=== PATIENT | male | born 1935 | race Caucasian/White ===

== ENCOUNTER 2016-12-12 09:49 | Emergency (ER) | payer MEDICARE, MEDICAID ==
[~2016-12-12] VITALS: Wt 80.0 kg
[2016-12-12] MEDS ORDERED: ACET-141 GTB (10:04)
[2016-12-12] MEDS ORDERED: [UNRECOGNIZED DRUG - OTHER] IV (10:06)
[2016-12-12] MEDS ORDERED: DEXT1DRO7 BOTH EYES (10:08)
[2016-12-12] MEDS ORDERED: ASC500 GTB (10:08)
[2016-12-12] MEDS ORDERED: LORA1TAB GTB (10:09)
[2016-12-12] MEDS ORDERED: BEN50 GTB (10:13)
[2016-12-12] MEDS ORDERED: DILT30TA30 GTB (10:13)
[2016-12-12] MEDS ORDERED: IPRA3AMP INHALATION (10:15)
[2016-12-12] MEDS ORDERED: FAMO40TA52 GTB (10:16)
[2016-12-12] MEDS ORDERED: FOLI-49 GTB (10:17)
[2016-12-12] MEDS ORDERED: LACTINEX GTB (10:17)
[2016-12-12] MEDS ORDERED: LACT10SO5 GTB (10:19)
[2016-12-12] MEDS ORDERED: METO-448 GTB (10:20)
[2016-12-12] MEDS ORDERED: MULT-105 GTB (10:21)
[2016-12-12] MEDS ORDERED: HYDR-906 GTB (10:23)
[2016-12-12] MEDS ORDERED: LANS30CA GTB (10:24)
[2016-12-12] MEDS ORDERED: RIFA550T4 GTB (10:24)
--- NOTE | 2016-12-12 10:25 | ERA ---
ER Documentation Chief Complaint Date/Time DATE: 12/12/16 TIME: 10:20 Chief Complaint SENT HERE G TUBE REPLACMENT NO OTHER SIGNS OF DISTRESS. 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 The patient reportedly accidentally rotated this morning and pulled out his rectal tube and had pulled on his G-tube. While it appeared to flush well at the facility and it did not appear pulled out any more than typical for him, they transferred him to the hospital for evaluation of the PEG tube. ROS All systems reviewed and are negative except as per history of present illness. Medications Home Meds Reported Medications Insulin Aspart* (Novolog Insulin Pen*) 100 Unit/Ml Soln, 0 SC .SLIDING SCALE AC , EA IF BS 60-149=0 UNIT, 150-199=2 UNITS,200-249=4 UNITS,250-299=6 UNITS,300-349=8 UNITS,350-399=10 UNITS IF BS>399,CALL MD. 12/12/16 Arghjtubnelh-Nqmc-Bacqdqmi,Iso (ZOSYN 2.25 GM GALAXY BAG) 2.25 Gm/50 Ml Froz.piggy, 2.25 GM IV Q6H for PNA USE UNTIL 01/05/17 12/12/16 Tuberculin,Purif.prot.deriv. (Tubersol) 5 Tub Unit/0.1 Ml Vial, 0.1 ML ID QHS, VIAL FOR TB SCREENING FOR 1 DAY 2ND STEP PPD. START DATE 12/18/16 12/12/16 Sucralfate* (Carafate*) 1 Gm/10 Ml Susp, 1 GM GTB QID, EA 12/12/16 Rifaximin* (Xifaxan*) 550 Mg Tablet, 550 MG GTB BID, TAB 12/12/16 Lansoprazole* (Lansoprazole*) 30 Mg Capsule., 30 MG GTB DAILY, CAP 12/12/16 Hydrocodone/Acetaminophen ([place] 5-325 Tablet) 1 Each Tablet, 1 EACH GTB Q6H Y for PAIN LEVEL 4-10/10, TAB 12/12/16 Multivitamin with Minerals (Multivitamins with Minerals) 1 Each Tablet, 1 EACH GTB DAILY, TAB 12/12/16 Metoprolol Tartrate* (Lopressor*) 25 Mg Tab, 12.5 MG GTB Q8H, #60 TAB HOLD FOR SBP<110 OR HR<60 12/12/16 Lactulose* (Lactulose*) 10 Gm/15 Ml Solution, 45 ML GTB DAILY, ML 12/12/16 Lactobacillus Acidophilus* (Lactinex*) 1 Tab Chew, 1 TAB GTB TID, TAB 12/12/16 Folic Acid* (Folic Acid*) 1 Mg Tablet, 1 MG GTB DAILY, TAB 12/12/16 Famotidine* (Famotidine*) 40 Mg Tablet, 40 MG GTB HS, #30 TAB 12/12/16 Ipratropium-Albuterol (Ipratropium-Albuterol) 0.5-3 Mg/3 Ml Ampul.neb, 3 ML INHALATION Q6 for SHORTNESS OF BREATH, #30 VIAL AND TAKE Q2H NEEDED 12/12/16 Diphenhydramine Hcl* (Benadryl*) 50 Mg Cap, 50 MG GTB Q6 Y for ITCHING, CAP 12/12/16 Diltiazem Hcl* (Cardizem*) 30 Mg Tablet, 30 MG GTB Q6H, #60 TAB HOLD IF SBP<110 OR HR<60 12/12/16 Lorazepam* (Lorazepam*) 1 Mg Tablet, 1 MG GTB Q6 Y for ANXIETY, #60 TAB 12/12/16 Ascorbic Acid (Vitamin C) 500 Mg Tab, 500 MG GTB DAILY, TAB 12/12/16 Dextran 70/Hypromellose/Pf (ARTIFICIAL TEARS DROPS) 1 Each Droperette, 1 EACH BOTH EYES BID 12/12/16 Amikacin Sulfate* (Amikacin* Pediatric IV Syringe) 5 Mg/Ml Soln, 600 MG IV Q72H for PNA, EA USE UNTIL 01/05/17 12/12/16 Acetaminophen* (Acetaminophen*) 500 MG Extra Strength Tablet, 500 MG GTB Q4H Y for PAIN LEVEL 1-3/10, TAB 12/12/16 Allergies Allergies: Coded Allergies: No Known Allergy (Unverified , 12/12/16) PMhx/Soc Hx Neurological Disorder: Yes (Chronic ALOC ) Hx Respiratory Disorders: Yes (Vent dependant ) Smoking Status: Unknown if ever smoked Physical Exam Vitals Vital Signs Date Time Temp Pulse Resp B/P Pulse Ox O2 Delivery O2 Flow Rate FiO2 12/12/16 11:59 98.0 84 20 134/75 98 Room Air 12/12/16 09:58 99.3 93 20 150/86 99 Physical Exam Const: No apparent distress Head: Atraumatic Eyes: Normal Conjunctiva. Extraocular movements intact to right eye. Enucleation of the left eye ENT: Normal External Ears, Nose and Mouth. Neck: Full range of motion. ~ No meningismus. Tracheostomy in place without bleeding or erythema or induration or purulence or edema. Resp: Clear to auscultation bilaterally Cardio: Regular rate and rhythm, no murmurs Abd: Soft, non tender, non distended. Normal bowel sounds. PEG tube appears to be in place Skin: No petechiae or rashes Back: No midline or flank tenderness. Rectal tube is not present Ext: No cyanosis, or edema Neur: Awake and alert. Patient is nonverbal, but he responds appropriately to questions with nods. Normal sensation in all extremities. Patient is paraplegic. Psych: Normal Mood and Affect Results 24 hrs Current Medications Medications (Trade) Dose Ordered Sig/Derrick Route PRN Reason Start Time Stop Time Status Last Admin Dose Admin Diatrizoate Meglum/ Diatrizoate Sod (Gastrografin 66-10 Solution) 120 ml STK-MED ONCE .ROUTE 12/12/16 10:39 12/12/16 10:40 DC Procedures/MDM MDM Patient's presentation warrants further investigation. The patient's presenting for evaluation of his PEG tube the nursing staff was concerned to been pulled out. A Gastrografin study will be performed. The patient's vital signs are stable, and the patient appears to be at his baseline. The patient is here simply for concerns of his PEG tube IMAGING Gastrografin study FINDINGS: Oral contrast has been injected via the patient's gastrostomy tube. Oral contrast opacifies the stomach. There is stool and bowel gas scattered throughout small and large bowel. There is no evidence of small bowel obstruction. There are no abnormal calcifications overlying the urinary tracts. The osseus structures are unremarkable. Fluoroscopy time: 0 minutes Number of images/sequences: 1.0 IMPRESSION: Gastrostomy tube in satisfactory position. Electronically viewed and signed by Ren Edgar Physician on 12/12/2016 11: 24 TREATMENT/DISPOSITION The PEG tube is in adequate position. The patient is stable for discharge. He may have his rectal tube replaced at his facility. The patient be given precautions with which to return to the emergency department. Departure Diagnosis: Primary Impression: Encounter for PEG (percutaneous endoscopic gastrostomy) Condition: Stable GILLIAN PHAM MD Dec 12, 2016 10:25
[2016-12-12] MEDS ORDERED: CARAS GTB (10:26)
[2016-12-12] MEDS ORDERED: TUBE5VIA3 ID (10:28)
[2016-12-12] MEDS ORDERED: PIPE2.254 IV (10:31)
[2016-12-12] MEDS ORDERED: NOVO3I SC (10:35)
[2016-12-12] MEDS ORDERED: DIATR MEGLU/DIATRIZOATE SODIUM 120 ML BTL ONE (10:39)
--- NOTE | 2016-12-12 11:25 | RADRPT ---
PROCEDURE: XR Abdomen. CLINICAL INDICATION: G TUBE PLACEMENT TECHNIQUE: AP abdomen x-ray. COMPARISON: None. FINDINGS: Oral contrast has been injected via the patient's gastrostomy tube. Oral contrast opacifies the stom ach. There is stool and bowel gas scattered throughout small and large bowel. There is no evidence of sma ll bowel obstruction. There are no abnormal calcifications overlying the urinary tracts. The osseus structures are unremarkable. Fluoroscopy time: 0 minutes Number of images/sequences: 1.0 IMPRESSION: Gastrostomy tube in satisfactory position. RPTAT:AAJJ Physician Sweta Date Time Electronically viewed and signed by Physician Sweta on 12/12/2016 11:24 /
[2016-12-12 11:59] VITALS: BP 134/75; PULSE 84; RESP 20; TEMP 98
== END 2016-12-12 11:58 | disposition home or self-care (01) ==
LOC: E/R 09:49
DX: Z43.1 Encounter for attention to gastrostomy (principal)
CPT/HCPCS: 74000

== ENCOUNTER 2016-12-15 09:09 | Inpatient (IN) | payer MEDICARE, MEDICAID ==
[~2016-12-15] VITALS: Ht 165.1 cm; Wt 65.9 kg
[~2016-12-15 09:09] MED LIST: ACET-141 GTB; ASC500 GTB; BEN50 GTB; CARAS GTB; DEXT1DRO7 BOTH EYES; DILT30TA30 GTB; FAMO40TA52 GTB; FLUMAZENIL 0.5 MG INJ ONE; FOLI-49 GTB; HYDR-906 GTB; IPRA3AMP INHALATION; LACT10SO5 GTB; LACTINEX GTB; LANS30CA GTB; LORA1TAB GTB; METO-448 GTB; MIDAZOLAM 1 MG/ML 2 ML INJ ONE; MULT-105 GTB; NOVO3I SC; PIPE2.254 IV; RIFA550T4 GTB; TUBE5VIA3 ID; [UNRECOGNIZED DRUG - OTHER] IV
--- NOTE | 2016-12-15 09:25 | ERA ---
ER Documentation Chief Complaint Date/Time DATE: 12/15/16 TIME: 09:25 Chief Complaint HPI 81-year-old man brought in by EMS from skilled nursing for melena. He has had no bright red blood per rectum, melena 2 days, fever today. He does have a history of septic shock and recent urinary tract infection. He has had no vomiting, no diarrhea, no changes in mental status. Patient is bedbound and requires mechanical ventilator to breathe. He was transported here by EMS without further complications. ROS All systems reviewed and are negative except as per history of present illness. Medications Home Meds Reported Medications Trazodone Hcl* (Trazodone Hcl*) 50 Mg Tablet, 25 MG GTB QHS, #30 TAB 12/15/16 Quetiapine Fumarate* (Seroquel*) 25 Mg Tablet, 25 MG GTB HS, #30 TAB 12/15/16 Protein Supplement (Promod) 946 Ml Liquid, 30 ML GTB DAILY 12/15/16 Epoetin Kali (Procrit) 10,000 Unit/1 Ml Vial, 77507 UNIT IJ TUESDAY, VIAL 12/15/16 Lansoprazole* (Prevacid*) 30 Mg Capsule.dr, 30 MG GTB DAILY, CAP 12/15/16 Potassium Chloride* (Potassium Chloride*) 20 Meq/15 Ml Liquid, 20 MEQ GTB DAILY , ML 12/15/16 Insulin Aspart* (Novolog Insulin Pen*) 100 Unit/Ml Soln, 0 SC .SLIDING SCALE AC , EA IF BS 60-149=0 UNIT, 150-199=2 UNITS,200-249=4 UNITS,250-299=6 UNITS,300-349=8 UNITS,350-399=10 UNITS IF BS>399,CALL MD. 12/12/16 Ywjvtcgxyjpb-Trzw-Nguvlysw,Iso (ZOSYN 2.25 GM GALAXY BAG) 2.25 Gm/50 Ml Froz.piggy, 2.25 GM IV Q6H for PNA USE UNTIL 01/05/17 12/12/16 Tuberculin,Purif.prot.deriv. (Tubersol) 5 Tub Unit/0.1 Ml Vial, 0.1 ML ID QHS, VIAL FOR TB SCREENING FOR 1 DAY 2ND STEP PPD. START DATE 12/18/16 12/12/16 Sucralfate* (Carafate*) 1 Gm/10 Ml Susp, 1 GM GTB QID, EA 12/12/16 Rifaximin* (Xifaxan*) 550 Mg Tablet, 550 MG GTB BID, TAB 12/12/16 Lansoprazole* (Lansoprazole*) 30 Mg Capsule.dr, 30 MG GTB DAILY, CAP 12/12/16 Hydrocodone/Acetaminophen ([place] 5-325 Tablet) 1 Each Tablet, 1 EACH GTB Q6H Y for PAIN LEVEL 4-12/21, TAB 12/12/16 Multivitamin with Minerals (Multivitamins with Minerals) 1 Each Tablet, 1 EACH GTB DAILY, TAB 12/12/16 Metoprolol Tartrate* (Lopressor*) 25 Mg Tab, 12.5 MG GTB Q8H, #60 TAB HOLD FOR SBP<110 OR HR<60 12/12/16 Lactulose* (Lactulose*) 10 Gm/15 Ml Solution, 45 ML GTB DAILY, ML 12/12/16 Lactobacillus Acidophilus* (Lactinex*) 1 Tab Chew, 1 TAB GTB TID, TAB 12/12/16 Folic Acid* (Folic Acid*) 1 Mg Tablet, 1 MG GTB DAILY, TAB 12/12/16 Famotidine* (Famotidine*) 40 Mg Tablet, 40 MG GTB HS, #30 TAB 12/12/16 Ipratropium-Albuterol (Ipratropium-Albuterol) 0.5-3 Mg/3 Ml Ampul.neb, 3 ML INHALATION Q6 for SHORTNESS OF BREATH, #30 VIAL AND TAKE Q2H NEEDED 12/12/16 Diphenhydramine Hcl* (Benadryl*) 50 Mg Cap, 50 MG GTB Q6 Y for ITCHING, CAP 12/12/16 Diltiazem Hcl* (Cardizem*) 30 Mg Tablet, 30 MG GTB Q6H, #60 TAB HOLD IF SBP<110 OR HR<60 12/12/16 Lorazepam* (Lorazepam*) 1 Mg Tablet, 1 MG GTB Q6 Y for ANXIETY, #60 TAB 12/12/16 Dextran 70/Hypromellose/Pf (ARTIFICIAL TEARS DROPS) 1 Each Droperette, 1 EACH BOTH EYES BID 12/12/16 Amikacin Sulfate* (Amikacin* Pediatric IV Syringe) 5 Mg/Ml Soln, 600 MG IV Q72H for PNA, EA USE UNTIL 01/05/17 12/12/16 Acetaminophen* (Acetaminophen*) 500 MG Extra Strength Tablet, 500 MG GTB Q4H Y for PAIN LEVEL 1-05/21, TAB 12/12/16 Discontinued Reported Medications Potassium Chloride* (Klor-Con*) 20 Meq Tabsr, 40 MEQ PO DAILY, TAB.SA 12/15/16 Ascorbic Acid (Vitamin C) 500 Mg Tab, 500 MG GTB DAILY, TAB 12/12/16 Allergies Allergies: Coded Allergies: No Known Allergy (Unverified , 12/15/16) PMhx/Soc Chronic encephalopathy, cardiac arrest 3, hepatic encephalopathy, recent septic shock secondary to urinary tract infection treated as an inpatient, recent kidney disease recently treated with hemodialysis, CVA with paraplegia, bedbound state, chronic sacral decubitus ulcers, chronic hypoxic respiratory failure requiring tracheostomy, dysphagia requiring PEG placement, congestive heart failure Hx Neurological Disorder: Yes (Chronic ALOC ) Hx Respiratory Disorders: Yes (Vent dependant ) FmHx Family History: No diabetes Physical Exam Vitals Vital Signs Date Time Temp Pulse Resp B/P Pulse Ox O2 Delivery O2 Flow Rate FiO2 12/15/16 09:30 108 24 95 50 12/15/16 09:24 101.3 104 20 96/59 100 Physical Exam GENERAL: Elderly, chronically debilitated, dehydrated, febrile man HEENT: Dry mucous membranes, tracheostomy site appears clean, no cervical deformity, no tracheal deviation NEURO: Eyes closed, pupils equal round reactive, no facial asymmetry, able to move his right upper extremity, generalized muscle wasting, response to verbal stimuli CARDIAC: Tachycardic and regular, no murmurs or gallop LUNGS: Bibasilar crackles, no wheezing or stridor ABDOMEN: Soft nontender, no guarding, no rigidity, no rebound, no psoas sign no obturator sign. SKIN: Warm and dry to touch, no abrasions, contusions, or hematomas, no lacerations, no ecchymosis, no target lesions, and without ulcers EXTREMITIES: Upper and lower extremity edema, calves are bilaterally symmetrical , no Homans sign, no popliteal cord sign. Distal pulses equal and bilateral PSYCH: Unable to determine Result Diagram: 12/15/16 1005 12/15/16 1007 Results 24 hrs Laboratory Tests Test 12/15/16 10:05 10/4/17 10:07 White Blood Count 9.010^3/ul Red Blood Count 2.8310^6/ul Hemoglobin 8.8g/dl Hematocrit 27.1% Mean Corpuscular Volume 95.8fl Mean Corpuscular Hemoglobin 31.1pg Mean Corpuscular Hemoglobin Concent 32.5g/dl Red Cell Distribution Width 21.1% Platelet Count 91355^3/UL Mean Platelet Volume 11.1fl Neutrophils % 49.7% Lymphocytes % 21.5% Monocytes % 8.2% Eosinophils % 19.7% Basophils % 0.6% Nucleated Red Blood Cells % 0.0/100WBC Neutrophils # 4.510^3/ul Lymphocytes # 1.910^3/ul Monocytes # 0.710^3/ul Eosinophils # 1.810^3/ul Basophils # 0.110^3/ul Nucleated Red Blood Cells # 0.010^3/ul Urine Color YELLOW Urine Clarity SLIGHTLY CLOUDY Urine pH 5.0 Urine Specific [place] 1.014 Urine Ketones NEGATIVEmg/dL Urine Nitrite NEGATIVEmg/dL Urine Bilirubin NEGATIVEmg/dL Urine Urobilinogen NEGATIVEmg/dL Urine Leukocyte Esterase 3+Jaskaran/ul Urine Microscopic RBC 8/HPF Urine Microscopic WBC 57/HPF Urine Hemoglobin 1+mg/dL Urine Glucose NEGATIVEmg/dL Urine Total Protein 1+mg/dl Prothrombin Time 14.2Sec Prothrombin Time Ratio 1.1 INR International Normalized Ratio 1.10 Activated Partial Thromboplast Time 33.8Sec Sodium Level 146mmol/L Potassium Level 3.3mmol/L Chloride Level 110mmol/L Carbon Dioxide Level 24mmol/L Anion Gap 15 Blood Urea Nitrogen 63mg/dl Creatinine 2.01mg/dl Glucose Level 99mg/dl Lactic Acid Level 2.0mmol/L Calcium Level 9.7mg/dl Total Bilirubin 0.1mg/dl Direct Bilirubin 0.00mg/dl Indirect Bilirubin 0.1mg/dl Aspartate Amino Transf (AST/SGOT) 27IU/L Alanine Aminotransferase (ALT/SGPT) 24IU/L Alkaline Phosphatase 107IU/L Troponin I 0.028ng/ml Total Protein 8.6g/dl Albumin 3.6g/dl Globulin 5.00g/dl Albumin/Globulin Ratio 0.72 Lipase 97U/L Current Medications Medications (Trade) Dose Ordered Sig/Derrick Route PRN Reason Start Time Stop Time Status Last Admin Dose Admin Acetaminophen (Tylenol Supp) 650 mg ONCE ONCE OH 12/15/16 09:30 12/15/16 09:31 DC 12/15/16 09:30 Sodium Chloride 2500 ml 2,500 ml BOLUS OVER 2 HOURS STAT IV* 12/15/16 09:27 12/15/16 09:30 DC 12/15/16 10:44 Cefepime HCl 50 ml @ 100 mls/hr ONCE STAT IVPB 12/15/16 09:27 12/15/16 09:56 DC 12/15/16 10:44 Vancomycin HCl (Vancocin) 250 ml @ 125 mls/hr ONCE ONCE IVPB 12/15/16 09:30 12/15/16 11:29 12/15/16 09:30 Procedures/MDM IV line was established patient was placed on surveillance monitor rhythm strip revealed a sinus tachycardia about 110 bpm. Patient was febrile. Blood and urine cultures have been ordered results are pending I will follow-up, Car catheter was replaced. I administered acetaminophen 650 mg per rectum for fever, and about 3 L of normal saline intravenously for dehydration and suspected sepsis. Patient received cefepime 1 g IV and Pipracil and tazobactam 3.375 g IV. EKG performed, read by me revealed a sinus tachycardia 108 bpm, left axis deviation and a right ocular conduction delay QRS duration 116 ms, no concerning ST elevations or depressions noted. One view chest x-ray performed, read by me reveals atelectatic changes bilaterally, tracheostomy in place, no acute infiltrates, no pneumothorax. CBC reveals anemia with a hemoglobin of 8.8, electrolytes abnormal with a BUN/ creatinine of 63/2, lactic acid elevated at 2, liver function tests normal, troponin negative, urine analysis positive for infection. Patient's infectious symptoms have not stabilized and the patient is at risk of rapid decompensation. The patient will be admitted for careful hydration, antibiotic therapy, and infectious source control. Severe Sepsis Assessment: Infectious Source: UTI End organ damage indicated by: Severe Sepsis Managment: Blood Cultures X 2 before broad spectrum antibiotics initiated within 3 hours of recognition. 30 ml/kg NS bolus Completed Initial Lactate: 2 Repeat Lactate pending Critical Care: Time: 50 minutes, this was time separate from other billable procedures Treatments/Evaluations: Emergent fluid management, while maintaining close respiratory support. Immediate broad spectrum antibiotic therapy. Simultaneous assessment for possible sources in order to direct therapy. Consideration for invasive and chemical support to prevent respiratory or cardiac collapse. Septic Shock Assessment (1 hour post 30 ml/kg fluid bolus): Hypotension (SBP < 90 or 40 mmHg drop, MAP < 65): [No] Lactic acid > 4.0 [No] Perfusion Reassessment for Septic Shock: Temp 99.9, pulse 100 bpm, respiratory rate 18 breaths per minute, blood pressure 140/80 Heart Exam: Regular rate rhythm Lung Exam: [No Crackles] Capillary Refill: Less than 2 seconds Peripheral Pulses: [Radially present] Skin: Pale and dry Hypotensive Treatment (not required for isolated lactic acid elevation): Comfort Care: No Central LIne: Not indicated Vasopressor started: Not indicated I considered further perfusion assessment with CVP measurement, SCVO2, bedside ultrasound volume assessment, passive leg raise, trial of further fluid bolus. And preceded with IV hydration and broad-spectrum IV antibiotics Accepting Care Team: Current data and ongoing care discussed. Time: Time of admission Primary Provider: Dr. Roa Consulting: Infectious disease and GI Outstanding Data: none Departure Diagnosis: Primary Impression: Sepsis Qualified Code: A41.9 - Sepsis, due to unspecified organism Additional Impressions: UTI (urinary tract infection) Qualified Code: N30.00 - Acute cystitis without hematuria Dehydration Acute kidney injury Tracheostomy dependence Anemia Qualified Code: D64.9 - Anemia, unspecified type Melena Condition: Serious VICKI MURILLO MD Dec 15, 2016 09:25
[2016-12-15] MEDS ORDERED: CEFEPIME 2GM/50 ML (PMX) 50 ML IVPB STA (09:27)
[2016-12-15] MEDS ORDERED: SODIUM CHLORIDE 0.9% 1L BAG IV* STA (09:27)
[2016-12-15] MEDS ORDERED: ACETAMINOPHEN 650 MG SUPP PR ONE (09:30)
[2016-12-15] MEDS ORDERED: VANCOMYCIN 1 GM (PMX) 250 ML IVPB ONE (09:30)
[2016-12-15 10:20] LABS: BASOPHIL # 0.1 10^3/ul (0.0-0.1); BASOPHILS % 0.6 % (0.0-2.0); EOSINOPHILS # 1.8 10^3/ul (0.0-0.5); EOSINOPHILS % 19.7 % (0.0-7.0); HEMATOCRIT 27.1 % (42.0-52.0); HEMOGLOBIN 8.8 g/dl (14.0-18.0); LYMPHOCYTES # 1.9 10^3/ul (0.8-2.9); LYMPHOCYTES % 21.5 % (15.0-51.0); MEAN CORPUSCULAR HEMOGLOBIN 31.1 pg (29.0-33.0); MEAN CORPUSCULAR HGB CONC 32.5 g/dl (32.0-37.0); MEAN CORPUSCULAR VOLUME 95.8 fl (82.0-101.0); MEAN PLATELET VOLUME 11.1 fl (7.4-10.4); MONOCYTE # 0.7 10^3/ul (0.3-0.9); MONOCYTES % 8.2 % (0.0-11.0); NEUTROPHIL # 4.5 10^3/ul (1.6-7.5); NEUTROPHILS % 49.7 % (39.0-77.0); PLATELET COUNT 201 10^3/UL (140-415); RED BLOOD COUNT 2.83 10^6/ul (4.70-6.10); RED CELL DISTRIBUTION WIDTH 21.1 % (11.5-14.5)
[2016-12-15 10:33] LABS: ADD UMIC YES; UR ASCORBIC ACID NEGATIVE (NEGATIVE); UR BILIRUBIN (Dip) NEGATIVE (NEGATIVE); UR BLOOD (Dip) 1+ mg/dL (NEGATIVE); UR CLARITY SLIGHTLY CLOUDY (CLEAR); UR COLOR YELLOW (YELLOW); UR GLUCOSE (Dip) NEGATIVE (NEGATIVE); UR KETONES (Dip) NEGATIVE (NEGATIVE); UR LEUKOCYTE ESTERASE (Dip) 3+ Leu/ul (NEGATIVE); UR NITRITE (Dip) NEGATIVE (NEGATIVE); UR RBC 8 /HPF (0-5); UR SPECIFIC GRAVITY (Dip) 1.014 (1.003-1.030); UR TOTAL PROTEIN (Dip) 1+ mg/dl (NEGATIVE); UR UROBILINOGEN (Dip) NEGATIVE (NEGATIVE)
[2016-12-15 10:34] LABS: INR 1.1; PROTIME 14.2 Sec (12.2-14.2); PT RATIO 1.1
[2016-12-15 10:35] LABS: PARTIAL THROMBOPLASTIN TIME 33.8 Sec (25.0-35.0)
[2016-12-15] MEDS ORDERED: POTA20TA96 GTB (10:37)
[2016-12-15 10:38] LABS: ALBUMIN 3.6 g/dl (3.3-4.9); ALBUMIN/GLOBULIN RATIO 0.72; BILIRUBIN,INDIRECT 0.1 mg/dl (0-1.1); BILIRUBIN,TOTAL 0.1 mg/dl (0.2-1.3); CALCIUM 9.7 mg/dl (8.4-10.2); CREATININE 2.01 mg/dl (0.61-1.24); POTASSIUM 3.3 mmol/L (3.5-5.1); TOTAL PROTEIN 8.6 g/dl (6.1-8.1)
[2016-12-15] MEDS ORDERED: POTA-57 PO (10:38)
[2016-12-15] MEDS ORDERED: POTA20LI5 GTB (10:38)
[2016-12-15] MEDS ORDERED: LANS30CA47 GTB (10:39)
[2016-12-15] MEDS ORDERED: EPOE10002 IJ (10:40)
[2016-12-15] MEDS ORDERED: PROT946L GTB (10:41)
[2016-12-15] MEDS ORDERED: QUET25TA26 GTB (10:41)
[2016-12-15] MEDS ORDERED: TRAZ50TA18 GTB (10:43)
[2016-12-15 10:49] LABS: TROPONIN-I 0.028 ng/ml (0.00-0.12)
--- NOTE | 2016-12-15 11:46 | RADRPT ---
PROCEDURE: Chest x-ray CLINICAL INDICATION: Shortness of breath TECHNIQUE: Chest single view COMPARISON: None FINDINGS: Tracheostomy tube is in good position. There is mild cardiomegaly and an sclerotic aortic calcificat ion. The bony vessels normal in caliber. There is increase interstitial bilateral perihilar and lowe r lobe markings. This may represent chronic change versus interstitial pneumonia. Superimposed on th is is a discrete 9 mm right upper lung nodule. This should be further evaluated with chest CT to exc lude malignancy. Costophrenic angles are sharp. Bones are osteopenic. IMPRESSION: 1. Tracheostomy tube in good position. 2. Increased bilateral interstitial and lower lobe markings. This may represent chronic change vers us interstitial pneumonia. 3. 9 mm right upper lung nodule. Recommend chest CT for further evaluation. 4. Right upper lung scarring with slight retraction of the estelita RPTAT: HH .Conner Salas MD, MD Date Time Electronically viewed and signed by .Conner Salas MD, on 12/15/2016 11:46 .W/
[2016-12-15] MEDS ORDERED: NACL 0.9% 3 ML SYG IV SCH (18:00)
[2016-12-15] MEDS ORDERED: ACETAMINOPHEN 650 MG SUPP PR PRN (18:00)
[2016-12-15] MEDS ORDERED: ONDANSETRON 4 MG INJ IV PRN (18:00)
[2016-12-15 21:44] VITALS: TEMP 98
[2016-12-15 22:15] VITALS: PULSE 95
[2016-12-15 23:15] VITALS: RESP 16
[2016-12-15 23:38] VITALS: Ht 165.1 cm; Wt 65.9 kg
[2016-12-16] VITALS (23 sets, daily range): BP systolic 87–110; BP diastolic 44–60; PULSE 84–98; RESP 12–20
[2016-12-16] MEDS: LORAZEPAM 2 MG INJ IV PRN ×2 (01:23→10:11)
[2016-12-16] MEDS: D5W-0.45 NACL + KCL 20 MEQ 1,000 ML IV SCH ×4 (01:27→23:33)
--- NOTE | 2016-12-16 04:41 | HP ---
DATE OF ADMISSION: 12/15/2016 CHIEF COMPLAINT: Melena. HISTORY OF PRESENT ILLNESS: The patient is an 81-year-old gentleman with history of chronic encepha lopathy, ventilator-dependent respiratory failure, history of cardiac arrest x3, hepatic encephalopa thy, kidney disease treated with hemodialysis, history of stroke with paraplegia, bedbound status an d chronic sacral ulcer decubitus, chronic hypoxic respiratory failure, ventilator dependent with tra cheostomy, dysphagia with PEG placement and congestive heart failure. Patient was noted to have yue ami at alf facility; however, no bright red blood per rectum. Patient also had fever an d was sent for further evaluation, to Emergency Room. In the emergency room, patient noted to have fever of 101.3. Urinalysis was positive for urinary tract infection. The patient underwent chest x-ray. Chest x-ray revealed increased bilateral interstitial and lower lobe markings which may represent chronic changes versus interstitial pneumonia, also noted 9 mm rig ht upper lung nodule. Patient's BUN was 63, creatinine was 2.01. Patient's hemoglobin was found to be 8.8. After urine and blood cultures collected, the patient was started on broad spectrum antibi otics and IV fluids for hydration. The patient was also given Tylenol for fever. The patient will be admitted for further evaluation and management. PAST MEDICAL HISTORY: Per HPI. PAST SURGICAL HISTORY: Status post tracheostomy, status post G-tube placement. FAMILY HISTORY: Noncontributory. SOCIAL HISTORY: Patient is a resident of [facility]. No current tobacco use, alcohol use or illicit drug use reported. ALLERGIES: NO KNOWN ALLERGIES. MEDICATIONS ON ADMISSION: 1. Trazodone. 2. Seroquel. 3. ProMod. 4. Epogen. 5. Prevacid. 6. Potassium chloride. 7. Insulin aspartate. 8. Carafate. 9. Rifaximin. 10. . 11. Multivitamins. 12. [place]. 13. Lopressor. 14. Lactulose. 15. Folic acid. 16. Pepcid. 17. Ipratropium albuterol. 18. Benadryl. 19. Cardizem. 20. Lorazepam. 21. Amikacin. 22. Zosyn. REVIEW OF SYSTEMS: A 12-point review of systems is negative unless what mentioned in HPI. There is no reported vomiting or nausea in addition to what is mentioned in HPI. PHYSICAL ASSESSMENT: GENERAL: Well-developed, well-nourished gentleman, currently is awake, alert to name, otherwise con fused. VITAL SIGNS: Temperature is 99.2, pulse is 97, blood pressure 134/56, respiratory rate 19, oxygen s aturation 100% on 50% FIO2. HEENT: Head is atraumatic, normocephalic. Pupils equal, round, reactive to light and accommodation . Oral mucosa is pink and moist. NECK: Supple. No cervical lymphadenopathy. The tracheostomy at the base of the neck with no bleed ing. Oral mucosa is pink and moist. CHEST: The patient has crackles bilaterally. No wheezing noted, slightly diminished at the bases. CARDIOVASCULAR: Normal S1, S2. No murmurs, gallops, clicks, rubs noted. Patient is slightly tachy cardic. ABDOMEN: Protuberant, soft, nondistended, nontender. G-tube with intact stoma. Bowel sounds hypoa ctive. EXTREMITIES: Contracted, pulses equal bilaterally, 2+. NEUROLOGIC: The patient is awake, alert to name. Otherwise, confused. The patient able to move up per extremities. Bilateral lower extremities contracted. LABORATORY DATA: On admission, CBC, white blood cells 9.0, hemoglobin 8.8, hematocrit 27.1, platele ts 201. Chemistry: Sodium is 146, potassium 3.3, chloride 110, carbon dioxide 24, anion gap 15, BU N 63, creatinine 2.01. AST is 27, ALT is 24, alkaline phosphatase 107. Lipase is 97. INR is 1.1, PT 14.28, APTT is 33.8. ASSESSMENT AND PLAN: 1. Melena. Rule out gastrointestinal bleed. We are going to obtain stool for OB. Dr. Hassan is a sked to see patient in gastroenterology consultation. 2. Sepsis, due to most likely urinary tract infection. 3. Urinary tract infection per UA. 4. Acute kidney injury on chronic kidney disease. 5. Ventilator-dependent respiratory failure and Dr. Barajas will be following patient in pulmonology co nsultation. 6. Anemia. PLAN: We are going to obtain urine and blood cultures, as well as a sputum culture. Continue broad spectrum antibiotics. The patient is currently on vancomycin and cefepime, and Dr. Jones will be following patient in infectious disease consultation. Further recommendations based on clinical cou rse. Plan of care discussed. I will continue breathing treatment. Protonix for peptic ulcer disea se prophylaxis, sequential compression devices for deep venous thrombosis prophylaxis. Further jenny mmendations based on clinical course. Plan of care discussed with Dr. Roberts. Dictated By: ERROL LORD TITLE ABSTRACTOR for DESTINEE ROBERTS MD SR/NTS Conf#: [id number] DID#: [id number] CC: DESTINEE ROBERTS MD;*EndCC*
[2016-12-16] MEDS: PANTOPRAZOLE 40 MG INJ IV SCH (05:15)
[2016-12-16] MEDS: morphine 2 MG INJ IV PRN (05:15)
[2016-12-16 09:02] LABS: ABNORMAL IP MESSAGE 1; MEAN CORPUSCULAR HEMOGLOBIN 31.7 pg (29.0-33.0); MEAN CORPUSCULAR HGB CONC 32.9 g/dl (32.0-37.0); MEAN CORPUSCULAR VOLUME 96.3 fl (82.0-101.0); PLATELET COUNT 172 10^3/UL (140-415); POSITIVE DIFF @See below; RED BLOOD COUNT 2.18 10^6/ul (4.70-6.10); RED CELL DISTRIBUTION WIDTH 21.3 % (11.5-14.5)
[2016-12-16 09:06] LABS: HEMOGLOBIN 6.9 g/dl (14.0-18.0)
[2016-12-16 09:11] LABS: AADO2 Arterial 125.5 mmHg (7.0-24.0); Allen Test ACCEPTAB; Arterial Base Excess -3.8 mmol/L (-3.0-3); Arterial COHb 0.3 % (0.0-3.0); Arterial Fraction of Oxyhgb 96.9 % (93.0-99.0); Arterial HCO3 21.1 mmol/L (22.0-26.0); Arterial MetHb 0.4 % (0.0-1.5); Arterial Total Hemglobin 8.6 g/dl (12.0-18.0); Blood Gas PS 20; MODE VENT - SIMV
[2016-12-16 09:34] LABS: ALBUMIN 2.6 g/dl (3.3-4.9); ALBUMIN/GLOBULIN RATIO 0.59; BILIRUBIN,INDIRECT 0.2 mg/dl (0-1.1); BILIRUBIN,TOTAL 0.2 mg/dl (0.2-1.3); CALCIUM 8.9 mg/dl (8.4-10.2); CREATININE 1.92 mg/dl (0.61-1.24); MAGNESIUM 1.7 mg/dl (1.7-2.5); POTASSIUM 3.2 mmol/L (3.5-5.1)
[2016-12-16 10:00] LABS: THYROID STIMULATING HORMONE 0.75 MIU/L (0.465-4.680)
[2016-12-16 10:06] LABS: ANISOCYTOSIS 2+ (0-0); BASOPHILS % (M) 1 % (0-2); EOSINOPHILS % (M) 20 % (0-7); MICROCYTOSIS 2+ (0-0); MONOCYTES % (M) 8 % (0-11); PLATELET ESTIMATE NORMAL; POLYCHROMASIA 3+ (0-0)
--- NOTE | 2016-12-16 11:15 | CONS ---
Date/Time of Note Date/Time of Note DATE: 12/16/16 TIME: 11:15 Consultation Date/Type/Reason Admit Date/Time Dec 15, 2016 at 10:55 Initial Consult Date Type of Consultation: id Exam/Review of Systems Vital Signs Vitals Vital Signs Date Time Temp Pulse Resp B/P Pulse Ox O2 Delivery O2 Flow Rate FiO2 12/16/16 08:19 84 12/16/16 07:40 98.6 16 87/44 100 12/16/16 05:20 40 12/15/16 21:44 Mechanical Ventilator Intake and Output 12/15/16 12/15/16 12/16/16 15:00 23:00 07:00 Intake Total 360 ml Output Total 600 ml Balance -240 ml Results Result Diagram: 12/16/1630 12/16/16 0730 Results 24 hrs Laboratory Tests Test 12/15/16 13:55 12/15/16 17:40 12/16/16 07:30 12/16/16 08:13 Lactic Acid Level 1.2 1.6 White Blood Count 6.0 # Red Blood Count 2.18 #L Hemoglobin 6.9 #*L Hematocrit 21.0 #L Mean Corpuscular Volume 96.3 Mean Corpuscular Hemoglobin 31.7 Mean Corpuscular Hemoglobin Concent 32.9 Red Cell Distribution Width 21.3 H Platelet Count 172 Mean Platelet Volume 12.0 H Neutrophils % Segmented Neutrophils % (Manual) 54 Band Neutrophils % (Manual) 2 Lymphocytes % Lymphocytes % (Manual) 15 Monocytes % Monocytes % (Manual) 8 Eosinophils % Eosinophils % (Manual) 20 H Basophils % Basophils % (Manual) 1 Nucleated Red Blood Cells % 0.0 Neutrophils # Neutrophils # (Manual) 3.2 Band Neutrophils # 0.1 Absolute Lymphocytes (Manual) 0.9 Lymphocytes # Monocytes # Absolute Monocytes (Manual) 0.4 Eosinophils # Basophils # Basophils # (Manual) 0.0 Nucleated Red Blood Cells # Platelet Estimate NORMAL Platelet Morphology Comment @See below Polychromasia 3+ Anisocytosis 2+ Microcytosis 2+ Sodium Level 146 H Potassium Level 3.2 L Chloride Level 116 H Carbon Dioxide Level 22 Anion Gap 11 Blood Urea Nitrogen 58 H Creatinine 1.92 H Glucose Level 71 Hemoglobin A1c 5.1 Calcium Level 8.9 Magnesium Level 1.7 Total Bilirubin 0.2 Direct Bilirubin 0.00 Indirect Bilirubin 0.2 Aspartate Amino Transf (AST/SGOT) 19 Alanine Aminotransferase (ALT/SGPT) 31 Alkaline Phosphatase 73 Total Protein 7.0 # Albumin 2.6 #L Globulin 4.40 H Albumin/Globulin Ratio 0.59 Thyroid Stimulating Hormone (TSH) 0.750 Blood Gas Specimen Source Blood arterial Arterial Blood Date Drawn 12/16/2016 9:02:01 AM Arterial Blood pH (Temp corrected) 7.369 Arterial Blood pCO2 (Temp correct) 37.5 Arterial Blood pO2 (Temp corrected) 116.6 H Arterial Blood HCO3 21.1 L Arterial Blood Base Excess -3.8 L Arterial Blood Oxygen Saturation 97.6 Monty Test ACCEPTAB Arterial Blood Gas Puncture Site Right Radial Arterial Blood Carboxyhemoglobin 0.3 Arterial Blood Methemoglobin 0.4 Blood Gas A-a O2 Differential 125.5 H Oxyhemoglobin Percent 96.9 Total Hemoglobin 8.6 L Blood Gas Temperature 37.0 Blood Gas Respiration Rate 12.0 Blood Gas Actual Respiration Rate 12 Blood Gas Modality VENT - SIMV FiO2 40.0 Blood Gas Tidal Volume 550.0 Blood Gas Low PEEP Setting 5.0 Blood Gas Pressure Support 20 Blood Gas Notified Whom JLD Blood Gas Notified Time 12/16/2016 9:11:51 AM Medications Medications Current Medications Potassium Chloride/Dextrose/ Sod Cl (D5-1/2ns + KCl 20 Meq) 1,000 ml @ 80 mls/ hr [id number] IV Last administered on 12/16/16 01:27; Admin Dose 80 MLS/HR; Start 12/15/16 at 17:37 Lorazepam (Ativan) 0.5 mg Q6H PRN IV ANXIETY Last administered on 12/16/16 10: 11; Admin Dose 0.5 MG; Start 12/15/16 at 18:00 Ondansetron HCl (Zofran Inj) 4 mg Q6H PRN IV NAUSEA AND/OR VOMITING; Start 12/15/16 at 18:00 Acetaminophen (Tylenol Supp) 650 mg Q6H PRN [place] PAIN LEVEL 1-3 OR FEVER; Start 12/15/16 at 18:00 Morphine Sulfate (morphine) 2 mg Q4H PRN IV PAIN LEVEL 7-10 Last administered on 12/16/16 05:15; Admin Dose 2 MG; Start 12/15/16 at 18:00 Pantoprazole (Protonix Iv) 40 mg DAILY@06 IV Last administered on 10/5/17at 05: 15; Admin Dose 40 MG; Start 12/16/16 at 06:00 Influenza Virus Vaccine (Fluzone) 0.5 ml ONCE ONCE IM* ; Start 12/17/16 at 09:00 ; Stop 12/17/16 at 09:01 NASH DOTY NP Dec 16, 2016 11:15
[2016-12-16 12:11] LABS: HEMATOCRIT 24.6 % (42.0-52.0); HEMOGLOBIN 7.9 g/dl (14.0-18.0)
[2016-12-16] MEDS ORDERED: IPRATROPIUM (NEB) 0.5 MG/2.5 ML AMP INH SCH (14:00)
[2016-12-16] MEDS: ALBUTEROL 0.083% (NEB) 2.5 MG/3 ML AMP HHN SCH ×2 (14:00→20:00)
--- NOTE | 2016-12-16 16:17 | CONS ---
DATE OF ADMISSION: 12/15/2016 DATE OF CONSULTATION: 12/16/2016 GASTROENTEROLOGY CONSULTATION REFERRING PHYSICIAN: DESTINEE ROBERTS MD. HISTORY OF PRESENT ILLNESS: An 81-year-old gentleman with a history of CVA, vent dependent respirat ory failure, hepatic encephalopathy and kidney disease. He was in the past on hemodialysis, par[place] and chronic sacral ulcer was admitted to the hospital for passing black colored stool. Patient, I remember had a prolonged stay in the ICU at [facility] and I had scoped the patient and put a G-tube. As per my memory, the patient had a duodenal ulcer. The patient also had a temperatu re of 101 when brought to the emergency room. As per the staff, they did not notice any black-color ed stool on the floor. In the ER, his hematocrit was low. BUN was 63, creatinine was 2. GI consul t was called in for GI bleeding. PAST MEDICAL HISTORY: As described. PAST SURGICAL HISTORY: Status post trach and G-tube. FAMILY HISTORY: Nothing contributory. SOCIAL HISTORY: Resident of care home. No illicit drug abuse. No alcohol, no smoking. ALLERGIES: NO KNOWN DRUG ALLERGIES. HOME MEDICATIONS: All reviewed. PHYSICAL EXAMINATION: GENERAL: Patient is sleepy. He had resumed narcotic in the night. The patient is on trach 40% oxyg en. ABDOMEN: Benign. G-tube in place. LUNGS: Clear. EXTREMITIES: No edema. CENTRAL NERVOUS SYSTEM: She is sleepy. IMPRESSION: 1. Melena, rule out peptic ulcer disease, rule out esophageal varicose vein. 2. Sepsis. 3. Urinary tract infection. 4. Kidney injury. 5. Vent dependent respiratory failure. 6. Functional paraplegia. He has been bedridden for the last many years. 7. Anemia. PLAN: Patient will need a blood transfusion. Continue PPI. Will monitor H and H and he is schedul ed for EGD tomorrow. GI lab could not accommodate today. Dictated By: PAT FREEMAN/IRMA Conf#: [id number] DID#: [id number] CC: DESTINEE ROBERTS MD;*EndCC*
[2016-12-16] MEDS: DIPHENHYDRAMINE 50 MG INJ IV PRN (16:29)
--- NOTE | 2016-12-16 16:35 | PN ---
DATE: 12/16/2016 PULMONARY FOLLOWUP SUBJECTIVE: The patient is awake, however, he seems to be somewhat confused and intermittently get s more restless. He is breathing comfortably with the ventilator support. PHYSICAL EXAMINATION: VITAL SIGNS: Stable. Temperature 97.6, blood pressure 107/57, pulse rate of 90, respirations 17, p ulse oximetry 100% saturation. NECK: Tracheal secretions are clear. No bleeding seen. HEART: Regular rhythm. CHEST: Breath sounds are somewhat diminished in the lower lung enamorado with a few intermittent scatt ered rales and rhonchi. ABDOMEN: Soft, not distended. He is kept n.p.o., hence the patient for GI procedure. He has not h ad any recurrence of vomiting or bleeding. EXTREMITIES: Show no edema in the legs and feet. LABORATORY DATA: Show sodium 146, potassium 3.2, BUN 58, creatinine 1.92, albumin is low at 2.6. BU N and creatinine are slightly better. The CBC shows a WBC 6000, hemoglobin 6.9, hematocrit 21, plat elets within normal limits. Hemoglobin and hematocrit is being checked as the level is considerably low. If the counts are felt to be low on repeat testing, he will need a blood transfusion. Culture results are awaited. IMPRESSION: 1. Chronic respiratory failure, ventilator dependent at present. 2. Probable urosepsis. 3. Hypoalbuminemia. 4. Probable gastrointestinal bleed. 5. Chronic anemia. RECOMMENDATIONS: Continue long-term ventilator support. We will change the ventilator mode from _ ___ to controlled mode at present. Later as his condition improves and he is stable, we will try we aning him slowly. I explained this to the patient's at the bedside and I also explained to her the need n.p.o. st atus as patient may have GI procedure which will be done by Dr. Hassan to evaluate question of gastr ointestinal bleed. Dictated By: ROEL BOYLE MD SR/IRMA Conf#: [id number] DID#: [id number]
--- NOTE | 2016-12-16 18:55 | CONS ---
DATE OF ADMISSION: 12/15/2016 DATE OF CONSULTATION: 12/16/2016 TYPE OF CONSULTATION: Infectious Disease. REASON FOR CONSULTATION: Antibiotic management. HISTORY OF PRESENT ILLNESS: Verna Peguero is an 81-year-old male who comes in with melena and is being seen for antibiotic management. His past problems include: 1. History of chronic encephalopathy. 2. Ventilator-dependent respiratory failure. 3. History of cardiac arrest x3. 4. Hepatic encephalopathy. 5. Renal disease treated with hemodialysis. 6. History of stroke with paraplegia. 7. Bed bound status. 8. Chronic sacral decubitus ulcer. 9. Chronic hypoxic respiratory failure, status post tracheostomy. 10. Dysphagia with percutaneous endoscopic gastrostomy placement. 11. Coronary artery disease and congestive heart failure. The patient was noted to have melena at the longterm facility. He also had fevers, was sent for further evaluation to [facility]. In the emergency room was noted to have a temperatur e of 101.3. Urinalysis was positive for urinary tract infection. The patient underwent a chest x-r ay which revealed increased bilateral interstitial and lower lobe markings which may represent chron ic changes versus interstitial pneumonia. Also noted 9 mm right upper lobe nodule. BUN and creatini ne 63/2.01, hemoglobin was 8.8. After urine and blood cultures were done, was started on broad spec trum antibiotics. PAST MEDICAL HISTORY: Operations as outlined. FAMILY HISTORY: Noncontributory. SOCIAL HISTORY: He is a resident of a longterm facility. PAST SURGICAL HISTORY: Status post tracheostomy, status post G-tube placement. ALLERGIES: NONE TO PENICILLIN, SULFA OR FOODS. MEDICATIONS: Per chart. REVIEW OF SYSTEMS: As per HPI. PHYSICAL EXAMINATION: GENERAL: The patient is a well-developed, well-nourished male who is alert, responsive, in no acute distress. VITAL SIGNS: Stable. He is afebrile. SKIN: Without generalized rash. HEENT: Within normal limits. NECK: Tracheostomy in place. LYMPH NODES: None palpable. CHEST: Decreased breath sounds at the bases. HEART: Without murmur or gallop. ABDOMEN: Soft, nontender. G-tube intact without exudate. EXTREMITIES: Without cyanosis, clubbing, or edema. RECTAL AND GENITAL: Deferred. NEUROLOGICAL EVALUATION: No focal neurological abnormalities. ANCILLARY LABORATORY DATA: White count 9.0, hemoglobin and hematocrit 8.8 and 27.1, platelet count 201,000. BUN and creatinine are 63/2.01. Lipase 97. IMPRESSION AND PLAN: The patient comes in now with ventilator dependent respiratory failure and sep sis, most likely secondary to urinary tract infection. Blood cultures and urine cultures were obtai alxe as well as sputum cultures. The patient was started on vancomycin and cefepime. Today, his whit e count 6.0, H and H 6.9 and 21.0, which is quite low and should require a transfusion. BUN and cre atinine 58/1.92. Blood cultures and urine cultures are negative, currently on no particular antibiot ics. He is afebrile. His chest x-ray bilateral interstitial lower lobe markings may represent waistline joiner lockstitch marian changes. Urinalysis, culture is negative so at the present time he is off antibiotic therapy. We will observe him. I will dictate my findings to Dr. Roa. Dictated By: RICHARD ROSEN MD, JD/IRMA Conf#: [id number] DID#: [id number]
[2016-12-16] MEDS: IPRATROPIUM (HFA) 12.9 GM INHALER INH SCH (20:00)
[2016-12-16] MEDS: ALBUTEROL 18 GM INHALER INH SCH (20:00)
[2016-12-16] MEDS: MEROPENEM 1 GM/50ML(PMX) 50 ML IVPB SCH (20:59)
[2016-12-16] MEDS ORDERED: POTASSIUM CHLORIDE 20 MEQ in SOD CHLORIDE 0.9% 100 ML IVPB ONE (21:30)
[2016-12-17] VITALS (27 sets, daily range): BP systolic 112–137; BP diastolic 53–78; PULSE 86–101; RESP 12–21
[2016-12-17] MEDS: IPRATROPIUM (HFA) 12.9 GM INHALER INH SCH ×4 (01:19→19:32)
[2016-12-17] MEDS: ALBUTEROL 18 GM INHALER INH SCH ×2 (01:20→08:00)
[2016-12-17] MEDS: ALBUTEROL 0.083% (NEB) 2.5 MG/3 ML AMP HHN SCH ×4 (01:21→15:29)
[2016-12-17] MEDS: morphine 2 MG INJ IV PRN (05:56)
[2016-12-17] MEDS: PANTOPRAZOLE 40 MG INJ IV SCH (05:56)
--- NOTE | 2016-12-17 07:01 | CONS ---
DATE OF ADMISSION: 12/15/2016 DATE OF CONSULTATION: 12/15/2016 PULMONARY CONSULTATION REASON FOR CONSULTATION: Being done at the request of Dr. Roa, who is the primary physician. Thank you, Dr. oRa, for referring this patient for pulmonary consultation. As you know, he is an 81-year-old male patient who was transferred from retirement to the hospital emergency room [place] this morning with a history of having melena. Apparently, he did not have any bright red recta l bleeding. The melena has been going on for about 2 days. He is also having fever. He did not yung ve any hematemesis. There has been no hematuria, no hemoptysis. He was seen in the emergency room, where he was diagnosed to have urosepsis. Cultures have been taken and antibiotic therapy has been started. The patient himself is unable to give any history, as he is on residential ventilator support through a tracheostomy; however, he seems to be awake and responsive. His is at the bedside, who provid ed the following information. The patient had a cardiac arrest in the month of September. Subsequently, after bridge he was on ventila tor support. Weaning was difficult and he was treated in [facility] for several weeks before h is transfer back to the residential care facility. He has remained ventilator dependent through a trac heostomy. He also has a gastrostomy for tube feedings. According to the previous reports, the fernando ent has had very stormy colds. He had pneumonia and also pneumothorax requiring chest tube placemen t. He also had hepatic encephalopathy and disseminated intravascular coagulation. In addition, he had septic shock. He had acute renal failure also. He has a history of congestive heart failure. He has also developed decubitus. 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 The e xact details are not remembered by the patient's . As far as the respiratory system, the patient has not had any problems with the ventilator. Jr rose to the , in the last few weeks weaning attempts have been made, but the patient has not been able to make much progress. He is still ventilator dependent. He has also had swallowing trials, b ut his main nutritional portal is through a gastrostomy tube. His medications, according to the transfer papers, include 1. Diltiazem. 2. Benadryl. 3. DuoNeb inhalation therapy. 4. Famotidine. 5. Folic acid. 6. Insulin on sliding scale coverage. 7. Lactobacillus. 8. Metoprolol. 9. Multivitamin tablets. 10. [place]. 11. Potassium supplements. 12. Prevacid. 13. Procrit subcutaneously. 14. Rifaximin. 15. Sucralfate. 16. Seroquel. 17 Trazodone. 18. He was also getting Zosyn since 12/07/2016. 19. In addition, he was also getting Ativan p.r.n. for agitation. PERSONAL HABITS: The patient is a nonsmoker, no history of alcohol drinking. ALLERGIES: NO KNOWN DRUG ALLERGIES. REVIEW OF SYSTEMS: Cannot be done at this time; however, when I specifically questioned the patient 's she denies any previous history of asthma or chronic obstructive pulmonary disease, no histo ry of tuberculosis, no history of hemoptysis, no history of valley fever. He has had pneumothorax a s mentioned earlier and also has had pneumonia. PHYSICAL EXAMINATION: GENERAL: Show an elderly male patient who is awake, responsive, looks around but cannot articulate due to his having had tracheostomy. VITAL SIGNS: Show temperature of 101.3 with a pulse rate of 90, respirations 16, pulse oximetry [place] 96% saturation. He is on 50% inhaled oxygen concentration through the ventilator support. His blood pressure is 96/59 ____, but at the most his blood pressure is 111/54. HEENT: Head looks normal. No scleral icterus is seen. Throat could not be seen, as he could not c ooperate and open his mouth fully. Oral mucosa and the tongue appear more dry. NECK: No cervical adenopathy is felt. No jugular venous distention seen. Tracheostomy tube is in place and functioning well and shows no signs of obstruction or bleeding. HEART: Regular sinus rhythm. CHEST: Breast sounds are mostly clear, though more diminished in the lower lung enamorado with intermi ttent rales and rhonchi. ABDOMEN: Soft, not distended. Gastrostomy tube is in place. Bowel sounds are normally heard. EXTREMITIES: Show mild edema. Upper extremities show edematous upper extremities. No cyanosis, no clubbing, no calf tenderness. Lower extremities show no movements. He is able to move the upper e xtremities. NEUROLOGICAL: The patient is awake, responsive. Movements of the extremities as described earlier. LABORATORY TESTS: Show a urinalysis with WBC and RBC, possible leukocyte esterase, and nitrites are negative. CBC shows a normal WBC of 9000, hemoglobin 8.8, hematocrit 27.1, platelets within normal limits. Chemistry panel shows sodium 146, potassium 3.3, bicarbonate of 24. BUN is 63, creatinine 2.01. Lactic acid is 2. Glucose 99. Liver enzymes are within normal limits. Bilirubin is also w ithin normal limits. Calcium is 9.7. The chest x-ray is reported to show increased bilateral interstitial lower lobe markings, which appe ar to be somewhat chronic. IMPRESSION: 1. Urosepsis, chronic. 2. Melena. 3. Chronic anemia. 4. Chronic ventilator dependent respiratory failure. 5. Acute kidney injury. 6. History of cardiac arrest. 7. History of cerebrovascular accident with paraplegia. 8. History of congestive heart failure. 9. Decubitus ulcers. 10. Status post tracheostomy. 11. Status post gastrostomy. RECOMMENDATIONS: 1. From a pulmonary standpoint, the patient will be continued on ventilator support. Later when hi s condition is stable in the residential care facility, weaning trials could be done, but right now in view of the sepsis, the fever, weaning needs to be deferred at this time. 2. Antibiotic therapy and cultures. 3. Bronchodilator inhalation therapy for moderation of secretions and improved bronchial hygiene. 4. Continue G-tube feedings. 5. GI, rather, should be necessary for melena. I discussed all of the above with the patient's at the beside and explained to her patient's pr esent condition and the diagnostic considerations and treatment being given here. I also explained to her that weaning could be tried later, when his condition is optimally stable and improved. It i s not guaranteed that patient will definitely come off the vent later. If after reasonable weaning trials, if patient is unsuccessful in coming off ventilator, it is better to leave him on residential v entilator support. The patient's understands all of these and agreed with the above. Thank you, Dr. Roa, for referring this patient for pulmonary consultation. Dictated By: ROEL BOYLE MD SR/IRMA Conf#: [id number] [facility]#: [id number]
[2016-12-17] MEDS ORDERED: INFLUENZA VIRUS VACCINE 0.5 ML (DISPENSING) IM* ONE (09:00)
[2016-12-17] MEDS: MEROPENEM 1 GM/50ML(PMX) 50 ML IVPB SCH ×2 (09:11→21:39)
[2016-12-17] MEDS ORDERED: PROPOFOL 20 ML ONE (12:58)
--- NOTE | 2016-12-17 13:39 | OPPN ---
Date/Time of Note Date/Time of Note DATE: 12/17/16 TIME: 13:37 Proc Note GI Procedure Date 12/17/16 Pre-procedure Diagnosis GI bleeding Post-procedure Diagnosis Stomal ulcer Gastritis Procedure Performed: Endoscopy Surgeon see signature line Office Assistance none Anesthesia Type: MAC Tourniquet Time none EBL none Transfusion required none Biopsy 1: None Grafts/Implants none Tubes/Drains none Complication(s) none Pt Condition post procedure: stable Disposition: PACU Indications: other (GI bleeding) Operative\Procedure Findings EGD Procedure Description See dictated report PAT CHA MD Dec 17, 2016 13:39
[2016-12-17] MEDS: D5W-0.45 NACL + KCL 20 MEQ 1,000 ML IV SCH (15:00)
[2016-12-17] MEDS: FLUCONAZOLE 100 MG/NS (PMX) 50 ML IVPB SCH (15:02)
[2016-12-17 17:20] LABS: BASOPHILS % 0.3 % (0.0-2.0); EOSINOPHILS # 1.6 10^3/ul (0.0-0.5); EOSINOPHILS % 26.1 % (0.0-7.0); HEMATOCRIT 26.3 % (42.0-52.0); HEMOGLOBIN 7.8 g/dl (14.0-18.0); LYMPHOCYTES # 1.2 10^3/ul (0.8-2.9); LYMPHOCYTES % 19.5 % (15.0-51.0); MEAN CORPUSCULAR HEMOGLOBIN 28.2 pg (29.0-33.0); MEAN CORPUSCULAR HGB CONC 29.7 g/dl (32.0-37.0); MEAN CORPUSCULAR VOLUME 94.9 fl (82.0-101.0); MEAN PLATELET VOLUME 11.3 fl (7.4-10.4); MONOCYTE # 0.4 10^3/ul (0.3-0.9); MONOCYTES % 6.4 % (0.0-11.0); NEUTROPHIL # 2.9 10^3/ul (1.6-7.5); NEUTROPHILS % 47.4 % (39.0-77.0); PLATELET COUNT 189 10^3/UL (140-415); RED BLOOD COUNT 2.77 10^6/ul (4.70-6.10); RED CELL DISTRIBUTION WIDTH 19.3 % (11.5-14.5); WHITE BLOOD COUNT 6.1 10^3/ul (4.8-10.8)
[2016-12-17 17:39] LABS: CREATININE 1.68 mg/dl (0.61-1.24); POTASSIUM 3.5 mmol/L (3.5-5.1)
--- NOTE | 2016-12-17 18:11 | PN ---
Date/Time of Note Date/Time of Note DATE: 12/17/16 TIME: 18:03 Assessment/Plan VTE Prophylaxis VTE Prophylaxis Intervention: SCD's Lines/Catheters IV Catheter Type (from [facility]): Peripheral IV Urinary Cath still in place: Yes Reason Cath still needed: urinary retention Assessment/Plan Chief Complaint/Hosp Course Patient is more awake. ASSESSMENT AND PLAN: - Melena. Rule out gastrointestinal bleed. Dr. Hassan is following in gastroenterology consultation. - Stomal ulcer and gastritis per EGD. - Sepsis, due to most likely urinary tract infection possible pneumonia. Continue antibiotics per ID. Dr Jones is following in infection disease consultation - Urinary tract infection per UA. - Acute kidney injury on chronic kidney disease. Continue IV fluids, her BUN and creatinine. - Hypernatremia, continue water flushes via G-tube - Ventilator-dependent respiratory failure and Dr. Barajas will be following patient in pulmonology consultation. - Anemia. Further recommendations based on clinical course. Plan of care discussed with Dr. Roa. Problems: Exam/Review of Systems Vital Signs Vitals Vital Signs Date Time Temp Pulse Resp B/P Pulse Ox O2 Delivery O2 Flow Rate FiO2 12/17/16 17:40 99 12/17/16 17:20 16 98 40 12/17/16 15:41 97.8 129/64 12/17/16 13:04 Mechanical Ventilator Intake and Output 12/16/16 12/16/16 12/17/16 15:00 23:00 07:00 Intake Total 1040 ml 240 ml Output Total 900 ml Balance 140 ml 240 ml Exam Constitutional: alert Head: normocephalic Neck: other (Tracheostomy) Respiratory: diminished breath sounds Cardiovascular: nl pulses Gastrointestinal: non-tender, other (G-tube), soft Musculoskeletal: other Extremities: normal pulses Results Result Diagram: 12/17/16 1710 12/17/16 1710 Results 24 hrs Laboratory Tests Test 12/17/16 17:10 White Blood Count 6.1 Red Blood Count 2.77 #L Hemoglobin 7.8 L Hematocrit 26.3 L Mean Corpuscular Volume 94.9 Mean Corpuscular Hemoglobin 28.2 L Mean Corpuscular Hemoglobin Concent 29.7 L Red Cell Distribution Width 19.3 H Platelet Count 189 Mean Platelet Volume 11.3 H Neutrophils % 47.4 Lymphocytes % 19.5 Monocytes % 6.4 Eosinophils % 26.1 H Basophils % 0.3 Nucleated Red Blood Cells % 0.0 Neutrophils # 2.9 Lymphocytes # 1.2 Monocytes # 0.4 Eosinophils # 1.6 H Basophils # 0.0 Nucleated Red Blood Cells # 0.0 Sodium Level 151 H Potassium Level 3.5 Chloride Level 122 H Carbon Dioxide Level 20 L Anion Gap 13 Blood Urea Nitrogen 50 H Creatinine 1.68 H Glucose Level 78 Calcium Level 9.0 Medications Medications Current Medications Potassium Chloride/Dextrose/ Sod Cl (D5-1/2ns + KCl 20 Meq) 1,000 ml @ 80 mls/ hr [id number] IV Last administered on 12/17/16 15:00; Admin Dose 80 MLS/HR; Start 12/15/16 at 17:37 Lorazepam (Ativan) 0.5 mg Q6H PRN IV ANXIETY Last administered on 12/16/16 10: 11; Admin Dose 0.5 MG; Start 12/15/16 at 18:00 Ondansetron HCl (Zofran Inj) 4 mg Q6H PRN IV NAUSEA AND/OR VOMITING; Start 12/15/16 at 18:00 Acetaminophen (Tylenol Supp) 650 mg Q6H PRN [place] PAIN LEVEL 1-3 OR FEVER; Start 12/15/16 at 18:00 Morphine Sulfate (morphine) 2 mg Q4H PRN IV PAIN LEVEL 7-10 Last administered on 12/17/16 05:56; Admin Dose 2 MG; Start 12/15/16 at 18:00 Pantoprazole (Protonix Iv) 40 mg DAILY@06 IV Last administered on 12/17/16 05: 56; Admin Dose 40 MG; Start 12/16/16 at 06:00 Diphenhydramine HCl 25 mg 25 mg Q6H PRN IV ITCHING Last administered on 16:29; Admin Dose 25 MG; Start 12/16/16 at 16:00 Meropenem/Sodium Chloride 50 ml @ 100 mls/hr Q12 IVPB Last administered on 09:11; Admin Dose 100 MLS/HR; Start 12/16/16 at 20:00 Fluconazole/ Sodium Chloride (Diflucan 100 Mg/ NS (Pmx)) 50 ml @ 50 mls/hr Q24H IVPB Last administered on 12/17/16 15:02; Admin Dose 50 MLS/HR; Start at 13:00 ERROL LORD Dec 17, 2016 18:11
[2016-12-17] MEDS: COLLAGENASE 30 GM TUBE TOP SCH (20:00)
[2016-12-17] MEDS: LORAZEPAM 2 MG INJ IV PRN (23:32)
[2016-12-18] VITALS (22 sets, daily range): BP systolic 93–166; BP diastolic 52–83; PULSE 63–100; RESP 12–20
[2016-12-18] MEDS: IPRATROPIUM (HFA) 12.9 GM INHALER INH SCH ×4 (02:08→20:28)
[2016-12-18] MEDS: ALBUTEROL 18 GM INHALER INH SCH ×4 (02:08→20:28)
[2016-12-18] MEDS: D5W-0.45 NACL + KCL 20 MEQ 1,000 ML IV SCH (05:59)
[2016-12-18] MEDS: PANTOPRAZOLE 40 MG INJ IV SCH (06:00)
[2016-12-18 06:12] LABS: BASOPHILS % 0.4 % (0.0-2.0); EOSINOPHILS # 1.4 10^3/ul (0.0-0.5); EOSINOPHILS % 28.1 % (0.0-7.0); HEMATOCRIT 29.7 % (42.0-52.0); HEMOGLOBIN 9.2 g/dl (14.0-18.0); LYMPHOCYTES # 0.8 10^3/ul (0.8-2.9); LYMPHOCYTES % 16.9 % (15.0-51.0); MEAN CORPUSCULAR HEMOGLOBIN 28.8 pg (29.0-33.0); MEAN CORPUSCULAR VOLUME 92.8 fl (82.0-101.0); MEAN PLATELET VOLUME 11.6 fl (7.4-10.4); MONOCYTE # 0.4 10^3/ul (0.3-0.9); NEUTROPHIL # 2.3 10^3/ul (1.6-7.5); NEUTROPHILS % 46.2 % (39.0-77.0); PLATELET COUNT 209 10^3/UL (140-415); RED CELL DISTRIBUTION WIDTH 18.7 % (11.5-14.5)
[2016-12-18 06:39] LABS: CALCIUM 9.1 mg/dl (8.4-10.2); CREATININE 1.49 mg/dl (0.61-1.24); POTASSIUM 3.7 mmol/L (3.5-5.1)
[2016-12-18] MEDS: MEROPENEM 1 GM/50ML(PMX) 50 ML IVPB SCH ×2 (09:06→20:44)
[2016-12-18] MEDS: COLLAGENASE 30 GM TUBE TOP SCH (09:06)
[2016-12-18] MEDS: DEXTROSE 5% 1,000 ML IV SCH ×2 (10:53→11:00)
--- NOTE | 2016-12-18 13:13 | PN ---
DATE: 12/17/2016 HISTORY OF PRESENT ILLNESS: The patient is resting comfortably. He shows no signs of respiratory d istress with a continuous ventilator support through tracheostomy. OBJECTIVE: VITAL SIGNS: Stable. Temperature 98.4. Blood pressure 112/56, pulse rate is 95. Pulse oximetry s hows 100% saturation. Respiratory rate is 14 to 16 per minute. According to nursing staff the fernando ent has not had any episodes of desaturation. No shortness of breath ABDOMEN: He has had no bleeding, no vomiting. He underwent upper GI endoscopy by Dr. Hassan, but t he findings not known yet. HEENT: Tracheal secretions are clear. No bleeding is seen. HEART: Regular rhythm. CHEST: Breath sounds are diminished in both the lower lung enamor[place] with a few occasional rales and r honchi. Otherwise, mostly clear lung en[place]or[place]. ABDOMEN: Soft, not distended. Bowel sounds are present. EXTREMITIES: Show no edema. LABORATORY DATA: No lab results are available today. IMPRESSION: 1. Chronic ventilator dependent respiratory failure. 2. Urosepsis. 3. Probable GI bleed causing melena. 4. Acute kidney injury. 5. History of congestive heart failure. 6. History of cerebrovascular accident with paraplegia. 7. History of chronic headaches in the past. 8. Decubitus ulcers. 9. Status post tracheostomy. 10. Status post gastrostomy. RECOMMENDATIONS: 1. Continue long-term ventilator support. 2. Continue antibiotics. 3. Resumption of feedings as per the software quality manager. Discussed and explained to the patient's at the bedside about the patient's present condition a nd treatment being given from a pulmonary standpoint. Dictated By: ROEL BOYLE MD SR/IRMA Conf#: [id number] DID#: [id number]
[2016-12-18] MEDS: FLUCONAZOLE 100 MG/NS (PMX) 50 ML IVPB SCH (14:25)
--- NOTE | 2016-12-18 16:36 | PN ---
Date/Time of Note Date/Time of Note DATE: 12/18/16 TIME: 16:23 Assessment/Plan VTE Prophylaxis VTE Prophylaxis Intervention: SCD's Lines/Catheters IV [facility]ter Type (from [facility]): Peripheral IV Urinary Cath still in place: Yes Assessment/Plan Assessment/Plan - Hypernatremia- will get nephrology consult - Melena. Rule out gastrointestinal bleed. Dr. Hassan is following in gastroenterology consultation. - Stomal ulcer and gastritis per EGD. - Sepsis, due to most likely urinary tract infection possible pneumonia. Continue antibiotics per ID. Dr Jones is following in infection disease consultation - Urinary tract infection per UA. - Acute kidney injury on chronic kidney disease. Continue IV fluids, her BUN and creatinine. - Hypernatremia, continue water flushes via G-tube - Ventilator-dependent respiratory failure and Dr. Barajas will be following patient in pulmonology consultation. - Anemia. Further recommendations based on clinical course. Plan of care discussed with Dr. Roa. Subjective 24 Hr Interval Summary Constitutional: requiring IVF, requiring O2 Neurologic: no complaints Exam/Review of Systems Vital Signs Vitals Vital Signs Date Time Temp Pulse Resp B/P Pulse Ox O2 Delivery O2 Flow Rate FiO2 12/18/16 16:01 98.5 81 20 144/65 100 12/18/16 15:20 40 12/17/16 13:04 Mechanical Ventilator Intake and Output 12/17/16 12/17/16 12/18/16 15:00 23:00 07:00 Intake Total 870 ml 1040 ml Output Total 600 ml 550 ml Balance 270 ml 490 ml Exam Constitutional: alert Respiratory: diminished breath sounds, normal air movement Cardiovascular: nl pulses Gastrointestinal: non-tender, soft Musculoskeletal: muscle weakness Results Result Diagram: 12/18/16 0530 12/18/16 0530 Results 24 hrs Laboratory Tests Test 12/17/16 17:10 12/18/16 05:30 White Blood Count 6.1 5.0 Red Blood Count 2.77 #L 3.20 L Hemoglobin 7.8 L 9.2 L Hematocrit 26.3 L 29.7 L Mean Corpuscular Volume 94.9 92.8 Mean Corpuscular Hemoglobin 28.2 L 28.8 L Mean Corpuscular Hemoglobin Concent 29.7 L 31.0 L Red Cell Distribution Width 19.3 H 18.7 H Platelet Count 189 209 Mean Platelet Volume 11.3 H 11.6 H Neutrophils % 47.4 46.2 Lymphocytes % 19.5 16.9 Monocytes % 6.4 8.0 Eosinophils % 26.1 H 28.1 H Basophils % 0.3 0.4 Nucleated Red Blood Cells % 0.0 0.0 Neutrophils # 2.9 2.3 Lymphocytes # 1.2 0.8 Monocytes # 0.4 0.4 Eosinophils # 1.6 H 1.4 H Basophils # 0.0 0.0 Nucleated Red Blood Cells # 0.0 0.0 Sodium Level 151 H 152 H Potassium Level 3.5 3.7 Chloride Level 122 H 123 H Carbon Dioxide Level 20 L 21 Anion Gap 13 12 Blood Urea Nitrogen 50 H 42 H Creatinine 1.68 H 1.49 H Glucose Level 78 95 Calcium Level 9.0 9.1 Medications Medications Current Medications Lorazepam (Ativan) 0.5 mg Q6H PRN IV ANXIETY Last administered on 12/17/16 23: 32; Admin Dose 0.5 MG; Start 12/15/16 at 18:00 Ondansetron HCl (Zofran Inj) 4 mg Q6H PRN IV NAUSEA AND/OR VOMITING; Start 12/15/16 at 18:00 Acetaminophen (Tylenol Supp) 650 mg Q6H PRN IN PAIN LEVEL 1-3 OR FEVER; Start 12/15/16 at 18:00 Morphine Sulfate (morphine) 2 mg Q4H PRN IV PAIN LEVEL 7-10 Last administered on 12/17/16 05:56; Admin Dose 2 MG; Start 12/15/16 at 18:00 Pantoprazole (Protonix Iv) 40 mg DAILY@06 IV Last administered on 12/18/16 06: 00; Admin Dose 40 MG; Start 12/16/16 at 06:00 Diphenhydramine HCl 25 mg 25 mg Q6H PRN IV ITCHING Last administered on 16:29; Admin Dose 25 MG; Start 12/16/16 at 16:00 Meropenem/Sodium Chloride 50 ml @ 100 mls/hr Q12 IVPB Last administered on 09:06; Admin Dose 100 MLS/HR; Start 12/16/16 at 20:00 Fluconazole/ Sodium Chloride (Diflucan 100 Mg/ NS (Pmx)) 50 ml @ 50 mls/hr Q24H IVPB Last administered on 12/18/16 14:25; Admin Dose 50 MLS/HR; Start at 13:00 Collagenase 1 applic 1 applic DAILY TOP Last administered on 12/18/16 09:06; Admin Dose 1 APPLIC; Start 12/17/16 at 20:00 Dextrose (D5W) 1,000 ml @ 75 mls/hr [id number] IV Last administered on 12/18/16 11:00; Admin Dose 75 MLS/HR; Start 12/18/16 at 10:30 JOÃO JUAREZ Dec 18, 2016 16:36
--- NOTE | 2016-12-18 17:47 | CONS ---
Date/Time of Note Date/Time of Note DATE: 12/18/16 TIME: 17:35 Assessment/Plan Assessment/Plan Additional Assessment/Plan 1. acute Kidney injury due to prerenal azotemia 2. Hypernatremia due to large free water deficit, approximate 2.8 Liter deficit 3. Sepsis due to UTI 4. Chronic resp failure s/p tracheostomy vent depedant 5. Chronic encephalopathy 6. S/P G tube 7. melena, Gi bleeding, h/o PUD Plan: pt is currently seen in tele floor pt has received D5W with KCl- currently stopped, ok to continue D5W at current rate no need for CKD work up Na still high, expecting Cr to improve with D5W GI has been consulted on the case. will follow up Thanks for consultation , we will follow up Consultation Date/Type/Reason Admit Date/Time Dec 15, 2016 at 10:55 Date of Consultation: Dec 18, 2016 Type of Consultation: NEPHROLOGY Reason for Consultation Hypernatremia, Acute Kidney Injury Referring Provider: DESTINEE ROBERTS MD Hx of Present Illness 81-year-old gentleman with history of chronic encephalopathy, ventilator- dependent respiratory failure, history of cardiac arrest x3, hepatic encephalopathy, kidney disease treated with hemodialysis, history of stroke with paraplegia, bedbound status and chronic sacral ulcer decubitus, chronic hypoxic respiratory failure, ventilator dependent with tracheostomy, dysphagia with PEG placement and congestive heart failure. He was admitted for melena, GI bleeding noted to have Elevated Cr 2.01 on admission, Renal has been consulted for SAMANTHA, Hypernatremia. Subjective hx not possible: pt non-verbal Constitutional: requiring IVF, requiring O2 Eyes: no complaints ENT: no complaints Respiratory: no complaints Cardiovascular: no complaints Gastrointestinal: no complaints Musculoskeletal: no complaints Neurologic: no complaints Past Medical History Medical History: other (chronic encephalopathy, ventilator-dependent respiratory failure, history of cardiac arrest x3, hepatic encephalopathy, kidney disease treated with hemodialysis, history of stroke with paraplegia, bedbound status and chronic sacral ulcer decubitus, chronic hypoxic respiratory failure, ventilator dependent with tracheostomy, dysphagia with PEG placement and congestive heart failure. He was admitted for melena, GI bleeding noted to have Elevated Cr 2.01 on admission, Renal has been consulted for SAMANTHA, Hypernatremia.) Past Surgical History Past Surgical Hx: other (Tracheostomy, G tube placement ) Family History Significant Family History: other (Not available ) Social History Alcohol Use: none Smoking Status: Former smoker Drug Use: none Exam/Review of Systems Vital Signs Vitals Vital Signs Date Time Temp Pulse Resp B/P Pulse Ox O2 Delivery O2 Flow Rate FiO2 12/18/16 17:15 100 19 100 40 12/18/16 16:01 98.5 144/65 12/17/16 13:04 Mechanical Ventilator Intake and Output 12/17/16 12/17/16 12/18/16 15:00 23:00 07:00 Intake Total 870 ml 1040 ml Output Total 600 ml 550 ml Balance 270 ml 490 ml Exam Constitutional: non-verbal Psych: no complaints Head: normocephalic Eyes: nl conjunctiva ENMT: other (Tracheostomy ) Neck: non-tender, supple Respiratory: congested cough, crackles/rales, diminished breath sounds, wheezing Cardiovascular: nl pulses, regular rate and rhythm Gastrointestinal: non-tender, other (G tube placement ), soft Results Result Diagram: 12/18/16 0530 12/18/16 0530 Results 24 hrs Laboratory Tests Test 12/18/16 05:30 White Blood Count 5.0 Red Blood Count 3.20 L Hemoglobin 9.2 L Hematocrit 29.7 L Mean Corpuscular Volume 92.8 Mean Corpuscular Hemoglobin 28.8 L Mean Corpuscular Hemoglobin Concent 31.0 L Red Cell Distribution Width 18.7 H Platelet Count 209 Mean Platelet Volume 11.6 H Neutrophils % 46.2 Lymphocytes % 16.9 Monocytes % 8.0 Eosinophils % 28.1 H Basophils % 0.4 Nucleated Red Blood Cells % 0.0 Neutrophils # 2.3 Lymphocytes # 0.8 Monocytes # 0.4 Eosinophils # 1.4 H Basophils # 0.0 Nucleated Red Blood Cells # 0.0 Sodium Level 152 H Potassium Level 3.7 Chloride Level 123 H Carbon Dioxide Level 21 Anion Gap 12 Blood Urea Nitrogen 42 H Creatinine 1.49 H Glucose Level 95 Calcium Level 9.1 Medications Medications Current Medications Lorazepam (Ativan) 0.5 mg Q6H PRN IV ANXIETY Last administered on 12/17/16t 23: 32; Admin Dose 0.5 MG; Start 12/15/16 at 18:00 Ondansetron HCl (Zofran Inj) 4 mg Q6H PRN IV NAUSEA AND/OR VOMITING; Start 12/15/16 at 18:00 Acetaminophen (Tylenol Supp) 650 mg Q6H PRN [place] PAIN LEVEL 1-3 OR FEVER; Start 12/15/16 at 18:00 Morphine Sulfate (morphine) 2 mg Q4H PRN IV PAIN LEVEL 7-10 Last administered on 12/17/16 05:56; Admin Dose 2 MG; Start 12/15/16 at 18:00 Pantoprazole (Protonix Iv) 40 mg DAILY@06 IV Last administered on 12/18/16 06: 00; Admin Dose 40 MG; Start 12/16/16 at 06:00 Diphenhydramine HCl 25 mg 25 mg Q6H PRN IV ITCHING Last administered on 16:29; Admin Dose 25 MG; Start 12/16/16 at 16:00 Meropenem/Sodium Chloride 50 ml @ 100 mls/hr Q12 IVPB Last administered on 09:06; Admin Dose 100 MLS/HR; Start 12/16/16 at 20:00 Fluconazole/ Sodium Chloride (Diflucan 100 Mg/ NS (Pmx)) 50 ml @ 50 mls/hr Q24H IVPB Last administered on 12/18/16 14:25; Admin Dose 50 MLS/HR; Start at 13:00 Collagenase 1 applic 1 applic DAILY TOP Last administered on 12/18/16 09:06; Admin Dose 1 APPLIC; Start 12/17/16 at 20:00 Dextrose (D5W) 1,000 ml @ 75 mls/hr [id number] IV Last administered on 12/18/16 11:00; Admin Dose 75 MLS/HR; Start 12/18/16 at 10:30 ROULA YEPEZ MD Dec 18, 2016 17:47
[2016-12-19] VITALS (26 sets, daily range): BP systolic 124–171; BP diastolic 61–87; PULSE 77–110; RESP 12–21
[2016-12-19] MEDS: IPRATROPIUM (HFA) 12.9 GM INHALER INH SCH ×4 (01:39→19:41)
[2016-12-19] MEDS: ALBUTEROL 18 GM INHALER INH SCH ×4 (01:39→19:41)
--- NOTE | 2016-12-19 03:25 | GILP ---
DATE OF PROCEDURE: PROCEDURE PERFORMED: Esophagogastroduodenoscopy. INDICATION: An 81-year-old man, vent-dependent respiratory failure, came with GI bleeding manifeste d in the form of melenotic stool and significant drop in hematocrit requiring blood transfusion. Th e patient has a history of duodenal ulcer. I had scoped him a few months ago at [facility] . The purpose of this procedure is to evaluate upper GI tract and find out the source of GI blood l oss. INFORMED CONSENT: The risks of the procedure, related and unrelated complications, anesthetic risks , alternatives were thoroughly discussed with the patient, and informed consent was obtained. Procedure was done bedside. DESCRIPTION OF PROCEDURE: The patient was sedated by Dr. Vela. After optimum sedation, scope was passed with much ease into the esophagus, which was grossly within normal limits. No varicose vein s were identified. Z-line was normal. Stomach mucosa revealed gastritis, more so in the fundal are a. Duodenum, first and second part appeared normal. In the bulb, the scar tissue was identified, i ndicating the ulcer had completely healed. The internal bumper which shows balloon was by sandi cing the external bumper, and there was an ulcer identified. No sentinel clot or capillary or activ e bleeding seen. No altered blood was identified in the stomach. Retroversion done, no growth, no varicose veins seen. Scope was straightened out and removed with good patient tolerance. IMPRESSION: 1. Normal esophagus. 2. Normal Z-line. 3. No varicose veins. 4. Gastritis, more so in the fundal area. 5. Stomal ulcer near the internal stoma. 6. Scar tissue in the duodenal bulb, indicates healed duodenal ulcer. 7. Normal ampulla. 8. No evidence of active bleeding. No altered blood seen. PLAN: Continue PPI. We will resume feeding through J-tube and monitor H and H. Dictated By: PAT FREEMAN/IRMA Conf#: [id number] DID#: [id number] CC: DESTINEE ROBERTS MD;*EndCC*
[2016-12-19] MEDS: DEXTROSE 5% 1,000 ML IV SCH (03:54)
[2016-12-19 05:58] LABS: BASOPHILS % 0.2 % (0.0-2.0); EOSINOPHILS # 0.8 10^3/ul (0.0-0.5); EOSINOPHILS % 19.3 % (0.0-7.0); HEMATOCRIT 28.6 % (42.0-52.0); HEMOGLOBIN 8.7 g/dl (14.0-18.0); LYMPHOCYTES # 0.7 10^3/ul (0.8-2.9); MEAN CORPUSCULAR HGB CONC 30.4 g/dl (32.0-37.0); MEAN PLATELET VOLUME 12.3 fl (7.4-10.4); MONOCYTE # 0.2 10^3/ul (0.3-0.9); MONOCYTES % 5.9 % (0.0-11.0); NEUTROPHIL # 2.3 10^3/ul (1.6-7.5); NEUTROPHILS % 56.1 % (39.0-77.0); PLATELET COUNT 191 10^3/UL (140-415); POSITIVE DIFF @See below; RED BLOOD COUNT 3.11 10^6/ul (4.70-6.10); RED CELL DISTRIBUTION WIDTH 19.9 % (11.5-14.5); WHITE BLOOD COUNT 4.1 10^3/ul (4.8-10.8)
[2016-12-19 06:15] LABS: CALCIUM 9.4 mg/dl (8.4-10.2); CREATININE 1.24 mg/dl (0.61-1.24); POTASSIUM 3.4 mmol/L (3.5-5.1)
[2016-12-19] MEDS: PANTOPRAZOLE 40 MG INJ IV SCH (06:37)
[2016-12-19] MEDS: MEROPENEM 1 GM/50ML(PMX) 50 ML IVPB SCH ×2 (09:08→22:09)
[2016-12-19] MEDS: COLLAGENASE 30 GM TUBE TOP SCH (09:09)
--- NOTE | 2016-12-19 11:57 | CONS ---
Date/Time of Note Date/Time of Note DATE: 12/19/16 TIME: 11:54 Assessment/Plan Assessment/Plan Chief Complaint/Hosp Course 81-year-old gentleman with history of chronic encephalopathy, ventilator- dependent respiratory failure, history of cardiac arrest x3, hepatic encephalopathy, kidney disease treated with hemodialysis, history of stroke with paraplegia, bedbound status and chronic sacral ulcer decubitus, chronic hypoxic respiratory failure, ventilator dependent with tracheostomy, dysphagia with PEG placement and congestive heart failure. He was admitted for melena, GI bleeding noted to have Elevated Cr 2.01 on admission, Renal has been consulted for SAMANTHA, Hypernatremia. Problems: Additional Assessment/Plan 1. acute Kidney injury due to prerenal azotemia 2. Hypernatremia due to large free water deficit, approximate 2.8 Liter deficit 3. Sepsis due to UTI 4. Chronic resp failure s/p tracheostomy vent depedant 5. Chronic encephalopathy 6. S/P G tube 7. melena, Gi bleeding, h/o PUD Plan: Na still high, K low, change IVF to D5W with KCL 20mEQ At 100 cc/hr, kCL 20meQ IV x 1 ( extra dose in addition to IVF KCL) no need for CKD work up Na still high, expecting Cr to improve with D5W GI has been consulted on the case. will follow up Consultation Date/Type/Reason Admit Date/Time Dec 15, 2016 at 10:55 Initial Consult Date 12/18/16 Type of Consultation: NEPHROLOGY Referring Provider: DESTINEE ROBERTS MD 24 HR Interval Summary Free Text/Dictation Na still high 154, K low, Pt on ventilator, stable vital signs Exam/Review of Systems Vital Signs Vitals Vital Signs Date Time Temp Pulse Resp B/P Pulse Ox O2 Delivery O2 Flow Rate FiO2 12/19/16 11:36 98.5 103 18 165/81 96 12/19/16 10:51 35 12/17/16 13:04 Mechanical Ventilator Intake and Output 12/18/16 12/18/16 12/19/16 15:00 23:00 07:00 Intake Total 1100 ml Output Total 500 ml Balance 600 ml Exam Constitutional: non-verbal Psych: no complaints Head: normocephalic Eyes: nl conjunctiva ENMT: other (Tracheostomy ) Neck: non-tender, supple Respiratory: congested cough, crackles/rales, diminished breath sounds, wheezing Cardiovascular: nl pulses, regular rate and rhythm Gastrointestinal: non-tender, other (G tube placement ), soft Results Result Diagram: 12/19/16 0507 12/19/16 0507 Results 24 hrs Laboratory Tests Test 12/19/16 05:07 White Blood Count 4.1 L Red Blood Count 3.11 L Hemoglobin 8.7 L Hematocrit 28.6 L Mean Corpuscular Volume 92.0 Mean Corpuscular Hemoglobin 28.0 L Mean Corpuscular Hemoglobin Concent 30.4 L Red Cell Distribution Width 19.9 H Platelet Count 191 Mean Platelet Volume 12.3 H Neutrophils % 56.1 Lymphocytes % 18.0 Monocytes % 5.9 Eosinophils % 19.3 H Basophils % 0.2 Nucleated Red Blood Cells % 0.0 Neutrophils # 2.3 Lymphocytes # 0.7 L Monocytes # 0.2 L Eosinophils # 0.8 H Basophils # 0.0 Nucleated Red Blood Cells # 0.0 Sodium Level 154 H Potassium Level 3.4 L Chloride Level 126 H Carbon Dioxide Level 20 L Anion Gap 11 Blood Urea Nitrogen 32 H Creatinine 1.24 Glucose Level 124 Calcium Level 9.4 Medications Medications Current Medications Lorazepam (Ativan) 0.5 mg Q6H PRN IV ANXIETY Last administered on 12/17/16 23: 32; Admin Dose 0.5 MG; Start 12/15/16 at 18:00 Ondansetron HCl (Zofran Inj) 4 mg Q6H PRN IV NAUSEA AND/OR VOMITING; Start 12/15/16 at 18:00 Acetaminophen (Tylenol Supp) 650 mg Q6H PRN [place] PAIN LEVEL 1-3 OR FEVER; Start 12/15/16 at 18:00 Morphine Sulfate (morphine) 2 mg Q4H PRN IV PAIN LEVEL 7-10 Last administered on 12/17/16 05:56; Admin Dose 2 MG; Start 12/15/16 at 18:00 Pantoprazole (Protonix Iv) 40 mg DAILY@06 IV Last administered on 12/19/16 06: 37; Admin Dose 40 MG; Start 12/16/16 at 06:00 Diphenhydramine HCl 25 mg 25 mg Q6H PRN IV ITCHING Last administered on 16:29; Admin Dose 25 MG; Start 12/16/16 at 16:00 Meropenem/Sodium Chloride 50 ml @ 100 mls/hr Q12 IVPB Last administered on 09:08; Admin Dose 100 MLS/HR; Start 12/16/16 at 20:00 Fluconazole/ Sodium Chloride (Diflucan 100 Mg/ NS (Pmx)) 50 ml @ 50 mls/hr Q24H IVPB Last administered on 12/18/16 14:25; Admin Dose 50 MLS/HR; Start at 13:00 Collagenase 1 applic 1 applic DAILY TOP Last administered on 12/19/16 09:09; Admin Dose 1 APPLIC; Start 12/17/16 at 20:00 Dextrose (D5W) 1,000 ml @ 75 mls/hr [id number] IV Last administered on 12/19/16 03:54; Admin Dose 75 MLS/HR; Start 12/18/16 at 10:30 ROULA YEPEZ MD Dec 19, 2016 11:57
[2016-12-19] MEDS ORDERED: POTASSIUM CHLORIDE 20 MEQ in SOD CHLORIDE 0.9% 100 ML IVPB ONE (13:00)
[2016-12-19] MEDS: FLUCONAZOLE 100 MG/NS (PMX) 50 ML IVPB SCH (13:18)
--- NOTE | 2016-12-19 15:03 | CONS ---
Date/Time of Note Date/Time of Note DATE: 12/19/16 TIME: 15:02 Assessment/Plan Assessment/Plan Chief Complaint/Hosp Course No acute changes overnight. Patient is sleeping. at bedside Temperature 98.5 pulse 103 respirations 18 blood pressure 165/81 saturation 96 on FiO2 of 35 WBC 4.1 H&H 8.7 28.6 platelets 191 neutrophils 56.1 BUN 32 creatinine 1.24 Indwelling: Car, trach, PEG Antimicrobials: Fluconazole, meropenem Physical examination: Chronically ill-appearing elderly man who is in no distress head atraumatic normocephalic sclerae nonicteric vehicle mucosa dry neck is supple tracheostomy present. Chest rise symmetrical breath sounds diminished bases. Heart: S1-S2. Abdomen soft bowel sounds present, extremities with trace edema Assessment : 1. Systemic inflammatory response syndrome with fever on admission 2. Acute on chronic anemia 3. Possible pneumonia 4. Lung nodule of unclear significance 5. Chronic respiratory failure. 6. Acute on chronic kidney disease 7. Layne albicans UTI Plan: Patient remains stable, status post EGD that revealed gastritis and stomal ulcer, will repeat chest x-ray in a.m. continue antibiotics Problems: Consultation Date/Type/Reason Admit Date/Time Dec 15, 2016 at 10:55 Type of Consultation: ID Referring Provider: DESTINEE ROBERTS MD Exam/Review of Systems Vital Signs Vitals Vital Signs Date Time Temp Pulse Resp B/P Pulse Ox O2 Delivery O2 Flow Rate FiO2 12/19/16 13:00 114 20 100 35 12/19/16 11:36 98.5 165/81 12/17/16 13:04 Mechanical Ventilator Intake and Output 12/18/16 12/18/16 12/19/16 15:00 23:00 07:00 Intake Total 1100 ml Output Total 500 ml Balance 600 ml Results Result Diagram: 12/19/16 0507 12/19/16 0507 Results 24 hrs Laboratory Tests Test 12/19/16 05:07 White Blood Count 4.1 L Red Blood Count 3.11 L Hemoglobin 8.7 L Hematocrit 28.6 L Mean Corpuscular Volume 92.0 Mean Corpuscular Hemoglobin 28.0 L Mean Corpuscular Hemoglobin Concent 30.4 L Red Cell Distribution Width 19.9 H Platelet Count 191 Mean Platelet Volume 12.3 H Neutrophils % 56.1 Lymphocytes % 18.0 Monocytes % 5.9 Eosinophils % 19.3 H Basophils % 0.2 Nucleated Red Blood Cells % 0.0 Neutrophils # 2.3 Lymphocytes # 0.7 L Monocytes # 0.2 L Eosinophils # 0.8 H Basophils # 0.0 Nucleated Red Blood Cells # 0.0 Sodium Level 154 H Potassium Level 3.4 L Chloride Level 126 H Carbon Dioxide Level 20 L Anion Gap 11 Blood Urea Nitrogen 32 H Creatinine 1.24 Glucose Level 124 Calcium Level 9.4 Medications Medications Current Medications Lorazepam (Ativan) 0.5 mg Q6H PRN IV ANXIETY Last administered on 12/17/16 23: 32; Admin Dose 0.5 MG; Start 12/15/16 at 18:00 Ondansetron HCl (Zofran Inj) 4 mg Q6H PRN IV NAUSEA AND/OR VOMITING; Start 12/15/16 at 18:00 Acetaminophen (Tylenol Supp) 650 mg Q6H PRN [place] PAIN LEVEL 1-3 OR FEVER; Start 12/15/16 at 18:00 Morphine Sulfate (morphine) 2 mg Q4H PRN IV PAIN LEVEL 7-10 Last administered on 12/17/16 05:56; Admin Dose 2 MG; Start 12/15/16 at 18:00 Pantoprazole (Protonix Iv) 40 mg DAILY@06 IV Last administered on 12/19/16 06: 37; Admin Dose 40 MG; Start 12/16/16 at 06:00 Diphenhydramine HCl 25 mg 25 mg Q6H PRN IV ITCHING Last administered on 16:29; Admin Dose 25 MG; Start 12/16/16 at 16:00 Meropenem/Sodium Chloride 50 ml @ 100 mls/hr Q12 IVPB Last administered on 09:08; Admin Dose 100 MLS/HR; Start 12/16/16 at 20:00 Fluconazole/ Sodium Chloride (Diflucan 100 Mg/ NS (Pmx)) 50 ml @ 50 mls/hr Q24H IVPB Last administered on 12/19/16 13:18; Admin Dose 50 MLS/HR; Start at 13:00 Collagenase 1 applic 1 applic DAILY TOP Last administered on 12/19/16 09:09; Admin Dose 1 APPLIC; Start 12/17/16 at 20:00 Potassium Chloride/Dextrose (D5W + KCl 20 Meq) 1,000 ml @ 100 mls/hr Q10H IV ; Start 12/19/16 at 13:00 NASH DOTY NP Dec 19, 2016 15:03
[2016-12-19] MEDS: D5W + KCL 20 MEQ 1,000 ML IV SCH (15:17)
[2016-12-19] MEDS ORDERED: ZOLPIDEM 5 MG TAB PO PRN (15:30)
--- NOTE | 2016-12-19 15:50 | PN ---
Date/Time of Note Date/Time of Note DATE: 12/19/16 TIME: 15:49 Assessment/Plan Lines/Catheters IV Catheter Type (from [facility] [[email or web address] Peripheral IV Urinary Cath still in place: Yes Assessment/Plan Assessment/Plan - Hypernatremia - per nephrology - continue water flushes via G-tube - Hypokalemia - K replaced - Melena. Rule out gastrointestinal bleed. Dr. Hassan is following in gastroenterology consultation. - Stomal ulcer and gastritis per EGD. - Sepsis, due to most likely urinary tract infection possible pneumonia. Continue antibiotics per ID. Dr Jones is following in infection disease consultation - Urinary tract infection per UA. - Acute kidney injury on chronic kidney disease. Continue IV fluids, her BUN and creatinine. - Ventilator-dependent respiratory failure and Dr. Barajas will be following patient in pulmonology consultation. - Anemia. Further recommendations based on clinical course. Plan of care discussed with Dr. Roa. Exam/Review of Systems Vital Signs Vitals Vital Signs Date Time Temp Pulse Resp B/P Pulse Ox O2 Delivery O2 Flow Rate FiO2 12/19/16 15:27 98.4 102 18 171/81 98 12/19/16 15:15 35 12/17/16 13:04 Mechanical Ventilator Intake and Output 12/18/16 12/18/16 12/19/16 15:00 23:00 07:00 Intake Total 1100 ml Output Total 500 ml Balance 600 ml Results Result Diagram: 12/19/16 0507 12/19/16 0507 Results 24 hrs Laboratory Tests Test 12/19/16 05:07 White Blood Count 4.1 L Red Blood Count 3.11 L Hemoglobin 8.7 L Hematocrit 28.6 L Mean Corpuscular Volume 92.0 Mean Corpuscular Hemoglobin 28.0 L Mean Corpuscular Hemoglobin Concent 30.4 L Red Cell Distribution Width 19.9 H Platelet Count 191 Mean Platelet Volume 12.3 H Neutrophils % 56.1 Lymphocytes % 18.0 Monocytes % 5.9 Eosinophils % 19.3 H Basophils % 0.2 Nucleated Red Blood Cells % 0.0 Neutrophils # 2.3 Lymphocytes # 0.7 L Monocytes # 0.2 L Eosinophils # 0.8 H Basophils # 0.0 Nucleated Red Blood Cells # 0.0 Sodium Level 154 H Potassium Level 3.4 L Chloride Level 126 H Carbon Dioxide Level 20 L Anion Gap 11 Blood Urea Nitrogen 32 H Creatinine 1.24 Glucose Level 124 Calcium Level 9.4 Medications Medications Current Medications Lorazepam (Ativan) 0.5 mg Q6H PRN IV ANXIETY Last administered on 12/17/16 23: 32; Admin Dose 0.5 MG; Start 12/15/16 at 18:00 Ondansetron HCl (Zofran Inj) 4 mg Q6H PRN IV NAUSEA AND/OR VOMITING; Start 12/15/16 at 18:00 Acetaminophen (Tylenol Supp) 650 mg Q6H PRN [place] PAIN LEVEL 1-3 OR FEVER; Start 12/15/16 at 18:00 Morphine Sulfate (morphine) 2 mg Q4H PRN IV PAIN LEVEL 7-10 Last administered on 12/17/16 05:56; Admin Dose 2 MG; Start 12/15/16 at 18:00 Pantoprazole (Protonix Iv) 40 mg DAILY@06 IV Last administered on 12/19/16 06: 37; Admin Dose 40 MG; Start 12/16/16 at 06:00 Diphenhydramine HCl 25 mg 25 mg Q6H PRN IV ITCHING Last administered on 16:29; Admin Dose 25 MG; Start 12/16/16 at 16:00 Meropenem/Sodium Chloride 50 ml @ 100 mls/hr Q12 IVPB Last administered on 09:08; Admin Dose 100 MLS/HR; Start 12/16/16 at 20:00 Fluconazole/ Sodium Chloride (Diflucan 100 Mg/ NS (Pmx)) 50 ml @ 50 mls/hr Q24H IVPB Last administered on 12/19/16 13:18; Admin Dose 50 MLS/HR; Start at 13:00 Collagenase 1 applic 1 applic DAILY TOP Last administered on 12/19/16 09:09; Admin Dose 1 APPLIC; Start 12/17/16 at 20:00 Potassium Chloride/Dextrose (D5W + KCl 20 Meq) 1,000 ml @ 100 mls/hr Q10H IV Last administered on 12/19/16 15:17; Admin Dose 100 MLS/HR; Start 12/19/16 at 13:00 Zolpidem Tartrate (Ambien) 5 mg HS PRN PO INSOMNIA; Start 12/19/16 at 15:30 Hydralazine HCl (Apresoline) 10 mg Q6H PRN IV ELEVATED BLOOD PRESSURE; Start 12/19/16 at 16:00 Diltiazem HCl (Cardizem) 30 mg Q6H GTB ; Start 12/19/16 at 16:00; Status UNV Metoprolol Tartrate (Lopressor) 12.5 mg Q8 GTB ; Start 12/19/16 at 16:00 JOÃO JUAREZ Dec 19, 2016 15:50 JOÃO JUAREZ Dec 19, 2016 15:50
[2016-12-19] MEDS ORDERED: DILTIAZEM 30 MG TAB GTB SCH (16:00)
[2016-12-19] MEDS ORDERED: hydrALAzine 20 MG INJ IV PRN (16:00)
[2016-12-19] MEDS: DILTIAZEM 30 MG TAB GTB SCH (16:59)
[2016-12-19] MEDS: METOPROLOL 25 MG TAB GTB SCH ×2 (17:00→22:19)
--- NOTE | 2016-12-19 17:21 | CONS ---
Date/Time of Note Date/Time of Note DATE: 12/19/16 TIME: 17:20 Assessment/Plan Assessment/Plan Additional Assessment/Plan IMPRESSION: 1. Melena, no further bleeding noted. Patient has stomal ulcer 2. Sepsis. 3. Urinary tract infection. 4. Kidney injury. 5. Vent dependent respiratory failure. 6. Functional paraplegia. He has been bedridden for the last many years. 7. Anemia. Plan Continue PPI Consultation Date/Type/Reason Admit Date/Time Dec 15, 2016 at 10:55 Initial Consult Date 12/18/16 Type of Consultation: ID Referring Provider: DESTINEE ROBERTS MD 24 HR Interval Summary Free Text/Dictation complains of rectal tube, which is bothering patient Exam/Review of Systems Vital Signs Vitals Vital Signs Date Time Temp Pulse Resp B/P Pulse Ox O2 Delivery O2 Flow Rate FiO2 12/19/16 16:55 104 141/79 12/19/16 15:27 98.4 18 98 12/19/16 15:15 35 12/17/16 13:04 Mechanical Ventilator Intake and Output 12/18/16 12/18/16 12/19/16 15:00 23:00 07:00 Intake Total 1100 ml Output Total 500 ml Balance 600 ml Exam Constitutional: alert, oriented, well developed Psych: nl mood/affect, no complaints Head: atraumatic, normocephalic Eyes: EOMI, PERRL, nl conjunctiva, nl lids, nl sclera ENMT: nl external ears & nose, nl lips & teeth, nl nasal mucosa & septum Neck: non-tender, supple Respiratory: clear to auscultation, normal air movement Cardiovascular: nl pulses, regular rate and rhythm Gastrointestinal: nl liver, spleen, non-tender, soft Musculoskeletal: nl extremities to inspection, nl gait and stance Extremities: normal pulses Neurological: WAITER WAITRESS II-XII intact, nl mental status, nl speech, nl strength Skin: nl turgor, No rash or lesions Lymph: nl lymph nodes Results Result Diagram: 12/19/16 0507 12/19/16 0507 Results 24 hrs Laboratory Tests Test 12/19/16 05:07 White Blood Count 4.1 L Red Blood Count 3.11 L Hemoglobin 8.7 L Hematocrit 28.6 L Mean Corpuscular Volume 92.0 Mean Corpuscular Hemoglobin 28.0 L Mean Corpuscular Hemoglobin Concent 30.4 L Red Cell Distribution Width 19.9 H Platelet Count 191 Mean Platelet Volume 12.3 H Neutrophils % 56.1 Lymphocytes % 18.0 Monocytes % 5.9 Eosinophils % 19.3 H Basophils % 0.2 Nucleated Red Blood Cells % 0.0 Neutrophils # 2.3 Lymphocytes # 0.7 L Monocytes # 0.2 L Eosinophils # 0.8 H Basophils # 0.0 Nucleated Red Blood Cells # 0.0 Sodium Level 154 H Potassium Level 3.4 L Chloride Level 126 H Carbon Dioxide Level 20 L Anion Gap 11 Blood Urea Nitrogen 32 H Creatinine 1.24 Glucose Level 124 Calcium Level 9.4 Medications Medications Current Medications Lorazepam (Ativan) 0.5 mg Q6H PRN IV ANXIETY Last administered on 12/17/16 23: 32; Admin Dose 0.5 MG; Start 12/15/16 at 18:00 Ondansetron HCl (Zofran Inj) 4 mg Q6H PRN IV NAUSEA AND/OR VOMITING; Start 12/15/16 at 18:00 Acetaminophen (Tylenol Supp) 650 mg Q6H PRN [place] PAIN LEVEL 1-3 OR FEVER; Start 12/15/16 at 18:00 Morphine Sulfate (morphine) 2 mg Q4H PRN IV PAIN LEVEL 7-10 Last administered on 12/17/16 05:56; Admin Dose 2 MG; Start 12/15/16 at 18:00 Pantoprazole (Protonix Iv) 40 mg DAILY@06 IV Last administered on 12/19/16 06: 37; Admin Dose 40 MG; Start 12/16/16 at 06:00 Diphenhydramine HCl 25 mg 25 mg Q6H PRN IV ITCHING Last administered on 16:29; Admin Dose 25 MG; Start 12/16/16 at 16:00 Meropenem/Sodium Chloride 50 ml @ 100 mls/hr Q12 IVPB Last administered on 09:08; Admin Dose 100 MLS/HR; Start 12/16/16 at 20:00 Fluconazole/ Sodium Chloride (Diflucan 100 Mg/ NS (Pmx)) 50 ml @ 50 mls/hr Q24H IVPB Last administered on 12/19/16 13:18; Admin Dose 50 MLS/HR; Start at 13:00 Collagenase 1 applic 1 applic DAILY TOP Last administered on 12/19/16 09:09; Admin Dose 1 APPLIC; Start 12/17/16 at 20:00 Potassium Chloride/Dextrose (D5W + KCl 20 Meq) 1,000 ml @ 100 mls/hr Q10H IV Last administered on 12/19/16 15:17; Admin Dose 100 MLS/HR; Start 12/19/16 at 13:00 Zolpidem Tartrate (Ambien) 5 mg HS PRN PO INSOMNIA; Start 12/19/16 at 15:30 Hydralazine HCl (Apresoline) 10 mg Q6H PRN IV ELEVATED BLOOD PRESSURE; Start 12/19/16 at 16:00 Metoprolol Tartrate (Lopressor) 12.5 mg Q8 GTB Last administered on 12/19/16 17:00; Admin Dose 12.5 MG; Start 12/19/16 at 16:00 Diltiazem HCl (Cardizem) 30 mg Q6 GTB Last administered on 12/19/16 16:59; Admin Dose 30 MG; Start 12/19/16 at 16:00 PAT CHA MD Dec 19, 2016 17:21
[2016-12-19 19:10] LABS: CREATININE 1.16 mg/dl (0.61-1.24); POTASSIUM 3.3 mmol/L (3.5-5.1)
[2016-12-20] VITALS (26 sets, daily range): BP systolic 128–162; BP diastolic 60–89; PULSE 85–99; RESP 16–23
[2016-12-20] MEDS ORDERED: POTASSIUM CHLORIDE 20 MEQ in SOD CHLORIDE 0.9% 100 ML IVPB ONE ×2 (00:15→09:30)
[2016-12-20] MEDS: DILTIAZEM 30 MG TAB GTB SCH ×4 (00:56→17:36)
[2016-12-20] MEDS: D5W + KCL 20 MEQ 1,000 ML IV SCH ×3 (01:22→17:38)
[2016-12-20] MEDS: ALBUTEROL 18 GM INHALER INH SCH ×4 (02:10→19:17)
[2016-12-20] MEDS: IPRATROPIUM (HFA) 12.9 GM INHALER INH SCH ×4 (02:10→19:17)
--- NOTE | 2016-12-20 03:00 | PN ---
DATE: 12/18/2016 SUBJECTIVE: The patient's general condition is same. He is awake, responsive. He is breathing com fortably with ventilator support through tracheostomy. PHYSICAL EXAMINATION: VITAL SIGNS: Stable. Temperature 98.4, blood pressure is 143/73, pulse rate is 90, respirations 17 , pulse oximetry 100% saturation with 40% inhaled oxygen concentration. NECK: Tracheal secretions are clear. No bleeding seen. HEART: Regular rhythm. CHEST: Breath sounds are diminished in the lower lung enamorado, otherwise clear. There are a few ral es and rhonchi heard in the lung bases. ABDOMEN: Soft, nondistended. Bowel sounds are present. EXTREMITIES: Show no edema. LABORATORY DATA: The lab tests from today show sodium 152, potassium 3.7, glucose 95, BUN 42, creat inine 1.49. The CBC shows a WBC of 5000, hemoglobin 9.2, hematocrit 29.7, platelets within normal l imits. The urine culture is reported to show growth of Layne albicans which is being treated with Diflucan. IMPRESSION: 1. Chronic respiratory failure, ventilator dependent at present. 2. Urinary tract infection with Layne albicans. 3. Hypoalbuminemia. 4. Probable gastrointestinal bleed. 5. Chronic anemia. 6. Azotemia with hyponatremia. RECOMMENDATIONS: 1. Continue long-term ventilator support. 2. Continue antibiotics. Discuss the patient's condition and treatment with his at bedside. Dictated By: ROEL BOYLE MD SR/NTS Conf#: [id number] DID#: [id number] CC: DESTINEE ROBERTS MD;*EndCC*
--- NOTE | 2016-12-20 05:26 | PN ---
DATE: 12/18/2016 SUBJECTIVE: No events overnight. No fevers. The patient looks comfortable on vent. The at b edside. LABORATORY DATA: WBC 5, H and H of 9.7 and 29.7, platelets 209. Sodium 152, BUN 42, creatinine 1.4 9. ANTIMICROBIALS: The patient is on: 1. Fluconazole. 2. Meropenem. INDWELLINGS: Trach, PEG, Car. PHYSICAL EXAMINATION GENERAL: This is a chronically ill-appearing, elderly man in no distress. HEAD, EARS, EYES, NOSE, AND THROAT: Head atraumatic, normocephalic. Sclerae anicteric. Buccal muc jason dry. NECK: Supple. Tracheostomy present. CHEST: Rise symmetrical. Breath sounds diminished to bases. HEART: S1, S2. ABDOMEN: Soft. Bowel tones present. ASSESSMENT 1. Status post systemic inflammatory response syndrome. 2. Layne albicans urinary tract infection. 3. Anemia, status post EGD that revealed stomal ulcer and gastritis. 4. Chronic respiratory failure. 5. Pulmonary nodule, significance unclear. PLAN: The patient remains stable. Continue present care, antibiotics. Follow chest x-ray. Follow recommendations of consultants. Dictated By: NASH DOTY PROMOTIONAL MARKETING ANALYST for RICHARD MOLINA/IRMA Conf#: [id number] DID#: [id number]
[2016-12-20] MEDS: PANTOPRAZOLE 40 MG INJ IV SCH (06:32)
[2016-12-20] MEDS: METOPROLOL 25 MG TAB GTB SCH ×3 (06:36→21:17)
--- NOTE | 2016-12-20 07:15 | PN ---
DATE: 12/17/2016 SUBJECTIVE: No acute events overnight. Patient is lying comfortably in bed. No fevers. at b edside. VITAL SIGNS: Temperature 98.4, pulse 95, respirations 18, blood pressure 112/56, saturation 94 on 4 0%. LABORATORY DATA: No labs this morning. BUN 58, creatinine 1.92 yesterday. MICROBIOLOGY: Blood cultures remain negative. Urine culture grew Layne albicans, less than 10,00 0 colonies. ANTIMICROBIALS: Patient is on meropenem. DIAGNOSTICS: Chest x-ray on admission revealed increased bilateral interstitial and lower lobe michelle ings may represent interstitial pneumonia, right upper lung 9 mm nodule, recommend chest CT for furt her evaluation. INDWELLINGS: Trach, PEG, Car. PHYSICAL EXAMINATION: GENERAL: This is a chronically ill-appearing, elderly man in no distress. HEENT: Head atraumatic, normocephalic. Sclerae anicteric. Buccal mucosa dry. NECK: Supple. CHEST: Rise symmetrical. Breath sounds diminished to bases. HEART: S1, S2. ABDOMEN: Soft. Bowel tones present. EXTREMITIES: Without cyanosis. ASSESSMENT: 1. Sepsis with fevers and leukocytosis on admission. 2. Urinary tract infection. 3. Questionable pneumonia. 4. Chronic respiratory failure. 5. Acute anemia. 6. Dysphagia. 7. History of cardiac arrest. PLAN: Patient remains stable. We will start him on fluconazole. Continue meropenem for now. Foll ow chest x-ray. Follow pulmonary recommendations. Pending EGD. Dictated By: NASH DOTY PROGRAM COORDINATOR EXECUTIVE EDUCATION for RICHARD MOLINA/IRMA Conf#: [id number] DID#: [id number]
[2016-12-20] MEDS: MEROPENEM 1 GM/50ML(PMX) 50 ML IVPB SCH ×2 (08:48→21:16)
[2016-12-20] MEDS: COLLAGENASE 30 GM TUBE TOP SCH (08:51)
--- NOTE | 2016-12-20 09:11 | CONS ---
Date/Time of Note Date/Time of Note DATE: 12/20/16 TIME: 09:07 Assessment/Plan Assessment/Plan Chief Complaint/Hosp Course 81-year-old gentleman with history of chronic encephalopathy, ventilator- dependent respiratory failure, history of cardiac arrest x3, hepatic encephalopathy, kidney disease treated with hemodialysis, history of stroke with paraplegia, bedbound status and chronic sacral ulcer decubitus, chronic hypoxic respiratory failure, ventilator dependent with tracheostomy, dysphagia with PEG placement and congestive heart failure. He was admitted for melena, GI bleeding noted to have Elevated Cr 2.01 on admission, Renal has been consulted for SAMANTHA, Hypernatremia. Problems: Additional Assessment/Plan 1. acute Kidney injury due to prerenal azotemia 2. Hypernatremia due to large free water deficit 3. Sepsis due to UTI 4. Chronic resp failure s/p tracheostomy vent depedant 5. Chronic encephalopathy 6. S/P G tube 7. melena, Gi bleeding, h/o PUD 8. 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 will follow up Consultation Date/Type/Reason Admit Date/Time Dec 15, 2016 at 10:55 Initial Consult Date 12/18/16 Type of Consultation: NEPHROLOGY Referring Provider: DESTINEE ROBERTS MD 24 HR Interval Summary Free Text/Dictation pt was given extra KCl 20mEQ IV x 1 yesterday, still k low, Na still high,Cr improved, pt stable on current ventilator settings Exam/Review of Systems Vital Signs Vitals Vital Signs Date Time Temp Pulse Resp B/P Pulse Ox O2 Delivery O2 Flow Rate FiO2 12/20/16 08:32 93 12/20/16 07:27 97.9 22 162/89 97 12/20/16 06:00 35 12/17/16 13:04 Mechanical Ventilator Intake and Output 12/19/16 12/19/16 12/20/16 15:00 23:00 07:00 Intake Total 1100 ml 1100 ml Output Total 750 ml 650 ml Balance 350 ml 450 ml Exam Constitutional: alert, non-verbal Head: atraumatic, normocephalic ENMT: nl external ears & nose, other (+ tracheostomy on ventilator ) Neck: non-tender, supple Respiratory: congested cough, crackles/rales, diminished breath sounds Cardiovascular: nl pulses, regular rate and rhythm Gastrointestinal: non-tender, other (G tube, site clear, no erythema, no discharge ), soft Neurological: other (uncoperative for full neuro exam, pt is on ventilator through tracheostomy ) Results Result Diagram: 12/19/16 0507 12/19/16 1759 Results 24 hrs Laboratory Tests Test 12/19/16 17:59 12/20/16 06:51 Sodium Level 154 H Potassium Level 3.3 L Chloride Level 126 H Carbon Dioxide Level 20 L Anion Gap 11 Blood Urea Nitrogen 31 H Creatinine 1.16 Glucose Level 111 Calcium Level 9.0 Lab Scanned Report BLOOD TRANSFUSION Medications Medications Current Medications Lorazepam (Ativan) 0.5 mg Q6H PRN IV ANXIETY Last administered on 12/17/16 23: 32; Admin Dose 0.5 MG; Start 12/15/16 at 18:00 Ondansetron HCl (Zofran Inj) 4 mg Q6H PRN IV NAUSEA AND/OR VOMITING; Start 12/15/16 at 18:00 Acetaminophen (Tylenol Supp) 650 mg Q6H PRN [place] PAIN LEVEL 1-3 OR FEVER; Start 12/15/16 at 18:00 Morphine Sulfate (morphine) 2 mg Q4H PRN IV PAIN LEVEL 7-10 Last administered on 12/17/16 05:56; Admin Dose 2 MG; Start 12/15/16 at 18:00 Pantoprazole (Protonix Iv) 40 mg DAILY@06 IV Last administered on 12/20/16 06: 32; Admin Dose 40 MG; Start 12/16/16 at 06:00 Diphenhydramine HCl 25 mg 25 mg Q6H PRN IV ITCHING Last administered on 16:29; Admin Dose 25 MG; Start 12/16/16 at 16:00 Meropenem/Sodium Chloride 50 ml @ 100 mls/hr Q12 IVPB Last administered on 08:48; Admin Dose 100 MLS/HR; Start 12/16/16 at 20:00 Fluconazole/ Sodium Chloride (Diflucan 100 Mg/ NS (Pmx)) 50 ml @ 50 mls/hr Q24H IVPB Last administered on 12/19/16 13:18; Admin Dose 50 MLS/HR; Start at 13:00 Collagenase 1 applic 1 applic DAILY TOP Last administered on 12/20/16 08:51; Admin Dose 1 APPLIC; Start 12/17/16 at 20:00 Potassium Chloride/Dextrose (D5W + KCl 20 Meq) 1,000 ml @ 100 mls/hr Q10H IV Last administered on 12/20/16 08:49; Admin Dose 100 MLS/HR; Start 12/19/16 at 13:00 Zolpidem Tartrate (Ambien) 5 mg HS PRN PO INSOMNIA; Start 12/19/16 at 15:30 Hydralazine HCl (Apresoline) 10 mg Q6H PRN IV ELEVATED BLOOD PRESSURE; Start 12/19/16 at 16:00 Metoprolol Tartrate (Lopressor) 12.5 mg Q8 GTB Last administered on 12/20/16 06:36; Admin Dose 12.5 MG; Start 12/19/16 at 16:00 Diltiazem HCl (Cardizem) 30 mg Q6 GTB Last administered on 12/20/16 06:35; Admin Dose 30 MG; Start 12/19/16 at 16:00 ROULA YEPEZ MD Dec 20, 2016 09:11
--- NOTE | 2016-12-20 09:13 | PN ---
DATE: 12/19/2016 SUBJECTIVE: The patient is awake, resting comfortably and shows no signs of respiratory distress. He is on continuous long-term ventilator support. PHYSICAL EXAMINATION: VITAL SIGNS: Stable. Temperature 99, blood pressure 131/87, pulse rate is 113, respirations 18, pu lse oximetry 95% saturation with 30% inhaled oxygen concentration. NECK: Tracheal secretions are clear. No bleeding is seen. HEART: Regular rhythm with sinus tachycardia. CHEST: Breath sounds are heard bilaterally, diminished in both the lower lung enamorado with a few int ermittent rales and rhonchi. ABDOMEN: Soft, not distended. Normal bowel sounds. EXTREMITIES: Show no edema in the legs. LABORATORY DATA: The lab tests show sodium 154, potassium 3.4, creatinine 1.24, BUN 32. Both BUN a nd creatinine are improving. The CBC shows a WBC of 4100, hemoglobin 8.7, hematocrit 28.6, platelet s within normal limits. Urine culture has shown growth of Layne albicans, which is being treated with Diflucan. Upper gastrointestinal endoscopy had shown gastritis with stomal ulcers in the internal stoma. No a ctive bleeding seen. IMPRESSION: 1. Chronic ventilator dependent respiratory failure. 2. Urosepsis. 3. Gastritis with stomal ulcers. 4. Acute kidney injury, improving. 5. History of congestive heart failure. 6. History of cerebrovascular accident with paraplegia. 7. Decubitus ulcer. 8. Status post tracheostomy. 9. Status post gastrostomy. 10. Chronic anemia. RECOMMENDATIONS: 1. Continue long-term ventilator support. 2. Continue antibiotics. Dictated By: ROEL BOYLE MD, SR/IRMA Conf#: [id number] DID#: [id number]
--- NOTE | 2016-12-20 11:17 | RADRPT ---
PROCEDURE: XR Chest. CLINICAL INDICATION: Shortness of breath. TECHNIQUE: Single frontal view. COMPARISON: 12/15/2016. FINDINGS: The tracheostomy tube is in satisfactory position. There is atelectasis or scarring at the lung base s, unchanged. Previously noted 0.9 cm right upper lobe nodule is not well seen. The heart is mildly enlarged. There is calcification in the aorta consistent with atherosclerosis. There is no pleural effusion. There is no pneumothorax. IMPRESSION: 1. No change from 12/15/2016. RPTAT: QQ .Harjit Cruz MD, MD Date Time Electronically viewed and signed by .Harjit Cruz MD, MD on 12/20/2016 11:17 .R/
--- NOTE | 2016-12-20 12:10 | PN ---
DATE: 12/20/2016 SUBJECTIVE: The patient is awake, responsive. His is at the bedside. He is breathing comfort ably with the ventilator support through tracheostomy. PHYSICAL EXAMINATION: VITAL SIGNS: Stable. Temperature 97.9, blood pressure 162/89, pulse rate is 74, respirations 22, p ulse oximetry 97% saturation. He did not have any fever spikes yesterday. NECK: Tracheal secretions are clear. No bleeding is seen. HEART: Regular sinus rhythm. CHEST: Breath sounds are heard bilaterally, somewhat diminished in the lower lung enamorado, otherwise clear. ABDOMEN: Soft, not distended. He is tolerating tube feedings. EXTREMITIES: Show no edema in the legs and feet. LABORATORY DATA: No lab results are available today. Urine culture shows growth of Layne albicans which is being treated with Diflucan. IMPRESSION: 1. Chronic ventilator dependent respiratory failure. 2. Urosepsis secondary to Layne albicans infection. 3. Gastritis, stomal ulcers. 4. Acute kidney injury, improving. 5. History of congestive heart failure. 6. History of cerebrovascular accident with paraplegia. 7. Chronic anemia. 8. Decubitus ulcer. 9. Status post tracheostomy. 10. Status post gastrostomy. PLAN: 1. Continue long-term ventilator support. 2. Continue antibiotics. 3. Continue pulmonary toilet to clear the secretions. Dictated By: ROEL BOYLE MD, SR/IRMA Conf#: [id number] DID#: [id number]
[2016-12-20] MEDS: FLUCONAZOLE 100 MG/NS (PMX) 50 ML IVPB SCH (13:08)
--- NOTE | 2016-12-20 13:43 | PN ---
Date/Time of Note Date/Time of Note DATE: 12/20/16 TIME: 13:37 Assessment/Plan VTE Prophylaxis VTE Prophylaxis Intervention: SCD's Lines/Catheters IV Catheter Type (from [facility]): Peripheral IV Urinary Cath still in place: Yes Reason Cath still needed: urinary retention Assessment/Plan Chief Complaint/Hosp Course Patient is more awake, patient tolerated G-tube feeding well, will start PT and obtain swallow evaluation. Hypokalemia, potassium replaced by nephrology. ASSESSMENT AND PLAN: - Melena. Rule out gastrointestinal bleed. Dr. Hassan is following in gastroenterology consultation. - Stomal ulcer and gastritis per EGD. - Sepsis, due to most likely urinary tract infection possible pneumonia. Continue antibiotics per ID. Dr Jones is following in infection disease consultation - Urinary tract infection per UA. - Acute kidney injury on chronic kidney disease. Continue IV fluids, her BUN and creatinine. - Hypernatremia, continue water flushes via G-tube - Ventilator-dependent respiratory failure and Dr. Barajas will be following patient in pulmonology consultation. - Anemia. 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 Plan of care discussed with Dr. Roa. Problems: Exam/Review of Systems Vital Signs Vitals Vital Signs Date Time Temp Pulse Resp B/P Pulse Ox O2 Delivery O2 Flow Rate FiO2 12/20/16 13:10 84 21 96 35 12/20/16 12:37 97.9 155/87 12/17/16 13:04 Mechanical Ventilator Intake and Output 12/19/16 12/19/16 12/20/16 15:00 23:00 07:00 Intake Total 1100 ml 1100 ml Output Total 750 ml 650 ml Balance 350 ml 450 ml Exam Constitutional: alert Head: normocephalic Neck: other (Tracheostomy) Respiratory: diminished breath sounds Cardiovascular: nl pulses Gastrointestinal: non-tender, other (G-tube), soft Musculoskeletal: other Extremities: normal pulses Results Result Diagram: 12/19/16 0507 12/19/16 6019 Results 24 hrs Laboratory Tests Test 12/19/16 17:59 12/20/16 06:51 Sodium Level 154 H Potassium Level 3.3 L Chloride Level 126 H Carbon Dioxide Level 20 L Anion Gap 11 Blood Urea Nitrogen 31 H Creatinine 1.16 Glucose Level 111 Calcium Level 9.0 Lab Scanned Report BLOOD TRANSFUSION Medications Medications Current Medications Lorazepam (Ativan) 0.5 mg Q6H PRN IV ANXIETY Last administered on 12/17/16 23: 32; Admin Dose 0.5 MG; Start 12/15/16 at 18:00 Ondansetron HCl (Zofran Inj) 4 mg Q6H PRN IV NAUSEA AND/OR VOMITING; Start 12/15/16 at 18:00 Acetaminophen (Tylenol Supp) 650 mg Q6H PRN [place] PAIN LEVEL 1-3 OR FEVER; Start 12/15/16 at 18:00 Morphine Sulfate (morphine) 2 mg Q4H PRN IV PAIN LEVEL 7-10 Last administered on 12/17/16 05:56; Admin Dose 2 MG; Start 12/15/16 at 18:00 Pantoprazole (Protonix Iv) 40 mg DAILY@06 IV Last administered on 12/20/16 06: 32; Admin Dose 40 MG; Start 12/16/16 at 06:00 Diphenhydramine HCl 25 mg 25 mg Q6H PRN IV ITCHING Last administered on 16:29; Admin Dose 25 MG; Start 12/16/16 at 16:00 Meropenem/Sodium Chloride 50 ml @ 100 mls/hr Q12 IVPB Last administered on 08:48; Admin Dose 100 MLS/HR; Start 12/16/16 at 20:00 Fluconazole/ Sodium Chloride (Diflucan 100 Mg/ NS (Pmx)) 50 ml @ 50 mls/hr Q24H IVPB Last administered on 12/20/16 13:08; Admin Dose 50 MLS/HR; Start at 13:00 Collagenase 1 applic 1 applic DAILY TOP Last administered on 12/20/16 08:51; Admin Dose 1 APPLIC; Start 12/17/16 at 20:00 Potassium Chloride/Dextrose (D5W + KCl 20 Meq) 1,000 ml @ 100 mls/hr Q10H IV Last administered on 12/20/16 08:49; Admin Dose 100 MLS/HR; Start 12/19/16 at 13:00 Zolpidem Tartrate (Ambien) 5 mg HS PRN PO INSOMNIA; Start 12/19/16 at 15:30 Hydralazine HCl (Apresoline) 10 mg Q6H PRN IV ELEVATED BLOOD PRESSURE; Start 12/19/16 at 16:00 Metoprolol Tartrate (Lopressor) 12.5 mg Q8 GTB Last administered on 12/20/16 06:36; Admin Dose 12.5 MG; Start 12/19/16 at 16:00 Diltiazem HCl (Cardizem) 30 mg Q6 GTB Last administered on 12/20/16 13:08; Admin Dose 30 MG; Start 12/19/16 at 16:00 ERROL LORD Dec 20, 2016 13:43
--- NOTE | 2016-12-20 14:41 | CONS ---
Date/Time of Note Date/Time of Note DATE: 12/20/16 TIME: 14:33 Consultation Date/Type/Reason Admit Date/Time Dec 15, 2016 at 10:55 Initial Consult Date Chief Complaint/Hosp Course 81 y/o male being treated for SIRS, UTI and PNA. No acute changes overnight. Patient is sleeping. at bedside VS: T: 97.9 BP: 155/87 P: 78 R: 16 So2: 97% LABS: No Labs today. CXR: No change since 12/15/16. Indwelling: Car, trach, PEG Antimicrobials: Fluconazole, meropenem Physical examination: Chronically ill-appearing elderly man who is in no distress head atraumatic normocephalic sclerae nonicteric vehicle mucosa dry neck is supple tracheostomy present. Chest rise symmetrical breath sounds diminished bases. Heart: S1-S2. Abdomen: soft bowel sounds present, Extremities: with trace edema Assessment : 1. Systemic inflammatory response syndrome with fever on admission 2. Acute on chronic anemia 3. Possible pneumonia 4. Lung nodule of unclear significance 5. Chronic respiratory failure. 6. Acute on chronic kidney disease 7. Layne albicans UTI Plan: Patient remains stable. Continue IV Diflucan and Meropenem for few more days. Type of Consultation: ID Referring Provider: DESTINEE ROBERTS MD Exam/Review of Systems Vital Signs Vitals Vital Signs Date Time Temp Pulse Resp B/P Pulse Ox O2 Delivery O2 Flow Rate FiO2 12/20/16 13:10 84 21 96 35 12/20/16 12:37 97.9 155/87 12/17/16 13:04 Mechanical Ventilator Intake and Output 12/19/16 12/19/16 12/20/16 15:00 23:00 07:00 Intake Total 1100 ml 1100 ml Output Total 750 ml 650 ml Balance 350 ml 450 ml Results Result Diagram: 12/19/16 0507 12/19/16 1759 Results 24 hrs Laboratory Tests Test 12/19/16 17:59 12/20/16 06:51 Sodium Level 154 H Potassium Level 3.3 L Chloride Level 126 H Carbon Dioxide Level 20 L Anion Gap 11 Blood Urea Nitrogen 31 H Creatinine 1.16 Glucose Level 111 Calcium Level 9.0 Lab Scanned Report BLOOD TRANSFUSION Medications Medications Current Medications Lorazepam (Ativan) 0.5 mg Q6H PRN IV ANXIETY Last administered on 12/17/16t 23: 32; Admin Dose 0.5 MG; Start 12/15/16 at 18:00 Ondansetron HCl (Zofran Inj) 4 mg Q6H PRN IV NAUSEA AND/OR VOMITING; Start 12/15/16 at 18:00 Acetaminophen (Tylenol Supp) 650 mg Q6H PRN [place] PAIN LEVEL 1-3 OR FEVER; Start 12/15/16 at 18:00 Morphine Sulfate (morphine) 2 mg Q4H PRN IV PAIN LEVEL 7-10 Last administered on 12/17/16 05:56; Admin Dose 2 MG; Start 12/15/16 at 18:00 Pantoprazole (Protonix Iv) 40 mg DAILY@06 IV Last administered on 12/20/16 06: 32; Admin Dose 40 MG; Start 12/16/16 at 06:00 Diphenhydramine HCl 25 mg 25 mg Q6H PRN IV ITCHING Last administered on 16:29; Admin Dose 25 MG; Start 12/16/16 at 16:00 Meropenem/Sodium Chloride 50 ml @ 100 mls/hr Q12 IVPB Last administered on 08:48; Admin Dose 100 MLS/HR; Start 12/16/16 at 20:00 Fluconazole/ Sodium Chloride (Diflucan 100 Mg/ NS (Pmx)) 50 ml @ 50 mls/hr Q24H IVPB Last administered on 12/20/16 13:08; Admin Dose 50 MLS/HR; Start at 13:00 Collagenase 1 applic 1 applic DAILY TOP Last administered on 12/20/16 08:51; Admin Dose 1 APPLIC; Start 12/17/16 at 20:00 Potassium Chloride/Dextrose (D5W + KCl 20 Meq) 1,000 ml @ 100 mls/hr Q10H IV Last administered on 12/20/16 08:49; Admin Dose 100 MLS/HR; Start 12/19/16 at 13:00 Zolpidem Tartrate (Ambien) 5 mg HS PRN PO INSOMNIA; Start 12/19/16 at 15:30 Hydralazine HCl (Apresoline) 10 mg Q6H PRN IV ELEVATED BLOOD PRESSURE; Start 12/19/16 at 16:00 Metoprolol Tartrate (Lopressor) 12.5 mg Q8 GTB Last administered on 12/20/16 06:36; Admin Dose 12.5 MG; Start 12/19/16 at 16:00 Diltiazem HCl (Cardizem) 30 mg Q6 GTB Last administered on 12/20/16 13:08; Admin Dose 30 MG; Start 12/19/16 at 16:00 SHAWN LAMB Dec 20, 2016 14:41
--- NOTE | 2016-12-20 16:57 | CONS ---
Date/Time of Note Date/Time of Note DATE: 12/20/16 TIME: 16:56 Assessment/Plan Assessment/Plan Additional Assessment/Plan IMPRESSION: 1. Melena, no further bleeding noted. Patient has stomal ulcer 2. Sepsis. 3. Urinary tract infection. 4. Kidney injury. 5. Vent dependent respiratory failure. 6. Functional paraplegia. He has been bedridden for the last many years. 7. Anemia. Hematocrit is stable Plan Continue PPI Monitor H&H periodically Continue present care Consultation Date/Type/Reason Admit Date/Time Dec 15, 2016 at 10:55 Initial Consult Date 12/18/16 Type of Consultation: ID Referring Provider: DESTINEE ROBERTS MD 24 HR Interval Summary Constitutional: improved, no complaints Exam/Review of Systems Vital Signs Vitals Vital Signs Date Time Temp Pulse Resp B/P Pulse Ox O2 Delivery O2 Flow Rate FiO2 12/20/16 16:29 86 12/20/16 15:20 20 95 35 12/20/16 12:37 97.9 155/87 12/17/16 13:04 Mechanical Ventilator Intake and Output 12/19/16 12/19/16 12/20/16 15:00 23:00 07:00 Intake Total 1100 ml 1100 ml Output Total 750 ml 650 ml Balance 350 ml 450 ml Exam Constitutional: alert, oriented, well developed Psych: nl mood/affect, no complaints Head: atraumatic, normocephalic Eyes: EOMI, PERRL, nl conjunctiva, nl lids, nl sclera ENMT: nl external ears & nose, nl lips & teeth, nl nasal mucosa & septum Neck: non-tender, supple Respiratory: clear to auscultation, normal air movement Cardiovascular: nl pulses, regular rate and rhythm Gastrointestinal: nl liver, spleen, non-tender, soft Musculoskeletal: nl extremities to inspection, nl gait and stance Extremities: normal pulses Neurological: SECURITY ESCORT II-XII intact, nl mental status, nl speech, nl strength Skin: nl turgor, No rash or lesions Lymph: nl lymph nodes Results Result Diagram: 12/19/16 9850 12/19/16 5310 Results 24 hrs Laboratory Tests Test 12/19/16 17:59 12/20/16 06:51 Sodium Level 154 H Potassium Level 3.3 L Chloride Level 126 H Carbon Dioxide Level 20 L Anion Gap 11 Blood Urea Nitrogen 31 H Creatinine 1.16 Glucose Level 111 Calcium Level 9.0 Lab Scanned Report BLOOD TRANSFUSION Medications Medications Current Medications Lorazepam (Ativan) 0.5 mg Q6H PRN IV ANXIETY Last administered on 12/17/16 23: 32; Admin Dose 0.5 MG; Start 12/15/16 at 18:00 Ondansetron HCl (Zofran Inj) 4 mg Q6H PRN IV NAUSEA AND/OR VOMITING; Start 12/15/16 at 18:00 Acetaminophen (Tylenol Supp) 650 mg Q6H PRN [place] PAIN LEVEL 1-3 OR FEVER; Start 12/15/16 at 18:00 Morphine Sulfate (morphine) 2 mg Q4H PRN IV PAIN LEVEL 7-10 Last administered on 12/17/16 05:56; Admin Dose 2 MG; Start 12/15/16 at 18:00 Diphenhydramine HCl 25 mg 25 mg Q6H PRN IV ITCHING Last administered on 16:29; Admin Dose 25 MG; Start 12/16/16 at 16:00 Meropenem/Sodium Chloride 50 ml @ 100 mls/hr Q12 IVPB Last administered on 08:48; Admin Dose 100 MLS/HR; Start 12/16/16 at 20:00 Fluconazole/ Sodium Chloride (Diflucan 100 Mg/ NS (Pmx)) 50 ml @ 50 mls/hr Q24H IVPB Last administered on 12/20/16 13:08; Admin Dose 50 MLS/HR; Start at 13:00 Collagenase 1 applic 1 applic DAILY TOP Last administered on 12/20/16 08:51; Admin Dose 1 APPLIC; Start 12/17/16 at 20:00 Potassium Chloride/Dextrose (D5W + KCl 20 Meq) 1,000 ml @ 100 mls/hr Q10H IV Last administered on 12/20/16 08:49; Admin Dose 100 MLS/HR; Start 12/19/16 at 13:00 Zolpidem Tartrate (Ambien) 5 mg HS PRN PO INSOMNIA; Start 12/19/16 at 15:30 Hydralazine HCl (Apresoline) 10 mg Q6H PRN IV ELEVATED BLOOD PRESSURE; Start 12/19/16 at 16:00 Metoprolol Tartrate (Lopressor) 12.5 mg Q8 GTB Last administered on 12/20/16 14:50; Admin Dose 12.5 MG; Start 12/19/16 at 16:00 Diltiazem HCl (Cardizem) 30 mg Q6 GTB Last administered on 12/20/16 13:08; Admin Dose 30 MG; Start 12/19/16 at 16:00 Lansoprazole (Prevacid) 30 mg DAILY@06 GTB ; Start 12/21/16 at 06:00 PAT CHA MD Dec 20, 2016 16:57
[2016-12-21] VITALS (33 sets, daily range): BP systolic 116–153; BP diastolic 56–76; PULSE 80–100; RESP 16–25
[2016-12-21] MEDS: DILTIAZEM 30 MG TAB GTB SCH ×4 (00:07→17:45)
[2016-12-21] MEDS: IPRATROPIUM (HFA) 12.9 GM INHALER INH SCH ×4 (01:07→19:01)
[2016-12-21] MEDS: ALBUTEROL 18 GM INHALER INH SCH ×4 (01:08→19:01)
[2016-12-21] MEDS: D5W + KCL 20 MEQ 1,000 ML IV SCH ×2 (05:42→17:44)
[2016-12-21] MEDS: LANSOPRAZOLE 30 MG CAP GTB SCH (05:44)
[2016-12-21] MEDS: METOPROLOL 25 MG TAB GTB SCH ×3 (05:44→22:24)
[2016-12-21 08:26] LABS: BASOPHILS % 0.4 % (0.0-2.0); EOSINOPHILS # 1.2 10^3/ul (0.0-0.5); EOSINOPHILS % 20.6 % (0.0-7.0); HEMATOCRIT 26.4 % (42.0-52.0); HEMOGLOBIN 8.7 g/dl (14.0-18.0); LYMPHOCYTES # 1.1 10^3/ul (0.8-2.9); LYMPHOCYTES % 19.7 % (15.0-51.0); MEAN CORPUSCULAR HEMOGLOBIN 31.4 pg (29.0-33.0); MEAN CORPUSCULAR VOLUME 95.3 fl (82.0-101.0); MEAN PLATELET VOLUME 10.6 fl (7.4-10.4); MONOCYTE # 0.5 10^3/ul (0.3-0.9); MONOCYTES % 8.2 % (0.0-11.0); NEUTROPHIL # 2.8 10^3/ul (1.6-7.5); NEUTROPHILS % 50.6 % (39.0-77.0); PLATELET COUNT 195 10^3/UL (140-415); RED BLOOD COUNT 2.77 10^6/ul (4.70-6.10); RED CELL DISTRIBUTION WIDTH 19.9 % (11.5-14.5); WHITE BLOOD COUNT 5.6 10^3/ul (4.8-10.8)
[2016-12-21 08:47] LABS: CALCIUM 8.9 mg/dl (8.4-10.2); CREATININE 0.94 mg/dl (0.61-1.24)
[2016-12-21] MEDS: MEROPENEM 1 GM/50ML(PMX) 50 ML IVPB SCH (09:34)
[2016-12-21] MEDS: COLLAGENASE 30 GM TUBE TOP SCH (09:34)
[2016-12-21 09:36] LABS: BASOPHILS % 0.2 % (0.0-2.0); EOSINOPHILS # 1.2 10^3/ul (0.0-0.5); EOSINOPHILS % 20.1 % (0.0-7.0); HEMATOCRIT 26.7 % (42.0-52.0); HEMOGLOBIN 8.9 g/dl (14.0-18.0); LYMPHOCYTES # 1.3 10^3/ul (0.8-2.9); LYMPHOCYTES % 22.3 % (15.0-51.0); MEAN CORPUSCULAR HGB CONC 33.3 g/dl (32.0-37.0); MEAN PLATELET VOLUME 10.5 fl (7.4-10.4); MONOCYTE # 0.5 10^3/ul (0.3-0.9); MONOCYTES % 8.6 % (0.0-11.0); NEUTROPHIL # 2.8 10^3/ul (1.6-7.5); NEUTROPHILS % 48.1 % (39.0-77.0); NUCLEATED RED BLOOD CELLS% 0.3 /100WBC (0.0-0.0); PLATELET COUNT 192 10^3/UL (140-415); RED BLOOD COUNT 2.78 10^6/ul (4.70-6.10); RED CELL DISTRIBUTION WIDTH 20.8 % (11.5-14.5); WHITE BLOOD COUNT 5.8 10^3/ul (4.8-10.8)
--- NOTE | 2016-12-21 10:19 | CONS ---
Date/Time of Note Date/Time of Note DATE: 12/21/16 TIME: 10:19 Assessment/Plan Assessment/Plan Additional Assessment/Plan IMPRESSION: 1. Melena, no further bleeding noted. Patient has stomal ulcer 2. Sepsis. 3. Urinary tract infection. 4. Kidney injury. Dehydration 5. Vent dependent respiratory failure. 6. Functional paraplegia. He has been bedridden for the last many years. 7. Anemia. Hematocrit is stable Plan Continue PPI Monitor H&H periodically Continue present care Antibiotic as per ID Case discussed with the [id number] Consultation Date/Type/Reason Admit Date/Time Dec 15, 2016 at 10:55 Initial Consult Date 12/18/16 Type of Consultation: ID Referring Provider: DESTINEE ROBERTS MD 24 HR Interval Summary Subjective hx not possible: pt non-verbal Exam/Review of Systems Vital Signs Vitals Vital Signs Date Time Temp Pulse Resp B/P Pulse Ox O2 Delivery O2 Flow Rate FiO2 12/21/16 08:00 89 12/21/16 07:38 99.1 16 127/58 100 12/21/16 06:00 Mechanical Ventilator Trach Collar 12/21/16 04:58 35 Intake and Output 12/20/16 12/20/16 12/21/16 15:00 23:00 07:00 Intake Total 1100 ml 1200 ml 2100 ml Output Total 800 ml 600 ml 550 ml Balance 300 ml 600 ml 1550 ml Exam Constitutional: alert, oriented, well developed Psych: nl mood/affect, no complaints Head: atraumatic, normocephalic Eyes: EOMI, PERRL, nl conjunctiva, nl lids, nl sclera ENMT: nl external ears & nose, nl lips & teeth, nl nasal mucosa & septum Neck: non-tender, supple Respiratory: clear to auscultation, normal air movement Cardiovascular: nl pulses, regular rate and rhythm Gastrointestinal: nl liver, spleen, non-tender, soft Musculoskeletal: nl extremities to inspection, nl gait and stance Extremities: normal pulses Neurological: GALVANIZER ZINC II-XII intact, nl mental status, nl speech, nl strength Skin: nl turgor, No rash or lesions Lymph: nl lymph nodes Results Result Diagram: 12/21/16 0911 12/21/16 0738 Results 24 hrs Laboratory Tests Test 12/21/16 07:37 12/21/16 07:38 12/21/16 09:11 White Blood Count 5.6 # 5.8 Red Blood Count 2.77 L 2.78 L Hemoglobin 8.7 L 8.9 L Hematocrit 26.4 L 26.7 L Mean Corpuscular Volume 95.3 96.0 Mean Corpuscular Hemoglobin 31.4 32.0 Mean Corpuscular Hemoglobin Concent 33.0 33.3 Red Cell Distribution Width 19.9 H 20.8 H Platelet Count 195 192 Mean Platelet Volume 10.6 H 10.5 H Neutrophils % 50.6 48.1 Lymphocytes % 19.7 22.3 Monocytes % 8.2 8.6 Eosinophils % 20.6 H 20.1 H Basophils % 0.4 0.2 Nucleated Red Blood Cells % 0.0 0.3 H Neutrophils # 2.8 2.8 Lymphocytes # 1.1 1.3 Monocytes # 0.5 0.5 Eosinophils # 1.2 H 1.2 H Basophils # 0.0 0.0 Nucleated Red Blood Cells # 0.0 0.0 Sodium Level 142 Potassium Level 4.0 Chloride Level 117 H Carbon Dioxide Level 21 Anion Gap 8 Blood Urea Nitrogen 29 H Creatinine 0.94 Glucose Level 142 Calcium Level 8.9 Medications Medications Current Medications Lorazepam (Ativan) 0.5 mg Q6H PRN IV ANXIETY Last administered on 12/17/16 23: 32; Admin Dose 0.5 MG; Start 12/15/16 at 18:00 Ondansetron HCl (Zofran Inj) 4 mg Q6H PRN IV NAUSEA AND/OR VOMITING; Start 12/15/16 at 18:00 Acetaminophen (Tylenol Supp) 650 mg Q6H PRN [place] PAIN LEVEL 1-3 OR FEVER; Start 12/15/16 at 18:00 Morphine Sulfate (morphine) 2 mg Q4H PRN IV PAIN LEVEL 7-10 Last administered on 12/17/16 05:56; Admin Dose 2 MG; Start 12/15/16 at 18:00 Diphenhydramine HCl 25 mg 25 mg Q6H PRN IV ITCHING Last administered on 16:29; Admin Dose 25 MG; Start 12/16/16 at 16:00 Meropenem/Sodium Chloride 50 ml @ 100 mls/hr Q12 IVPB Last administered on 09:34; Admin Dose 100 MLS/HR; Start 12/16/16 at 20:00 Fluconazole/ Sodium Chloride (Diflucan 100 Mg/ NS (Pmx)) 50 ml @ 50 mls/hr Q24H IVPB Last administered on 12/20/16 13:08; Admin Dose 50 MLS/HR; Start at 13:00 Collagenase 1 applic 1 applic DAILY TOP Last administered on 12/21/16 09:34; Admin Dose 1 APPLIC; Start 12/17/16 at 20:00 Potassium Chloride/Dextrose (D5W + KCl 20 Meq) 1,000 ml @ 100 mls/hr Q10H IV Last administered on 12/21/16 05:42; Admin Dose 100 MLS/HR; Start 12/19/16 at 13:00 Zolpidem Tartrate (Ambien) 5 mg HS PRN PO INSOMNIA; Start 12/19/16 at 15:30 Hydralazine HCl (Apresoline) 10 mg Q6H PRN IV ELEVATED BLOOD PRESSURE; Start 12/19/16 at 16:00 Metoprolol Tartrate (Lopressor) 12.5 mg Q8 GTB Last administered on 12/21/16 05:44; Admin Dose 12.5 MG; Start 12/19/16 at 16:00 Diltiazem HCl (Cardizem) 30 mg Q6 GTB Last administered on 12/21/16 05:43; Admin Dose 30 MG; Start 12/19/16 at 16:00 Lansoprazole (Prevacid) 30 mg DAILY@06 GTB Last administered on 12/21/16 05: 44; Admin Dose 30 MG; Start 12/21/16 at 06:00 APT CHA MD Dec 21, 2016 10:19
[2016-12-21] MEDS: FLUCONAZOLE 100 MG/NS (PMX) 50 ML IVPB SCH (12:35)
--- NOTE | 2016-12-21 16:54 | PN ---
Date/Time of Note Date/Time of Note DATE: 12/21/16 TIME: 16:51 Assessment/Plan VTE Prophylaxis VTE Prophylaxis Intervention: SCD's Lines/Catheters IV C[facility]ter Type (from [facility]): Peripheral IV Urinary Cath still in place: Yes Reason Cath still needed: urinary retention Assessment/Plan Chief Complaint/Hosp Course Patient underwent swallow evaluation by speech therapy recommendation for video swallow evaluation which ordered. Plan of care was discussed with patient at the bedside Dr. Barajas and case management. If Patient is stable anticipate discharge home after swallow evaluation tomorrow. ASSESSMENT AND PLAN: - Gastrointestinal bleed, resolving. Dr. Hassan is following in gastroenterology consultation. - Stomal ulcer and gastritis per EGD. - Sepsis, due to most likely urinary tract infection possible pneumonia. Continue antibiotics per ID. Dr Jones is following in infection disease consultation - Urinary tract infection per UA. - Acute kidney injury on chronic kidney disease. Continue IV fluids, her BUN and creatinine. - Hypernatremia, continue water flushes via G-tube - Ventilator-dependent respiratory failure. Dr. Barajas is following patient in pulmonology consultation. - Anemia due to GI bleed. 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 Plan of care discussed with Dr. Roa. Problems: Exam/Review of Systems Vital Signs Vitals Vital Signs Date Time Temp Pulse Resp B/P Pulse Ox O2 Delivery O2 Flow Rate FiO2 12/21/16 15:39 98.2 86 18 128/59 99 12/21/16 14:15 Mechanical Ventilator 12/21/16 10:55 35 Intake and Output 12/20/16 12/20/16 12/21/16 15:00 23:00 07:00 Intake Total 1100 ml 1200 ml 2100 ml Output Total 800 ml 600 ml 550 ml Balance 300 ml 600 ml 1550 ml Exam Constitutional: alert Head: normocephalic Neck: other (Tracheostomy) Respiratory: diminished breath sounds Cardiovascular: nl pulses Gastrointestinal: non-tender, other (G-tube), soft Musculoskeletal: other Extremities: normal pulses Results Result Diagram: 12/21/16 0911 12/21/16 0738 Results 24 hrs Laboratory Tests Test 12/21/16 07:37 12/21/16 07:38 12/21/16 09:11 White Blood Count 5.6 # 5.8 Red Blood Count 2.77 L 2.78 L Hemoglobin 8.7 L 8.9 L Hematocrit 26.4 L 26.7 L Mean Corpuscular Volume 95.3 96.0 Mean Corpuscular Hemoglobin 31.4 32.0 Mean Corpuscular Hemoglobin Concent 33.0 33.3 Red Cell Distribution Width 19.9 H 20.8 H Platelet Count 195 192 Mean Platelet Volume 10.6 H 10.5 H Neutrophils % 50.6 48.1 Lymphocytes % 19.7 22.3 Monocytes % 8.2 8.6 Eosinophils % 20.6 H 20.1 H Basophils % 0.4 0.2 Nucleated Red Blood Cells % 0.0 0.3 H Neutrophils # 2.8 2.8 Lymphocytes # 1.1 1.3 Monocytes # 0.5 0.5 Eosinophils # 1.2 H 1.2 H Basophils # 0.0 0.0 Nucleated Red Blood Cells # 0.0 0.0 Sodium Level 142 Potassium Level 4.0 Chloride Level 117 H Carbon Dioxide Level 21 Anion Gap 8 Blood Urea Nitrogen 29 H Creatinine 0.94 Glucose Level 142 Calcium Level 8.9 Medications Medications Current Medications Lorazepam (Ativan) 0.5 mg Q6H PRN IV ANXIETY Last administered on 12/17/16 23: 32; Admin Dose 0.5 MG; Start 12/15/16 at 18:00 Ondansetron HCl (Zofran Inj) 4 mg Q6H PRN IV NAUSEA AND/OR VOMITING; Start 12/15/16 at 18:00 Acetaminophen (Tylenol Supp) 650 mg Q6H PRN [place] PAIN LEVEL 1-3 OR FEVER; Start 12/15/16 at 18:00 Morphine Sulfate (morphine) 2 mg Q4H PRN IV PAIN LEVEL 7-10 Last administered on 12/17/16 05:56; Admin Dose 2 MG; Start 12/15/16 at 18:00 Diphenhydramine HCl 25 mg 25 mg Q6H PRN IV ITCHING Last administered on 16:29; Admin Dose 25 MG; Start 12/16/16 at 16:00 Fluconazole/ Sodium Chloride (Diflucan 100 Mg/ NS (Pmx)) 50 ml @ 50 mls/hr Q24H IVPB Last administered on 12/21/16 12:35; Admin Dose 50 MLS/HR; Start at 13:00 Collagenase 1 applic 1 applic DAILY TOP Last administered on 12/21/16 09:34; Admin Dose 1 APPLIC; Start 12/17/16 at 20:00 Potassium Chloride/Dextrose (D5W + KCl 20 Meq) 1,000 ml @ 100 mls/hr Q10H IV Last administered on 12/21/16 05:42; Admin Dose 100 MLS/HR; Start 12/19/16 at 13:00 Zolpidem Tartrate (Ambien) 5 mg HS PRN PO INSOMNIA; Start 12/19/16 at 15:30 Hydralazine HCl (Apresoline) 10 mg Q6H PRN IV ELEVATED BLOOD PRESSURE; Start 12/19/16 at 16:00 Metoprolol Tartrate (Lopressor) 12.5 mg Q8 GTB Last administered on 12/21/16 14:28; Admin Dose 12.5 MG; Start 12/19/16 at 16:00 Diltiazem HCl (Cardizem) 30 mg Q6 GTB Last administered on 12/21/16 12:36; Admin Dose 30 MG; Start 12/19/16 at 16:00 Lansoprazole (Prevacid) 30 mg DAILY@06 GTB Last administered on 12/21/16 05: 44; Admin Dose 30 MG; Start 12/21/16 at 06:00 ERROL LORD Dec 21, 2016 16:54
--- NOTE | 2016-12-21 17:38 | CONS ---
Date/Time of Note Date/Time of Note DATE: 12/21/16 TIME: 17:35 Assessment/Plan Assessment/Plan Additional Assessment/Plan 1. acute Kidney injury due to prerenal azotemia 2. Hypernatremia due to large free water deficit 3. Sepsis due to UTI, UTI with urine Cx growing Layne Albicans 4. Chronic resp failure s/p tracheostomy vent depedant 5. Chronic encephalopathy 6. S/P G tube 7. melena, Gi bleeding, h/o PUD 8. 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 will follow up Consultation Date/Type/Reason Admit Date/Time Dec 15, 2016 at 10:55 Initial Consult Date 12/18/16 Type of Consultation: NEPHROLOGY Referring Provider: DESTINEE ROBERTS MD 24 HR Interval Summary Free Text/Dictation Cr and all other electrolytes has been normal today, BP stable, GI followin g Exam/Review of Systems Vital Signs Vitals Vital Signs Date Time Temp Pulse Resp B/P Pulse Ox O2 Delivery O2 Flow Rate FiO2 12/21/16 17:05 91 20 100 30 12/21/16 15:39 98.2 128/59 12/21/16 14:15 Mechanical Ventilator Intake and Output 12/20/16 12/20/16 12/21/16 15:00 23:00 07:00 Intake Total 1100 ml 1200 ml 2100 ml Output Total 800 ml 600 ml 550 ml Balance 300 ml 600 ml 1550 ml Exam Constitutional: alert, non-verbal Head: atraumatic, normocephalic ENMT: nl external ears & nose, other (+ tracheostomy on ventilator ) Neck: non-tender, supple Respiratory: congested cough, crackles/rales, diminished breath sounds Cardiovascular: nl pulses, regular rate and rhythm Gastrointestinal: non-tender, other (G tube, site clear, no erythema, no discharge ), soft Results Result Diagram: 12/21/16 0911 12/21/16 0738 Results 24 hrs Laboratory Tests Test 12/21/16 07:37 12/21/16 07:38 12/21/16 09:11 White Blood Count 5.6 # 5.8 Red Blood Count 2.77 L 2.78 L Hemoglobin 8.7 L 8.9 L Hematocrit 26.4 L 26.7 L Mean Corpuscular Volume 95.3 96.0 Mean Corpuscular Hemoglobin 31.4 32.0 Mean Corpuscular Hemoglobin Concent 33.0 33.3 Red Cell Distribution Width 19.9 H 20.8 H Platelet Count 195 192 Mean Platelet Volume 10.6 H 10.5 H Neutrophils % 50.6 48.1 Lymphocytes % 19.7 22.3 Monocytes % 8.2 8.6 Eosinophils % 20.6 H 20.1 H Basophils % 0.4 0.2 Nucleated Red Blood Cells % 0.0 0.3 H Neutrophils # 2.8 2.8 Lymphocytes # 1.1 1.3 Monocytes # 0.5 0.5 Eosinophils # 1.2 H 1.2 H Basophils # 0.0 0.0 Nucleated Red Blood Cells # 0.0 0.0 Sodium Level 142 Potassium Level 4.0 Chloride Level 117 H Carbon Dioxide Level 21 Anion Gap 8 Blood Urea Nitrogen 29 H Creatinine 0.94 Glucose Level 142 Calcium Level 8.9 Medications Medications Current Medications Lorazepam (Ativan) 0.5 mg Q6H PRN IV ANXIETY Last administered on 12/17/16 23: 32; Admin Dose 0.5 MG; Start 12/15/16 at 18:00 Ondansetron HCl (Zofran Inj) 4 mg Q6H PRN IV NAUSEA AND/OR VOMITING; Start 12/15/16 at 18:00 Acetaminophen (Tylenol Supp) 650 mg Q6H PRN [place] PAIN LEVEL 1-3 OR FEVER; Start 12/15/16 at 18:00 Morphine Sulfate (morphine) 2 mg Q4H PRN IV PAIN LEVEL 7-10 Last administered on 12/17/16 05:56; Admin Dose 2 MG; Start 12/15/16 at 18:00 Diphenhydramine HCl 25 mg 25 mg Q6H PRN IV ITCHING Last administered on 16:29; Admin Dose 25 MG; Start 12/16/16 at 16:00 Fluconazole/ Sodium Chloride (Diflucan 100 Mg/ NS (Pmx)) 50 ml @ 50 mls/hr Q24H IVPB Last administered on 12/21/16 12:35; Admin Dose 50 MLS/HR; Start at 13:00 Collagenase 1 applic 1 applic DAILY TOP Last administered on 12/21/16 09:34; Admin Dose 1 APPLIC; Start 12/17/16 at 20:00 Potassium Chloride/Dextrose (D5W + KCl 20 Meq) 1,000 ml @ 100 mls/hr Q10H IV Last administered on 12/21/16 05:42; Admin Dose 100 MLS/HR; Start 12/19/16 at 13:00 Zolpidem Tartrate (Ambien) 5 mg HS PRN PO INSOMNIA; Start 12/19/16 at 15:30 Hydralazine HCl (Apresoline) 10 mg Q6H PRN IV ELEVATED BLOOD PRESSURE; Start 12/19/16 at 16:00 Metoprolol Tartrate (Lopressor) 12.5 mg Q8 GTB Last administered on 12/21/16 14:28; Admin Dose 12.5 MG; Start 12/19/16 at 16:00 Diltiazem HCl (Cardizem) 30 mg Q6 GTB Last administered on 12/21/16 12:36; Admin Dose 30 MG; Start 12/19/16 at 16:00 Lansoprazole (Prevacid) 30 mg DAILY@06 GTB Last administered on 12/21/16 05: 44; Admin Dose 30 MG; Start 12/21/16 at 06:00 ROULA YEPEZ MD Dec 21, 2016 17:38
--- NOTE | 2016-12-21 18:30 | PN ---
DATE: 12/21/2016 INFECTIOUS DISEASE PROGRESS NOTE SUBJECTIVE: Patient is awake, looks comfortable. at bedside. No fevers. He has loose stool. WBC today 5.8. No shift, no bands. BUN 29, creatinine 0.94. ANTIMICROBIALS: 1. Fluconazole. 2. Meropenem. INDWELLINGS: Trach, PEG, Car. PHYSICAL EXAMINATION: GENERAL: Fragile, elderly man in no distress. HEENT: Head atraumatic, normocephalic. Sclerae anicteric. Buccal mucosa dry. NECK: Supple. CHEST: Rise symmetrical. Breath sounds diminished to bases. HEART: S1, S2. ABDOMEN: Soft. Bowel sounds present. EXTREMITIES: With trace bilateral lower extremities edema. ASSESSMENT: 1. Systemic inflammatory response syndrome, status post fever on admission. 2. Diarrhea. 3. Acute on chronic anemia, status post esophagogastroduodenoscopy that revealed stomal ulcer and g astritis. 4. Fungal urinary tract infection. 5. Lung nodule. PLAN: We are going to discontinue meropenem. Continue fluconazole. Send stool for Clostridium dif ficile. Continue management as per primary team and consultants. Dictated By: NASH DOTY PLUG WIRER for RICHARD ROSEN MD NI/NTS Conf#: [id number] DID#: [id number]
--- NOTE | 2016-12-21 19:03 | PN ---
DATE: 12/21/2016 PULMONARY FOLLOWUP NOTE The patient's general condition is same. He is awake, responsive. He opens his eyes. He is breath ing comfortably with a continuous ventilator support through tracheostomy. PHYSICAL EXAMINATION: VITAL SIGNS: Temperature is 98.4, blood pressure 153/76, pulse rate is 100, respirations 22, pulse oximetry 100% saturation. NECK: Tracheal secretions are clear. No bleeding seen. HEART: Regular rhythm. CHEST: Breath sounds are diminished in the lower lung enamorado, otherwise clear. ABDOMEN: Soft, not distended. Bowel sounds are present. EXTREMITIES: Show no edema. He is paraplegic. LABORATORY DATA: Sodium 142, potassium 4, bicarbonate 21, BUN 29, creatinine 0.94, glucose 142, shannan cium 8.9. BUN and creatinine were progressively improved, almost near normal now. The chest x-ray taken yesterday shows atelectasis and scarring in the lung bases, essentially unchan ged from the previous chest x-ray. There is no pneumothorax. No pleural effusion. Previously note d right upper lobe nodule is not well seen. However, given the patient's condition, he is not a can didate to have any invasive procedures like needle biopsy. The nodule also looks quite small and ma y be difficult to do a biopsy. May create more complications like pneumothorax. IMPRESSION: 1. Chronic ventilator dependent respiratory failure. 2. Urosepsis secondary to Layne albicans infection. 3. Gastritis with stomal ulcers. 4. Acute kidney injury, improving. 5. History of congestive heart failure. 6. History of cerebrovascular accident, paraplegia. 7. Chronic anemia. 8. Decubitus ulcer. 9. Status post tracheostomy. 10. Status post gastrostomy. PLAN: 1. Continue long-term ventilator support. 2. Continue antibiotics per infectious disease process consultant. 3. Continue pulmonary toilet with inhalation therapy to clear the secretions. 4. Patient has had a swallow evaluation and swallow to be scheduled. 5. The patient also had physical therapy evaluation. Dictated By: ROEL BOYLE MD, SR/IRMA Conf#: [id number] DID#: [id number]
[2016-12-22] VITALS (31 sets, daily range): BP systolic 116–151; BP diastolic 56–74; PULSE 66–110; RESP 12–22
[2016-12-22] MEDS: ALBUTEROL 18 GM INHALER INH SCH ×4 (01:31→19:20)
[2016-12-22] MEDS: IPRATROPIUM (HFA) 12.9 GM INHALER INH SCH ×4 (01:31→19:20)
[2016-12-22] MEDS: DILTIAZEM 30 MG TAB GTB SCH ×4 (01:36→18:07)
[2016-12-22] MEDS: D5W + KCL 20 MEQ 1,000 ML IV SCH (04:09)
[2016-12-22] MEDS: METOPROLOL 25 MG TAB GTB SCH ×3 (06:02→22:18)
[2016-12-22] MEDS: LANSOPRAZOLE 30 MG CAP GTB SCH (06:03)
[2016-12-22 07:41] LABS: BASOPHILS % 0.5 % (0.0-2.0); EOSINOPHILS # 1.4 10^3/ul (0.0-0.5); HEMATOCRIT 27.1 % (42.0-52.0); HEMOGLOBIN 9.1 g/dl (14.0-18.0); LYMPHOCYTES # 1.2 10^3/ul (0.8-2.9); LYMPHOCYTES % 19.3 % (15.0-51.0); MEAN CORPUSCULAR HEMOGLOBIN 31.3 pg (29.0-33.0); MEAN CORPUSCULAR HGB CONC 33.6 g/dl (32.0-37.0); MEAN CORPUSCULAR VOLUME 93.1 fl (82.0-101.0); MEAN PLATELET VOLUME 11.1 fl (7.4-10.4); MONOCYTE # 0.5 10^3/ul (0.3-0.9); MONOCYTES % 7.9 % (0.0-11.0); NEUTROPHILS % 48.9 % (39.0-77.0); PLATELET COUNT 211 10^3/UL (140-415); RED BLOOD COUNT 2.91 10^6/ul (4.70-6.10); RED CELL DISTRIBUTION WIDTH 19.7 % (11.5-14.5); WHITE BLOOD COUNT 6.1 10^3/ul (4.8-10.8)
[2016-12-22 07:44] LABS: EOSINOPHILS % 22.7 % (0.0-7.0)
[2016-12-22 08:02] LABS: CALCIUM 9.1 mg/dl (8.4-10.2); CREATININE 0.84 mg/dl (0.61-1.24); POTASSIUM 4.3 mmol/L (3.5-5.1)
[2016-12-22] MEDS: COLLAGENASE 30 GM TUBE TOP SCH (09:14)
--- NOTE | 2016-12-22 09:24 | CONS ---
Date/Time of Note Date/Time of Note DATE: 12/22/16 TIME: 09:18 Assessment/Plan Assessment/Plan Additional Assessment/Plan 1. acute Kidney injury due to prerenal azotemia 2. Hypernatremia due to large free water deficit 3. Sepsis due to UTI, UTI with urine Cx growing Layne Albicans 4. Chronic resp failure s/p tracheostomy vent depedant 5. Chronic encephalopathy 6. S/P G tube 7. melena, Gi bleeding, h/o PUD 8. 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 will follow up Consultation Date/Type/Reason Admit Date/Time Dec 15, 2016 at 10:55 Initial Consult Date 12/18/16 Type of Consultation: NEPHROLOGY Referring Provider: DESTINEE ROBERTS MD 24 HR Interval Summary Free Text/Dictation doing better, all electrolytes and Cr normal today, c/o leg edema Exam/Review of Systems Vital Signs Vitals Vital Signs Date Time Temp Pulse Resp B/P Pulse Ox O2 Delivery O2 Flow Rate FiO2 12/22/16 09:16 99 12/22/16 09:05 22 99 30 12/22/16 07:47 99.3 140/65 12/22/16 06:00 Mechanical Ventilator Trach Collar Intake and Output 12/21/16 12/21/16 12/22/16 15:00 23:00 07:00 Intake Total 50 ml 1100 ml 2150 ml Output Total 800 ml 750 ml Balance 50 ml 300 ml 1400 ml Exam Constitutional: alert, non-verbal Head: atraumatic, normocephalic ENMT: nl external ears & nose, other (+ tracheostomy on ventilator ) Neck: non-tender, supple Respiratory: congested cough, crackles/rales, diminished breath sounds Cardiovascular: nl pulses, regular rate and rhythm Gastrointestinal: non-tender, other (G tube, site clear, no erythema, no discharge ), soft Results Result Diagram: 12/22/16 0711 12/22/16 0711 Results 24 hrs Laboratory Tests Test 12/22/16 07:11 White Blood Count 6.1 Red Blood Count 2.91 L Hemoglobin 9.1 L Hematocrit 27.1 L Mean Corpuscular Volume 93.1 Mean Corpuscular Hemoglobin 31.3 Mean Corpuscular Hemoglobin Concent 33.6 Red Cell Distribution Width 19.7 H Platelet Count 211 Mean Platelet Volume 11.1 H Neutrophils % 48.9 Lymphocytes % 19.3 Monocytes % 7.9 Eosinophils % 22.7 H Basophils % 0.5 Nucleated Red Blood Cells % 0.0 Neutrophils # 3.0 Lymphocytes # 1.2 Monocytes # 0.5 Eosinophils # 1.4 H Basophils # 0.0 Nucleated Red Blood Cells # 0.0 Sodium Level 137 Potassium Level 4.3 Chloride Level 112 H Carbon Dioxide Level 22 Anion Gap 7 L Blood Urea Nitrogen 32 H Creatinine 0.84 Glucose Level 113 Calcium Level 9.1 Medications Medications Current Medications Lorazepam (Ativan) 0.5 mg Q6H PRN IV ANXIETY Last administered on 12/17/16 23: 32; Admin Dose 0.5 MG; Start 12/15/16 at 18:00 Ondansetron HCl (Zofran Inj) 4 mg Q6H PRN IV NAUSEA AND/OR VOMITING; Start 12/15/16 at 18:00 Acetaminophen (Tylenol Supp) 650 mg Q6H PRN [place] PAIN LEVEL 1-3 OR FEVER Last administered on 12/21/16 23:32; Admin Dose 650 MG; Start 12/15/16 at 18:00 Morphine Sulfate (morphine) 2 mg Q4H PRN IV PAIN LEVEL 7-10 Last administered on 12/17/16 05:56; Admin Dose 2 MG; Start 12/15/16 at 18:00 Diphenhydramine HCl 25 mg 25 mg Q6H PRN IV ITCHING Last administered on 16:29; Admin Dose 25 MG; Start 12/16/16 at 16:00 Fluconazole/ Sodium Chloride (Diflucan 100 Mg/ NS (Pmx)) 50 ml @ 50 mls/hr Q24H IVPB Last administered on 12/21/16 12:35; Admin Dose 50 MLS/HR; Start at 13:00 Collagenase 1 applic 1 applic DAILY TOP Last administered on 12/22/16 09:14; Admin Dose 1 APPLIC; Start 12/17/16 at 20:00 Potassium Chloride/Dextrose (D5W + KCl 20 Meq) 1,000 ml @ 75 mls/hr [id number] IV Last administered on 12/22/16 04:09; Admin Dose 75 MLS/HR; Start 12/19/16 at 13:00 Zolpidem Tartrate (Ambien) 5 mg HS PRN PO INSOMNIA; Start 12/19/16 at 15:30 Hydralazine HCl (Apresoline) 10 mg Q6H PRN IV ELEVATED BLOOD PRESSURE; Start 12/19/16 at 16:00 Metoprolol Tartrate (Lopressor) 12.5 mg Q8 GTB Last administered on 12/22/16 06:02; Admin Dose 12.5 MG; Start 12/19/16 at 16:00 Diltiazem HCl (Cardizem) 30 mg Q6 GTB Last administered on 12/22/16 06:03; Admin Dose 30 MG; Start 12/19/16 at 16:00 Lansoprazole (Prevacid) 30 mg DAILY@06 GTB Last administered on 12/22/16 06: 03; Admin Dose 30 MG; Start 12/21/16 at 06:00 ROULA YEPEZ MD Dec 22, 2016 09:24
[2016-12-22] MEDS ORDERED: FUROSEMIDE 20 MG INJ IV ONE (09:30)
[2016-12-22] MEDS ORDERED: ALBUMIN HUMAN 25% 50 ML IV ONE (10:00)
[2016-12-22] MEDS: FLUCONAZOLE 100 MG/NS (PMX) 50 ML IVPB SCH (12:33)
--- NOTE | 2016-12-22 12:56 | PN ---
Date/Time of Note Date/Time of Note DATE: 12/22/16 TIME: 12:54 Assessment/Plan VTE Prophylaxis VTE Prophylaxis Intervention: SCD's Lines/Catheters IV Catheter Type (from Nrs): Peripheral IV Urinary Cath still in place: Yes Reason Cath still needed: urinary retention Assessment/Plan Chief Complaint/Hosp Course Patient tolerates G-tube feeding well, hypernatremia resolved, pending video swallow evaluation. Plan of care discussed with the nurse case management and patient's at the bedside. Patient can be discharged to intermediate facility after completion of video swallow evaluation, send recommendations from video swallow developed to intermediate facility ASSESSMENT AND PLAN: - Gastrointestinal bleed, resolving. Dr. Hassan is following in gastroenterology consultation. - Stomal ulcer and gastritis per EGD. - Sepsis, due to most likely urinary tract infection possible pneumonia. Continue antibiotics per ID. Dr Jones is following in infection disease consultation - Urinary tract infection per UA. - Acute kidney injury on chronic kidney disease. Continue IV fluids, her BUN and creatinine. - Hypernatremia, continue water flushes via G-tube - Ventilator-dependent respiratory failure. Dr. Barajas is following patient in pulmonology consultation. - Anemia due to GI bleed. 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 Plan of care discussed with Dr. Roa. Problems: Exam/Review of Systems Vital Signs Vitals Vital Signs Date Time Temp Pulse Resp B/P Pulse Ox O2 Delivery O2 Flow Rate FiO2 12/22/16 12:48 105 12/22/16 11:39 98.8 19 139/69 100 12/22/16 11:21 30 12/22/16 06:00 Mechanical Ventilator Trach Collar Intake and Output 12/21/16 12/21/16 12/22/16 15:00 23:00 07:00 Intake Total 50 ml 1100 ml 2150 ml Output Total 800 ml 750 ml Balance 50 ml 300 ml 1400 ml Exam Constitutional: alert Head: normocephalic Neck: other (Tracheostomy) Respiratory: diminished breath sounds Cardiovascular: nl pulses Gastrointestinal: non-tender, other (G-tube), soft Musculoskeletal: other, sacral wound Extremities: normal pulses Results Result Diagram: 12/22/16 0711 12/22/16 0711 Results 24 hrs Laboratory Tests Test 12/22/16 07:11 White Blood Count 6.1 Red Blood Count 2.91 L Hemoglobin 9.1 L Hematocrit 27.1 L Mean Corpuscular Volume 93.1 Mean Corpuscular Hemoglobin 31.3 Mean Corpuscular Hemoglobin Concent 33.6 Red Cell Distribution Width 19.7 H Platelet Count 211 Mean Platelet Volume 11.1 H Neutrophils % 48.9 Lymphocytes % 19.3 Monocytes % 7.9 Eosinophils % 22.7 H Basophils % 0.5 Nucleated Red Blood Cells % 0.0 Neutrophils # 3.0 Lymphocytes # 1.2 Monocytes # 0.5 Eosinophils # 1.4 H Basophils # 0.0 Nucleated Red Blood Cells # 0.0 Sodium Level 137 Potassium Level 4.3 Chloride Level 112 H Carbon Dioxide Level 22 Anion Gap 7 L Blood Urea Nitrogen 32 H Creatinine 0.84 Glucose Level 113 Calcium Level 9.1 Medications Medications Current Medications Lorazepam (Ativan) 0.5 mg Q6H PRN IV ANXIETY Last administered on 12/17/16 23: 32; Admin Dose 0.5 MG; Start 12/15/16 at 18:00 Ondansetron HCl (Zofran Inj) 4 mg Q6H PRN IV NAUSEA AND/OR VOMITING; Start 12/15/16 at 18:00 Acetaminophen (Tylenol Supp) 650 mg Q6H PRN [place] PAIN LEVEL 1-3 OR FEVER Last administered on 12/21/16 23:32; Admin Dose 650 MG; Start 12/15/16 at 18:00 Morphine Sulfate (morphine) 2 mg Q4H PRN IV PAIN LEVEL 7-10 Last administered on 12/17/16 05:56; Admin Dose 2 MG; Start 12/15/16 at 18:00 Diphenhydramine HCl 25 mg 25 mg Q6H PRN IV ITCHING Last administered on 16:29; Admin Dose 25 MG; Start 12/16/16 at 16:00 Fluconazole/ Sodium Chloride (Diflucan 100 Mg/ NS (Pmx)) 50 ml @ 50 mls/hr Q24H IVPB Last administered on 12/22/16 12:33; Admin Dose 50 MLS/HR; Start at 13:00 Collagenase (Santyl) 1 applic DAILY TOP Last administered on 12/22/16 09:14; Admin Dose 1 APPLIC; Start 10/6/17 at 20:00 Zolpidem Tartrate (Ambien) 5 mg HS PRN PO INSOMNIA; Start 12/19/16 at 15:30 Hydralazine HCl (Apresoline) 10 mg Q6H PRN IV ELEVATED BLOOD PRESSURE; Start 12/19/16 at 16:00 Metoprolol Tartrate (Lopressor) 12.5 mg Q8 GTB Last administered on 12/22/16 06:02; Admin Dose 12.5 MG; Start 12/19/16 at 16:00 Diltiazem HCl (Cardizem) 30 mg Q6 GTB Last administered on 12/22/16 12:34; Admin Dose 30 MG; Start 12/19/16 at 16:00 Lansoprazole (Prevacid) 30 mg DAILY@06 GTB Last administered on 12/22/16 06: 03; Admin Dose 30 MG; Start 12/21/16 at 06:00 ERROL LORD Dec 22, 2016 12:56
--- NOTE | 2016-12-22 17:08 | CONS ---
Date/Time of Note Date/Time of Note DATE: 12/22/16 TIME: 17:07 Assessment/Plan Assessment/Plan Additional Assessment/Plan IMPRESSION: 1. Melena, no further bleeding noted. Patient has stomal ulcer 2. Sepsis. 3. Urinary tract infection. 4. Kidney injury. Dehydration 5. Vent dependent respiratory failure. 6. Functional paraplegia. He has been bedridden for the last many years. 7. Anemia. Hematocrit is stable 8. Decubitus ulcer 9. 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 and follows commands Plan Continue PPI Monitor H&H periodically Continue present care Antibiotic as per ID Case discussed with the [id number] Consultation Date/Type/Reason Admit Date/Time Dec 15, 2016 at 10:55 Initial Consult Date 12/18/16 Type of Consultation: NEPHROLOGY Referring Provider: DESTINEE ROBERTS MD 24 HR Interval Summary Free Text/Dictation Recognize me and also communicating Constitutional: improved Exam/Review of Systems Vital Signs Vitals Vital Signs Date Time Temp Pulse Resp B/P Pulse Ox O2 Delivery O2 Flow Rate FiO2 12/22/16 16:46 103 12/22/16 16:24 98.2 18 137/74 100 12/22/16 15:19 30 12/22/16 06:00 Mechanical Ventilator Trach Collar Intake and Output 12/21/16 12/21/16 12/22/16 15:00 23:00 07:00 Intake Total 50 ml 1100 ml 2150 ml Output Total 800 ml 750 ml Balance 50 ml 300 ml 1400 ml Exam Constitutional: alert, oriented, well developed Psych: nl mood/affect, no complaints Head: atraumatic, normocephalic Eyes: EOMI, PERRL, nl conjunctiva, nl lids, nl sclera ENMT: nl external ears & nose, nl lips & teeth, nl nasal mucosa & septum Neck: non-tender, supple Respiratory: clear to auscultation, normal air movement Cardiovascular: nl pulses, regular rate and rhythm Gastrointestinal: nl liver, spleen, non-tender, soft Musculoskeletal: nl extremities to inspection, nl gait and stance Extremities: normal pulses Neurological: [employer] II-XII intact, nl mental status, nl speech, nl strength Skin: nl turgor, No rash or lesions Lymph: nl lymph nodes Results Result Diagram: 12/22/16 0711 12/22/16 0711 Results 24 hrs Laboratory Tests Test 12/22/16 07:11 White Blood Count 6.1 Red Blood Count 2.91 L Hemoglobin 9.1 L Hematocrit 27.1 L Mean Corpuscular Volume 93.1 Mean Corpuscular Hemoglobin 31.3 Mean Corpuscular Hemoglobin Concent 33.6 Red Cell Distribution Width 19.7 H Platelet Count 211 Mean Platelet Volume 11.1 H Neutrophils % 48.9 Lymphocytes % 19.3 Monocytes % 7.9 Eosinophils % 22.7 H Basophils % 0.5 Nucleated Red Blood Cells % 0.0 Neutrophils # 3.0 Lymphocytes # 1.2 Monocytes # 0.5 Eosinophils # 1.4 H Basophils # 0.0 Nucleated Red Blood Cells # 0.0 Sodium Level 137 Potassium Level 4.3 Chloride Level 112 H Carbon Dioxide Level 22 Anion Gap 7 L Blood Urea Nitrogen 32 H Creatinine 0.84 Glucose Level 113 Calcium Level 9.1 Medications Medications Current Medications Lorazepam (Ativan) 0.5 mg Q6H PRN IV ANXIETY Last administered on 12/17/16 23: 32; Admin Dose 0.5 MG; Start 12/15/16 at 18:00 Ondansetron HCl (Zofran Inj) 4 mg Q6H PRN IV NAUSEA AND/OR VOMITING; Start 12/15/16 at 18:00 Acetaminophen (Tylenol Supp) 650 mg Q6H PRN [place] PAIN LEVEL 1-3 OR FEVER Last administered on 12/21/16 23:32; Admin Dose 650 MG; Start 12/15/16 at 18:00 Morphine Sulfate (morphine) 2 mg Q4H PRN IV PAIN LEVEL 7-10 Last administered on 12/17/16 05:56; Admin Dose 2 MG; Start 12/15/16 at 18:00 Diphenhydramine HCl 25 mg 25 mg Q6H PRN IV ITCHING Last administered on 16:29; Admin Dose 25 MG; Start 12/16/16 at 16:00 Fluconazole/ Sodium Chloride (Diflucan 100 Mg/ NS (Pmx)) 50 ml @ 50 mls/hr Q24H IVPB Last administered on 12/22/16 12:33; Admin Dose 50 MLS/HR; Start at 13:00 Collagenase (Santyl) 1 applic DAILY TOP Last administered on 12/22/16 09:14; Admin Dose 1 APPLIC; Start 12/17/16 at 20:00 Zolpidem Tartrate (Ambien) 5 mg HS PRN PO INSOMNIA; Start 12/19/16 at 15:30 Hydralazine HCl (Apresoline) 10 mg Q6H PRN IV ELEVATED BLOOD PRESSURE; Start 12/19/16 at 16:00 Metoprolol Tartrate (Lopressor) 12.5 mg Q8 GTB Last administered on 12/22/16 14:23; Admin Dose 12.5 MG; Start 12/19/16 at 16:00 Diltiazem HCl (Cardizem) 30 mg Q6 GTB Last administered on 12/22/16 12:34; Admin Dose 30 MG; Start 12/19/16 at 16:00 Lansoprazole (Prevacid) 30 mg DAILY@06 GTB Last administered on 12/22/16 06: 03; Admin Dose 30 MG; Start 12/21/16 at 06:00 PAT CHA MD Dec 22, 2016 17:08
--- NOTE | 2016-12-22 22:07 | CONS ---
Date/Time of Note Date/Time of Note DATE: 12/22/16 TIME: 22:05 Consult Date/Type/Reason Admit Date/Time Dec 15, 2016 at 10:55 Type of Consultation: ID Ordering Provider: DESTINEE ROBERTS MD Objective Vital Signs Date Time Temp Pulse Resp B/P Pulse Ox O2 Delivery O2 Flow Rate FiO2 12/22/16 18:00 98.7 97 20 132/64 100 Mechanical Ventilator 12/22/16 17:31 30 Intake and Output 12/21/16 12/21/16 12/22/16 15:00 23:00 07:00 Intake Total 50 ml 1100 ml 2150 ml Output Total 800 ml 750 ml Balance 50 ml 300 ml 1400 ml Results/Medications Result Diagram: 12/22/1671012/22/1611 Results 24 hrs Laboratory Tests Test 12/22/16 07:11 White Blood Count 6.1 Red Blood Count 2.91 L Hemoglobin 9.1 L Hematocrit 27.1 L Mean Corpuscular Volume 93.1 Mean Corpuscular Hemoglobin 31.3 Mean Corpuscular Hemoglobin Concent 33.6 Red Cell Distribution Width 19.7 H Platelet Count 211 Mean Platelet Volume 11.1 H Neutrophils % 48.9 Lymphocytes % 19.3 Monocytes % 7.9 Eosinophils % 22.7 H Basophils % 0.5 Nucleated Red Blood Cells % 0.0 Neutrophils # 3.0 Lymphocytes # 1.2 Monocytes # 0.5 Eosinophils # 1.4 H Basophils # 0.0 Nucleated Red Blood Cells # 0.0 Sodium Level 137 Potassium Level 4.3 Chloride Level 112 H Carbon Dioxide Level 22 Anion Gap 7 L Blood Urea Nitrogen 32 H Creatinine 0.84 Glucose Level 113 Calcium Level 9.1 Medications Current Medications Lorazepam (Ativan) 0.5 mg Q6H PRN IV ANXIETY Last administered on 12/17/16 23: 32; Admin Dose 0.5 MG; Start 12/15/16 at 18:00 Ondansetron HCl (Zofran Inj) 4 mg Q6H PRN IV NAUSEA AND/OR VOMITING; Start 12/15/16 at 18:00 Acetaminophen (Tylenol Supp) 650 mg Q6H PRN [place] PAIN LEVEL 1-3 OR FEVER Last administered on 12/21/16 23:32; Admin Dose 650 MG; Start 12/15/16 at 18:00 Morphine Sulfate (morphine) 2 mg Q4H PRN IV PAIN LEVEL 7-10 Last administered on 12/17/16 05:56; Admin Dose 2 MG; Start 12/15/16 at 18:00 Diphenhydramine HCl 25 mg 25 mg Q6H PRN IV ITCHING Last administered on 16:29; Admin Dose 25 MG; Start 12/16/16 at 16:00 Fluconazole/ Sodium Chloride (Diflucan 100 Mg/ NS (Pmx)) 50 ml @ 50 mls/hr Q24H IVPB Last administered on 12/22/16 12:33; Admin Dose 50 MLS/HR; Start at 13:00 Collagenase (Santyl) 1 applic DAILY TOP Last administered on 12/22/16 09:14; Admin Dose 1 APPLIC; Start 12/17/16 at 20:00 Zolpidem Tartrate (Ambien) 5 mg HS PRN PO INSOMNIA; Start 12/19/16 at 15:30 Hydralazine HCl (Apresoline) 10 mg Q6H PRN IV ELEVATED BLOOD PRESSURE; Start 12/19/16 at 16:00 Metoprolol Tartrate (Lopressor) 12.5 mg Q8 GTB Last administered on 12/22/16 14:23; Admin Dose 12.5 MG; Start 12/19/16 at 16:00 Diltiazem HCl (Cardizem) 30 mg Q6 GTB Last administered on 12/22/16 18:07; Admin Dose 30 MG; Start 12/19/16 at 16:00 Lansoprazole (Prevacid) 30 mg DAILY@06 GTB Last administered on 12/22/16 06: 03; Admin Dose 30 MG; Start 12/21/16 at 06:00 Assessment/Plan Chief Complaint/Hosp Course SUBJECTIVE: Patient is awake, looks comfortable. at bedside. No fevers. ANTIMICROBIALS: 1. Fluconazole INDWELLINGS: Trach, PEG, Car. PHYSICAL EXAMINATION: GENERAL: Fragile, elderly man in no distress. HEENT: Head atraumatic, normocephalic. Sclerae anicteric. Buccal mucosa dry. NECK: Supple. CHEST: Rise symmetrical. Breath sounds diminished to bases. HEART: S1, S2. ABDOMEN: Soft. Bowel sounds present. EXTREMITIES: With trace bilateral lower extremities edema. ASSESSMENT: 1. Systemic inflammatory response syndrome, status post fever on admission. 2. Diarrhea. 3. Acute on chronic anemia, status post esophagogastroduodenoscopy that revealed stomal ulcer and gastritis. 4. Fungal urinary tract infection. 5. Lung nodule ?significance. PLAN: Remains stable, dc Diflucan, continue management as per primary team and consultants. [facility] staff Problems: NASH DOTY NP Dec 22, 2016 22:07
[2016-12-23] VITALS (31 sets, daily range): BP systolic 109–131; BP diastolic 55–88; PULSE 80–110; RESP 16–24
[2016-12-23] MEDS: IPRATROPIUM (HFA) 12.9 GM INHALER INH SCH ×3 (01:08→19:23)
[2016-12-23] MEDS: ALBUTEROL 18 GM INHALER INH SCH ×3 (01:08→19:23)
[2016-12-23] MEDS: DILTIAZEM 30 MG TAB GTB SCH ×4 (01:12→19:01)
[2016-12-23] MEDS: METOPROLOL 25 MG TAB GTB SCH ×3 (06:22→21:39)
[2016-12-23] MEDS: LANSOPRAZOLE 30 MG CAP GTB SCH (06:22)
--- NOTE | 2016-12-23 07:04 | PN ---
DATE: 12/22/2016 SUBJECTIVE: The patient is breathing comfortably with the ventilator support. He is awake, respons ajay. His is at the bedside. PHYSICAL EXAMINATION: VITAL SIGNS: Show temperature 98.8, blood pressure 139/69, pulse rate of 107, respirations 19, puls e oximetry 100% saturation. NECK: Tracheal secretions are clear. No bleeding is seen. HEART: Irregular rhythm. CHEST: Breath sounds are heard bilaterally, diminished in the lower lung enamorado, but otherwise ghassan r. ABDOMEN: Soft, not distended, tolerating tube feedings. EXTREMITIES: Show no edema. LABORATORY DATA: From today shows sodium 137, potassium 4.3, bicarbonate of 22, BUN 32, creatinine 0.84, glucose 113. The CBC shows a WBC of 6100, hemoglobin 9.1, hematocrit 27.1, platelets within n ormal limits. IMPRESSION: 1. Chronic ventilator dependent respiratory failure. 2. Urosepsis secondary to Layne albicans infection. 3. Gastritis with stomal ulcers. 4. Acute kidney injury, improving. 5. History of congestive heart failure. 6. History of cerebrovascular accident with paraplegia. 7. Chronic anemia. 8. Decubitus ulcer. 9. Status post tracheostomy. 10. Status post gastrostomy. PLAN: 1. Continue long-term ventilator support. 2. Continue antibiotics as per the infectious disease computer consultant's recommendations. 3. Continue pulmonary toilet with inhalation therapy to clear the secretions. 4. The patient needs to have a swallow evaluation before he could be restarted on his oral feedings . Dictated By: ROEL BOYLE MD SR/NTS Conf#: [id number] DID#: [id number] CC: DESTINEE ROBERTS MD;*EndCC*
[2016-12-23 08:12] LABS: BASOPHILS % 0.5 % (0.0-2.0); EOSINOPHILS # 1.2 10^3/ul (0.0-0.5); EOSINOPHILS % 20.6 % (0.0-7.0); HEMATOCRIT 26.8 % (42.0-52.0); HEMOGLOBIN 8.7 g/dl (14.0-18.0); LYMPHOCYTES % 18.2 % (15.0-51.0); MEAN CORPUSCULAR HEMOGLOBIN 29.9 pg (29.0-33.0); MEAN CORPUSCULAR HGB CONC 32.5 g/dl (32.0-37.0); MEAN CORPUSCULAR VOLUME 92.1 fl (82.0-101.0); MEAN PLATELET VOLUME 11.6 fl (7.4-10.4); MONOCYTE # 0.4 10^3/ul (0.3-0.9); MONOCYTES % 7.4 % (0.0-11.0); NEUTROPHILS % 52.4 % (39.0-77.0); PLATELET COUNT 206 10^3/UL (140-415); RED BLOOD COUNT 2.91 10^6/ul (4.70-6.10); RED CELL DISTRIBUTION WIDTH 19.9 % (11.5-14.5); WHITE BLOOD COUNT 5.7 10^3/ul (4.8-10.8)
[2016-12-23 08:53] LABS: CREATININE 0.82 mg/dl (0.61-1.24); POTASSIUM 3.8 mmol/L (3.5-5.1)
[2016-12-23] MEDS: COLLAGENASE 30 GM TUBE TOP SCH (09:49)
--- NOTE | 2016-12-23 11:10 | CONS ---
Date/Time of Note Date/Time of Note DATE: 12/23/16 TIME: 11:10 Assessment/Plan Assessment/Plan Additional Assessment/Plan 1. Melena, no further bleeding noted. Patient has stomal ulcer 2. Sepsis. 3. Urinary tract infection. 4. Kidney injury. Dehydration 5. Vent dependent respiratory failure. 6. Functional paraplegia. He has been bedridden for the last many years. 7. Anemia. Hematocrit is stable 8. Decubitus ulcer 9. 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 and follows commands Plan Continue PPI Monitor H&H periodically Continue present care Antibiotic as per ID Case discussed with the [id number] Consultation Date/Type/Reason Admit Date/Time Dec 15, 2016 at 10:55 Initial Consult Date 12/18/16 Type of Consultation: ID Referring Provider: DESTINEE ROBERTS MD 24 HR Interval Summary Free Text/Dictation Taking active part in physical activity Constitutional: improved, no complaints Exam/Review of Systems Vital Signs Vitals Vital Signs Date Time Temp Pulse Resp B/P Pulse Ox O2 Delivery O2 Flow Rate FiO2 12/23/16 09:35 101 24 100 30 12/23/16 08:16 98.2 128/88 12/22/16 18:00 Mechanical Ventilator Intake and Output 12/22/16 12/22/16 12/23/16 15:00 23:00 07:00 Intake Total 1100 ml Output Total 1000 ml Balance 100 ml Exam Constitutional: alert, oriented, well developed Psych: nl mood/affect, no complaints Head: atraumatic, normocephalic Eyes: EOMI, PERRL, nl conjunctiva, nl lids, nl sclera ENMT: nl external ears & nose, nl lips & teeth, nl nasal mucosa & septum Neck: non-tender, supple Respiratory: clear to auscultation, normal air movement Cardiovascular: nl pulses, regular rate and rhythm Gastrointestinal: nl liver, spleen, non-tender, soft Musculoskeletal: nl extremities to inspection, nl gait and stance Extremities: normal pulses Neurological: MEAT CLERK II-XII intact, nl mental status, nl speech, nl strength Skin: nl turgor, No rash or lesions Lymph: nl lymph nodes Results Result Diagram: 12/23/16 0716 12/23/16 0716 Results 24 hrs Laboratory Tests Test 12/23/16 07:16 White Blood Count 5.7 Red Blood Count 2.91 L Hemoglobin 8.7 L Hematocrit 26.8 L Mean Corpuscular Volume 92.1 Mean Corpuscular Hemoglobin 29.9 Mean Corpuscular Hemoglobin Concent 32.5 Red Cell Distribution Width 19.9 H Platelet Count 206 Mean Platelet Volume 11.6 H Neutrophils % 52.4 Lymphocytes % 18.2 Monocytes % 7.4 Eosinophils % 20.6 H Basophils % 0.5 Nucleated Red Blood Cells % 0.0 Neutrophils # 3.0 Lymphocytes # 1.0 Monocytes # 0.4 Eosinophils # 1.2 H Basophils # 0.0 Nucleated Red Blood Cells # 0.0 Sodium Level 137 Potassium Level 3.8 Chloride Level 109 Carbon Dioxide Level 24 Anion Gap 8 Blood Urea Nitrogen 36 H Creatinine 0.82 Glucose Level 103 Calcium Level 9.0 Medications Medications Current Medications Lorazepam (Ativan) 0.5 mg Q6H PRN IV ANXIETY Last administered on 12/17/16 23: 32; Admin Dose 0.5 MG; Start 12/15/16 at 18:00 Ondansetron HCl (Zofran Inj) 4 mg Q6H PRN IV NAUSEA AND/OR VOMITING; Start 12/15/16 at 18:00 Acetaminophen (Tylenol Supp) 650 mg Q6H PRN [place] PAIN LEVEL 1-3 OR FEVER Last administered on 12/21/16 23:32; Admin Dose 650 MG; Start 12/15/16 at 18:00 Morphine Sulfate (morphine) 2 mg Q4H PRN IV PAIN LEVEL 7-10 Last administered on 12/17/16 05:56; Admin Dose 2 MG; Start 12/15/16 at 18:00 Diphenhydramine HCl (Benadryl) 25 mg Q6H PRN IV ITCHING Last administered on 16:29; Admin Dose 25 MG; Start 12/16/16 at 16:00 Collagenase (Santyl) 1 applic DAILY TOP Last administered on 12/23/16 09:49; Admin Dose 1 APPLIC; Start 12/17/16 at 20:00 Zolpidem Tartrate (Ambien) 5 mg HS PRN PO INSOMNIA; Start 12/19/16 at 15:30 Hydralazine HCl (Apresoline) 10 mg Q6H PRN IV ELEVATED BLOOD PRESSURE; Start 12/19/16 at 16:00 Metoprolol Tartrate (Lopressor) 12.5 mg Q8 GTB Last administered on 12/23/16 06:22; Admin Dose 12.5 MG; Start 12/19/16 at 16:00 Diltiazem HCl (Cardizem) 30 mg Q6 GTB Last administered on 12/23/16 06:22; Admin Dose 30 MG; Start 12/19/16 at 16:00 Lansoprazole (Prevacid) 30 mg DAILY@06 GTB Last administered on 12/23/16 06: 22; Admin Dose 30 MG; Start 12/21/16 at 06:00 PAT CHA MD Dec 23, 2016 11:10
--- NOTE | 2016-12-23 11:52 | CONS ---
Date/Time of Note Date/Time of Note DATE: 12/23/16 TIME: 11:50 Assessment/Plan Assessment/Plan Additional Assessment/Plan 1. acute Kidney injury due to prerenal azotemia 2. Hypernatremia due to large free water deficit 3. Sepsis due to UTI, UTI with urine Cx growing Layne Albicans 4. Chronic resp failure s/p tracheostomy vent depedant 5. Chronic encephalopathy 6. S/P G tube 7. melena, Gi bleeding, h/o PUD 8. 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 will follow up Consultation Date/Type/Reason Admit Date/Time Dec 15, 2016 at 10:55 Type of Consultation: NEPHROLOGY Referring Provider: DESTINEE ROBERTS MD 24 HR Interval Summary Free Text/Dictation Cr and electrolyte stable today Exam/Review of Systems Vital Signs Vitals Vital Signs Date Time Temp Pulse Resp B/P Pulse Ox O2 Delivery O2 Flow Rate FiO2 12/23/16 11:27 98.4 84 18 118/71 97 12/23/16 09:35 30 12/22/16 18:00 Mechanical Ventilator Intake and Output 12/22/16 12/22/16 12/23/16 15:00 23:00 07:00 Intake Total 1100 ml Output Total 1000 ml Balance 100 ml Exam Constitutional: alert, non-verbal Head: atraumatic, normocephalic ENMT: nl external ears & nose, other (+ tracheostomy on ventilator ) Neck: non-tender, supple Respiratory: congested cough, crackles/rales, diminished breath sounds Cardiovascular: nl pulses, regular rate and rhythm Gastrointestinal: non-tender, other (G tube, site clear, no erythema, no discharge ), soft Results Result Diagram: 12/23/16 0716 12/23/16 0716 Results 24 hrs Laboratory Tests Test 12/23/16 07:16 White Blood Count 5.7 Red Blood Count 2.91 L Hemoglobin 8.7 L Hematocrit 26.8 L Mean Corpuscular Volume 92.1 Mean Corpuscular Hemoglobin 29.9 Mean Corpuscular Hemoglobin Concent 32.5 Red Cell Distribution Width 19.9 H Platelet Count 206 Mean Platelet Volume 11.6 H Neutrophils % 52.4 Lymphocytes % 18.2 Monocytes % 7.4 Eosinophils % 20.6 H Basophils % 0.5 Nucleated Red Blood Cells % 0.0 Neutrophils # 3.0 Lymphocytes # 1.0 Monocytes # 0.4 Eosinophils # 1.2 H Basophils # 0.0 Nucleated Red Blood Cells # 0.0 Sodium Level 137 Potassium Level 3.8 Chloride Level 109 Carbon Dioxide Level 24 Anion Gap 8 Blood Urea Nitrogen 36 H Creatinine 0.82 Glucose Level 103 Calcium Level 9.0 Medications Medications Current Medications Lorazepam (Ativan) 0.5 mg Q6H PRN IV ANXIETY Last administered on 12/17/16 23: 32; Admin Dose 0.5 MG; Start 12/15/16 at 18:00 Ondansetron HCl (Zofran Inj) 4 mg Q6H PRN IV NAUSEA AND/OR VOMITING; Start 12/15/16 at 18:00 Acetaminophen (Tylenol Supp) 650 mg Q6H PRN [place] PAIN LEVEL 1-3 OR FEVER Last administered on 12/21/16 23:32; Admin Dose 650 MG; Start 12/15/16 at 18:00 Morphine Sulfate (morphine) 2 mg Q4H PRN IV PAIN LEVEL 7-10 Last administered on 12/17/16 05:56; Admin Dose 2 MG; Start 12/15/16 at 18:00 Diphenhydramine HCl (Benadryl) 25 mg Q6H PRN IV ITCHING Last administered on 16:29; Admin Dose 25 MG; Start 12/16/16 at 16:00 Collagenase (Santyl) 1 applic DAILY TOP Last administered on 12/23/16 09:49; Admin Dose 1 APPLIC; Start 12/17/16 at 20:00 Zolpidem Tartrate (Ambien) 5 mg HS PRN PO INSOMNIA; Start 12/19/16 at 15:30 Hydralazine HCl (Apresoline) 10 mg Q6H PRN IV ELEVATED BLOOD PRESSURE; Start 12/19/16 at 16:00 Metoprolol Tartrate (Lopressor) 12.5 mg Q8 GTB Last administered on 12/23/16 06:22; Admin Dose 12.5 MG; Start 12/19/16 at 16:00 Diltiazem HCl (Cardizem) 30 mg Q6 GTB Last administered on 12/23/16 06:22; Admin Dose 30 MG; Start 12/19/16 at 16:00 Lansoprazole (Prevacid) 30 mg DAILY@06 GTB Last administered on 12/23/16 06: 22; Admin Dose 30 MG; Start 12/21/16 at 06:00 ROULA YEPEZ MD Dec 23, 2016 11:52
--- NOTE | 2016-12-23 14:03 | CONS ---
Date/Time of Note Date/Time of Note DATE: 12/23/16 TIME: 14:02 Consult Date/Type/Reason Admit Date/Time Dec 15, 2016 at 10:55 Type of Consultation: ID Ordering Provider: DESTINEE ROBERTS MD Objective Vital Signs Date Time Temp Pulse Resp B/P Pulse Ox O2 Delivery O2 Flow Rate FiO2 12/23/16 12:00 99 12/23/16 11:27 98.4 18 118/71 97 12/23/16 11:10 30 12/22/16 18:00 Mechanical Ventilator Intake and Output 12/22/16 12/22/16 12/23/16 15:00 23:00 07:00 Intake Total 1100 ml Output Total 1000 ml Balance 100 ml Results/Medications Result Diagram: 12/23/1671512/23/1616 Results 24 hrs Laboratory Tests Test 12/23/16 07:16 White Blood Count 5.7 Red Blood Count 2.91 L Hemoglobin 8.7 L Hematocrit 26.8 L Mean Corpuscular Volume 92.1 Mean Corpuscular Hemoglobin 29.9 Mean Corpuscular Hemoglobin Concent 32.5 Red Cell Distribution Width 19.9 H Platelet Count 206 Mean Platelet Volume 11.6 H Neutrophils % 52.4 Lymphocytes % 18.2 Monocytes % 7.4 Eosinophils % 20.6 H Basophils % 0.5 Nucleated Red Blood Cells % 0.0 Neutrophils # 3.0 Lymphocytes # 1.0 Monocytes # 0.4 Eosinophils # 1.2 H Basophils # 0.0 Nucleated Red Blood Cells # 0.0 Sodium Level 137 Potassium Level 3.8 Chloride Level 109 Carbon Dioxide Level 24 Anion Gap 8 Blood Urea Nitrogen 36 H Creatinine 0.82 Glucose Level 103 Calcium Level 9.0 Medications Current Medications Lorazepam (Ativan) 0.5 mg Q6H PRN IV ANXIETY Last administered on 12/17/16 23: 32; Admin Dose 0.5 MG; Start 12/15/16 at 18:00 Ondansetron HCl (Zofran Inj) 4 mg Q6H PRN IV NAUSEA AND/OR VOMITING; Start 12/15/16 at 18:00 Acetaminophen (Tylenol Supp) 650 mg Q6H PRN CA PAIN LEVEL 1-3 OR FEVER Last administered on 12/21/16 23:32; Admin Dose 650 MG; Start 12/15/16 at 18:00 Morphine Sulfate (morphine) 2 mg Q4H PRN IV PAIN LEVEL 7-10 Last administered on 12/17/16 05:56; Admin Dose 2 MG; Start 12/15/16 at 18:00 Diphenhydramine HCl (Benadryl) 25 mg Q6H PRN IV ITCHING Last administered on 16:29; Admin Dose 25 MG; Start 12/16/16 at 16:00 Collagenase (Santyl) 1 applic DAILY TOP Last administered on 12/23/16 09:49; Admin Dose 1 APPLIC; Start 12/17/16 at 20:00 Zolpidem Tartrate (Ambien) 5 mg HS PRN PO INSOMNIA; Start 12/19/16 at 15:30 Hydralazine HCl (Apresoline) 10 mg Q6H PRN IV ELEVATED BLOOD PRESSURE; Start 12/19/16 at 16:00 Metoprolol Tartrate (Lopressor) 12.5 mg Q8 GTB Last administered on 12/23/16 06:22; Admin Dose 12.5 MG; Start 12/19/16 at 16:00 Diltiazem HCl (Cardizem) 30 mg Q6 GTB Last administered on 12/23/16 12:24; Admin Dose 30 MG; Start 12/19/16 at 16:00 Lansoprazole (Prevacid) 30 mg DAILY@06 GTB Last administered on 12/23/16 06: 22; Admin Dose 30 MG; Start 12/21/16 at 06:00 Assessment/Plan Chief Complaint/Hosp Course SUBJECTIVE: Patient is awake, looks comfortable. at bedside. Afebrile INDWELLINGS: Trach, PEG, Car. PHYSICAL EXAMINATION: GENERAL: Fragile, elderly man is alert, follows commands, in no distress. HEENT: Head atraumatic, normocephalic. Sclerae anicteric. Buccal mucosa dry. NECK: Supple. CHEST: Rise symmetrical. Breath sounds diminished to bases. HEART: S1, S2. ABDOMEN: Soft. Bowel sounds present. EXTREMITIES: With trace bilateral lower extremities edema. ASSESSMENT: 1. Systemic inflammatory response syndrome, status post fever on admission. 2. Diarrhea==> C dif neg. 3. Acute on chronic anemia, status post esophagogastroduodenoscopy that revealed stomal ulcer and gastritis. 4. Fungal urinary tract infection. 5. Lung nodule ?significance. PLAN: Remains stable, off abx, continue management as per primary team and consultants, freedman cx prn. [facility] staff Problems: NASH DOTY NP Dec 23, 2016 14:03
--- NOTE | 2016-12-23 15:27 | PN ---
DATE: 12/23/2016 The patient's general condition is the same. He is awake, responsive, able to follow when spoken to . His is at the bedside. He is on continuous ventilator support. Shows no signs of respirato ry distress. He has not had any fever spikes. PHYSICAL EXAMINATION VITAL SIGNS: Temperature this morning is 98.4, blood pressure is 118/71, pulse rate is 84, respirat ions 18, pulse oximetry 97% saturation. NECK: Tracheal secretions are clear. No bleeding is seen. HEART: Regular rhythm. CHEST: Breath sounds are diminished in the lower lung enamorado of the lung bases, but otherwise clear . ABDOMEN: Abdomen soft. No distention is seen. He is tolerating gastrostomy tube feedings. Bowel s ounds are present. EXTREMITIES: Show no edema. He is paraplegic. DIAGNOSTIC DATA: The lab tests show sodium 137, potassium 3.8, bicarbonate of 24, BUN is 36, creati nine 0.82, glucose 103, calcium 9. CBC shows WBC of 5700, hemoglobin 8.7, hematocrit 26.8, platelet s within normal limits. IMPRESSION: 1. Chronic ventilator dependent respiratory failure. 2. Urosepsis and Layne albicans infection. 3. Gastritis with stomach ulcers. 4. Acute kidney injury, improving. 5. History of congestive heart failure. 6. History of cerebrovascular accident with paraplegia. 7. Chronic anemia. 8. Decubitus ulcer. 9. Status post tracheostomy. 10. Status post gastrostomy. PLAN: 1. Continue long-term ventilator support. 2. Continue antibiotics as per the infectious disease marketing consultant's recommendations. 3. Continue pulmonary toilet with inhalation therapy to clear the secretions. 4. Swallow evaluation to be done in the radiology department. Dictated By: ROEL BOYLE MD SR/NTS Conf#: [id number] DID#: [id number]
--- NOTE | 2016-12-23 16:01 | PN ---
Date/Time of Note Date/Time of Note DATE: 12/23/16 TIME: 15:59 Assessment/Plan Lines/Catheters IV [facility] Type ([facility] Peripheral IV Urinary Cath still in place: Yes Reason Cath still needed: urinary retention Assessment/Plan Assessment/Plan - Gastrointestinal bleed, resolving. Dr. Hassan is following in gastroenterology consultation. - Stomal ulcer and gastritis per EGD. - Sepsis, due to most likely urinary tract infection possible pneumonia. Continue antibiotics per ID. Dr Jones is following in infection disease consultation - Urinary tract infection per UA. - Acute kidney injury on chronic kidney disease. Continue IV fluids, her BUN and creatinine. - Hypernatremia, continue water flushes via G-tube - Ventilator-dependent respiratory failure. Dr. Barajas is following patient in pulmonology consultation. - Anemia due to GI bleed. 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 Plan of care discussed with Dr. Roa. Exam/Review of Systems Vital Signs Vitals Vital Signs Date Time Temp Pulse Resp B/P Pulse Ox O2 Delivery O2 Flow Rate FiO2 12/23/16 15:57 98.2 95 20 117/56 100 12/23/16 15:00 30 12/22/16 18:00 Mechanical Ventilator Intake and Output 12/22/16 12/22/16 12/23/16 15:00 23:00 07:00 Intake Total 1100 ml Output Total 1000 ml Balance 100 ml Exam Barium swallow tomorrow, dw staff Constitutional: alert Results Result Diagram: 12/23/16 0716 12/23/16 0716 Results 24 hrs Laboratory Tests Test 12/23/16 07:16 White Blood Count 5.7 Red Blood Count 2.91 L Hemoglobin 8.7 L Hematocrit 26.8 L Mean Corpuscular Volume 92.1 Mean Corpuscular Hemoglobin 29.9 Mean Corpuscular Hemoglobin Concent 32.5 Red Cell Distribution Width 19.9 H Platelet Count 206 Mean Platelet Volume 11.6 H Neutrophils % 52.4 Lymphocytes % 18.2 Monocytes % 7.4 Eosinophils % 20.6 H Basophils % 0.5 Nucleated Red Blood Cells % 0.0 Neutrophils # 3.0 Lymphocytes # 1.0 Monocytes # 0.4 Eosinophils # 1.2 H Basophils # 0.0 Nucleated Red Blood Cells # 0.0 Sodium Level 137 Potassium Level 3.8 Chloride Level 109 Carbon Dioxide Level 24 Anion Gap 8 Blood Urea Nitrogen 36 H Creatinine 0.82 Glucose Level 103 Calcium Level 9.0 Medications Medications Current Medications Lorazepam (Ativan) 0.5 mg Q6H PRN IV ANXIETY Last administered on 12/17/16 23: 32; Admin Dose 0.5 MG; Start 12/15/16 at 18:00 Ondansetron HCl (Zofran Inj) 4 mg Q6H PRN IV NAUSEA AND/OR VOMITING; Start 12/15/16 at 18:00 Acetaminophen (Tylenol Supp) 650 mg Q6H PRN [place] PAIN LEVEL 1-3 OR FEVER Last administered on 12/21/16 23:32; Admin Dose 650 MG; Start 12/15/16 at 18:00 Morphine Sulfate (morphine) 2 mg Q4H PRN IV PAIN LEVEL 7-10 Last administered on 12/17/16 05:56; Admin Dose 2 MG; Start 12/15/16 at 18:00 Diphenhydramine HCl (Benadryl) 25 mg Q6H PRN IV ITCHING Last administered on 16:29; Admin Dose 25 MG; Start 12/16/16 at 16:00 Collagenase (Santyl) 1 applic DAILY TOP Last administered on 12/23/16 09:49; Admin Dose 1 APPLIC; Start 12/17/16 at 20:00 Zolpidem Tartrate (Ambien) 5 mg HS PRN PO INSOMNIA; Start 12/19/16 at 15:30 Hydralazine HCl (Apresoline) 10 mg Q6H PRN IV ELEVATED BLOOD PRESSURE; Start 12/19/16 at 16:00 Metoprolol Tartrate (Lopressor) 12.5 mg Q8 GTB Last administered on 12/23/16 13:58; Admin Dose 12.5 MG; Start 12/19/16 at 16:00 Diltiazem HCl (Cardizem) 30 mg Q6 GTB Last administered on 12/23/16 12:24; Admin Dose 30 MG; Start 12/19/16 at 16:00 Lansoprazole (Prevacid) 30 mg DAILY@06 GTB Last administered on 12/23/16 06: 22; Admin Dose 30 MG; Start 12/21/16 at 06:00 JOÃO JUAREZ Dec 23, 2016 16:01
[2016-12-24] VITALS (28 sets, daily range): BP systolic 110–147; BP diastolic 58–80; PULSE 80–102; RESP 16–24
[2016-12-24] MEDS: DILTIAZEM 30 MG TAB GTB SCH ×4 (01:21→17:12)
[2016-12-24] MEDS: DIPHENHYDRAMINE 50 MG INJ IV PRN (01:23)
[2016-12-24] MEDS: ALBUTEROL 18 GM INHALER INH SCH ×4 (01:30→19:29)
[2016-12-24] MEDS: IPRATROPIUM (HFA) 12.9 GM INHALER INH SCH ×4 (01:30→19:29)
[2016-12-24] MEDS: LANSOPRAZOLE 30 MG CAP GTB SCH (05:34)
[2016-12-24] MEDS: METOPROLOL 25 MG TAB GTB SCH ×3 (05:34→22:08)
[2016-12-24] MEDS: COLLAGENASE 30 GM TUBE TOP SCH (08:54)
--- NOTE | 2016-12-24 13:36 | PN ---
Date/Time of Note Date/Time of Note DATE: 12/24/16 TIME: 13:34 Assessment/Plan VTE Prophylaxis VTE Prophylaxis Intervention: SCD's Lines/Catheters IV Catheter Type (from Nrs): Peripheral IV Urinary Cath still in place: Yes Reason Cath still needed: urinary retention Assessment/Plan Chief Complaint/Hosp Course Video swallow eval is pending. Patient can be discharged to custodial facility after completion of video swallow evaluation, send recommendations from video swallow developed to custodial facility. Med recon is on the chart. ASSESSMENT AND PLAN: - Gastrointestinal bleed, resolving. Dr. Hassan is following in gastroenterology consultation. - Stomal ulcer and gastritis per EGD. - Sepsis, due to most likely urinary tract infection possible pneumonia. Continue antibiotics per ID. Dr Jones is following in infection disease consultation - Urinary tract infection per UA. - Acute kidney injury on chronic kidney disease. Continue IV fluids, her BUN and creatinine. - Hypernatremia, continue water flushes via G-tube - Ventilator-dependent respiratory failure. Dr. Barajas is following patient in pulmonology consultation. - Anemia due to GI bleed. 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 Plan of care discussed with Dr. Roa. Problems: Exam/Review of Systems Vital Signs Vitals Vital Signs Date Time Temp Pulse Resp B/P Pulse Ox O2 Delivery O2 Flow Rate FiO2 12/24/16 13:10 87 20 100 30 12/24/16 11:34 98.6 147/63 12/24/16 06:00 Mechanical Ventilator Intake and Output 12/23/16 12/23/16 12/24/16 15:00 23:00 07:00 Intake Total 1000 ml 1000 ml Output Total 450 ml 650 ml Balance 550 ml 350 ml Exam Constitutional: alert Head: normocephalic Neck: other (Tracheostomy) Respiratory: diminished breath sounds Cardiovascular: nl pulses Gastrointestinal: non-tender, other (G-tube), soft Musculoskeletal: other, sacral wound Extremities: normal pulses Results Result Diagram: 12/23/1616 12/23/16715 Medications Medications Current Medications Lorazepam (Ativan) 0.5 mg Q6H PRN IV ANXIETY Last administered on 12/17/16t 23: 32; Admin Dose 0.5 MG; Start 12/15/16 at 18:00 Ondansetron HCl (Zofran Inj) 4 mg Q6H PRN IV NAUSEA AND/OR VOMITING; Start 12/15/16 at 18:00 Acetaminophen (Tylenol Supp) 650 mg Q6H PRN [place] PAIN LEVEL 1-3 OR FEVER Last administered on 12/21/16 23:32; Admin Dose 650 MG; Start 12/15/16 at 18:00 Morphine Sulfate (morphine) 2 mg Q4H PRN IV PAIN LEVEL 7-10 Last administered on 12/17/16 05:56; Admin Dose 2 MG; Start 12/15/16 at 18:00 Diphenhydramine HCl (Benadryl) 25 mg Q6H PRN IV ITCHING Last administered on 01:23; Admin Dose 25 MG; Start 12/16/16 at 16:00 Collagenase (Santyl) 1 applic DAILY TOP Last administered on 12/24/16 08:54; Admin Dose 1 APPLIC; Start 12/17/16 at 20:00 Zolpidem Tartrate (Ambien) 5 mg HS PRN PO INSOMNIA; Start 12/19/16 at 15:30 Hydralazine HCl (Apresoline) 10 mg Q6H PRN IV ELEVATED BLOOD PRESSURE; Start 12/19/16 at 16:00 Metoprolol Tartrate (Lopressor) 12.5 mg Q8 GTB Last administered on 12/24/16 05:34; Admin Dose 12.5 MG; Start 12/19/16 at 16:00 Diltiazem HCl (Cardizem) 30 mg Q6 GTB Last administered on 12/24/16 11:45; Admin Dose 30 MG; Start 12/19/16 at 16:00 Lansoprazole (Prevacid) 30 mg DAILY@06 GTB Last administered on 12/24/16 05: 34; Admin Dose 30 MG; Start 12/21/16 at 06:00 ERROL LORD Dec 24, 2016 13:36
--- NOTE | 2016-12-24 14:03 | CONS ---
Date/Time of Note Date/Time of Note DATE: 12/24/16 TIME: 14:02 Consult Date/Type/Reason Admit Date/Time Dec 15, 2016 at 10:55 Type of Consultation: ID Ordering Provider: DESTINEE ROBERTS MD Objective Vital Signs Date Time Temp Pulse Resp B/P Pulse Ox O2 Delivery O2 Flow Rate FiO2 12/24/16 13:10 87 20 100 30 12/24/16 11:34 98.6 147/63 12/24/16 06:00 Mechanical Ventilator Intake and Output 12/23/16 12/23/16 12/24/16 15:00 23:00 07:00 Intake Total 1000 ml 1000 ml Output Total 450 ml 650 ml Balance 550 ml 350 ml Results/Medications Result Diagram: 12/23/1671512/23/16715 Medications Current Medications Lorazepam (Ativan) 0.5 mg Q6H PRN IV ANXIETY Last administered on 12/17/16 23: 32; Admin Dose 0.5 MG; Start 12/15/16 at 18:00 Ondansetron HCl (Zofran Inj) 4 mg Q6H PRN IV NAUSEA AND/OR VOMITING; Start 12/15/16 at 18:00 Acetaminophen (Tylenol Supp) 650 mg Q6H PRN [place] PAIN LEVEL 1-3 OR FEVER Last administered on 12/21/16 23:32; Admin Dose 650 MG; Start 12/15/16 at 18:00 Morphine Sulfate (morphine) 2 mg Q4H PRN IV PAIN LEVEL 7-10 Last administered on 12/17/16 05:56; Admin Dose 2 MG; Start 12/15/16 at 18:00 Diphenhydramine HCl (Benadryl) 25 mg Q6H PRN IV ITCHING Last administered on 01:23; Admin Dose 25 MG; Start 12/16/16 at 16:00 Collagenase (Santyl) 1 applic DAILY TOP Last administered on 12/24/16 08:54; Admin Dose 1 APPLIC; Start 12/17/16 at 20:00 Zolpidem Tartrate (Ambien) 5 mg HS PRN PO INSOMNIA; Start 12/19/16 at 15:30 Hydralazine HCl (Apresoline) 10 mg Q6H PRN IV ELEVATED BLOOD PRESSURE; Start 10/8/17 at 16:00 Metoprolol Tartrate (Lopressor) 12.5 mg Q8 GTB Last administered on 12/24/16 05:34; Admin Dose 12.5 MG; Start 12/19/16 at 16:00 Diltiazem HCl (Cardizem) 30 mg Q6 GTB Last administered on 12/24/16 11:45; Admin Dose 30 MG; Start 12/19/16 at 16:00 Lansoprazole (Prevacid) 30 mg DAILY@06 GTB Last administered on 12/24/16 05: 34; Admin Dose 30 MG; Start 12/21/16 at 06:00 Assessment/Plan Chief Complaint/Hosp Course SUBJECTIVE: Patient is awake, looks comfortable. at bedside. Afebrile INDWELLINGS: Trach, PEG, Car. PHYSICAL EXAMINATION: GENERAL: Fragile, elderly man is alert, follows commands, in no distress. HEENT: Head atraumatic, normocephalic. Sclerae anicteric. Buccal mucosa dry. NECK: Supple. CHEST: Rise symmetrical. Breath sounds diminished to bases. HEART: S1, S2. ABDOMEN: Soft. Bowel sounds present. EXTREMITIES: With trace bilateral lower extremities edema. ASSESSMENT: 1. Systemic inflammatory response syndrome, status post fever on admission. 2. Diarrhea==> C dif neg. 3. Acute on chronic anemia, status post esophagogastroduodenoscopy that revealed stomal ulcer and gastritis. 4. Fungal urinary tract infection. 5. Lung nodule ?significance. PLAN: Remains stable, off abx, continue management as per primary team and consultants, pending barium swallow eval. RABIA Problems: NASH DOTY NP Dec 24, 2016 14:03
--- NOTE | 2016-12-24 16:39 | CONS ---
Date/Time of Note Date/Time of Note DATE: 12/24/16 TIME: 16:37 Assessment/Plan Assessment/Plan Additional Assessment/Plan 1. acute Kidney injury due to prerenal azotemia 2. Hypernatremia due to large free water deficit 3. Sepsis due to UTI, UTI with urine Cx growing Layne Albicans 4. Chronic resp failure s/p tracheostomy vent depedant 5. Chronic encephalopathy 6. S/P G tube 7. melena, Gi bleeding, h/o PUD 8. 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 Plan: Cr and electrolytes normal today- will monitor electrolytes and Cr no need for CKD work up IV fluconazole for layne UTI pt is tolerating tube feeding Novasource so far, no residual, continue Free water 200 cc Every 6 hr awaiting Barium swallow, GI following will follow up Consultation Date/Type/Reason Admit Date/Time Dec 15, 2016 at 10:55 Type of Consultation: NEPHROLOGY Referring Provider: DESTINEE ROBERTS MD 24 HR Interval Summary Free Text/Dictation Plan for barium swallow today, Cr stable, Exam/Review of Systems Vital Signs Vitals Vital Signs Date Time Temp Pulse Resp B/P Pulse Ox O2 Delivery O2 Flow Rate FiO2 12/24/16 16:25 100 12/24/16 15:33 98.3 17 112/58 99 12/24/16 13:10 30 12/24/16 06:00 Mechanical Ventilator Intake and Output 12/23/16 12/23/16 12/24/16 15:00 23:00 07:00 Intake Total 1000 ml 1000 ml Output Total 450 ml 650 ml Balance 550 ml 350 ml Exam Constitutional: alert, non-verbal Head: atraumatic, normocephalic ENMT: nl external ears & nose, other (+ tracheostomy on ventilator ) Neck: non-tender, supple Respiratory: congested cough, crackles/rales, diminished breath sounds Cardiovascular: nl pulses, regular rate and rhythm Gastrointestinal: non-tender, other (G tube, site clear, no erythema, no discharge ), soft Results Result Diagram: 12/23/1616 12/23/1616 Medications Medications Current Medications Lorazepam (Ativan) 0.5 mg Q6H PRN IV ANXIETY Last administered on 12/17/16t 23: 32; Admin Dose 0.5 MG; Start 12/15/16 at 18:00 Ondansetron HCl (Zofran Inj) 4 mg Q6H PRN IV NAUSEA AND/OR VOMITING; Start 12/15/16 at 18:00 Acetaminophen (Tylenol Supp) 650 mg Q6H PRN [place] PAIN LEVEL 1-3 OR FEVER Last administered on 12/21/16 23:32; Admin Dose 650 MG; Start 12/15/16 at 18:00 Morphine Sulfate (morphine) 2 mg Q4H PRN IV PAIN LEVEL 7-10 Last administered on 12/17/16 05:56; Admin Dose 2 MG; Start 12/15/16 at 18:00 Diphenhydramine HCl (Benadryl) 25 mg Q6H PRN IV ITCHING Last administered on 01:23; Admin Dose 25 MG; Start 12/16/16 at 16:00 Collagenase (Santyl) 1 applic DAILY TOP Last administered on 12/24/16 08:54; Admin Dose 1 APPLIC; Start 12/17/16 at 20:00 Zolpidem Tartrate (Ambien) 5 mg HS PRN PO INSOMNIA; Start 12/19/16 at 15:30 Hydralazine HCl (Apresoline) 10 mg Q6H PRN IV ELEVATED BLOOD PRESSURE; Start 12/19/16 at 16:00 Metoprolol Tartrate (Lopressor) 12.5 mg Q8 GTB Last administered on 12/24/16 14:00; Admin Dose 12.5 MG; Start 12/19/16 at 16:00 Diltiazem HCl (Cardizem) 30 mg Q6 GTB Last administered on 12/24/16 11:45; Admin Dose 30 MG; Start 12/19/16 at 16:00 Lansoprazole (Prevacid) 30 mg DAILY@06 GTB Last administered on 12/24/16 05: 34; Admin Dose 30 MG; Start 12/21/16 at 06:00 ROULA YEPEZ MD Dec 24, 2016 16:39
--- NOTE | 2016-12-24 18:35 | CONS ---
Date/Time of Note Date/Time of Note DATE: 12/24/16 TIME: 18:34 Assessment/Plan Assessment/Plan Additional Assessment/Plan 1. Melena, no further bleeding noted. Patient has stomal ulcer 2. Sepsis. 3. Urinary tract infection. 4. Kidney injury. Dehydration 5. Vent dependent respiratory failure. 6. Functional paraplegia. He has been bedridden for the last many years. 7. Anemia. Hematocrit is stable 8. Decubitus ulcer 9. Encephalopathy much better able to recognize me and follows commands Plan Continue PPI Monitor H&H periodically Continue present care Antibiotic as per ID Consultation Date/Type/Reason Admit Date/Time Dec 15, 2016 at 10:55 Initial Consult Date 12/18/16 Type of Consultation: NEPHROLOGY Referring Provider: DESTINEE ROBERTS MD 24 HR Interval Summary Subjective hx not possible: pt non-verbal Constitutional: no complaints Exam/Review of Systems Vital Signs Vitals Vital Signs Date Time Temp Pulse Resp B/P Pulse Ox O2 Delivery O2 Flow Rate FiO2 12/24/16 17:00 101 22 100 30 12/24/16 15:33 98.3 112/58 12/24/16 06:00 Mechanical Ventilator Intake and Output 12/23/16 12/23/16 12/24/16 15:00 23:00 07:00 Intake Total 1000 ml 1000 ml Output Total 450 ml 650 ml Balance 550 ml 350 ml Exam Constitutional: alert, oriented, well developed Psych: nl mood/affect, no complaints Head: atraumatic, normocephalic Eyes: EOMI, PERRL, nl conjunctiva, nl lids, nl sclera ENMT: nl external ears & nose, nl lips & teeth, nl nasal mucosa & septum Neck: non-tender, supple Respiratory: clear to auscultation, normal air movement Cardiovascular: nl pulses, regular rate and rhythm Gastrointestinal: nl liver, spleen, non-tender, soft Musculoskeletal: nl extremities to inspection, nl gait and stance Extremities: normal pulses Neurological: [employer] II-XII intact, nl mental status, nl speech, nl strength Skin: nl turgor, No rash or lesions Lymph: nl lymph nodes Results Result Diagram: 12/23/1616 12/23/1616 Medications Medications Current Medications Lorazepam (Ativan) 0.5 mg Q6H PRN IV ANXIETY Last administered on 12/17/16 23: 32; Admin Dose 0.5 MG; Start 12/15/16 at 18:00 Ondansetron HCl (Zofran Inj) 4 mg Q6H PRN IV NAUSEA AND/OR VOMITING; Start 12/15/16 at 18:00 Acetaminophen (Tylenol Supp) 650 mg Q6H PRN [place] PAIN LEVEL 1-3 OR FEVER Last administered on 12/21/16 23:32; Admin Dose 650 MG; Start 12/15/16 at 18:00 Morphine Sulfate (morphine) 2 mg Q4H PRN IV PAIN LEVEL 7-10 Last administered on 12/17/16 05:56; Admin Dose 2 MG; Start 12/15/16 at 18:00 Diphenhydramine HCl (Benadryl) 25 mg Q6H PRN IV ITCHING Last administered on 01:23; Admin Dose 25 MG; Start 12/16/16 at 16:00 Collagenase (Santyl) 1 applic DAILY TOP Last administered on 12/24/16 08:54; Admin Dose 1 APPLIC; Start 12/17/16 at 20:00 Zolpidem Tartrate (Ambien) 5 mg HS PRN PO INSOMNIA; Start 12/19/16 at 15:30 Hydralazine HCl (Apresoline) 10 mg Q6H PRN IV ELEVATED BLOOD PRESSURE; Start 12/19/16 at 16:00 Metoprolol Tartrate (Lopressor) 12.5 mg Q8 GTB Last administered on 12/24/16 14:00; Admin Dose 12.5 MG; Start 12/19/16 at 16:00 Diltiazem HCl (Cardizem) 30 mg Q6 GTB Last administered on 12/24/16 17:12; Admin Dose 30 MG; Start 12/19/16 at 16:00 Lansoprazole (Prevacid) 30 mg DAILY@06 GTB Last administered on 12/24/16 05: 34; Admin Dose 30 MG; Start 12/21/16 at 06:00 PAT CHA MD Dec 24, 2016 18:35
[2016-12-25] VITALS (22 sets, daily range): BP systolic 110–140; BP diastolic 55–72; PULSE 96–109; RESP 16–23
[2016-12-25] MEDS: DILTIAZEM 30 MG TAB GTB SCH ×3 (00:19→13:14)
[2016-12-25] MEDS: IPRATROPIUM (HFA) 12.9 GM INHALER INH SCH ×3 (01:09→13:04)
[2016-12-25] MEDS: ALBUTEROL 18 GM INHALER INH SCH ×3 (01:09→13:04)
[2016-12-25] MEDS: LANSOPRAZOLE 30 MG CAP GTB SCH (05:45)
[2016-12-25] MEDS: METOPROLOL 25 MG TAB GTB SCH ×2 (05:46→13:13)
[2016-12-25 06:24] LABS: BASOPHILS % 0.6 % (0.0-2.0); HEMOGLOBIN 9.7 g/dl (14.0-18.0); LYMPHOCYTES # 1.3 10^3/ul (0.8-2.9); LYMPHOCYTES % 18.6 % (15.0-51.0); MEAN CORPUSCULAR HEMOGLOBIN 28.9 pg (29.0-33.0); MEAN CORPUSCULAR HGB CONC 32.3 g/dl (32.0-37.0); MEAN CORPUSCULAR VOLUME 89.3 fl (82.0-101.0); MONOCYTE # 0.7 10^3/ul (0.3-0.9); MONOCYTES % 9.4 % (0.0-11.0); NEUTROPHILS % 56.1 % (39.0-77.0); PLATELET COUNT 228 10^3/UL (140-415); RED BLOOD COUNT 3.36 10^6/ul (4.70-6.10); RED CELL DISTRIBUTION WIDTH 18.7 % (11.5-14.5); WHITE BLOOD COUNT 7.2 10^3/ul (4.8-10.8)
[2016-12-25 07:05] LABS: CALCIUM 9.8 mg/dl (8.4-10.2); CREATININE 0.91 mg/dl (0.61-1.24); POTASSIUM 3.9 mmol/L (3.5-5.1)
[2016-12-25] MEDS: COLLAGENASE 30 GM TUBE TOP SCH (09:45)
--- NOTE | 2016-12-25 11:21 | PN ---
Date/Time of Note Date/Time of Note DATE: 12/25/16 TIME: 11:20 Assessment/Plan VTE Prophylaxis VTE Prophylaxis Intervention: other Lines/Catheters IV [facility]ter Type (from [facility]): Peripheral IV Urinary Cath still in place: Yes Reason Cath still needed: skin wounds contaminated by urine Assessment/Plan Chief Complaint/Hosp Course - Gastrointestinal bleed, resolving. Dr. Hassan is following in gastroenterology consultation. - Stomal ulcer and gastritis per EGD. - Sepsis, due to most likely urinary tract infection possible pneumonia. Continue antibiotics per ID. Dr Jones is following in infection disease consultation - Urinary tract infection per UA. - Acute kidney injury on chronic kidney disease. Continue IV fluids, her BUN and creatinine. - Hypernatremia, continue water flushes via G-tube - Ventilator-dependent respiratory failure. Dr. Barajas is following patient in pulmonology consultation. - Anemia due to GI bleed. - Sacral decubitus ulcer stage IV present on admission, continue current wound care Problems: Subjective 24 Hr Interval Summary Free Text/Dictation Patient sedated, trach in place Exam/Review of Systems Vital Signs Vitals Vital Signs Date Time Temp Pulse Resp B/P Pulse Ox O2 Delivery O2 Flow Rate FiO2 12/25/16 11:08 98.7 97 18 130/58 100 12/25/16 09:30 30 12/24/16 06:00 Mechanical Ventilator Intake and Output 12/24/16 12/24/16 12/25/16 15:00 23:00 07:00 Intake Total 1000 ml 1000 ml Output Total 550 ml 850 ml Balance 450 ml 150 ml Exam Constitutional: well developed Head: atraumatic, normocephalic Neck: supple Respiratory: diminished breath sounds Cardiovascular: regular rate and rhythm Gastrointestinal: non-tender, soft Extremities: normal pulses Results Result Diagram: 12/25/16 0551 12/25/16 0551 Results 24 hrs Laboratory Tests Test 12/25/16 05:51 White Blood Count 7.2 # Red Blood Count 3.36 L Hemoglobin 9.7 L Hematocrit 30.0 L Mean Corpuscular Volume 89.3 Mean Corpuscular Hemoglobin 28.9 L Mean Corpuscular Hemoglobin Concent 32.3 Red Cell Distribution Width 18.7 H Platelet Count 228 Mean Platelet Volume 12.0 H Neutrophils % 56.1 Lymphocytes % 18.6 Monocytes % 9.4 Eosinophils % 14.0 H Basophils % 0.6 Nucleated Red Blood Cells % 0.0 Neutrophils # 4.0 Lymphocytes # 1.3 Monocytes # 0.7 Eosinophils # 1.0 H Basophils # 0.0 Nucleated Red Blood Cells # 0.0 Sodium Level 146 H Potassium Level 3.9 Chloride Level 112 H Carbon Dioxide Level 25 Anion Gap 13 Blood Urea Nitrogen 39 H Creatinine 0.91 Glucose Level 109 Calcium Level 9.8 Medications Medications Current Medications Lorazepam (Ativan) 0.5 mg Q6H PRN IV ANXIETY Last administered on 12/17/16 23: 32; Admin Dose 0.5 MG; Start 12/15/16 at 18:00 Ondansetron HCl (Zofran Inj) 4 mg Q6H PRN IV NAUSEA AND/OR VOMITING; Start 12/15/16 at 18:00 Acetaminophen (Tylenol Supp) 650 mg Q6H PRN [place] PAIN LEVEL 1-3 OR FEVER Last administered on 12/21/16 23:32; Admin Dose 650 MG; Start 12/15/16 at 18:00 Morphine Sulfate (morphine) 2 mg Q4H PRN IV PAIN LEVEL 7-10 Last administered on 12/17/16 05:56; Admin Dose 2 MG; Start 12/15/16 at 18:00 Diphenhydramine HCl (Benadryl) 25 mg Q6H PRN IV ITCHING Last administered on 01:23; Admin Dose 25 MG; Start 12/16/16 at 16:00 Collagenase (Santyl) 1 applic DAILY TOP Last administered on 12/25/16 09:45; Admin Dose 1 APPLIC; Start 12/17/16 at 20:00 Zolpidem Tartrate (Ambien) 5 mg HS PRN PO INSOMNIA; Start 12/19/16 at 15:30 Hydralazine HCl (Apresoline) 10 mg Q6H PRN IV ELEVATED BLOOD PRESSURE; Start 12/19/16 at 16:00 Metoprolol Tartrate (Lopressor) 12.5 mg Q8 GTB Last administered on 12/25/16 05:46; Admin Dose 12.5 MG; Start 12/19/16 at 16:00 Diltiazem HCl (Cardizem) 30 mg Q6 GTB Last administered on 12/25/16 05:45; Admin Dose 30 MG; Start 12/19/16 at 16:00 Lansoprazole (Prevacid) 30 mg DAILY@06 GTB Last administered on 12/25/16t 05: 45; Admin Dose 30 MG; Start 12/21/16 at 06:00 ZION BLACK Dec 25, 2016 11:21
--- NOTE | 2016-12-25 12:39 | CONS ---
Date/Time of Note Date/Time of Note DATE: 12/25/16 TIME: 12:36 Assessment/Plan Assessment/Plan Additional Assessment/Plan 1. acute Kidney injury due to prerenal azotemia - Bun/Cr= 39/0.91 2. Hypernatremia due to large free water deficit- resolving 3. Sepsis due to UTI, UTI with urine Cx growing Madhavi Albicans 4. Chronic resp failure s/p tracheostomy vent dependant 5. Chronic encephalopathy 6. S/P G tube 7. melena, Gi bleeding, h/o PUD 8.Anemia sec to above- transfuse PRN - monitor CBC 9. 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 - resolve Plan: -Cr and electrolytes normal today- will monitor electrolytes and Cr -no need for CKD work up IV fluconazole for madhavi UTI pt is tolerating tube feeding Novasource so far, no residual, continue Free water 200 cc Every 6 hr awaiting Barium swallow, GI following will follow up DW Dr Agnes Person Consultation Date/Type/Reason Admit Date/Time Dec 15, 2016 at 10:55 Initial Consult Date 12/18/16 Type of Consultation: NEPHROLOGY Referring Provider: DESTINEE ROBERTS MD 24 HR Interval Summary Free Text/Dictation agitated , confused, afebrile, remains on restraints, per staff-tried to punch staff today but night was`uneventful. Constitutional: disoriented, requiring IVF, requiring O2 Exam/Review of Systems Vital Signs Vitals Vital Signs Date Time Temp Pulse Resp B/P Pulse Ox O2 Delivery O2 Flow Rate FiO2 12/25/16 11:08 98.7 97 18 130/58 100 12/25/16 09:30 30 12/24/16 06:00 Mechanical Ventilator Intake and Output 12/24/16 12/24/16 12/25/16 15:00 23:00 07:00 Intake Total 1000 ml 1000 ml Output Total 550 ml 850 ml Balance 450 ml 150 ml Exam Constitutional: alert Psych: confusion Respiratory: diminished breath sounds Cardiovascular: nl pulses, other (S1 S2), regular rate and rhythm Gastrointestinal: non-tender, other (gt intact), soft Musculoskeletal: muscle weakness Extremities: normal pulses Neurological: confused Results Result Diagram: 12/25/16 0551 12/25/16 0551 Results 24 hrs Laboratory Tests Test 12/25/16 05:51 White Blood Count 7.2 # Red Blood Count 3.36 L Hemoglobin 9.7 L Hematocrit 30.0 L Mean Corpuscular Volume 89.3 Mean Corpuscular Hemoglobin 28.9 L Mean Corpuscular Hemoglobin Concent 32.3 Red Cell Distribution Width 18.7 H Platelet Count 228 Mean Platelet Volume 12.0 H Neutrophils % 56.1 Lymphocytes % 18.6 Monocytes % 9.4 Eosinophils % 14.0 H Basophils % 0.6 Nucleated Red Blood Cells % 0.0 Neutrophils # 4.0 Lymphocytes # 1.3 Monocytes # 0.7 Eosinophils # 1.0 H Basophils # 0.0 Nucleated Red Blood Cells # 0.0 Sodium Level 146 H Potassium Level 3.9 Chloride Level 112 H Carbon Dioxide Level 25 Anion Gap 13 Blood Urea Nitrogen 39 H Creatinine 0.91 Glucose Level 109 Calcium Level 9.8 Medications Medications Current Medications Lorazepam (Ativan) 0.5 mg Q6H PRN IV ANXIETY Last administered on 12/17/16 23: 32; Admin Dose 0.5 MG; Start 12/15/16 at 18:00 Ondansetron HCl (Zofran Inj) 4 mg Q6H PRN IV NAUSEA AND/OR VOMITING; Start 12/15/16 at 18:00 Acetaminophen (Tylenol Supp) 650 mg Q6H PRN [place] PAIN LEVEL 1-3 OR FEVER Last administered on 12/21/16 23:32; Admin Dose 650 MG; Start 12/15/16 at 18:00 Morphine Sulfate (morphine) 2 mg Q4H PRN IV PAIN LEVEL 7-10 Last administered on 12/17/16 05:56; Admin Dose 2 MG; Start 12/15/16 at 18:00 Diphenhydramine HCl (Benadryl) 25 mg Q6H PRN IV ITCHING Last administered on 01:23; Admin Dose 25 MG; Start 12/16/16 at 16:00 Collagenase (Santyl) 1 applic DAILY TOP Last administered on 12/25/16 09:45; Admin Dose 1 APPLIC; Start 12/17/16 at 20:00 Zolpidem Tartrate (Ambien) 5 mg HS PRN PO INSOMNIA; Start 12/19/16 at 15:30 Hydralazine HCl (Apresoline) 10 mg Q6H PRN IV ELEVATED BLOOD PRESSURE; Start 12/19/16 at 16:00 Metoprolol Tartrate (Lopressor) 12.5 mg Q8 GTB Last administered on 12/25/16 05:46; Admin Dose 12.5 MG; Start 12/19/16 at 16:00 Diltiazem HCl (Cardizem) 30 mg Q6 GTB Last administered on 12/25/16 05:45; Admin Dose 30 MG; Start 12/19/16 at 16:00 Lansoprazole (Prevacid) 30 mg DAILY@06 GTB Last administered on 12/25/16 05: 45; Admin Dose 30 MG; Start 12/21/16 at 06:00 JOÃO JUAREZ Dec 25, 2016 12:39
--- NOTE | 2016-12-25 16:17 | CONS ---
Date/Time of Note Date/Time of Note DATE: 12/25/16 TIME: 16:16 Assessment/Plan Assessment/Plan Additional Assessment/Plan Additional Assessment/Plan 1. Melena, no further bleeding noted. Patient has stomal ulcer 2. Sepsis. 3. Urinary tract infection. 4. Kidney injury. Dehydration 5. Vent dependent respiratory failure. 6. Functional paraplegia. He has been bedridden for the last many years. 7. Anemia. Hematocrit is stable 8. Decubitus ulcer 9. Encephalopathy much better able to recognize me and follows commands Plan Continue PPI Monitor H&H periodically Continue present care Discussed with the Consultation Date/Type/Reason Admit Date/Time Dec 15, 2016 at 10:55 Initial Consult Date 12/18/16 Type of Consultation: NEPHROLOGY Referring Provider: DESTINEE ROBERTS MD 24 HR Interval Summary Subjective hx not possible: pt non-verbal Constitutional: no complaints Exam/Review of Systems Vital Signs Vitals Vital Signs Date Time Temp Pulse Resp B/P Pulse Ox O2 Delivery O2 Flow Rate FiO2 12/25/16 13:46 101 16 100 12/25/16 11:10 30 12/25/16 11:08 98.7 130/58 12/24/16 06:00 Mechanical Ventilator Intake and Output 12/24/16 12/24/16 12/25/16 15:00 23:00 07:00 Intake Total 1000 ml 1000 ml Output Total 550 ml 850 ml Balance 450 ml 150 ml Exam Constitutional: alert, oriented, well developed Psych: nl mood/affect, no complaints Head: atraumatic, normocephalic Eyes: EOMI, PERRL, nl conjunctiva, nl lids, nl sclera ENMT: nl external ears & nose, nl lips & teeth, nl nasal mucosa & septum Neck: non-tender, supple Respiratory: clear to auscultation, normal air movement Cardiovascular: nl pulses, regular rate and rhythm Gastrointestinal: nl liver, spleen, non-tender, soft Musculoskeletal: nl extremities to inspection, nl gait and stance Extremities: normal pulses Neurological: FAMILY LAW ATTORNEY II-XII intact, nl mental status, nl speech, nl strength Skin: nl turgor, No rash or lesions Lymph: nl lymph nodes Results Result Diagram: 12/25/16 0551 12/25/16 0551 Results 24 hrs Laboratory Tests Test 12/25/16 05:51 White Blood Count 7.2 # Red Blood Count 3.36 L Hemoglobin 9.7 L Hematocrit 30.0 L Mean Corpuscular Volume 89.3 Mean Corpuscular Hemoglobin 28.9 L Mean Corpuscular Hemoglobin Concent 32.3 Red Cell Distribution Width 18.7 H Platelet Count 228 Mean Platelet Volume 12.0 H Neutrophils % 56.1 Lymphocytes % 18.6 Monocytes % 9.4 Eosinophils % 14.0 H Basophils % 0.6 Nucleated Red Blood Cells % 0.0 Neutrophils # 4.0 Lymphocytes # 1.3 Monocytes # 0.7 Eosinophils # 1.0 H Basophils # 0.0 Nucleated Red Blood Cells # 0.0 Sodium Level 146 H Potassium Level 3.9 Chloride Level 112 H Carbon Dioxide Level 25 Anion Gap 13 Blood Urea Nitrogen 39 H Creatinine 0.91 Glucose Level 109 Calcium Level 9.8 Medications Medications Current Medications Lorazepam (Ativan) 0.5 mg Q6H PRN IV ANXIETY Last administered on 12/17/16 23: 32; Admin Dose 0.5 MG; Start 12/15/16 at 18:00 Ondansetron HCl (Zofran Inj) 4 mg Q6H PRN IV NAUSEA AND/OR VOMITING; Start 12/15/16 at 18:00 Acetaminophen (Tylenol Supp) 650 mg Q6H PRN OR PAIN LEVEL 1-3 OR FEVER Last administered on 12/21/16 23:32; Admin Dose 650 MG; Start 12/15/16 at 18:00 Morphine Sulfate (morphine) 2 mg Q4H PRN IV PAIN LEVEL 7-10 Last administered on 12/17/16 05:56; Admin Dose 2 MG; Start 12/15/16 at 18:00 Diphenhydramine HCl (Benadryl) 25 mg Q6H PRN IV ITCHING Last administered on 01:23; Admin Dose 25 MG; Start 12/16/16 at 16:00 Collagenase (Santyl) 1 applic DAILY TOP Last administered on 12/25/16 09:45; Admin Dose 1 APPLIC; Start 12/17/16 at 20:00 Zolpidem Tartrate (Ambien) 5 mg HS PRN PO INSOMNIA; Start 12/19/16 at 15:30 Hydralazine HCl (Apresoline) 10 mg Q6H PRN IV ELEVATED BLOOD PRESSURE; Start 12/19/16 at 16:00 Metoprolol Tartrate (Lopressor) 12.5 mg Q8 GTB Last administered on 12/25/16 13:13; Admin Dose 12.5 MG; Start 12/19/16 at 16:00 Diltiazem HCl (Cardizem) 30 mg Q6 GTB Last administered on 12/25/16 13:14; Admin Dose 30 MG; Start 12/19/16 at 16:00 Lansoprazole (Prevacid) 30 mg DAILY@06 GTB Last administered on 12/25/16 05: 45; Admin Dose 30 MG; Start 12/21/16 at 06:00 PAT CHA MD Dec 25, 2016 16:17
--- NOTE | 2016-12-25 18:46 | RADRPT ---
PROCEDURE: Swallow study CLINICAL INDICATION: Dysphagia TECHNIQUE: Single lateral remodeler image obtained. The patient refused and swallow study was not perf ormed. No cine fluoroscopic images were obtained. Fluoro time: 2.8 seconds COMPARISON: None available FINDINGS: No diagnostic images. IMPRESSION: Nondiagnostic. Patient refused study. RPTAT: QQ .Shar Salgado MD, MD Date Time Electronically viewed and signed by .Shar Salgado MD, on 12/25/2016 18:46 .O/
--- NOTE | 2016-12-26 05:50 | PN ---
DATE: 12/25/2016 The patient's general condition is same. He is breathing comfortably with long-term ventilator supp ort through tracheostomy. PHYSICAL EXAMINATION: VITAL SIGNS: Stable. Temperature is 98.7. Blood pressure 130/58, pulse rate is 97, respirations 1 8, pulse oximetry 100% saturation. registered nurse taking care of this patient, patient has not had any problems. He has been breathing comfortably, no fever spikes, no vomiting, no see n. LABORATORY DATA: Done today shows sodium 146, potassium 3.9, bicarbonate of 25, BUN 39, creatinine 0.91. CBC shows a WBC of 7100, hemoglobin 9.7, hematocrit 30, platelets within normal limits. The patient has gone down to have barium swallow for swallow evaluation. IMPRESSION: 1. Chronic ventilator dependent respiratory failure. 2. Gastritis with stomach ulcers. 3. Acute kidney injury, improving on top of chronic kidney disease. 4. History of congestive heart failure. 5. 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 6. Chronic anemia. 7. Decubitus ulcer. 8. Status post tracheostomy. 9. Status post gastrostomy. PLAN: 1. Continue long-term ventilator support. 2. Continue pulmonary toilet with inhalation therapy to clear the secretions. 3. Based on the barium swallow findings, the patient may be started on oral feedings if no signs of aspiration found. Dictated By: ROEL BOYLE MD, SR/IRMA Conf#: [id number] DID#: [id number]
== END 2016-12-25 17:53 | DRG 870 ==
LOC: E/R 09:09 → TEL 10:55
PROVIDERS: ADMIT Internal Medicine; ATTEND Internal Medicine
PROC: 5A1955Z Respiratory Ventilation, Greater than 96 Consecutive Hours (ICD-10-PCS; principal; 2016-12-15)
PROC: 0DJ08ZZ Inspection of Upper Intestinal Tract, Via Natural or Artificial Opening Endoscopic (ICD-10-PCS; 2016-12-17)
PROC: 30233N1 Transfusion of Nonautologous Red Blood Cells into Peripheral Vein, Percutaneous Approach (ICD-10-PCS; 2016-12-17)
DX: A41.9 Sepsis, unspecified organism (principal); N17.9 Acute kidney failure, unspecified; G93.49 Other encephalopathy; Z99.11 Dependence on respirator [ventilator] status; L89.154 Pressure ulcer of sacral region, stage 4; J96.11 Chronic respiratory failure with hypoxia; K92.1 Melena; E87.0 Hyperosmolality and hypernatremia; B37.49 Other urogenital candidiasis; I12.9 Hypertensive chronic kidney disease with stage 1 through stage 4 chronic kidney disease, or unspecified chronic kidney disease; N18.9 Chronic kidney disease, unspecified; D50.0 Iron deficiency anemia secondary to blood loss (chronic); E86.0 Dehydration; E88.09 Other disorders of plasma-protein metabolism, not elsewhere classified; E87.6 Hypokalemia; I69.998 Other sequelae following unspecified cerebrovascular disease; K29.70 Gastritis, unspecified, without bleeding; K25.9 Gastric ulcer, unspecified as acute or chronic, without hemorrhage or perforation; R19.7 Diarrhea, unspecified; Z86.74 Personal history of sudden cardiac arrest; Z74.01 Bed confinement status; Z93.0 Tracheostomy status; Z93.1 Gastrostomy status; Z57.31 Occupational exposure to environmental tobacco smoke
CPT/HCPCS: 36415; 36430; 36600; 71010; 74230; 80048; 80053; 81001; 82270; 82803; 83036; 83605; 83690; 83735; 84443; 84484; 85014; 85018; 85025; 85610; 85730; 86850; 86900; 86901; 86920; 87040; 87075; 87081; 87086; 90686; 92526; 92610; 93005; 94002; 94003; 94640; 96374; 96375; 97110; 97161; 97530; J1940; C9113; J0360; J1200; J1450; J2060; J2185; J2250; J2270; J3370; J3480; J7030; J7070; P9016; P9047

== ENCOUNTER 2017-01-24 15:16 | Inpatient (IN) | payer MEDICARE, MEDICAID ==
[~2017-01-24] VITALS: Ht 167.6 cm; Wt 64.0 kg
[~2017-01-24 15:16] MED LIST changes: -ASC500 GTB; +EPOE10002 IJ; -FLUMAZENIL 0.5 MG INJ ONE; +LANS30CA47 GTB; -MIDAZOLAM 1 MG/ML 2 ML INJ ONE; +POTA20LI5 GTB; +PROT946L GTB; +QUET25TA26 GTB; +TRAZ50TA18 GTB
[2017-01-24] MEDS ORDERED: PANTOPRAZOLE 40 MG INJ IV STA (15:22)
[2017-01-24] MEDS ORDERED: CEFEPIME 2GM/50 ML (PMX) 50 ML IVPB STA (15:22)
[2017-01-24] MEDS ORDERED: SOD CHLORIDE 0.9% 1,000 ML IV STA ×3 (15:22→15:54)
[2017-01-24] MEDS ORDERED: VANCOMYCIN 1 GM (PMX) 250 ML IVPB ONE (15:30)
[2017-01-24 15:49] LABS: AADO2 Arterial 172.4 mmHg (7.0-24.0); Allen Test ACCEPTAB; Arterial Base Excess 3.4 mmol/L (-3.0-3); Arterial COHb 0.2 % (0.0-3.0); Arterial Fraction of Oxyhgb 99.6 % (93.0-99.0); Arterial HCO3 29.2 mmol/L (22.0-26.0); Arterial MetHb 0.1 % (0.0-1.5); MODE VENT - AC
[2017-01-24] MEDS ORDERED: ONDANSETRON 4 MG INJ IV PRN (16:00)
[2017-01-24] MEDS ORDERED: ACETAMINOPHEN 325 MG TAB PO PRN (16:00)
[2017-01-24 16:04] LABS: BASOPHIL # 0.1 10^3/ul (0.0-0.1); BASOPHILS % 0.4 % (0.0-2.0); EOSINOPHILS % 9.1 % (0.0-7.0); HEMATOCRIT 28.3 % (42.0-52.0); HEMOGLOBIN 8.3 g/dl (14.0-18.0); LYMPHOCYTES # 1.2 10^3/ul (0.8-2.9); LYMPHOCYTES % 10.5 % (15.0-51.0); MEAN CORPUSCULAR HEMOGLOBIN 26.9 pg (29.0-33.0); MEAN CORPUSCULAR HGB CONC 29.3 g/dl (32.0-37.0); MEAN CORPUSCULAR VOLUME 91.6 fl (82.0-101.0); MEAN PLATELET VOLUME 9.9 fl (7.4-10.4); MONOCYTE # 0.8 10^3/ul (0.3-0.9); MONOCYTES % 7.2 % (0.0-11.0); NEUTROPHIL # 8.1 10^3/ul (1.6-7.5); NEUTROPHILS % 72.2 % (39.0-77.0); PLATELET COUNT 341 10^3/UL (140-415); RED BLOOD COUNT 3.09 10^6/ul (4.70-6.10); RED CELL DISTRIBUTION WIDTH 18.4 % (11.5-14.5); WHITE BLOOD COUNT 11.2 10^3/ul (4.8-10.8)
[2017-01-24 16:05] LABS: ADD UMIC YES; UR ASCORBIC ACID 40 mg/dL (NEGATIVE); UR BACTERIA FEW /HPF (NONE SEEN); UR BILIRUBIN (Dip) NEGATIVE (NEGATIVE); UR BLOOD (Dip) NEGATIVE (NEGATIVE); UR BUDDING YEAST FEW /HPF (NONE SEEN); UR CLARITY CLEAR (CLEAR); UR COLOR YELLOW (YELLOW); UR GLUCOSE (Dip) NEGATIVE (NEGATIVE); UR KETONES (Dip) NEGATIVE (NEGATIVE); UR LEUKOCYTE ESTERASE (Dip) 3+ Leu/ul (NEGATIVE); UR NITRITE (Dip) NEGATIVE (NEGATIVE); UR RBC 9 /HPF (0-5); UR TOTAL PROTEIN (Dip) NEGATIVE (NEGATIVE); UR UROBILINOGEN (Dip) NEGATIVE (NEGATIVE)
[2017-01-24 16:19] LABS: INR 1.01; PARTIAL THROMBOPLASTIN TIME 29.2 Sec (25.0-35.0); PROTIME 13.3 Sec (12.2-14.2)
[2017-01-24 16:21] LABS: ALBUMIN 3.3 g/dl (3.3-4.9); ALBUMIN/GLOBULIN RATIO 0.57; BILIRUBIN,INDIRECT 0.1 mg/dl (0-1.1); BILIRUBIN,TOTAL 0.1 mg/dl (0.2-1.3); CALCIUM 9.6 mg/dl (8.4-10.2); CREATININE 1.11 mg/dl (0.61-1.24)
--- NOTE | 2017-01-24 16:32 | RADRPT ---
PROCEDURE: Chest x-ray CLINICAL INDICATION: Shortness of breath TECHNIQUE: Chest single view COMPARISON: 12/20/2016 FINDINGS: Tracheostomy tube remains in good position. Stable mild cardiomegaly and an sclerotic aortic calcifi cation. Worsening bilateral lower lung consolidation and infiltrate is seen. There is associated sma ll right pleural effusion which is increased. A component of superimposed edema is not excluded. IMPRESSION: 1. Tracheostomy tube remains good position. 2. Stable mild cardiomegaly and atherosclerotic aortic calcification. 3. Worsening bilateral lower lung consolidation / pneumonia. 4. Suspect small right pleural effusion. 5. superimposed edema is not excluded RPTAT: HH .Conner Salas MD, Date Time Electronically viewed and signed by .Conner Salas MD, on 01/24/2017 16:31 .W/
[2017-01-24 16:33] LABS: TROPONIN-I 0.014 ng/ml (0.00-0.12)
[2017-01-24] MEDS ORDERED: NA BICARBONATE 8.4% 50 ML SYG IV STA (16:36)
[2017-01-24 16:37] LABS: POTASSIUM 6.2 mmol/L (3.5-5.1)
--- NOTE | 2017-01-24 18:21 | ERD ---
ER Documentation Chief Complaint Chief Complaint pt from [facility] for cp x 1 day HPI Patient is an 81-year-old male who is trach and vent dependent who presents with chest pain and melena. The patient had a hemoglobin of 7 as an outpatient and is complaining of chest pain today that started this morning. He was also having melena per the paramedics. He is being treated for UTI and pneumonia as well. He was given albuterol by paramedics. He was also given aspirin nitroglycerin. His primary doctor is Dr. Roa. Please note the history and physical exam is limited secondary to the patient's verbal status. Upon review of old medical records this is the patient's third visit to the ER since December 2016. ROS All systems reviewed and are negative except as per history of present illness. Medications Home Meds Reported Medications Trazodone Hcl* (Trazodone Hcl*) 50 Mg Tablet, 25 MG GTB QHS, #30 TAB 12/15/16 Quetiapine Fumarate* (Seroquel*) 25 Mg Tablet, 25 MG GTB HS, #30 TAB 12/15/16 Protein Supplement (Promod) 946 Ml Liquid, 30 ML GTB DAILY 12/15/16 Epoetin Kali (Procrit) 10,000 Unit/1 Ml Vial, 38333 UNIT IJ TUESDAY, VIAL 12/15/16 Lansoprazole* (Prevacid*) 30 Mg Capsule.dr, 30 MG GTB DAILY, CAP 12/15/16 Potassium Chloride* (Potassium Chloride*) 20 Meq/15 Ml Liquid, 20 MEQ GTB DAILY , ML 12/15/16 Insulin Aspart* (Novolog Insulin Pen*) 100 Unit/Ml Soln, 0 SC .SLIDING SCALE AC , EA IF BS 60-149=0 UNIT, 150-199=2 UNITS,200-249=4 UNITS,250-299=6 UNITS,300-349=8 UNITS,350-399=10 UNITS IF BS>399,CALL MD. 12/12/16 Xixssqdnwmme-Dcyg-Lntglmhj,Iso (ZOSYN 2.25 GM GALAXY BAG) 2.25 Gm/50 Ml Froz.piggy, 2.25 GM IV Q6H for PNA USE UNTIL 01/05/17 12/12/16 Tuberculin,Purif.prot.deriv. (Tubersol) 5 Tub Unit/0.1 Ml Vial, 0.1 ML ID QHS, VIAL FOR TB SCREENING FOR 1 DAY 2ND STEP PPD. START DATE 12/18/16 12/12/16 Sucralfate* (Carafate*) 1 Gm/10 Ml Susp, 1 GM GTB QID, EA 12/12/16 Rifaximin* (Xifaxan*) 550 Mg Tablet, 550 MG GTB BID, TAB 12/12/16 Lansoprazole* (Lansoprazole*) 30 Mg Capsule.dr, 30 MG GTB DAILY, CAP 12/12/16 Hydrocodone/Acetaminophen ([place] 5-325 Tablet) 1 Each Tablet, 1 EACH GTB Q6H Y for PAIN LEVEL 4-12/21, TAB 12/12/16 Multivitamin with Minerals (Multivitamins with Minerals) 1 Each Tablet, 1 EACH GTB DAILY, TAB 12/12/16 Metoprolol Tartrate* (Lopressor*) 25 Mg Tab, 12.5 MG GTB Q8H, #60 TAB HOLD FOR SBP<110 OR HR<60 12/12/16 Lactulose* (Lactulose*) 10 Gm/15 Ml Solution, 45 ML GTB DAILY, ML 12/12/16 Lactobacillus Acidophilus* (Lactinex*) 1 Tab Chew, 1 TAB GTB TID, TAB 12/12/16 Folic Acid* (Folic Acid*) 1 Mg Tablet, 1 MG GTB DAILY, TAB 12/12/16 Famotidine* (Famotidine*) 40 Mg Tablet, 40 MG GTB HS, #30 TAB 12/12/16 Ipratropium-Albuterol (Ipratropium-Albuterol) 0.5-3 Mg/3 Ml Ampul.neb, 3 ML INHALATION Q6 for SHORTNESS OF BREATH, #30 VIAL AND TAKE Q2H NEEDED 12/12/16 Diphenhydramine Hcl* (Benadryl*) 50 Mg Cap, 50 MG GTB Q6 Y for ITCHING, CAP 12/12/16 Diltiazem Hcl* (Cardizem*) 30 Mg Tablet, 30 MG GTB Q6H, #60 TAB HOLD IF SBP<110 OR HR<60 12/12/16 Lorazepam* (Lorazepam*) 1 Mg Tablet, 1 MG GTB Q6 Y for ANXIETY, #60 TAB 12/12/16 Dextran 70/Hypromellose/Pf (ARTIFICIAL TEARS DROPS) 1 Each Droperette, 1 EACH BOTH EYES BID 12/12/16 Amikacin Sulfate* (Amikacin* Pediatric IV Syringe) 5 Mg/Ml Soln, 600 MG IV Q72H for PNA, EA USE UNTIL 01/05/17 12/12/16 Acetaminophen* (Acetaminophen*) 500 MG Extra Strength Tablet, 500 MG GTB Q4H Y for PAIN LEVEL 1-05/21, TAB 12/12/16 Allergies Allergies: Coded Allergies: No Known Allergy (Unverified , 12/15/16) PMhx/Soc History of Surgery: Yes (AVM surgery) Anesthesia Reaction: No Hx Neurological Disorder: No Hx Respiratory Disorders: Yes (chronically vented) Hx Cardiac Disorders: No (cardiac arrest 2016) Hx Psychiatric Problems: No Hx Miscellaneous Medical Probl: Yes (sepsis, resp. failure, UTI, functional paraplegia BLE) Hx Alcohol Use: No Hx Substance Use: No Hx Tobacco Use: No (Quit 25 yrs ago) Smoking Status: Former smoker FmHx Unable to obtain Physical Exam Vitals Vital Signs Date Time Temp Pulse Resp B/P Pulse Ox O2 Delivery O2 Flow Rate FiO2 01/24/17 17:02 103 17 130/75 100 Mechanical Ventilator 01/24/17 17:02 98 17 100 40 01/24/17 15:55 40 01/24/17 15:26 98.6 125 18 136/100 100 01/24/17 15:24 121 18 100 100 Physical Exam Const: [] Head: Atraumatic Eyes: Normal Conjunctiva ENT: Normal External Ears, Nose and Mouth. Neck: Full range of motion..~ No meningismus. Resp: Clear to auscultation bilaterally Cardio: Regular rate and rhythm, no murmurs Abd: Soft, non tender, non distended. Normal bowel sounds Skin: No petechiae or rashes Back: No midline or flank tenderness Ext: No cyanosis, or edema Neur: Awake and alert Psych: Normal Mood and Affect Result Diagram: 01/24/17 1535 01/24/17 1535 Results 24 hrs Laboratory Tests Test 01/24/17 15:22 01/24/17 15:35 Blood Gas Specimen Source Blood arterial Arterial Blood Date Drawn 01/24/2017 3:40:37 PM Arterial Blood pH (Temp corrected) 7.377 Arterial Blood pCO2 (Temp correct) 50.8mmhg Arterial Blood pO2 (Temp corrected) 489.8mmHG Arterial Blood HCO3 29.2mmol/L Arterial Blood Base Excess 3.4mmol/L Arterial Blood Oxygen Saturation 99.9mmHG Monty Test ACCEPTAB Arterial Blood Gas Puncture Site Right Radial Arterial Blood Carboxyhemoglobin 0.2% Arterial Blood Methemoglobin 0.1% Blood Gas A-a O2 Differential 172.4mmHg Oxyhemoglobin Percent 99.6% Total Hemoglobin 9.0g/dl Blood Gas Temperature 37.0C Blood Gas Respiration Rate 12.0 Blood Gas Actual Respiration Rate 18 Blood Gas Modality VENT - AC FiO2 100.0% Blood Gas Tidal Volume 450.0mL Blood Gas Low PEEP Setting 5.0cmH2O Blood Gas Notified Whom [place] Blood Gas Notified Time 01/24/2017 3:49:05 PM White Blood Count 11.210^3/ul Red Blood Count 3.0910^6/ul Hemoglobin 8.3g/dl Hematocrit 28.3% Mean Corpuscular Volume 91.6fl Mean Corpuscular Hemoglobin 26.9pg Mean Corpuscular Hemoglobin Concent 29.3g/dl Red Cell Distribution Width 18.4% Platelet Count 96960^3/UL Mean Platelet Volume 9.9fl Neutrophils % 72.2% Lymphocytes % 10.5% Monocytes % 7.2% Eosinophils % 9.1% Basophils % 0.4% Nucleated Red Blood Cells % 0.0/100WBC Neutrophils # 8.110^3/ul Lymphocytes # 1.210^3/ul Monocytes # 0.810^3/ul Eosinophils # 1.010^3/ul Basophils # 0.110^3/ul Nucleated Red Blood Cells # 0.010^3/ul Prothrombin Time 13.3Sec Prothrombin Time Ratio 1.0 INR International Normalized Ratio 1.01 Activated Partial Thromboplast Time 29.2Sec Urine Color YELLOW Urine Clarity CLEAR Urine pH 7.0 Urine Specific [place] 1.010 Urine Ketones NEGATIVEmg/dL Urine Nitrite NEGATIVEmg/dL Urine Bilirubin NEGATIVEmg/dL Urine Urobilinogen NEGATIVEmg/dL Urine Leukocyte Esterase 3+Jaskaran/ul Urine Microscopic RBC 9/HPF Urine Microscopic WBC 36/HPF Urine Bacteria FEW/HPF Urine Yeast (Budding) FEW/HPF Urine Hemoglobin NEGATIVEmg/dL Urine Glucose NEGATIVEmg/dL Urine Total Protein NEGATIVEmg/dl Sodium Level 144mmol/L Potassium Level 6.2mmol/L Chloride Level 103mmol/L Carbon Dioxide Level 33mmol/L Anion Gap 14 Blood Urea Nitrogen 46mg/dl Creatinine 1.11mg/dl Glucose Level 119mg/dl Lactic Acid Level 2.6mmol/L Calcium Level 9.6mg/dl Total Bilirubin 0.1mg/dl Direct Bilirubin 0.00mg/dl Indirect Bilirubin 0.1mg/dl Aspartate Amino Transf (AST/SGOT) 36IU/L Alanine Aminotransferase (ALT/SGPT) 40IU/L Alkaline Phosphatase 147IU/L Troponin I 0.014ng/ml Total Protein 9.0g/dl Albumin 3.3g/dl Globulin 5.70g/dl Albumin/Globulin Ratio 0.57 Lipase 72U/L Current Medications Medications (Trade) Dose Ordered Sig/Derrick Route PRN Reason Start Time Stop Time Status Last Admin Dose Admin Pantoprazole 40 mg 40 mg ONCE STAT IV 01/24/17 15:22 01/24/17 15:24 DC 01/24/17 15:51 Cefepime HCl 50 ml @ 100 mls/hr ONCE STAT IVPB 01/24/17 15:22 01/24/17 15:51 DC 01/24/17 16:39 Vancomycin HCl 250 ml @ 125 mls/hr ONCE ONCE IVPB 01/24/17 15:30 01/24/17 17:29 DC 01/24/17 15:30 Sodium Chloride 1,000 ml @ 1,000 mls/hr Q1H STAT IV 01/24/17 15:22 01/24/17 16:21 DC 01/24/17 15:50 Sodium Chloride (NS) 1,000 ml @ 1,000 mls/hr Q1H STAT IV 01/24/17 15:22 01/24/17 16:21 DC 01/24/17 16:18 Ondansetron HCl (Zofran Inj) 4 mg ER BRIDGE PRN IV NAUSEA AND/OR VOMITING 01/24/17 16:00 01/25/17 15:59 Acetaminophen 650 mg 650 mg ER BRIDGE PRN PO MILD PAIN/FEVER 01/24/17 16:00 01/25/17 15:59 Sodium Chloride (NS) 1,000 ml @ 1,000 mls/hr Q1H STAT IV 01/24/17 15:54 01/24/17 16:53 DC Sodium Bicarbonate (Na Bicarb 8.4% Syg) 50 ml ONCE STAT IV 01/24/17 16:36 01/24/17 16:37 DC 01/24/17 16:55 Procedures/MDM EKG read by me: Rate/Rhythm: Incomplete right bundle branch block at a rate of 116 Intervals: Normal Impression: Incomplete right bundle branch block with tachycardia Chest x-ray shows pneumonia per radiology. Admit MDM: Patient's infectious symptoms have not stabilized and the patient is at risk of rapid decompensation. The patient will be admitted for careful hydration, antibiotic therapy, and infectious source control. Severe Sepsis criteria: Infectious source: Pneumonia and cystitis End organ damage indicated by: Lactate greater than 2 Sepsis Management: Time of recognition of sepsis: Upon arrival Within 3 hours of recognition: Blood cultures x 2 before broad-spectrum antibiotics: Yes 30 ml/kg NS bolus Completed Initial lactate 2.6 Repeat lactate pending Time of recognition of septic shock: No septic shock Septic Shock Assessment: Any lactic acid > 4.0 No Persistent hypotension (SBP < 90 or 40 mmHg drop, MAP < 65) despite 30 mL/kg IV fluid bolus No Volume Re-assessment for Septic Shock (post 30 ml/kg bolus): No septic shock at this time Persistent Hypotension Treatment: Comfort care No Central line Not Required Vasopressor started Not required I considered further perfusion assessment with CVP measurement, SCVO2, bedside ultrasound volume assessment, passive leg raise, trial of further fluid bolus. And proceeded with 30 ml/kg fluid bolus of NSS, broad spectrum antibiotics, and admission. The patient's hemoglobin is currently 8.2 and I will hold off on blood transfusion at this time. If he drops further he may require blood transfusion at that time. Accepting Care Team Current data and ongoing care discussed. Admitting Physician: Dr. Roa Security Shift Supervisor(s): None Outstanding Data: Culture results and repeat lactic acid Critical Care: Critical care time 35 minutes excluding all billable procedures Emergent fluid management while maintaining close respiratory support. Provision of immediate and broad-spectrum antibiotic therapy. Simultaneous assessment for possible sources in order to direct targeted therapy. Consideration for invasive and chemical support to prevent cardiopulmonary collapse. Departure Diagnosis: Primary Impression: Severe sepsis Additional Impressions: GI bleed GI bleed type/associated pathology: unspecified gastrointestinal hemorrhage type Qualified Code: K92.2 - Gastrointestinal hemorrhage, unspecified gastrointestinal hemorrhage type UTI (urinary tract infection) Urinary tract infection type: acute cystitis Hematuria presence: without hematuria Qualified Code: N30.00 - Acute cystitis without hematuria Chest pain Chest pain type: unspecified Qualified Code: R07.9 - Chest pain, unspecified type Pneumonia Pneumonia type: due to unspecified organism Laterality: bilateral Lung location: lower lobe of lung Qualified Code: J18.9 - Pneumonia of both lower lobes due to infectious organism Condition: Serious PETEY PEACOCK MD Jan 24, 2017 18:21
[2017-01-25] VITALS (9 sets, daily range): BP systolic 127–143; BP diastolic 58–71; PULSE 71–85; RESP 17–24; TEMP 98.9; Ht 167.6 cm; Wt 64.0 kg
[2017-01-25] MEDS: DEXTROSE 5%-0.45% NACL 1,000 ML IV SCH ×2 (09:55→22:20)
[2017-01-25] MEDS: CEFEPIME 1GM/50 ML (PMX) 50 ML IVPB SCH (10:10)
[2017-01-25] MEDS: PANTOPRAZOLE 40 MG INJ IV SCH (10:11)
--- NOTE | 2017-01-25 11:15 | HP ---
DATE OF ADMISSION: 01/24/2017 CHIEF COMPLAINT: [facility]. HISTORY OF PRESENT ILLNESS: The patient is an 81-year-old male known to me from previous admission. 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 The patient was also evaluated f or GI bleed last month and was seen by Dr. Hassan in gastroenterology consultation. 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 The patient was given Protonix and was able to tolerate G-tube feeding well and was [facility] in [facility] condition. Th e patient was brought and evaluated in [facility] Emergency Room for complaints of chest pa in. The patient was brought by stock control clerk, was given aspirin and nitroglycerin en route. On evaluat ion in the emergency room, the patient's hemoglobin was 8.3. The patient's troponin was 0.014, rodriguez cornelia, lactic acid was elevated. Urinalysis was indicative of urinary tract infection. Patient also underwent chest x-ray which revealed worsening bilateral lower lung consolidation/pneumonia, a small right pleural effusion suspected. The patient was also noted to have elevated potassium; however, creatinine was within normal limits of 1.1. Patient also noted to be tachycardic. A 12-lead EKG re veal incomplete right bundle branch block at a rate of 116. Patient was diagnosed with sepsis and w as started on broad spectrum antibiotics. The patient will be admitted for further evaluation and m anagement to telemetry floor. Patient's chief complaint is melena and melena was reported by parame dics. PAST MEDICAL HISTORY: Per HPI. PAST SURGICAL HISTORY: Status post tracheostomy, status post G-tube placement. FAMILY HISTORY: Noncontributory. SOCIAL HISTORY: [facility] a [facility]. The patient is a former smoker patient does not use tobacco, alcohol or illicit drug use. ALLERGIES: NO KNOWN ALLERGIES. MEDICATIONS ON ADMISSION: 1. Trazodone. 2. Seroquel. 3. Protein supplement. 4. Epogen. 5. Prevacid. 6. Potassium chloride. 7. NovoLog. 8. [place]. 9. Multivitamins. 10. . 11. Folic acid. 12. Ipratropium. 13. Albuterol. 14. Benadryl. 15. Cardizem. 16. Ativan. REVIEW OF SYSTEMS: A 12-point review of systems is negative unless what is mentioned in HPI. PHYSICAL ASSESSMENT: GENERAL: Well-developed, well-nourished male, currently is awake, alert to name. Otherwise, confus ed. The patient is on ventilatory support. VITAL SIGNS: Temperature is 98.6, pulse is 98, blood pressure is 106/59, respiratory rate 16, oxyge n saturation 100% on 40% FIO2. HEENT: Head is atraumatic, normocephalic. Pupils are equal, round and reactive to light and accomm odation. Oral mucosa is pink and moist. NECK: Supple. The tracheostomy at the base of the neck with no bleeding. CHEST: Patient has lung sounds diminished bilaterally. There is no wheezing noted. CARDIOVASCULAR: Normal S1, S2. No murmurs, gallops, clicks, rubs noted. ABDOMEN: Protuberant, soft, nondistended, nontender. G-tube with intact stoma. Bowel sounds are h ypoactive. EXTREMITIES: Contracted, pulses equal bilaterally. NEUROLOGIC: Patient is awake, alert to name. Otherwise, confused. The patient is able to move upp er extremities, bilateral lower extremities are contracted. LABORATORY DATA: On admission, CBC: White blood cells 11.2, hemoglobin 8.3, hematocrit 28.3, plate lets 341. Chemistry: Sodium is 144, potassium 6.2, chloride 103, carbon dioxide 33, anion gap 14, BUN is 46, creatinine 1.1, glucose 119. Lactic acid is 2.6, AST 36, ALT 40, alkaline phosphatase 14 7, lipase is 72. Stool for occult blood is positive. ASSESSMENT AND PLAN: 1. Chest pain, rule out acute coronary syndrome. We will obtain cardiac enzymes q.8h. x3. Cardiol ogy evaluation. 2. Sepsis. Continue broad spectrum antibiotics. Follow up on urine, blood and sputum culture. Dr Kalpesh Jones is asked to see patient in infectious disease consultation. 3. Urinary tract infection per urinalysis and possible healthcare-acquired pneumonia. 4. Gastrointestinal bleed. Continue Protonix. Continue to monitor hemoglobin and hematocrit. Dr. Hassan is asked to see patient in gastroenterology consultation. 5. Ventilator dependent respiratory failure. Dr. Barajas will be following patient in pulmonology cons ultation. Continue breathing treatment and oxygen supplementation and ventilatory support. Continu e sequential compression devices for deep venous thrombosis prophylaxis. Further recommendations ba sed on clinical course. Plan of care discussed with Dr. Roberts. Dictated By: ERROL LORD SENIOR ABAP DEVELOPER for DESTINEE ROBERTS MD SR/NTS Conf#: [id number] DID#: [id number]
[2017-01-25 12:04] LABS: ABNORMAL IP MESSAGE 1; HEMATOCRIT 20.3 % (42.0-52.0); MEAN CORPUSCULAR HEMOGLOBIN 28.6 pg (29.0-33.0); MEAN CORPUSCULAR VOLUME 92.3 fl (82.0-101.0); MEAN PLATELET VOLUME 9.8 fl (7.4-10.4); PLATELET COUNT 255 10^3/UL (140-415); POSITIVE DIFF @See below; RED CELL DISTRIBUTION WIDTH 18.8 % (11.5-14.5); WHITE BLOOD COUNT 7.8 10^3/ul (4.8-10.8)
[2017-01-25 12:16] LABS: HEMOGLOBIN 6.3 g/dl (14.0-18.0)
[2017-01-25 12:19] LABS: ALBUMIN 2.4 g/dl (3.3-4.9); ALBUMIN/GLOBULIN RATIO 0.48; BILIRUBIN,INDIRECT 0.2 mg/dl (0-1.1); BILIRUBIN,TOTAL 0.2 mg/dl (0.2-1.3); CALCIUM 8.9 mg/dl (8.4-10.2); POTASSIUM 5.1 mmol/L (3.5-5.1); TOTAL PROTEIN 7.3 g/dl (6.1-8.1)
[2017-01-25 12:51] LABS: CREATINE KINASE < 20 IU/L (23-200)
[2017-01-25 13:01] LABS: TROPONIN-I 0.014 ng/ml (0.00-0.12)
[2017-01-25] MEDS: ALBUTEROL/IPRATROPIUM (NEB) 3 ML AMP HHN SCH ×2 (13:10→17:48)
[2017-01-25 13:36] LABS: ANISOCYTOSIS 3+ (0-0); BASOPHILS % (M) 1 % (0-2); EOSINOPHILS % (M) 3 % (0-7); MICROCYTOSIS 2+ (0-0); MONOCYTES % (M) 2 % (0-11); PLATELET ESTIMATE NORMAL; POIKILOCYTOSIS 2+ (0-0); POLYCHROMASIA 3+ (0-0); REACTIVE LYMPHOCYTES% (M) 3 % (0-0)
[2017-01-25] MEDS ORDERED: SOD CHLORIDE 0.9% 250 ML IV* ONE (16:12)
[2017-01-25] MEDS ORDERED: FUROSEMIDE 40 MG INJ IV SCH (16:30)
--- NOTE | 2017-01-25 18:12 | PN ---
DATE: 01/25/2017 SUBJECTIVE: Follow up on anemia, pneumonia, respiratory failure, CVA, history of cardiopulmonary ar rest, history of GI bleed, possible UTI. The patient is breathing comfortably on vent. Does appear pale and frail. Did have a temperature of 99.6 earlier today. The patient is awake and responsive . Follows simple commands. The patient did drop his hemoglobin from 8.3 down to 6.3; however, ther e was no hematemesis or melena. The patient was started on IV Protonix upon admission. The patient did not have any abdominal pain or abdominal distention. PHYSICAL EXAMINATION: GENERAL: The patient is awake and responsive. Only follows simple commands. VITAL SIGNS: T-maximum 99.6, current temperature 98.9, pulse 84, respirations 17, blood pressure 12 3/65, O2 sat 100% on FiO2 of 30%. HEENT: Left corneal opacity. 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 Right eye has no disch arge. Oropharynx revealed dry mucosa. Oropharynx revealed poor dentition. Nose and ears normal. NECK: Tracheostomy in place. Mild secretion. No mass. CHEST: Revealed diminished air entry at bases. CARDIOVASCULAR: S1, S2 normal. No murmur. ABDOMEN: Soft, nondistended, nontender. G-tube in place. EXTREMITIES: No leg edema. Pedal pulses could not be felt. SKIN: Without acute rash. Sacral and left foot decubitus present. NEUROLOGIC: The patient is awake and responsive and follows simple commands, oriented x1 only. LABORATORIES: Done this morning, WBC 7.8, hemoglobin 6.3, platelets 255. Sodium 145, potassium 5.1 , BUN 38, creatinine 1, glucose 79. AST 25, ALT 38, alk phos 109. Troponin negative. Lactic acid, which was 2.6 upon admission, is down to 1.5. IMPRESSION: 1. Possible gastrointestinal bleed. The patient will be kept n.p.o. Continue intravenous Protonix . 2. Possible pneumonia versus pneumonia with and without urinary tract infection. The patient's uri ne is growing gram-negative rods. Continue cefepime. 3. Chronic respiratory failure. Continue vent support. Dr. Brewer, who is covering for Dr. Barajas, has been notified. 4. Recent acute kidney injury requiring hemodialysis. Currently, renal functions are not that bad. In fact, creatinine is 1. Will continue intravenous fluids. 5. Multiple decubitus. Wound care consult will be obtained. 6. Dysphagia. Will hold off on gastrostomy tube feeding. Dr. Hassan has been called for possible gastrointestinal bleed. The patient back in 12/2016 had diffuse modified barium swallow; however, h e is scheduled to get outpatient video swallow. If the patient's condition improves, we will reorde r swallow evaluation during this hospitalization. Plan of care discussed with the patient's . Dictated By: DESTINEE KUHN/IRMA Conf#: [id number] DID#: [id number]
[2017-01-25 19:40] LABS: TROPONIN-I 0.027 ng/ml (0.00-0.12)
[2017-01-25 19:46] LABS: CK-MB 1.35 ng/ml (0.0-2.4); CREATINE KINASE < 20 IU/L (23-200)
--- NOTE | 2017-01-25 20:14 | CONS ---
DATE OF ADMISSION: 01/25/2017 DATE OF CONSULTATION: TYPE OF CONSULTATION: Gastroenterology. REFERRING PHYSICIAN: Destinee Roa MD REASON FOR CONSULTATION: Anemia, possible GI bleeding. HISTORY OF PRESENT ILLNESS: An 81-year-old male with a history of vent-dependent respiratory failur e status post trach, PEG. Came to the ER complaining of chest pain. The patient was constipated as per the . Did not have a good bowel movement. In the ER, his hemoglobin was 8.3, dropped down further to 6, so GI consult was called in. As per the staff, there was no obvious GI bleeding and also as per the , there was no overt GI bleeding. No melena. No hematochezia. NG tube aspirat e was negative. The patient had undergone upper endoscopy last month and there was a stomal ulcer. The patient also was diagnosed with sepsis and was started on broad-spectrum antibiotic. He has a decubitus ulcer. PAST MEDICAL HISTORY: Please refer to the old chart for details. PAST SURGICAL HISTORY: Trach and PEG. FAMILY HISTORY: Nothing contributory. SOCIAL HISTORY: Resident of a jail. ALLERGIES: NO KNOWN ALLERGIES. MEDICATIONS: All reviewed. PHYSICAL EXAMINATION GENERAL: The patient is lying comfortably, not in distress. He is on a vent with FiO2 of 30%. ABDOMEN: Benign. G-tube is in place. G-tube aspirate is negative. EXTREMITIES: No edema. CENTRAL NERVOUS SYSTEM: The patient is sleepy at this point. He is bedridden. IMPRESSION: 1. Chest pain. Workup in process. 2. Sepsis. 3. Decubitus ulcer. 4. Anemia, rule out gastrointestinal bleeding. 5. Ventilator-dependent respiratory failure. PLAN: Continue present care. Will send stool for occult blood. Continue PPI and transfuse on as n eeded basis. I am going to work him up also for the anemia. The patient never had a colonoscopy an d he might need one. Dictated By: PAT CHA MD PJ/NTS Conf#: [id number] DID#: [id number] CC: DESTINEE ROA MD;*EndCC*
[2017-01-25] MEDS ORDERED: IPRATROPIUM (HFA) 12.9 GM INHALER INH SCH (21:00)
[2017-01-25] MEDS: ALBUTEROL HFA 8 GM INHALER INH SCH (21:43)
[2017-01-26] VITALS (24 sets, daily range): BP systolic 148–169; BP diastolic 69–81; PULSE 57–70; RESP 14–22
[2017-01-26] MEDS: PANTOPRAZOLE 40 MG INJ IV SCH ×3 (03:44→21:50)
[2017-01-26] MEDS: CEFEPIME 1GM/50 ML (PMX) 50 ML IVPB SCH ×2 (03:44→10:35)
[2017-01-26] MEDS ORDERED: PENDING SANTYL ORDER FOR WOUND CARE XX PRN (06:00)
[2017-01-26] MEDS: IPRATROPIUM (HFA) 12.9 GM INHALER INH SCH ×4 (08:17→22:02)
[2017-01-26] MEDS: ALBUTEROL HFA 8 GM INHALER INH SCH ×4 (08:18→22:02)
[2017-01-26] MEDS: DEXTROSE 5%-0.45% NACL 1,000 ML IV SCH ×2 (11:40→21:51)
[2017-01-26 11:57] LABS: BASOPHILS % 0.8 % (0.0-2.0); EOSINOPHILS # 0.1 10^3/ul (0.0-0.5); EOSINOPHILS % 2.2 % (0.0-7.0); HEMATOCRIT 27.8 % (42.0-52.0); HEMOGLOBIN 9.3 g/dl (14.0-18.0); LYMPHOCYTES # 0.8 10^3/ul (0.8-2.9); LYMPHOCYTES % 15.3 % (15.0-51.0); MEAN CORPUSCULAR HEMOGLOBIN 30.4 pg (29.0-33.0); MEAN CORPUSCULAR HGB CONC 33.5 g/dl (32.0-37.0); MEAN CORPUSCULAR VOLUME 90.8 fl (82.0-101.0); MEAN PLATELET VOLUME 9.6 fl (7.4-10.4); MONOCYTE # 0.5 10^3/ul (0.3-0.9); MONOCYTES % 9.3 % (0.0-11.0); NEUTROPHIL # 3.6 10^3/ul (1.6-7.5); PLATELET COUNT 248 10^3/UL (140-415); RED BLOOD COUNT 3.06 10^6/ul (4.70-6.10); RED CELL DISTRIBUTION WIDTH 21.3 % (11.5-14.5)
[2017-01-26 11:58] LABS: RETICULOCYTE COUNT % 2.1 % (0.5-1.5)
[2017-01-26] MEDS ORDERED: COLLAGENASE 30 GM TUBE TOP PRN (12:00)
[2017-01-26 12:18] LABS: CALCIUM 9.2 mg/dl (8.4-10.2); CREATININE 0.93 mg/dl (0.61-1.24); POTASSIUM 4.8 mmol/L (3.5-5.1)
[2017-01-26 12:49] LABS: THYROID STIMULATING HORMONE 0.305 MIU/L (0.465-4.680)
[2017-01-26] MEDS: COLLAGENASE 30 GM TUBE TOP SCH (13:29)
--- NOTE | 2017-01-26 14:03 | PN ---
DATE: 01/26/2017 SUBJECTIVE: No acute changes. The patient is awake, looks comfortable, afebrile. WBC 5, H and H 9.3 and 27.8, platelets 248, no shift, no bands. BUN 34, creatinine 0.93. INDWELLINGS: Trach, PEG, Car. MICROBIOLOGY: Urine culture grew Klebsiella ESBL. Blood cultures remain negative. ANTIMICROBIALS: The patient is on Cefepime. DIAGNOSTICS: Chest x-ray on admission revealed worsening bilateral lower lung consolidation and pos sible pneumonia. PHYSICAL EXAMINATION: GENERAL: This is a chronically ill-appearing, elderly man who is in no distress. HEENT: Head atraumatic, normocephalic. Sclerae anicteric. Buccal mucosa dry. NECK: Supple. CHEST: Rise symmetrical. Breath sounds diminished to bases. HEART: S1, S2. ABDOMEN: Soft. Bowel tones present. ASSESSMENT: 1. Systemic inflammatory response syndrome with fevers and leukocytosis on admission. 2. Healthcare-associated pneumonia. 3. Klebsiella pneumoniae, Extended-Spectrum Beta-Lactamase. 4. Anemia. 5. Chronic respiratory failure. 6. Dysphagia. PLAN: The patient remains stable. We are going to change cefepime to meropenem. Continue vent sup port as per pulmonary. Monitor H and H, follow GI recommendations. Dictated By: NASH DOTY MGMT ANALYST for RICHARD ROSEN MD NI/NTS Conf#: [id number] DID#: [id number] CC: DESTINEE ROBERTS MD;*EndCC*
--- NOTE | 2017-01-26 14:59 | PN ---
Date/Time of Note Date/Time of Note DATE: 01/26/17 TIME: 14:46 Assessment/Plan VTE Prophylaxis VTE Prophylaxis Intervention: SCD's Lines/Catheters IV [facility]from [facility] Saline Lock Urinary Cath still in place: Yes Reason Cath still needed: urinary retention Assessment/Plan Assessment/Plan - Chest pain, rule out acute coronary syndrome. Cardiac enzymes are negative 3. - Sepsis. Continue broad spectrum antibiotics. Follow up on urine, blood and sputum culture. Dr. Jones is following in infectious disease consultation. - Urinary tract infection per urinalysis and possible healthcare-acquired pneumonia. - Gastrointestinal bleed. Continue Protonix. Continue to monitor hemoglobin and hematocrit. Dr. Hassan is following in gastroenterology consultation. - Anemia of acute blood loss, status post blood transfusion. - Ventilator dependent respiratory failure. Dr. Brewer is following patient in pulmonology consultation. Continue breathing treatment and oxygen supplementation and ventilatory support. Further recommendations based on clinical course. Plan of care discussed with Dr. Roa. Exam/Review of Systems Vital Signs Vitals Vital Signs Date Time Temp Pulse Resp B/P Pulse Ox O2 Delivery O2 Flow Rate FiO2 01/26/17 13:40 97.6 58 19 169/79 98 Mechanical Ventilator 01/26/17 12:21 30 Exam Constitutional: alert, oriented Head: normocephalic Neck: other (Tracheostomy), supple Respiratory: normal air movement Cardiovascular: nl pulses Gastrointestinal: non-tender, other (G-tube), soft Musculoskeletal: other (Contracted lower extremities) Extremities: normal pulses Skin: nl turgor Results Result Diagram: 01/26/17 1132 01/26/17 1132 Results 24 hrs Laboratory Tests Test 01/25/17 18:38 01/26/17 06:23 01/26/17 11:32 Creatine Kinase < 20 L Creatine Kinase Index Creatinine Kinase MB (Mass) 1.35 Troponin I 0.027 Lab Scanned Report BLOOD TRANSFUSION White Blood Count 5.0 # Red Blood Count 3.06 #L Hemoglobin 9.3 #L Hematocrit 27.8 #L Mean Corpuscular Volume 90.8 Mean Corpuscular Hemoglobin 30.4 Mean Corpuscular Hemoglobin Concent 33.5 Red Cell Distribution Width 21.3 H Platelet Count 248 Mean Platelet Volume 9.6 Neutrophils % 72.0 Lymphocytes % 15.3 Monocytes % 9.3 Eosinophils % 2.2 Basophils % 0.8 Nucleated Red Blood Cells % 0.0 Neutrophils # 3.6 Lymphocytes # 0.8 Monocytes # 0.5 Eosinophils # 0.1 Basophils # 0.0 Nucleated Red Blood Cells # 0.0 Absolute Reticulocyte Count 0.064 Percent Reticulocyte Count 2.1 H Sodium Level 146 H Potassium Level 4.8 Chloride Level 115 H Carbon Dioxide Level 25 Anion Gap 11 Blood Urea Nitrogen 34 H Creatinine 0.93 Glucose Level 75 Hemoglobin A1c 5.1 Calcium Level 9.2 Ferritin 380.0 H Vitamin B12 Level 746 Folate Pending Thyroid Stimulating Hormone (TSH) 0.305 L Medications Medications Current Medications Dextrose/Sodium Chloride (D5-1/2ns) 1,000 ml @ 75 mls/hr [id number] IV Last administered on 01/25/17 09:55; Admin Dose 75 MLS/HR; Start 01/25/17 at 09:00 Pantoprazole (Protonix Iv) 40 mg BID IV Last administered on 01/26/17 10:37; Admin Dose 40 MG; Start 01/25/17 at 09:00 Furosemide (Lasix) 20 mg ONCE IV Last administered on 01/26/17 13:37; Admin Dose 20 MG; Start 01/25/17 at 16:30; Stop 01/26/17 at 16:29 Influenza Virus Vaccine (Fluzone) 0.5 ml ONCE ONCE IM* ; Start 01/27/17 at 09: 00; Stop 01/27/17 at 09:01 Collagenase (Santyl) 1 applic DAILY TOP Last administered on 01/26/17 13:29; Admin Dose 1 APPLIC; Start 01/26/17 at 12:30 Collagenase 1 applic 1 applic PRN PRN TOP WOUND CARE; Start 01/26/17 at 12:00 Meropenem/Sodium Chloride (Merrem 500mg/50 ml(Pmx)) 50 ml @ 100 mls/hr Q8 IVPB ; Start 01/26/17 at 14:00 Benazepril HCl (Lotensin) 10 mg BID PO ; Start 01/26/17 at 21:00 Isosorbide Dinitrate (Isordil) 10 mg TID PO ; Start 01/26/17 at 21:00 ERROL LORD Jan 26, 2017 14:56
[2017-01-26] MEDS: MEROPENEM 500MG/50 ML (PMX) 50 ML IVPB SCH ×2 (15:09→21:49)
--- NOTE | 2017-01-26 15:25 | CONS ---
DATE OF ADMISSION: 01/25/2017 DATE OF CONSULTATION: 01/26/2017 CARDIOLOGY CONSULTATION REASON FOR CONSULTATION: Chest pain, assess for acute coronary syndrome. REQUESTING PHYSICIAN: Dr. Roa HISTORY OF PRESENT ILLNESS: Mr. 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 Upon arrival, temperature 98.6, blood pressure 136/100, pulse 125, respirations 18, saturating 100%. The patient's labs revealed a white blood cell count 11.2, hemoglobin 8.3, platele t count of 341, a sodium of 144, potassium 6.2, creatinine 1.1, BUN of 46, AST 36, ALT 40, TSH of 0. 305. Troponin negative. INR of 1.0. UA positive. The patient underwent a chest x-ray revealing a tracheostomy tube in good position, stable mild cardiomegaly, worsening bilateral lower lung consol idation, small right pleural effusions, superimposed edema. The patient's electrocardiogram reveale d sinus tachycardia, rate of 116, left axis deviation, incomplete right bundle branch block, borderl ine inferior Q's and nonspecific ST-T abnormalities. The patient was subsequently admitted to the [facility]. He has undergone transfusion with increase in hemoglobin. The patient denies ongoing chest p ain at this time. The patient has had negative troponins x3. Patient additionally had been monitor ed on telemetry revealing sinus rhythm, no significant arrhythmias or pauses. PAST MEDICAL HISTORY: As above in HPI. MEDICATIONS CURRENTLY IN HOSPITAL: 1. Influenza vaccine. 2. Meropenem. 3. Collagenase. 4. Atrovent. 5. Albuterol. 6. Lasix 20 mg IV x1. 7. IV fluid hydration D5 . 8. Protonix 40 mg IV b.i.d. ALLERGIES: NO KNOWN DRUG ALLERGIES. SOCIAL HISTORY: No tobacco, ETOH or illicit drug use. FAMILY HISTORY: No history of sudden cardiac or early CAD. REVIEW OF SYSTEMS: As above in HPI. CONSTITUTIONAL: No fevers, chills. PULMONARY: Chronic respiratory failure. GASTROINTESTINAL: Dysphagia status post G-tube. GENITOURINARY: No hematuria. MUSCULOSKELETAL: Degenerative joint disease. PSYCHIATRIC: The patient denies depression. NEUROLOGIC: No documented history of CVA. ENDOCRINE: No documented history of diabetes mellitus. PHYSICAL EXAMINATION: VITAL SIGNS: Temperature of 97.6, blood pressure elevated at 169/76, pulse 58, respiratory rate 19, satting 98%. GENERAL: The patient is alert, awake, somewhat communicative. NECK: Tracheostomy in place. CHEST: Upper airway transmitted rhonchorous sounds. HEART: Regular rate and rhythm. Normal S1, increased S2, I/ systolic murmur, nondisplaced PMI. ABDOMEN: Positive bowel sounds, soft. Positive G-tube. EXTREMITIES: No edema, 1+ pulses bilaterally, posterior tibial. LABORATORY DATA: As above in HPI with most recently from today, white blood cell count 5.0, hemoglo bin 9.3, platelet count of 248. Sodium 146, potassium 4.8, creatinine 0.9, BUN 34. Troponin negati ve. TSH suppressed at 0.305. UA positive. Stool occult blood positive. IMAGING STUDIES: As above in HPI. No further imaging studies for my review at this time. ECG: As above in HPI. No further electrocardiograms for my review at this time. IMPRESSION: 1. Chest pain, assess for acute coronary syndrome with negative troponins x3 and resolved chest gabriel n at this time. 2. Abnormal electrocardiogram with nonspecific ST-T abnormalities diffusely, incomplete right bundl e branch block. 3. Hypertension, uncontrolled. 4. Chronic respiratory failure, status post trach. 5. Anemia with occult blood positivity in stool, assess for gastrointestinal bleed. 6. Hypernatremia. 7. Suppressed TSH, assess thyroid state. RECOMMENDATIONS: 1. At this time, would maintain patient on telemetry monitoring to follow rhythm and rate control c losely. 2. Would send an additional troponin to assure that the patient has not had any recent acute ischem ic syndromes. 3. We will check a 2D echocardiogram to further assess the patient's ejection fraction, wall motion and any major abnormalities. 4. Continue patient's beta nati as tolerated, and we will additionally add FREDERICK inhibitor to impr ove overall systolic blood pressure control. Check a free T4 to further assess the patient's curren t thyroid state. 5. Continue the patient's bronchodilators. 6. Follow the patient's volume status closely. 7. Ongoing GI evaluation of anemia with possible need for endoscopy. 8. Check a fasting lipid panel for general risk stratification. 9. We will hold on any systemic anticoagulation at this time. Thank you for allowing me to take part in the care of this patient. I will continue to follow along very closely with you. Further recommendations will be made as the patient progresses through the inpatient hospital clinical course. Dictated By: BRIANNA NICOLE/IRMA Conf#: [id number] DID#: [id number] CC: DESTINEE ROA MD;*EndCC*
--- NOTE | 2017-01-26 16:06 | CONS ---
Date/Time of Note Date/Time of Note DATE: 01/26/17 TIME: 16:03 Assessment/Plan Assessment/Plan Additional Assessment/Plan IMPRESSION: 1. Chest pain. Workup in process. 2. Sepsis. 3. Decubitus ulcer. 4. Anemia, rule out gastrointestinal bleeding. 5. Ventilator-dependent respiratory failure. 6. Positive stool guaiac Plan Continue antibiotic We will review 2D echo, patient will need both EGD and colonoscopy and I will discuss with the if she is in agreement we will proceed with EGD and colonoscopy. Consultation Date/Type/Reason Admit Date/Time Jan 25, 2017 at 15:34 Initial Consult Date 24 HR Interval Summary Constitutional: improved, no complaints Exam/Review of Systems Vital Signs Vitals Vital Signs Date Time Temp Pulse Resp B/P Pulse Ox O2 Delivery O2 Flow Rate FiO2 01/26/17 15:43 98.9 68 18 148/69 98 01/26/17 15:15 30 01/26/17 13:40 Mechanical Ventilator Exam Constitutional: alert, oriented, well developed Psych: nl mood/affect, no complaints Head: atraumatic, normocephalic Eyes: EOMI, PERRL, nl conjunctiva, nl lids, nl sclera ENMT: nl external ears & nose, nl lips & teeth, nl nasal mucosa & septum Neck: non-tender, supple Respiratory: clear to auscultation, normal air movement Cardiovascular: nl pulses, regular rate and rhythm Gastrointestinal: nl liver, spleen, non-tender, soft Musculoskeletal: nl extremities to inspection, nl gait and stance Extremities: normal pulses Neurological: AMMONIA NITRATE OPERATOR II-XII intact, nl mental status, nl speech, nl strength Skin: nl turgor, No rash or lesions Lymph: nl lymph nodes Results Result Diagram: 01/26/17 1132 01/26/17 1132 Results 24 hrs Laboratory Tests Test 01/25/17 18:38 01/26/17 06:23 01/26/17 11:32 Creatine Kinase < 20 L Creatine Kinase Index Creatinine Kinase MB (Mass) 1.35 Troponin I 0.027 Lab Scanned Report BLOOD TRANSFUSION White Blood Count 5.0 # Red Blood Count 3.06 #L Hemoglobin 9.3 #L Hematocrit 27.8 #L Mean Corpuscular Volume 90.8 Mean Corpuscular Hemoglobin 30.4 Mean Corpuscular Hemoglobin Concent 33.5 Red Cell Distribution Width 21.3 H Platelet Count 248 Mean Platelet Volume 9.6 Neutrophils % 72.0 Lymphocytes % 15.3 Monocytes % 9.3 Eosinophils % 2.2 Basophils % 0.8 Nucleated Red Blood Cells % 0.0 Neutrophils # 3.6 Lymphocytes # 0.8 Monocytes # 0.5 Eosinophils # 0.1 Basophils # 0.0 Nucleated Red Blood Cells # 0.0 Absolute Reticulocyte Count 0.064 Percent Reticulocyte Count 2.1 H Sodium Level 146 H Potassium Level 4.8 Chloride Level 115 H Carbon Dioxide Level 25 Anion Gap 11 Blood Urea Nitrogen 34 H Creatinine 0.93 Glucose Level 75 Hemoglobin A1c 5.1 Calcium Level 9.2 Ferritin 380.0 H Vitamin B12 Level 746 Folate Pending Thyroid Stimulating Hormone (TSH) 0.305 L Medications Medications Current Medications Dextrose/Sodium Chloride (D5-1/2ns) 1,000 ml @ 75 mls/hr [id number] IV Last administered on 01/25/17 09:55; Admin Dose 75 MLS/HR; Start 01/25/17 at 09:00 Pantoprazole (Protonix Iv) 40 mg BID IV Last administered on 01/26/17 10:37; Admin Dose 40 MG; Start 01/25/17 at 09:00 Furosemide (Lasix) 20 mg ONCE IV Last administered on 01/26/17 13:37; Admin Dose 20 MG; Start 01/25/17 at 16:30; Stop 01/26/17 at 16:29 Influenza Virus Vaccine (Fluzone) 0.5 ml ONCE ONCE IM* ; Start 01/27/17 at 09: 00; Stop 01/27/17 at 09:01 Collagenase (Santyl) 1 applic DAILY TOP Last administered on 01/26/17 13:29; Admin Dose 1 APPLIC; Start 01/26/17 at 12:30 Collagenase 1 applic 1 applic PRN PRN TOP WOUND CARE; Start 01/26/17 at 12:00 Meropenem/Sodium Chloride (Merrem 500mg/50 ml(Pmx)) 50 ml @ 100 mls/hr Q8 IVPB Last administered on 01/26/17 15:09; Admin Dose 100 MLS/HR; Start 01/26/17 at 14:00 Benazepril HCl (Lotensin) 10 mg BID PO ; Start 01/26/17 at 21:00 Isosorbide Dinitrate (Isordil) 10 mg TID PO ; Start 01/26/17 at 21:00 PAT CHA MD Jan 26, 2017 16:06
[2017-01-26 18:13] LABS: FOLATE > 20.0 ng/ml (2.8-20.0)
[2017-01-26] MEDS: ISOSORBIDE DINITRATE 10 MG TAB PO SCH (21:50)
[2017-01-26] MEDS: BENAZEPRIL 10 MG TAB PO SCH (21:50)
--- NOTE | 2017-01-26 22:30 | CONS ---
DATE OF ADMISSION: 01/25/2017 DATE OF CONSULTATION: 01/26/2017 TYPE OF CONSULTATION: Pulmonary. REASON FOR CONSULTATION: Ventilator management. Thank you, Dr. Roa, for this consultation. HISTORY OF PRESENT ILLNESS: This is an 81-year-old gentleman with multiple medical problems includi ng vent-dependent respiratory failure, paraplegia, decubitus ulcer, chronic encephalopathy, dysphagi a with G-tube, history of acute kidney injury previously treated with hemodialysis. Transferred for evaluation of chest discomfort. Initial troponin was 0.014 with mild lactic acid elevation. EKG s howed right bundle branch block, otherwise unremarkable. PAST MEDICAL HISTORY: As above. MEDICATIONS: Per chart. ALLERGIES: NONE. SOCIAL HISTORY: Nonsmoker, no alcohol, no history of drug use. FAMILY HISTORY: Noncontributory. REVIEW OF SYSTEMS: A 12-point review of systems currently unable to perform. PHYSICAL EXAMINATION: GENERAL: Chronically ill-appearing gentleman on mechanical ventilation, appears comfortable at rest , no acute distress. VITAL SIGNS: Currently afebrile, pulse is 58, blood pressure 160/79, O2 sat 96% on FiO2 of 30%. NECK: Trach site clean and intact. CARDIAC: S1, S2, no added sounds or murmurs. CHEST: Diminished air entry bilaterally. ABDOMEN: Soft, nontender. No guarding or rebound. EXTREMITIES: No cyanosis, clubbing, edema. NEUROLOGIC: Generalized weakness. LABORATORIES: White count 5, hemoglobin 9.3, platelets of 248. BUN 34, creatinine 0.93. Lactic ac id initially 2.6, now 1.5. Stool occult blood was positive. Urinalysis was also positive for UTI. IMPRESSION: 1. Vent-dependent respiratory failure. 2. Positive troponin, rule out coronary ischemia. 3. Urinary tract infection. 4. History of encephalopathy. PLAN: 1. Continue vent support. 2. Antibiotics per ID. 3. DVT and GI prophylaxis. Dictated By: DINORAH PELAEZ MD SV/IRMA Conf#: [id number] DID#: [id number] CC: DESTINEE ROA MD;*EndCC*
[2017-01-27] VITALS (17 sets, daily range): BP systolic 148–175; BP diastolic 64–88; PULSE 64–71; RESP 14–24
[2017-01-27] MEDS: MEROPENEM 500MG/50 ML (PMX) 50 ML IVPB SCH ×3 (05:56→22:05)
[2017-01-27 06:27] LABS: BASOPHILS % 0.7 % (0.0-2.0); EOSINOPHILS # 0.3 10^3/ul (0.0-0.5); EOSINOPHILS % 7.2 % (0.0-7.0); HEMATOCRIT 27.3 % (42.0-52.0); HEMOGLOBIN 9.1 g/dl (14.0-18.0); LYMPHOCYTES # 0.8 10^3/ul (0.8-2.9); LYMPHOCYTES % 17.4 % (15.0-51.0); MEAN CORPUSCULAR HGB CONC 33.3 g/dl (32.0-37.0); MEAN CORPUSCULAR VOLUME 90.1 fl (82.0-101.0); MEAN PLATELET VOLUME 9.8 fl (7.4-10.4); MONOCYTE # 0.5 10^3/ul (0.3-0.9); MONOCYTES % 10.2 % (0.0-11.0); NEUTROPHIL # 2.8 10^3/ul (1.6-7.5); PLATELET COUNT 248 10^3/UL (140-415); RED BLOOD COUNT 3.03 10^6/ul (4.70-6.10); RED CELL DISTRIBUTION WIDTH 20.8 % (11.5-14.5); WHITE BLOOD COUNT 4.4 10^3/ul (4.8-10.8)
[2017-01-27 07:02] LABS: CHOL/HDL RATIO 4.7 RATIO
[2017-01-27 07:05] LABS: CALCIUM 8.9 mg/dl (8.4-10.2); CREATININE 1.03 mg/dl (0.61-1.24); POTASSIUM 3.6 mmol/L (3.5-5.1); TROPONIN-I 0.03 ng/ml (0.00-0.12)
[2017-01-27] MEDS ORDERED: INFLUENZA VIRUS VACCINE 0.5 ML (DISPENSING) IM* ONE (09:00)
[2017-01-27] MEDS: PANTOPRAZOLE 40 MG INJ IV SCH ×2 (10:04→22:06)
[2017-01-27] MEDS: ISOSORBIDE DINITRATE 10 MG TAB PO SCH ×3 (10:05→21:00)
[2017-01-27] MEDS: BENAZEPRIL 10 MG TAB PO SCH (10:05)
[2017-01-27] MEDS: COLLAGENASE 30 GM TUBE TOP SCH (10:39)
--- NOTE | 2017-01-27 11:49 | CONS ---
Date/Time of Note Date/Time of Note DATE: 01/27/17 TIME: 11:48 Consult Date/Type/Reason Admit Date/Time Jan 25, 2017 at 15:34 Initial Consult Date Type of Consultation: Pulmonary Subjective Patient comfortable. No new events. Makes eye contact attempting to communicate. Objective Vital Signs Date Time Temp Pulse Resp B/P Pulse Ox O2 Delivery O2 Flow Rate FiO2 01/27/17 08:38 97.7 77 16 175/83 99 01/27/17 05:52 30 01/26/17 13:40 Mechanical Ventilator Intake and Output 01/26/17 01/26/17 01/27/17 15:00 23:00 07:00 Intake Total 600 ml Output Total 1800 ml Balance -1800 ml 600 ml Exam PHYSICAL EXAMINATION: GENERAL: Chronically ill-appearing gentleman on mechanical ventilation, appears comfortable at rest, no acute distress. VITAL SIGNS: NECK: Trach site clean and intact. CARDIAC: S1, S2, no added sounds or murmurs. CHEST: Diminished air entry bilaterally. ABDOMEN: Soft, nontender. No guarding or rebound. EXTREMITIES: No cyanosis, clubbing, edema. NEUROLOGIC: Generalized weakness. Results/Medications Result Diagram: 01/27/17 0553 01/27/17 0553 Results 24 hrs Laboratory Tests Test 01/26/17 15:43 01/27/17 05:53 Free Thyroxine 1.29 White Blood Count 4.4 L Red Blood Count 3.03 L Hemoglobin 9.1 L Hematocrit 27.3 L Mean Corpuscular Volume 90.1 Mean Corpuscular Hemoglobin 30.0 Mean Corpuscular Hemoglobin Concent 33.3 Red Cell Distribution Width 20.8 H Platelet Count 248 Mean Platelet Volume 9.8 Neutrophils % 64.0 Lymphocytes % 17.4 Monocytes % 10.2 Eosinophils % 7.2 H Basophils % 0.7 Nucleated Red Blood Cells % 0.0 Neutrophils # 2.8 Lymphocytes # 0.8 Monocytes # 0.5 Eosinophils # 0.3 Basophils # 0.0 Nucleated Red Blood Cells # 0.0 Sodium Level 145 H Potassium Level 3.6 Chloride Level 112 H Carbon Dioxide Level 25 Anion Gap 12 Blood Urea Nitrogen 28 H Creatinine 1.03 Glucose Level 134 # Calcium Level 8.9 Troponin I 0.030 Triglycerides Level 96 Cholesterol Level 105 LDL Cholesterol, Calculated 64 HDL Cholesterol 22 L Cholesterol/HDL Ratio 4.7 Medications Current Medications Dextrose/Sodium Chloride (D5-1/2ns) 1,000 ml @ 75 mls/hr [id number] IV Last administered on 01/26/17 21:51; Admin Dose 75 MLS/HR; Start 01/25/17 at 09:00 Pantoprazole (Protonix Iv) 40 mg BID IV Last administered on 01/27/17 10:04; Admin Dose 40 MG; Start 01/25/17 at 09:00 Collagenase (Santyl) 1 applic DAILY TOP Last administered on 01/27/17 10:39; Admin Dose 1 APPLIC; Start 01/26/17 at 12:30 Collagenase 1 applic 1 applic PRN PRN TOP WOUND CARE; Start 01/26/17 at 12:00 Meropenem/Sodium Chloride (Merrem 500mg/50 ml(Pmx)) 50 ml @ 100 mls/hr Q8 IVPB Last administered on 01/27/17 05:56; Admin Dose 100 MLS/HR; Start 01/26/17 at 14:00 Benazepril HCl (Lotensin) 10 mg BID PO Last administered on 01/27/17 10:05; Admin Dose 10 MG; Start 01/26/17 at 21:00 Isosorbide Dinitrate (Isordil) 10 mg TID PO Last administered on 01/27/17 10: 05; Admin Dose 10 MG; Start 01/26/17 at 21:00 Assessment/Plan Chief Complaint/Hosp Course IMPRESSION: 1. Vent-dependent respiratory failure. 2. Positive troponin, rule out coronary ischemia. 3. Urinary tract infection. 4. History of encephalopathy. PLAN: 1. Continue vent support. 2. Antibiotics per ID. 3. DVT and GI prophylaxis. DC planning okay from pulmonary standpoint. Problems: DINORAH PELAEZ MD, [facility] Jan 27, 2017 11:49
--- NOTE | 2017-01-27 11:57 | PN ---
Date/Time of Note Date/Time of Note DATE: 01/27/17 TIME: 11:53 Assessment/Plan VTE Prophylaxis VTE Prophylaxis Intervention: SCD's Lines/Catheters IV Catheter Type (from Nrs): Peripheral IV Urinary Cath still in place: Yes Reason Cath still needed: urinary retention Assessment/Plan Chief Complaint/Hosp Course HTN, pt denies chest pain, continues on vent. Assessment/Plan - Chest pain, rule out acute coronary syndrome. Cardiac enzymes are negative 3. Dr Claudio ion following in cardiology consultation. - Sepsis 2 to UTI and PNA. Continue abx per ID. Dr. Jones is following in infectious disease consultation. - K Plneumo ESBL UTI - Possible healthcare-acquired pneumonia. - Gastrointestinal bleed. Continue Protonix. Continue to monitor hemoglobin and hematocrit. Dr. Hassan is following in gastroenterology consultation. Possible endoscopy if family agrees. - Anemia of acute blood loss, status post blood transfusion. - Ventilator dependent respiratory failure. Dr. Brewer is following patient in pulmonology consultation. Continue breathing treatment and oxygen supplementation and ventilatory support. Further recommendations based on clinical course. Plan of care discussed with Dr. Roa. Problems: Exam/Review of Systems Vital Signs Vitals Vital Signs Date Time Temp Pulse Resp B/P Pulse Ox O2 Delivery O2 Flow Rate FiO2 01/27/17 08:38 97.7 77 16 175/83 99 01/27/17 05:52 30 01/26/17 13:40 Mechanical Ventilator Intake and Output 01/26/17 01/26/17 01/27/17 14:59 22:59 06:59 Intake Total 600 ml Output Total 1800 ml Balance -1800 ml 600 ml Exam Constitutional: alert, oriented Neck: other (Tracheostomy), supple Respiratory: normal air movement Cardiovascular: nl pulses Gastrointestinal: non-tender, other (G-tube), soft Musculoskeletal: other (Contracted lower extremities) Results Result Diagram: 01/27/17 0553 01/27/17 0553 Results 24 hrs Laboratory Tests Test 01/26/17 15:43 01/27/17 05:53 Free Thyroxine 1.29 White Blood Count 4.4 L Red Blood Count 3.03 L Hemoglobin 9.1 L Hematocrit 27.3 L Mean Corpuscular Volume 90.1 Mean Corpuscular Hemoglobin 30.0 Mean Corpuscular Hemoglobin Concent 33.3 Red Cell Distribution Width 20.8 H Platelet Count 248 Mean Platelet Volume 9.8 Neutrophils % 64.0 Lymphocytes % 17.4 Monocytes % 10.2 Eosinophils % 7.2 H Basophils % 0.7 Nucleated Red Blood Cells % 0.0 Neutrophils # 2.8 Lymphocytes # 0.8 Monocytes # 0.5 Eosinophils # 0.3 Basophils # 0.0 Nucleated Red Blood Cells # 0.0 Sodium Level 145 H Potassium Level 3.6 Chloride Level 112 H Carbon Dioxide Level 25 Anion Gap 12 Blood Urea Nitrogen 28 H Creatinine 1.03 Glucose Level 134 # Calcium Level 8.9 Troponin I 0.030 Triglycerides Level 96 Cholesterol Level 105 LDL Cholesterol, Calculated 64 HDL Cholesterol 22 L Cholesterol/HDL Ratio 4.7 Medications Medications Current Medications Dextrose/Sodium Chloride (D5-1/2ns) 1,000 ml @ 75 mls/hr [id number] IV Last administered on 01/26/17 21:51; Admin Dose 75 MLS/HR; Start 01/25/17 at 09:00 Pantoprazole (Protonix Iv) 40 mg BID IV Last administered on 01/27/17 10:04; Admin Dose 40 MG; Start 01/25/17 at 09:00 Collagenase (Santyl) 1 applic DAILY TOP Last administered on 01/27/17 10:39; Admin Dose 1 APPLIC; Start 01/26/17 at 12:30 Collagenase 1 applic 1 applic PRN PRN TOP WOUND CARE; Start 01/26/17 at 12:00 Meropenem/Sodium Chloride (Merrem 500mg/50 ml(Pmx)) 50 ml @ 100 mls/hr Q8 IVPB Last administered on 01/27/17 05:56; Admin Dose 100 MLS/HR; Start 01/26/17 at 14:00 Benazepril HCl (Lotensin) 10 mg BID PO Last administered on 01/27/17 10:05; Admin Dose 10 MG; Start 01/26/17 at 21:00 Isosorbide Dinitrate (Isordil) 10 mg TID PO Last administered on 01/27/17 10: 05; Admin Dose 10 MG; Start 01/26/17 at 21:00 ERROL LORD Jan 27, 2017 11:57
[2017-01-27] MEDS ORDERED: hydrALAzine 20 MG INJ IV PRN (12:00)
[2017-01-27] MEDS: DEXTROSE 5%-0.45% NACL 1,000 ML IV SCH (13:25)
--- NOTE | 2017-01-27 13:43 | CONS ---
Date/Time of Note Date/Time of Note DATE: 01/27/17 TIME: 13:34 Assessment/Plan Assessment/Plan Chief Complaint/Hosp Course IMPRESSION: 1. Chest pain, assess for acute coronary syndrome with negative troponins x3 and resolved chest pain at this time. 2. Abnormal electrocardiogram with nonspecific ST-T abnormalities diffusely, incomplete right bundle branch block. 3. Hypertension, uncontrolled. 4. Chronic respiratory failure, status post trach. 5. Anemia with occult blood positivity in stool, assess for gastrointestinal bleed. 6. Hypernatremia. 7. Suppressed TSH, assess thyroid state. REcc: -Tele -will f/u echo -Continue acei/coreg/isordil -follow volume status clsoely -pnding endoscopy Problems: Consultation Date/Type/Reason Admit Date/Time Jan 25, 2017 at 15:34 Initial Consult Date 01/26/17 Type of Consultation: cardiology Reason for Consultation chest pain Referring Provider: DESTINEE ROBERTS MD Exam/Review of Systems Vital Signs Vitals Vital Signs Date Time Temp Pulse Resp B/P Pulse Ox O2 Delivery O2 Flow Rate FiO2 01/27/17 12:19 71 01/27/17 08:38 97.7 16 175/83 99 01/27/17 05:52 30 01/26/17 13:40 Mechanical Ventilator Intake and Output 01/26/17 01/26/17 01/27/17 14:59 22:59 06:59 Intake Total 600 ml Output Total 1800 ml Balance -1800 ml 600 ml Exam Review of Systems: CONSTITUTIONAL: No fevers, chills. PULMONARY: No sob CARDIOVASCULAR: No chest pain/palpitations GASTROINTESTINAL: No nausea/vomiting. GENITOURINARY: No hematuria/dysuria. MUSCULOSKELETAL: No myagias/arthalgias. PSYCHIATRIC: The patient denies depression. NEUROLOGIC: No weakness Constitutional: alert, oriented Psych: no complaints Head: normocephalic Neck: jvd (8-9 cm water), other (trached) Respiratory: other (upper airway rhochi) Cardiovascular: regular rate and rhythm Gastrointestinal: non-tender, soft Musculoskeletal: muscle tone (normal) Extremities: edema (none) Neurological: other (No focal deficits) Results Result Diagram: 01/27/17 0553 01/27/17 0553 Results 24 hrs Laboratory Tests Test 01/26/17 15:43 01/27/17 05:53 Free Thyroxine 1.29 White Blood Count 4.4 L Red Blood Count 3.03 L Hemoglobin 9.1 L Hematocrit 27.3 L Mean Corpuscular Volume 90.1 Mean Corpuscular Hemoglobin 30.0 Mean Corpuscular Hemoglobin Concent 33.3 Red Cell Distribution Width 20.8 H Platelet Count 248 Mean Platelet Volume 9.8 Neutrophils % 64.0 Lymphocytes % 17.4 Monocytes % 10.2 Eosinophils % 7.2 H Basophils % 0.7 Nucleated Red Blood Cells % 0.0 Neutrophils # 2.8 Lymphocytes # 0.8 Monocytes # 0.5 Eosinophils # 0.3 Basophils # 0.0 Nucleated Red Blood Cells # 0.0 Sodium Level 145 H Potassium Level 3.6 Chloride Level 112 H Carbon Dioxide Level 25 Anion Gap 12 Blood Urea Nitrogen 28 H Creatinine 1.03 Glucose Level 134 # Calcium Level 8.9 Troponin I 0.030 Triglycerides Level 96 Cholesterol Level 105 LDL Cholesterol, Calculated 64 HDL Cholesterol 22 L Cholesterol/HDL Ratio 4.7 Medications Medications Current Medications Dextrose/Sodium Chloride (D5-1/2ns) 1,000 ml @ 75 mls/hr [id number] IV Last administered on 01/27/17 13:25; Admin Dose 75 MLS/HR; Start 01/25/17 at 09:00 Pantoprazole (Protonix Iv) 40 mg BID IV Last administered on 01/27/17 10:04; Admin Dose 40 MG; Start 01/25/17 at 09:00 Collagenase (Santyl) 1 applic DAILY TOP Last administered on 01/27/17 10:39; Admin Dose 1 APPLIC; Start 01/26/17 at 12:30 Collagenase 1 applic 1 applic PRN PRN TOP WOUND CARE; Start 01/26/17 at 12:00 Meropenem/Sodium Chloride (Merrem 500mg/50 ml(Pmx)) 50 ml @ 100 mls/hr Q8 IVPB Last administered on 01/27/17 05:56; Admin Dose 100 MLS/HR; Start 01/26/17 at 14:00 Benazepril HCl (Lotensin) 10 mg BID PO Last administered on 01/27/17 10:05; Admin Dose 10 MG; Start 01/26/17 at 21:00 Isosorbide Dinitrate (Isordil) 10 mg TID PO Last administered on 11/16/17at 10: 05; Admin Dose 10 MG; Start 01/26/17 at 21:00 Hydralazine HCl (Apresoline) 10 mg Q4H PRN IV SBP>160,DBP>95; Start 01/27/17 at 12:00 Carvedilol (Coreg) 6.25 mg BID GTB ; Start 01/27/17 at 12:30 BRIANNA MOSLEY Jan 27, 2017 13:43
--- NOTE | 2017-01-27 13:48 | CONS ---
Date/Time of Note Date/Time of Note DATE: 01/27/17 TIME: 13:47 Consult Date/Type/Reason Admit Date/Time Jan 25, 2017 at 15:34 Initial Consult Date Type of Consultation: id Ordering Provider: DESTINEE ROBERTS MD Objective Vital Signs Date Time Temp Pulse Resp B/P Pulse Ox O2 Delivery O2 Flow Rate FiO2 01/27/17 12:19 71 01/27/17 08:38 97.7 16 175/83 99 01/27/17 05:52 30 01/26/17 13:40 Mechanical Ventilator Intake and Output 01/26/17 01/26/17 01/27/17 15:00 23:00 07:00 Intake Total 600 ml Output Total 1800 ml Balance -1800 ml 600 ml Results/Medications Result Diagram: 01/27/17 0553 01/27/17 0553 Results 24 hrs Laboratory Tests Test 01/26/17 15:43 01/27/17 05:53 Free Thyroxine 1.29 White Blood Count 4.4 L Red Blood Count 3.03 L Hemoglobin 9.1 L Hematocrit 27.3 L Mean Corpuscular Volume 90.1 Mean Corpuscular Hemoglobin 30.0 Mean Corpuscular Hemoglobin Concent 33.3 Red Cell Distribution Width 20.8 H Platelet Count 248 Mean Platelet Volume 9.8 Neutrophils % 64.0 Lymphocytes % 17.4 Monocytes % 10.2 Eosinophils % 7.2 H Basophils % 0.7 Nucleated Red Blood Cells % 0.0 Neutrophils # 2.8 Lymphocytes # 0.8 Monocytes # 0.5 Eosinophils # 0.3 Basophils # 0.0 Nucleated Red Blood Cells # 0.0 Sodium Level 145 H Potassium Level 3.6 Chloride Level 112 H Carbon Dioxide Level 25 Anion Gap 12 Blood Urea Nitrogen 28 H Creatinine 1.03 Glucose Level 134 # Calcium Level 8.9 Troponin I 0.030 Triglycerides Level 96 Cholesterol Level 105 LDL Cholesterol, Calculated 64 HDL Cholesterol 22 L Cholesterol/HDL Ratio 4.7 Medications Current Medications Dextrose/Sodium Chloride (D5-1/2ns) 1,000 ml @ 75 mls/hr [id number] IV Last administered on 01/27/17 13:25; Admin Dose 75 MLS/HR; Start 01/25/17 at 09:00 Pantoprazole (Protonix Iv) 40 mg BID IV Last administered on 01/27/17 10:04; Admin Dose 40 MG; Start 01/25/17 at 09:00 Collagenase (Santyl) 1 applic DAILY TOP Last administered on 01/27/17 10:39; Admin Dose 1 APPLIC; Start 01/26/17 at 12:30 Collagenase 1 applic 1 applic PRN PRN TOP WOUND CARE; Start 01/26/17 at 12:00 Meropenem/Sodium Chloride (Merrem 500mg/50 ml(Pmx)) 50 ml @ 100 mls/hr Q8 IVPB Last administered on 01/27/17 05:56; Admin Dose 100 MLS/HR; Start 01/26/17 at 14:00 Isosorbide Dinitrate (Isordil) 10 mg TID PO Last administered on 01/27/17 10: 05; Admin Dose 10 MG; Start 01/26/17 at 21:00 Hydralazine HCl (Apresoline) 10 mg Q4H PRN IV SBP>160,DBP>95; Start 01/27/17 at 12:00 Carvedilol (Coreg) 6.25 mg BID GTB ; Start 01/27/17 at 12:30 Benazepril HCl (Lotensin) 20 mg BID PO ; Start 01/27/17 at 21:00 Assessment/Plan Chief Complaint/Hosp Course SUBJECTIVE: No acute changes. The patient is awake, looks comfortable, afebrile. INDWELLINGS: Trach, PEG, Car. MICROBIOLOGY: Urine culture grew Klebsiella ESBL. Blood cultures remain negative. ANTIMICROBIALS: The patient is on Merrem. DIAGNOSTICS: Chest x-ray on admission revealed worsening bilateral lower lung consolidation and possible pneumonia. PHYSICAL EXAMINATION: GENERAL: This is a chronically ill-appearing, elderly man who is in no distress. HEENT: Head atraumatic, normocephalic. Sclerae anicteric. Buccal mucosa dry. NECK: Supple. CHEST: Rise symmetrical. Breath sounds diminished to bases. HEART: S1, S2. ABDOMEN: Soft. Bowel tones present. ASSESSMENT: 1. Systemic inflammatory response syndrome with fevers and leukocytosis on admission. 2. Healthcare-associated pneumonia. 3. Klebsiella pneumoniae, Extended-Spectrum Beta-Lactamase. 4. Anemia. 5. Chronic respiratory failure. 6. Dysphagia. PLAN: The patient remains stable. Continue abx. Continue vent support as per pulmonary. Follow GI recommendations. DW staff Problems: NASH [employer] Jan 27, 2017 13:48
[2017-01-27] MEDS: IPRATROPIUM (HFA) 12.9 GM INHALER INH SCH ×4 (14:15→21:26)
[2017-01-27] MEDS: ALBUTEROL HFA 8 GM INHALER INH SCH ×3 (14:15→21:26)
[2017-01-27] MEDS ORDERED: PEG/ELECTROLYTES 4L BTL GTB SCH (19:30)
--- NOTE | 2017-01-27 20:10 | RADRPT ---
Echocardiogram Report Patient Name: ANIYA COKER Gender: Male Date: 1935 Study Date: 26-Jan-2017 Home Care Physical Therapist: Lex Aguayo [facility] Location: [id number] Ref. Physician: BRIANNA CLAUDIO Quality: Technically Difficult Study Procedures: Transthoracic echocardiogram with complete 2D, M-Mode, and doppler examination. Indications: Chest Pain. 2D/M Mode Doppler Measurement Value Normal Ranges Measurement Value Normal Ranges LVIDd 2D 4.2 3.5 - 5.6 cm AV Peak Alejandro 1.2 m/sec LVIDs 2D 2.8 2.1 - 4.1 cm AV Peak PG 6.2 mmHg LVPWd 2D 1.0 0.6 - 1.1 cm LVOT Peak Alejandro 1.1 m/sec IVSd 2D 1.1 0.6 - 1.1 cm LVOT Peak PG 4.5 mmHg AoR Diam 2D 2.6 2.0 - 3.7 cm MV E Peak Alejandro 0.8 m/sec EDV 2D 77.8 cm3 MV A Peak Alejandro 0.8 m/sec ESV 2D 21.6 cm3 MV E/A 1.1 LA Dimen 2D 3.9 2.3 - 4.0 cm MV Decel Time 179 msec MV Decel [place] 5 MV E/A 1.1 TR Peak Alejandro 3.3 m/sec TR Peak PG 43.0 mmHg RVSP 51.0 mmHg Findings Left Ventricle: Normal left ventricular systolic function. Normal left ventricular cavity size. Normal left ventricular wall thickness. Ejection fraction is visually estimated at 5560 %. Right Ventricle: Mild right ventricular systolic dysfunction. Mild enlargement of right ventricle. Left Atrium: The left atrium is normal in size. Right Atrium: The right atrium is normal in size. Mitral Valve: Normal appearance of the mitral valve. Mild mitral annular calcification. Trace mitral regurgitation. Aortic Valve: No significant aortic stenosis or insufficiency. Aortic cusps appear mildly calcified. Tricuspid Valve: Normal appearance of the tricuspid valve. Estimated peak PA systolic pressure 51 mmHg. There is mild tricuspid regurgitation. Pulmonic Valve: Normal pulmonic valve appearance. Pericardium: Normal pericardium with no significant pericardial effusion. Aorta: Normal aortic root. IVC: Inferior vena cava without respiratory collapse, however, patient on ventilator. Conclusions 1.Normal left ventricular systolic function. Normal left ventricular cavity size. Normal left ventricular wall thickness. Ejection fraction is visually estimated at 55-60 %. 2.Mild right ventricular systolic dysfunction.. Mild enlargement of right ventricle. 3.Normal appearance of the mitral valve. Mild mitral annular calcification. Trace mitral regurgitation. 4.Normal appearance of the tricuspid valve. Estimated peak PA systolic pressure 51 mmHg. There is mild tricuspid regurgitation. Electronically Signed By: Brianna Claudio 27-Jan-2017 20:10:08 -0800 Patient Name: ANIYA COKER Study Date: 26-Jan-2017 [id number]
--- NOTE | 2017-01-27 20:23 | CONS ---
Date/Time of Note Date/Time of Note DATE: 01/27/17 TIME: 20:22 Assessment/Plan Assessment/Plan Additional Assessment/Plan IMPRESSION: 1. Chest pain. Workup in process. 2. Sepsis. 3. Decubitus ulcer. 4. Anemia, rule out gastrointestinal bleeding. 5. Ventilator-dependent respiratory failure. 6. Positive stool guaiac Plan Continue antibiotic We will review 2D echo, patient will need both EGD and colonoscopy and I will discuss with the if she is in agreement we will proceed with EGD and colonoscopy. I discussed the and she has agreed both for EGD and colonoscopy. Evening nurse had witnessed the consent I had given the order for GoLYTELY at 2:00 in the afternoon to the morning staff nurse the order was not executed. Patient did not get GoLYTELY so far. I discussed with the night nurse and she said she would start GoLYTELY within half an hour. I hope patient is prepared for the procedure tomorrow morning. Consultation Date/Type/Reason Admit Date/Time Jan 25, 2017 at 15:34 Type of Consultation: id Referring Provider: DESTINEE ROBERTS MD 24 HR Interval Summary Subjective hx not possible: pt non-verbal Constitutional: no complaints Exam/Review of Systems Vital Signs Vitals Vital Signs Date Time Temp Pulse Resp B/P Pulse Ox O2 Delivery O2 Flow Rate FiO2 01/27/17 16:57 64 01/27/17 16:16 98.7 24 152/67 100 01/27/17 05:52 30 01/26/17 13:40 Mechanical Ventilator Intake and Output 01/26/17 01/26/17 01/27/17 15:00 23:00 07:00 Intake Total 600 ml Output Total 1800 ml Balance -1800 ml 600 ml Exam Constitutional: alert, oriented, well developed Psych: nl mood/affect, no complaints Head: atraumatic, normocephalic Eyes: EOMI, PERRL, nl conjunctiva, nl lids, nl sclera ENMT: nl external ears & nose, nl lips & teeth, nl nasal mucosa & septum Neck: non-tender, supple Respiratory: clear to auscultation, normal air movement Cardiovascular: nl pulses, regular rate and rhythm Gastrointestinal: nl liver, spleen, non-tender, soft Musculoskeletal: nl extremities to inspection, nl gait and stance Extremities: normal pulses Neurological: PEDIATRIC CLINICAL NURSE SPECIALIST II-XII intact, nl mental status, nl speech, nl strength Skin: nl turgor, No rash or lesions Lymph: nl lymph nodes Results Result Diagram: 01/27/1753 01/27/17 0553 Results 24 hrs Laboratory Tests Test 01/27/17 05:53 White Blood Count 4.4 L Red Blood Count 3.03 L Hemoglobin 9.1 L Hematocrit 27.3 L Mean Corpuscular Volume 90.1 Mean Corpuscular Hemoglobin 30.0 Mean Corpuscular Hemoglobin Concent 33.3 Red Cell Distribution Width 20.8 H Platelet Count 248 Mean Platelet Volume 9.8 Neutrophils % 64.0 Lymphocytes % 17.4 Monocytes % 10.2 Eosinophils % 7.2 H Basophils % 0.7 Nucleated Red Blood Cells % 0.0 Neutrophils # 2.8 Lymphocytes # 0.8 Monocytes # 0.5 Eosinophils # 0.3 Basophils # 0.0 Nucleated Red Blood Cells # 0.0 Sodium Level 145 H Potassium Level 3.6 Chloride Level 112 H Carbon Dioxide Level 25 Anion Gap 12 Blood Urea Nitrogen 28 H Creatinine 1.03 Glucose Level 134 # Calcium Level 8.9 Troponin I 0.030 Triglycerides Level 96 Cholesterol Level 105 LDL Cholesterol, Calculated 64 HDL Cholesterol 22 L Cholesterol/HDL Ratio 4.7 Medications Medications Current Medications Dextrose/Sodium Chloride (D5-1/2ns) 1,000 ml @ 75 mls/hr [id number] IV Last administered on 01/27/17 13:25; Admin Dose 75 MLS/HR; Start 01/25/17 at 09:00 Pantoprazole (Protonix Iv) 40 mg BID IV Last administered on 01/27/17 10:04; Admin Dose 40 MG; Start 01/25/17 at 09:00 Collagenase (Santyl) 1 applic DAILY TOP Last administered on 01/27/17 10:39; Admin Dose 1 APPLIC; Start 01/26/17 at 12:30 Collagenase 1 applic 1 applic PRN PRN TOP WOUND CARE; Start 01/26/17 at 12:00 Meropenem/Sodium Chloride (Merrem 500mg/50 ml(Pmx)) 50 ml @ 100 mls/hr Q8 IVPB Last administered on 01/27/17 14:00; Admin Dose 100 MLS/HR; Start 01/26/17 at 14:00 Isosorbide Dinitrate (Isordil) 10 mg TID PO Last administered on 01/27/17 14: 13; Admin Dose 10 MG; Start 01/26/17 at 21:00 Hydralazine HCl (Apresoline) 10 mg Q4H PRN IV SBP>160,DBP>95; Start 01/27/17 at 12:00 Carvedilol (Coreg) 6.25 mg BID GTB Last administered on 01/27/17 14:13; Admin Dose 6.25 MG; Start 01/27/17 at 12:30 Benazepril HCl (Lotensin) 20 mg BID PO ; Start 01/27/17 at 21:00 Polyethylene Glycol/ Electrolytes (Golytely) 4,000 ml NOW GTB ; Start 01/27/17 at 19:30; Stop 01/27/17 at 23:56 PAT CHA MD Jan 27, 2017 20:23
[2017-01-27] MEDS: BENAZEPRIL 20 MG TAB PO SCH (21:00)
[2017-01-28] VITALS (25 sets, daily range): BP systolic 118–163; BP diastolic 60–89; PULSE 55–78; RESP 14–24
[2017-01-28] MEDS: DEXTROSE 5%-0.45% NACL 1,000 ML IV SCH ×2 (04:01→18:41)
[2017-01-28] MEDS: MEROPENEM 500MG/50 ML (PMX) 50 ML IVPB SCH ×3 (06:43→22:15)
[2017-01-28 07:54] LABS: BASOPHILS % 0.6 % (0.0-2.0); EOSINOPHILS # 0.4 10^3/ul (0.0-0.5); EOSINOPHILS % 8.6 % (0.0-7.0); HEMATOCRIT 26.9 % (42.0-52.0); LYMPHOCYTES % 21.5 % (15.0-51.0); MEAN CORPUSCULAR HEMOGLOBIN 30.3 pg (29.0-33.0); MEAN CORPUSCULAR HGB CONC 33.5 g/dl (32.0-37.0); MEAN CORPUSCULAR VOLUME 90.6 fl (82.0-101.0); MEAN PLATELET VOLUME 9.4 fl (7.4-10.4); MONOCYTE # 0.5 10^3/ul (0.3-0.9); MONOCYTES % 11.1 % (0.0-11.0); NEUTROPHIL # 2.8 10^3/ul (1.6-7.5); PLATELET COUNT 248 10^3/UL (140-415); RED BLOOD COUNT 2.97 10^6/ul (4.70-6.10); RED CELL DISTRIBUTION WIDTH 20.3 % (11.5-14.5); WHITE BLOOD COUNT 4.8 10^3/ul (4.8-10.8)
[2017-01-28] MEDS: ALBUTEROL HFA 8 GM INHALER INH SCH ×3 (08:03→21:12)
[2017-01-28] MEDS: IPRATROPIUM (HFA) 12.9 GM INHALER INH SCH ×4 (08:03→21:12)
[2017-01-28 08:31] LABS: CALCIUM 9.1 mg/dl (8.4-10.2); CREATININE 0.84 mg/dl (0.61-1.24); POTASSIUM 3.6 mmol/L (3.5-5.1)
[2017-01-28] MEDS: ISOSORBIDE DINITRATE 10 MG TAB PO SCH ×3 (09:00→22:15)
--- NOTE | 2017-01-28 10:29 | CONS ---
Date/Time of Note Date/Time of Note DATE: 01/28/17 TIME: 10:25 Assessment/Plan Assessment/Plan Chief Complaint/Hosp Course IMPRESSION: 1. Chest pain, assess for acute coronary syndrome with negative troponins x3 and resolved chest pain at this time./NL EF by echo this admit 2. Abnormal electrocardiogram with nonspecific ST-T abnormalities diffusely, incomplete right bundle branch block. 3. Hypertension, uncontrolled but meds held for endoscopy 4. Chronic respiratory failure, status post trach. 5. Anemia with occult blood positivity in stool, assess for gastrointestinal bleed. 6. Hypernatremia. 7. Suppressed TSH, assess thyroid state. REcc: -Tele -Continue acei/coreg/isordil and f/u BP after taking -follow volume status closely -pnding endoscopy today Problems: Consultation Date/Type/Reason Admit Date/Time Jan 25, 2017 at 15:34 Initial Consult Date 01/26/17 Type of Consultation: cardiology Reason for Consultation chest pain Referring Provider: DESTINEE ROBERTS MD Exam/Review of Systems Vital Signs Vitals Vital Signs Date Time Temp Pulse Resp B/P Pulse Ox O2 Delivery O2 Flow Rate FiO2 01/28/17 08:00 78 01/28/17 07:55 98.0 18 125/89 98 01/28/17 05:40 30 01/26/17 13:40 Mechanical Ventilator Intake and Output 01/27/17 01/27/17 01/28/17 15:00 23:00 07:00 Intake Total 210 ml Output Total 1200 ml 1350 ml Balance -990 ml -1350 ml Exam Review of Systems: CONSTITUTIONAL: No fevers, chills. PULMONARY: No sob CARDIOVASCULAR: No chest pain/palpitations GASTROINTESTINAL: No nausea/vomiting. GENITOURINARY: No hematuria/dysuria. MUSCULOSKELETAL: No myagias/arthalgias. PSYCHIATRIC: The patient denies depression. NEUROLOGIC: No weakness Constitutional: alert, oriented Psych: no complaints Head: normocephalic ENMT: mucosa pink and moist Neck: jvd (9 cm water), supple Respiratory: diminished breath sounds (at bases/B) Cardiovascular: regular rate and rhythm Gastrointestinal: non-tender, soft Musculoskeletal: muscle tone (normal) Extremities: pitting pedal edema (bilateral LE) Neurological: other (No focal deficits) Results Result Diagram: 01/28/17 0728 01/28/17 0728 Results 24 hrs Laboratory Tests Test 01/28/17 07:28 White Blood Count 4.8 Red Blood Count 2.97 L Hemoglobin 9.0 L Hematocrit 26.9 L Mean Corpuscular Volume 90.6 Mean Corpuscular Hemoglobin 30.3 Mean Corpuscular Hemoglobin Concent 33.5 Red Cell Distribution Width 20.3 H Platelet Count 248 Mean Platelet Volume 9.4 Neutrophils % 58.0 Lymphocytes % 21.5 Monocytes % 11.1 H Eosinophils % 8.6 H Basophils % 0.6 Nucleated Red Blood Cells % 0.0 Neutrophils # 2.8 Lymphocytes # 1.0 Monocytes # 0.5 Eosinophils # 0.4 Basophils # 0.0 Nucleated Red Blood Cells # 0.0 Sodium Level 144 Potassium Level 3.6 Chloride Level 112 H Carbon Dioxide Level 26 Anion Gap 10 Blood Urea Nitrogen 20 Creatinine 0.84 Glucose Level 79 # Calcium Level 9.1 Medications Medications Current Medications Dextrose/Sodium Chloride (D5-1/2ns) 1,000 ml @ 75 mls/hr [id number] IV Last administered on 01/28/17 04:01; Admin Dose 75 MLS/HR; Start 01/25/17 at 09:00 Pantoprazole (Protonix Iv) 40 mg BID IV Last administered on 01/27/17 22:06; Admin Dose 40 MG; Start 01/25/17 at 09:00 Collagenase (Santyl) 1 applic DAILY TOP Last administered on 01/27/17 10:39; Admin Dose 1 APPLIC; Start 01/26/17 at 12:30 Collagenase 1 applic 1 applic PRN PRN TOP WOUND CARE; Start 01/26/17 at 12:00 Meropenem/Sodium Chloride (Merrem 500mg/50 ml(Pmx)) 50 ml @ 100 mls/hr Q8 IVPB Last administered on 01/28/17 06:43; Admin Dose 100 MLS/HR; Start 01/26/17 at 14:00 Isosorbide Dinitrate (Isordil) 10 mg TID PO Last administered on 01/27/17 14: 13; Admin Dose 10 MG; Start 01/26/17 at 21:00 Hydralazine HCl (Apresoline) 10 mg Q4H PRN IV SBP>160,DBP>95 Last administered on 01/28/17 04:18; Admin Dose 10 MG; Start 01/27/17 at 12:00 Carvedilol (Coreg) 6.25 mg BID GTB Last administered on 01/27/17 14:13; Admin Dose 6.25 MG; Start 01/27/17 at 12:30 Benazepril HCl (Lotensin) 20 mg BID PO ; Start 01/27/17 at 21:00 BRIANNA MOSLEY 17, 2017 10:29
[2017-01-28] MEDS ORDERED: PROPOFOL 40 ML ONE (12:23)
[2017-01-28] MEDS ORDERED: LIDOCAINE 2% (SDV) 5 ML INJ ONE (12:23)
--- NOTE | 2017-01-28 13:15 | RADRPT ---
Vent Rate: 67 bpm RR Interval: 0 msec HI Interval: 98 msec QRS Duration: 118 msec QT Interval: 444 msec QTC Interval: 469 msec P-R-T [place]: 0 - 2 - 48 degrees Sinus rhythm with short HI Low voltage QRS Right bundle branch block Abnormal ECG Electronically Signed By: Zen Tanner [id number]
--- NOTE | 2017-01-28 13:28 | OPPN ---
Date/Time of Note Date/Time of Note DATE: 01/28/17 TIME: 13:26 Proc Note GI Procedure Date 01/28/17 Indication: diagnostic Pre-procedure Diagnosis GI bleeding Anemia Post-procedure Diagnosis 1. Deep esophageal ulcer involving the distal esophagus. Also was circumferential and a 3 cm in length 2. Internal stomal ulcer Colonoscopy Normal all the way into cecum Clarity cleanliness good External hemorrhoids Procedure Performed: Endoscopy, Colonoscopy Surgeon see signature line Filtration Plant Operator none Anesthesia Type: MAC Tourniquet Time none EBL none Transfusion required none Biopsy 1: None Grafts/Implants none Tubes/Drains none Complication(s) none Disposition: PACU Procedure Description Dictated PAT CHA MD Jan 28, 2017 13:28
[2017-01-28] MEDS: BENAZEPRIL 20 MG TAB PO SCH ×2 (14:17→22:15)
[2017-01-28] MEDS: PANTOPRAZOLE 40 MG INJ IV SCH ×2 (14:17→22:15)
--- NOTE | 2017-01-28 14:53 | CONS ---
Date/Time of Note Date/Time of Note DATE: 01/28/17 TIME: 14:52 Consult Date/Type/Reason Admit Date/Time Jan 25, 2017 at 15:34 Type of Consultation: ID Ordering Provider: DESTINEE ROBERTS MD Objective Vital Signs Date Time Temp Pulse Resp B/P Pulse Ox O2 Delivery O2 Flow Rate FiO2 01/28/17 13:53 64 24 139/60 100 Mechanical Ventilator 01/28/17 12:11 97.8 01/28/17 10:55 30 Intake and Output 01/27/17 01/27/17 01/28/17 15:00 23:00 07:00 Intake Total 210 ml Output Total 1200 ml 1350 ml Balance -990 ml -1350 ml Results/Medications Result Diagram: 01/28/1728 01/28/17727 Results 24 hrs Laboratory Tests Test 01/28/17 07:28 White Blood Count 4.8 Red Blood Count 2.97 L Hemoglobin 9.0 L Hematocrit 26.9 L Mean Corpuscular Volume 90.6 Mean Corpuscular Hemoglobin 30.3 Mean Corpuscular Hemoglobin Concent 33.5 Red Cell Distribution Width 20.3 H Platelet Count 248 Mean Platelet Volume 9.4 Neutrophils % 58.0 Lymphocytes % 21.5 Monocytes % 11.1 H Eosinophils % 8.6 H Basophils % 0.6 Nucleated Red Blood Cells % 0.0 Neutrophils # 2.8 Lymphocytes # 1.0 Monocytes # 0.5 Eosinophils # 0.4 Basophils # 0.0 Nucleated Red Blood Cells # 0.0 Sodium Level 144 Potassium Level 3.6 Chloride Level 112 H Carbon Dioxide Level 26 Anion Gap 10 Blood Urea Nitrogen 20 Creatinine 0.84 Glucose Level 79 # Calcium Level 9.1 Medications Current Medications Dextrose/Sodium Chloride (D5-1/2ns) 1,000 ml @ 75 mls/hr [id number] IV Last administered on 01/28/17 04:01; Admin Dose 75 MLS/HR; Start 01/25/17 at 09:00 Pantoprazole (Protonix Iv) 40 mg BID IV Last administered on 01/28/17 14:17; Admin Dose 40 MG; Start 01/25/17 at 09:00 Collagenase (Santyl) 1 applic DAILY TOP Last administered on 01/27/17 10:39; Admin Dose 1 APPLIC; Start 01/26/17 at 12:30 Collagenase 1 applic 1 applic PRN PRN TOP WOUND CARE; Start 01/26/17 at 12:00 Meropenem/Sodium Chloride (Merrem 500mg/50 ml(Pmx)) 50 ml @ 100 mls/hr Q8 IVPB Last administered on 01/28/17 14:17; Admin Dose 100 MLS/HR; Start 01/26/17 at 14:00 Isosorbide Dinitrate (Isordil) 10 mg TID PO Last administered on 01/28/17 14: 17; Admin Dose 10 MG; Start 01/26/17 at 21:00 Hydralazine HCl (Apresoline) 10 mg Q4H PRN IV SBP>160,DBP>95 Last administered on 01/28/17 04:18; Admin Dose 10 MG; Start 01/27/17 at 12:00 Carvedilol (Coreg) 6.25 mg BID GTB Last administered on 01/28/17 14:16; Admin Dose 6.25 MG; Start 01/27/17 at 12:30 Benazepril HCl (Lotensin) 20 mg BID PO Last administered on 01/28/17 14:17; Admin Dose 20 MG; Start 01/27/17 at 21:00 Assessment/Plan Chief Complaint/Hosp Course SUBJECTIVE: No acute changes. The patient is awake, looks comfortable INDWELLINGS: Trach, PEG, Car. MICROBIOLOGY: Urine culture grew Klebsiella ESBL. Blood cultures remain negative. ANTIMICROBIALS: Merrem== abx #5. DIAGNOSTICS: Chest x-ray on admission revealed worsening bilateral lower lung consolidation and possible pneumonia. PHYSICAL EXAMINATION: GENERAL: This is a chronically ill-appearing, elderly man who is in no distress. HEENT: Head atraumatic, normocephalic. Sclerae anicteric. Buccal mucosa dry. NECK: Supple. CHEST: Rise symmetrical. Breath sounds diminished to bases. HEART: S1, S2. ABDOMEN: Soft. Bowel tones present. ASSESSMENT: 1. Systemic inflammatory response syndrome with fevers and leukocytosis on admission. 2. Healthcare-associated pneumonia. 3. Klebsiella pneumoniae, Extended-Spectrum Beta-Lactamase. 4. Anemia. 5. Chronic respiratory failure. 6. Dysphagia. PLAN: The patient remains stable. Continue abx for 3 more days. DW staff Problems: NASH DOTY NP Jan 28, 2017 14:53
[2017-01-28] MEDS: COLLAGENASE 30 GM TUBE TOP SCH (15:42)
--- NOTE | 2017-01-28 16:23 | CONS ---
Date/Time of Note Date/Time of Note DATE: 01/28/17 TIME: 16:21 Consult Date/Type/Reason Admit Date/Time Jan 25, 2017 at 15:34 Type of Consultation: Pulm Ordering Provider: DESTINEE ROBERTS MD Subjective Patient comfortable. Status post PEG change. Objective Vital Signs Date Time Temp Pulse Resp B/P Pulse Ox O2 Delivery O2 Flow Rate FiO2 01/28/17 13:53 64 24 139/60 100 Mechanical Ventilator 01/28/17 12:11 97.8 01/28/17 10:55 30 Intake and Output 01/27/17 01/27/17 01/28/17 14:59 22:59 06:59 Intake Total 210 ml Output Total 1200 ml Balance -990 ml Exam PHYSICAL EXAMINATION: GENERAL: Chronically ill-appearing gentleman on mechanical ventilation, appears comfortable at rest, no acute distress. VITAL SIGNS: NECK: Trach site clean and intact. CARDIAC: S1, S2, no added sounds or murmurs. CHEST: Diminished air entry bilaterally. ABDOMEN: Soft, nontender. No guarding or rebound. EXTREMITIES: No cyanosis, clubbing, edema. NEUROLOGIC: Generalized weakness. Results/Medications Result Diagram: 01/28/1772701/28/17727 Results 24 hrs Laboratory Tests Test 01/28/17 07:28 White Blood Count 4.8 Red Blood Count 2.97 L Hemoglobin 9.0 L Hematocrit 26.9 L Mean Corpuscular Volume 90.6 Mean Corpuscular Hemoglobin 30.3 Mean Corpuscular Hemoglobin Concent 33.5 Red Cell Distribution Width 20.3 H Platelet Count 248 Mean Platelet Volume 9.4 Neutrophils % 58.0 Lymphocytes % 21.5 Monocytes % 11.1 H Eosinophils % 8.6 H Basophils % 0.6 Nucleated Red Blood Cells % 0.0 Neutrophils # 2.8 Lymphocytes # 1.0 Monocytes # 0.5 Eosinophils # 0.4 Basophils # 0.0 Nucleated Red Blood Cells # 0.0 Sodium Level 144 Potassium Level 3.6 Chloride Level 112 H Carbon Dioxide Level 26 Anion Gap 10 Blood Urea Nitrogen 20 Creatinine 0.84 Glucose Level 79 # Calcium Level 9.1 Medications Current Medications Dextrose/Sodium Chloride (D5-1/2ns) 1,000 ml @ 75 mls/hr [id number] IV Last administered on 01/28/17t 04:01; Admin Dose 75 MLS/HR; Start 01/25/17 at 09:00 Pantoprazole (Protonix Iv) 40 mg BID IV Last administered on 01/28/17 14:17; Admin Dose 40 MG; Start 01/25/17 at 09:00 Collagenase (Santyl) 1 applic DAILY TOP Last administered on 01/28/17 15:42; Admin Dose 1 APPLIC; Start 01/26/17 at 12:30 Collagenase 1 applic 1 applic PRN PRN TOP WOUND CARE; Start 01/26/17 at 12:00 Meropenem/Sodium Chloride (Merrem 500mg/50 ml(Pmx)) 50 ml @ 100 mls/hr Q8 IVPB Last administered on 01/28/17 14:17; Admin Dose 100 MLS/HR; Start 01/26/17 at 14:00 Isosorbide Dinitrate (Isordil) 10 mg TID PO Last administered on 01/28/17 14: 17; Admin Dose 10 MG; Start 01/26/17 at 21:00 Hydralazine HCl (Apresoline) 10 mg Q4H PRN IV SBP>160,DBP>95 Last administered on 01/28/17 04:18; Admin Dose 10 MG; Start 01/27/17 at 12:00 Carvedilol (Coreg) 6.25 mg BID GTB Last administered on 01/28/17 14:16; Admin Dose 6.25 MG; Start 01/27/17 at 12:30 Benazepril HCl (Lotensin) 20 mg BID PO Last administered on 01/28/17 14:17; Admin Dose 20 MG; Start 01/27/17 at 21:00 Assessment/Plan Chief Complaint/Hosp Course IMPRESSION: 1. Vent-dependent respiratory failure. 2. Positive troponin, rule out coronary ischemia. 3. Urinary tract infection. 4. History of encephalopathy. PLAN: 1. Continue vent support. 2. Antibiotics per ID. 3. DVT and GI prophylaxis. 4. Appreciate GI recs DC planning okay from pulmonary standpoint. Problems: DINORAH PELAEZ MD, [facility] Jan 28, 2017 16:23
--- NOTE | 2017-01-28 16:56 | GILP ---
DATE OF PROCEDURE: 01/28/2017 PROCEDURE PERFORMED: EGD with biopsy and colonoscopy. INDICATION: An 81-year-old male undergoing this procedure for GI bleeding manifested in the form of severe anemia requiring blood transfusion and also positive guaiac. INFORMED CONSENT: The risk of the procedure, related and unrelated complications, anesthetic risks, alternatives discussed. Informed consent was obtained. DESCRIPTION OF PROCEDURE: The procedure was done in the room because patient was on the vent, so th e patient could not be brought down. Patient was sedated by Dr. Thakkar. After optimal sedation, sc ope was passed with much ease into esophagus. The proximal and mid portion of the esophagus were no rmal, however, in the distal part there was a circumferentially distributed ulcer involving the enti re circumference of the esophagus and the length was about 3 cm. No active bleeding or oozing was s een. Stomach mucosa revealed gastritis. Duodenum, first, second part and up to third part was norm al. No evidence of AVM identified. Retroversion done in the stomach. No growth was seen. No tumo r identified. to my examination, there was still an ulcer there. No capillary or stigmata of recent hemorrhage seen. Scope was straightened out and removed with good patient tolerance. IMPRESSION: 1. Esophageal ulceration circumferentially distributed near the Z line, starting from the Z line an d extending proximally by about 3 cm. 2. Gastritis. 3. Internal stomal ulcer. 4. Normal duodenum up to the third part. PLAN: Continue PPI. Will add Carafate to the present regimen and may need Reglan because there is a constant reflux of acid in the lying position, so hopefully prokinetic agent will prevent that. COLONOSCOPY REPORT: He was turned around, scope was passed with much ease into rectum, advanced thr ough sigmoid, descending, transverse colon all the way into cecum. Appendiceal orifice identified. IC valve identified. While coming out, mucosa thoroughly inspected. The rest of the colon was nor mal. No gross lesion was seen except for the external hemorrhoids. IMPRESSION: 1. Hemorrhoids, otherwise negative all the way into the cecum. 2. Clarity and cleanliness was good. PLAN: Continue present care. Dictated By: PAT FREEMAN/IRMA Conf#: [id number] DID#: [id number]
--- NOTE | 2017-01-28 18:10 | PN ---
Date/Time of Note Date/Time of Note DATE: 01/28/17 TIME: 18:02 Assessment/Plan VTE Prophylaxis VTE Prophylaxis Intervention: SCD's Lines/Catheters IV [facility] Type [facility] Saline Lock Urinary Cath still in place: Yes Reason Cath still needed: urinary retention Assessment/Plan Chief Complaint/Hosp Course Patient status post EGD and colonoscopy today, comfortable on vent. Assessment/Plan - Chest pain, rule out acute coronary syndrome. Cardiac enzymes are negative 3. Dr Claudio ion following in cardiology consultation. - Sepsis 2 to UTI and PNA. Continue abx per ID. Dr. Jones is following in infectious disease consultation. - K Plneumo ESBL UTI - Possible healthcare-acquired pneumonia. - Gastrointestinal bleed. Continue Protonix. Continue to monitor hemoglobin and hematocrit. Dr. Hassan is following in gastroenterology consultation. Status post EGD and colonoscopy. - Anemia of acute blood loss, status post blood transfusion. - Ventilator dependent respiratory failure. Dr. Brewer is following patient in pulmonology consultation. Continue breathing treatment and oxygen supplementation and ventilatory support. Further recommendations based on clinical course. Plan of care discussed with Dr. Roa. Problems: Exam/Review of Systems Vital Signs Vitals Vital Signs Date Time Temp Pulse Resp B/P Pulse Ox O2 Delivery O2 Flow Rate FiO2 01/28/17 16:57 98.0 78 18 145/70 98 01/28/17 16:55 30 01/28/17 13:53 Mechanical Ventilator Intake and Output 01/27/17 01/27/17 01/28/17 15:00 23:00 07:00 Intake Total 210 ml Output Total 1200 ml 1350 ml Balance -990 ml -1350 ml Exam Constitutional: alert, oriented Neck: other (Tracheostomy), supple Respiratory: normal air movement Cardiovascular: nl pulses Gastrointestinal: non-tender, other (G-tube), soft Musculoskeletal: other (Contracted lower extremities) Results Result Diagram: 01/28/1772701/28/1728 Results 24 hrs Laboratory Tests Test 01/28/17 07:28 White Blood Count 4.8 Red Blood Count 2.97 L Hemoglobin 9.0 L Hematocrit 26.9 L Mean Corpuscular Volume 90.6 Mean Corpuscular Hemoglobin 30.3 Mean Corpuscular Hemoglobin Concent 33.5 Red Cell Distribution Width 20.3 H Platelet Count 248 Mean Platelet Volume 9.4 Neutrophils % 58.0 Lymphocytes % 21.5 Monocytes % 11.1 H Eosinophils % 8.6 H Basophils % 0.6 Nucleated Red Blood Cells % 0.0 Neutrophils # 2.8 Lymphocytes # 1.0 Monocytes # 0.5 Eosinophils # 0.4 Basophils # 0.0 Nucleated Red Blood Cells # 0.0 Sodium Level 144 Potassium Level 3.6 Chloride Level 112 H Carbon Dioxide Level 26 Anion Gap 10 Blood Urea Nitrogen 20 Creatinine 0.84 Glucose Level 79 # Calcium Level 9.1 Medications Medications Current Medications Dextrose/Sodium Chloride (D5-1/2ns) 1,000 ml @ 75 mls/hr [id number] IV Last administered on 01/28/17 04:01; Admin Dose 75 MLS/HR; Start 01/25/17 at 09:00 Pantoprazole (Protonix Iv) 40 mg BID IV Last administered on 01/28/17 14:17; Admin Dose 40 MG; Start 01/25/17 at 09:00 Collagenase (Santyl) 1 applic DAILY TOP Last administered on 01/28/17 15:42; Admin Dose 1 APPLIC; Start 01/26/17 at 12:30 Collagenase 1 applic 1 applic PRN PRN TOP WOUND CARE; Start 01/26/17 at 12:00 Meropenem/Sodium Chloride (Merrem 500mg/50 ml(Pmx)) 50 ml @ 100 mls/hr Q8 IVPB Last administered on 01/28/17 14:17; Admin Dose 100 MLS/HR; Start 01/26/17 at 14:00 Isosorbide Dinitrate (Isordil) 10 mg TID PO Last administered on 01/28/17 14: 17; Admin Dose 10 MG; Start 01/26/17 at 21:00 Hydralazine HCl (Apresoline) 10 mg Q4H PRN IV SBP>160,DBP>95 Last administered on 01/28/17 04:18; Admin Dose 10 MG; Start 01/27/17 at 12:00 Carvedilol (Coreg) 6.25 mg BID GTB Last administered on 01/28/17 14:16; Admin Dose 6.25 MG; Start 01/27/17 at 12:30 Benazepril HCl (Lotensin) 20 mg BID PO Last administered on 01/28/17 14:17; Admin Dose 20 MG; Start 01/27/17 at 21:00 ERROL LORD Jan 28, 2017 18:10
[2017-01-29] VITALS (26 sets, daily range): BP systolic 90–171; BP diastolic 50–85; PULSE 63–79; RESP 14–24
[2017-01-29] MEDS: DEXTROSE 5%-0.45% NACL 1,000 ML IV SCH ×2 (06:04→19:40)
[2017-01-29] MEDS: MEROPENEM 500MG/50 ML (PMX) 50 ML IVPB SCH ×3 (06:04→22:00)
[2017-01-29 08:38] LABS: BASOPHILS % 0.6 % (0.0-2.0); EOSINOPHILS # 0.5 10^3/ul (0.0-0.5); HEMATOCRIT 28.3 % (42.0-52.0); HEMOGLOBIN 8.9 g/dl (14.0-18.0); LYMPHOCYTES % 19.6 % (15.0-51.0); MEAN CORPUSCULAR HEMOGLOBIN 27.9 pg (29.0-33.0); MEAN CORPUSCULAR HGB CONC 31.4 g/dl (32.0-37.0); MEAN CORPUSCULAR VOLUME 88.7 fl (82.0-101.0); MEAN PLATELET VOLUME 10.2 fl (7.4-10.4); MONOCYTE # 0.4 10^3/ul (0.3-0.9); MONOCYTES % 8.8 % (0.0-11.0); NEUTROPHILS % 60.6 % (39.0-77.0); PLATELET COUNT 238 10^3/UL (140-415); RED BLOOD COUNT 3.19 10^6/ul (4.70-6.10); RED CELL DISTRIBUTION WIDTH 18.8 % (11.5-14.5)
[2017-01-29] MEDS: ALBUTEROL HFA 8 GM INHALER INH SCH ×4 (08:53→20:25)
[2017-01-29] MEDS: IPRATROPIUM (HFA) 12.9 GM INHALER INH SCH ×4 (08:53→20:25)
[2017-01-29 09:11] LABS: CALCIUM 9.1 mg/dl (8.4-10.2); CREATININE 0.83 mg/dl (0.61-1.24); POTASSIUM 3.4 mmol/L (3.5-5.1)
[2017-01-29] MEDS: PANTOPRAZOLE 40 MG INJ IV SCH ×2 (09:36→21:59)
[2017-01-29] MEDS: COLLAGENASE 30 GM TUBE TOP SCH (09:37)
[2017-01-29] MEDS: BENAZEPRIL 20 MG TAB PO SCH ×2 (09:37→21:58)
[2017-01-29] MEDS: ISOSORBIDE DINITRATE 10 MG TAB PO SCH ×3 (09:37→21:58)
--- NOTE | 2017-01-29 09:44 | CONS ---
Date/Time of Note Date/Time of Note DATE: 01/29/17 TIME: 09:42 Assessment/Plan Assessment/Plan Additional Assessment/Plan Ventilator setting; AC of 12, tidal volume 450, PEEP of 5, 30% FiO2. Assessment and recommendations; 1. Patient admitted with UTI and sepsis with significant clinical improvement. Currently on appropriate antibiotic regimen. 2. Chronic respiratory failure which is ventilator dependent. 3. Generalized deconditioning. 4. Status post PEG tube replacement. Continue current supportive care. Consider discharge to detention. Continue current antibiotics for now. Consultation Date/Type/Reason Admit Date/Time Jan 25, 2017 at 15:34 Initial Consult Date Type of Consultation: Pulm Referring Provider: DESTINEE ROBERTS MD 24 HR Interval Summary Free Text/Dictation Patient's condition is stable. Remains awake and alert. Has remained hemodynamically stable. Next General exam; elderly male, on ventilator via tracheostomy, awake, currently in no distress. Exam/Review of Systems Vital Signs Vitals Vital Signs Date Time Temp Pulse Resp B/P Pulse Ox O2 Delivery O2 Flow Rate FiO2 01/29/17 08:47 72 01/29/17 08:12 98.9 20 171/85 100 01/29/17 05:42 30 01/28/17 13:53 Mechanical Ventilator Intake and Output 01/28/17 01/28/17 01/29/17 14:59 22:59 06:59 Intake Total 350 ml 1435 ml Output Total 1350 ml 300 ml 350 ml Balance -1350 ml 50 ml 1085 ml Exam HEENT exam; supple neck, no JVD. No lymphadenopathy. Midline trachea. No thyromegaly. Tracheostomy in place. Insertion site is clean. Chest exam; clear to auscultation. S1-S2 audible, no murmurs. Regular rhythm. Abdomen exam; soft, PEG tube in place. Nontender. No organomegaly. Bowel sounds audible. Extremity exam; no peripheral edema. No clubbing. 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 Results Result Diagram: 01/29/17 0801/29/17 0806 Results 24 hrs Laboratory Tests Test 01/29/17 06:45 01/29/17 08:06 Lab Scanned Report BLOOD TRANSFUSION White Blood Count 5.0 Red Blood Count 3.19 L Hemoglobin 8.9 L Hematocrit 28.3 L Mean Corpuscular Volume 88.7 Mean Corpuscular Hemoglobin 27.9 L Mean Corpuscular Hemoglobin Concent 31.4 L Red Cell Distribution Width 18.8 H Platelet Count 238 Mean Platelet Volume 10.2 Neutrophils % 60.6 Lymphocytes % 19.6 Monocytes % 8.8 Eosinophils % 10.0 H Basophils % 0.6 Nucleated Red Blood Cells % 0.0 Neutrophils # 3.0 Lymphocytes # 1.0 Monocytes # 0.4 Eosinophils # 0.5 Basophils # 0.0 Nucleated Red Blood Cells # 0.0 Sodium Level 145 H Potassium Level 3.4 L Chloride Level 114 H Carbon Dioxide Level 26 Anion Gap 8 Blood Urea Nitrogen 17 Creatinine 0.83 Glucose Level 87 Calcium Level 9.1 Medications Medications Current Medications Dextrose/Sodium Chloride (D5-1/2ns) 1,000 ml @ 75 mls/hr [id number] IV Last administered on 01/29/17 06:04; Admin Dose 75 MLS/HR; Start 01/25/17 at 09:00 Pantoprazole (Protonix Iv) 40 mg BID IV Last administered on 01/29/17 09:36; Admin Dose 40 MG; Start 01/25/17 at 09:00 Collagenase (Santyl) 1 applic DAILY TOP Last administered on 01/29/17 09:37; Admin Dose 1 APPLIC; Start 01/26/17 at 12:30 Collagenase 1 applic 1 applic PRN PRN TOP WOUND CARE; Start 01/26/17 at 12:00 Meropenem/Sodium Chloride (Merrem 500mg/50 ml(Pmx)) 50 ml @ 100 mls/hr Q8 IVPB Last administered on 01/29/17 06:04; Admin Dose 100 MLS/HR; Start 01/26/17 at 14:00 Isosorbide Dinitrate (Isordil) 10 mg TID PO Last administered on 01/29/17 09: 37; Admin Dose 10 MG; Start 01/26/17 at 21:00 Hydralazine HCl (Apresoline) 10 mg Q4H PRN IV SBP>160,DBP>95 Last administered on 01/28/17 04:18; Admin Dose 10 MG; Start 01/27/17 at 12:00 Carvedilol (Coreg) 6.25 mg BID GTB Last administered on 01/29/17 09:37; Admin Dose 6.25 MG; Start 01/27/17 at 12:30 Benazepril HCl (Lotensin) 20 mg BID PO Last administered on 01/29/17 09:37; Admin Dose 20 MG; Start 01/27/17 at 21:00 BILLIE ARCE Jan 29, 2017 09:44
--- NOTE | 2017-01-29 13:58 | CONS ---
Date/Time of Note Date/Time of Note DATE: 01/29/17 TIME: 13:57 Assessment/Plan Assessment/Plan Additional Assessment/Plan Additional Assessment/Plan IMPRESSION: 1. Chest pain. Workup in process. 2. Sepsis. 3. Decubitus ulcer. 4. Anemia, rule out gastrointestinal bleeding. 5. Ventilator-dependent respiratory failure. 6. Positive stool guaiac 7. esophageal ulcer Plan PPI,Carafate,REGLAN Consultation Date/Type/Reason Admit Date/Time Jan 25, 2017 at 15:34 Type of Consultation: Pulm Referring Provider: DESTINEE ROBERTS MD 24 HR Interval Summary Constitutional: improved, no complaints Exam/Review of Systems Vital Signs Vitals Vital Signs Date Time Temp Pulse Resp B/P Pulse Ox O2 Delivery O2 Flow Rate FiO2 01/29/17 12:51 73 01/29/17 12:07 99.1 18 90/50 96 01/29/17 11:10 30 01/28/17 13:53 Mechanical Ventilator Intake and Output 01/28/17 01/28/17 01/29/17 15:00 23:00 07:00 Intake Total 50 ml 300 ml 1435 ml Output Total 300 ml 350 ml Balance 50 ml 0 ml 1085 ml Exam Constitutional: alert, oriented, well developed Psych: nl mood/affect, no complaints Head: atraumatic, normocephalic Eyes: EOMI, PERRL, nl conjunctiva, nl lids, nl sclera ENMT: nl external ears & nose, nl lips & teeth, nl nasal mucosa & septum Neck: non-tender, supple Respiratory: clear to auscultation, normal air movement Cardiovascular: nl pulses, regular rate and rhythm Gastrointestinal: nl liver, spleen, non-tender, soft Musculoskeletal: nl extremities to inspection, nl gait and stance Extremities: normal pulses Neurological: [employer] 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 II-XII intact, nl mental status, nl speech, nl strength Skin: nl turgor, No rash or lesions Lymph: nl lymph nodes Results Result Diagram: 01/29/17 0806 01/29/17 0806 Results 24 hrs Laboratory Tests Test 01/29/17 06:45 01/29/17 08:06 Lab Scanned Report BLOOD TRANSFUSION White Blood Count 5.0 Red Blood Count 3.19 L Hemoglobin 8.9 L Hematocrit 28.3 L Mean Corpuscular Volume 88.7 Mean Corpuscular Hemoglobin 27.9 L Mean Corpuscular Hemoglobin Concent 31.4 L Red Cell Distribution Width 18.8 H Platelet Count 238 Mean Platelet Volume 10.2 Neutrophils % 60.6 Lymphocytes % 19.6 Monocytes % 8.8 Eosinophils % 10.0 H Basophils % 0.6 Nucleated Red Blood Cells % 0.0 Neutrophils # 3.0 Lymphocytes # 1.0 Monocytes # 0.4 Eosinophils # 0.5 Basophils # 0.0 Nucleated Red Blood Cells # 0.0 Sodium Level 145 H Potassium Level 3.4 L Chloride Level 114 H Carbon Dioxide Level 26 Anion Gap 8 Blood Urea Nitrogen 17 Creatinine 0.83 Glucose Level 87 Calcium Level 9.1 Medications Medications Current Medications Dextrose/Sodium Chloride (D5-1/2ns) 1,000 ml @ 75 mls/hr [id number] IV Last administered on 01/29/17 06:04; Admin Dose 75 MLS/HR; Start 01/25/17 at 09:00 Pantoprazole (Protonix Iv) 40 mg BID IV Last administered on 01/29/17 09:36; Admin Dose 40 MG; Start 01/25/17 at 09:00 Collagenase (Santyl) 1 applic DAILY TOP Last administered on 01/29/17 09:37; Admin Dose 1 APPLIC; Start 01/26/17 at 12:30 Collagenase 1 applic 1 applic PRN PRN TOP WOUND CARE; Start 01/26/17 at 12:00 Meropenem/Sodium Chloride (Merrem 500mg/50 ml(Pmx)) 50 ml @ 100 mls/hr Q8 IVPB Last administered on 01/29/17 13:30; Admin Dose 100 MLS/HR; Start 01/26/17 at 14:00 Isosorbide Dinitrate (Isordil) 10 mg TID PO Last administered on 01/29/17 09: 37; Admin Dose 10 MG; Start 01/26/17 at 21:00 Hydralazine HCl (Apresoline) 10 mg Q4H PRN IV SBP>160,DBP>95 Last administered on 01/28/17 04:18; Admin Dose 10 MG; Start 01/27/17 at 12:00 Carvedilol (Coreg) 6.25 mg BID GTB Last administered on 01/29/17 09:37; Admin Dose 6.25 MG; Start 01/27/17 at 12:30 Benazepril HCl (Lotensin) 20 mg BID PO Last administered on 01/29/17t 09:37; Admin Dose 20 MG; Start 01/27/17 at 21:00 PAT CHA MD Jan 29, 2017 13:58
--- NOTE | 2017-01-29 15:08 | PN ---
Date/Time of Note Date/Time of Note DATE: 01/29/17 TIME: 15:08 Assessment/Plan VTE Prophylaxis VTE Prophylaxis Intervention: other Lines/Catheters IV Catheter Type (from [facility]): [facility] [facility] Urinary Cath still in place: Yes Reason Cath still needed: urinary retention Assessment/Plan Assessment/Plan - Hypokalemia- replace K. am BMP - Chest pain, rule out acute coronary syndrome. Cardiac enzymes are negative 3. Dr Claudio ion following in cardiology consultation. - Sepsis 2 to UTI and PNA. Continue abx per ID. Dr. Jones is following in infectious disease consultation. - K Plneumo ESBL UTI - Possible healthcare-acquired pneumonia. - Gastrointestinal bleed. Continue Protonix. Continue to monitor hemoglobin and hematocrit. Dr. Hassan is following in gastroenterology consultation. Status post EGD and colonoscopy. - Anemia of acute blood loss, status post blood transfusion. - Ventilator dependent respiratory failure. Dr. Brewer is following patient in pulmonology consultation. Continue breathing treatment and oxygen supplementation and ventilatory support. [place] evok- no bed available today.Further recommendations based on clinical course. Plan of care discussed with Dr. Roa. Subjective 24 Hr Interval Summary Subjective hx not possible: pt non-verbal Constitutional: requiring IVF, requiring O2 Exam/Review of Systems Vital Signs Vitals Vital Signs Date Time Temp Pulse Resp B/P Pulse Ox O2 Delivery O2 Flow Rate FiO2 01/29/17 12:51 73 01/29/17 12:07 99.1 18 90/50 96 01/29/17 11:10 30 01/28/17 13:53 Mechanical Ventilator Intake and Output 01/28/17 01/28/17 01/29/17 15:00 23:00 07:00 Intake Total 50 ml 300 ml 1435 ml Output Total 300 ml 350 ml Balance 50 ml 0 ml 1085 ml Exam Respiratory: diminished breath sounds Gastrointestinal: non-tender, soft Musculoskeletal: nl extremities to inspection Extremities: normal pulses Neurological: unresponsive Results Result Diagram: 01/29/17 0806 01/29/17 0806 Results 24 hrs Laboratory Tests Test 01/29/17 06:45 01/29/17 08:06 Lab Scanned Report BLOOD TRANSFUSION White Blood Count 5.0 Red Blood Count 3.19 L Hemoglobin 8.9 L Hematocrit 28.3 L Mean Corpuscular Volume 88.7 Mean Corpuscular Hemoglobin 27.9 L Mean Corpuscular Hemoglobin Concent 31.4 L Red Cell Distribution Width 18.8 H Platelet Count 238 Mean Platelet Volume 10.2 Neutrophils % 60.6 Lymphocytes % 19.6 Monocytes % 8.8 Eosinophils % 10.0 H Basophils % 0.6 Nucleated Red Blood Cells % 0.0 Neutrophils # 3.0 Lymphocytes # 1.0 Monocytes # 0.4 Eosinophils # 0.5 Basophils # 0.0 Nucleated Red Blood Cells # 0.0 Sodium Level 145 H Potassium Level 3.4 L Chloride Level 114 H Carbon Dioxide Level 26 Anion Gap 8 Blood Urea Nitrogen 17 Creatinine 0.83 Glucose Level 87 Calcium Level 9.1 Medications Medications Current Medications Dextrose/Sodium Chloride (D5-1/2ns) 1,000 ml @ 75 mls/hr [id number] IV Last administered on 01/29/17 06:04; Admin Dose 75 MLS/HR; Start 01/25/17 at 09:00 Pantoprazole (Protonix Iv) 40 mg BID IV Last administered on 01/29/17 09:36; Admin Dose 40 MG; Start 01/25/17 at 09:00 Collagenase (Santyl) 1 applic DAILY TOP Last administered on 01/29/17 09:37; Admin Dose 1 APPLIC; Start 01/26/17 at 12:30 Collagenase 1 applic 1 applic PRN PRN TOP WOUND CARE; Start 01/26/17 at 12:00 Meropenem/Sodium Chloride (Merrem 500mg/50 ml(Pmx)) 50 ml @ 100 mls/hr Q8 IVPB Last administered on 01/29/17 13:30; Admin Dose 100 MLS/HR; Start 01/26/17 at 14:00 Isosorbide Dinitrate (Isordil) 10 mg TID PO Last administered on 01/29/17 09: 37; Admin Dose 10 MG; Start 01/26/17 at 21:00 Hydralazine HCl (Apresoline) 10 mg Q4H PRN IV SBP>160,DBP>95 Last administered on 01/28/17 04:18; Admin Dose 10 MG; Start 01/27/17 at 12:00 Carvedilol (Coreg) 6.25 mg BID GTB Last administered on 01/29/17 09:37; Admin Dose 6.25 MG; Start 01/27/17 at 12:30 Benazepril HCl (Lotensin) 20 mg BID PO Last administered on 01/29/17t 09:37; Admin Dose 20 MG; Start 01/27/17 at 21:00 Sucralfate (Carafate Susp) 1 gm QID GTB ; Start 01/29/17 at 17:00 Metoclopramide HCl (Reglan) 5 mg TID PO ; Start 01/29/17 at 14:00 JOÃO JUAREZ Jan 29, 2017 15:08
--- NOTE | 2017-01-29 15:16 | CONS ---
Date/Time of Note Date/Time of Note DATE: 01/29/17 TIME: 15:16 Assessment/Plan Assessment/Plan Chief Complaint/Hosp Course ID PROGRESS NOTE CURRENT ABX: DAY # 5=>Merrem 24H INTERVAL SUMMARY * Resting comfortably , afebrile, VSS, NAD, no new c/o, no new issues -> female in room ?caregiver, tells me he wakes up and is responsive at times and is doing well, stable * CHART REVIEWED: See vitals, labs as per below. * MICRO REVIEWED: Urine culture grew Klebsiella ESBL. Blood cultures remain negative. * INDWELLINGS: Trach, PEG, Car. * DIAGNOSTICS: Chest x-ray on admission revealed worsening bilateral lower lung consolidation and possible pneumonia. PHYSICAL EXAMINATION: GENERAL: VSS, afebrile, NAD, non-communicative HEENT: Unremarkable NECK: Trach, chronic resp failure CHEST: Equal chest rise bilaterally, without dyspnea on observation HEART: RRR ABDOMEN: Soft, NT, ND : FC, clear yellow urine EXT: Warm, BKA SKIN: No rash, no diaphoresis ID ASSESSMENT: 81 yo M admit VPH: 1. Systemic inflammatory response syndrome with fevers and leukocytosis on admission. 2. Healthcare-associated pneumonia. 3. Klebsiella pneumoniae, Extended-Spectrum Beta-Lactamase. 4. Anemia. 5. Chronic respiratory failure. 6. Dysphagia. ( )MRSA ABX ALLERGIES: None to ABX INVASIVES: PIV,Trach, Peg, FC CURRENT ABX: DAY # 5=>Merrem ID RECOMMENDATIONS/PLAN: 1. Continue current ABX over the weekend 2. ID team consultants will continue to follow . Problems: Consultation Date/Type/Reason Admit Date/Time Jan 25, 2017 at 15:34 Initial Consult Date Referring Provider: DESTINEE ROBERTS MD Exam/Review of Systems Vital Signs Vitals Vital Signs Date Time Temp Pulse Resp B/P Pulse Ox O2 Delivery O2 Flow Rate FiO2 01/29/17 12:51 73 01/29/17 12:07 99.1 18 90/50 96 01/29/17 11:10 30 01/28/17 13:53 Mechanical Ventilator Intake and Output 01/28/17 01/28/17 01/29/17 15:00 23:00 07:00 Intake Total 50 ml 300 ml 1435 ml Output Total 300 ml 350 ml Balance 50 ml 0 ml 1085 ml Results Result Diagram: 01/29/17 0806 01/29/17 0806 Results 24 hrs Laboratory Tests Test 01/29/17 06:45 01/29/17 08:06 Lab Scanned Report BLOOD TRANSFUSION White Blood Count 5.0 Red Blood Count 3.19 L Hemoglobin 8.9 L Hematocrit 28.3 L Mean Corpuscular Volume 88.7 Mean Corpuscular Hemoglobin 27.9 L Mean Corpuscular Hemoglobin Concent 31.4 L Red Cell Distribution Width 18.8 H Platelet Count 238 Mean Platelet Volume 10.2 Neutrophils % 60.6 Lymphocytes % 19.6 Monocytes % 8.8 Eosinophils % 10.0 H Basophils % 0.6 Nucleated Red Blood Cells % 0.0 Neutrophils # 3.0 Lymphocytes # 1.0 Monocytes # 0.4 Eosinophils # 0.5 Basophils # 0.0 Nucleated Red Blood Cells # 0.0 Sodium Level 145 H Potassium Level 3.4 L Chloride Level 114 H Carbon Dioxide Level 26 Anion Gap 8 Blood Urea Nitrogen 17 Creatinine 0.83 Glucose Level 87 Calcium Level 9.1 Medications Medications Current Medications Dextrose/Sodium Chloride (D5-1/2ns) 1,000 ml @ 75 mls/hr [id number] IV Last administered on 01/29/17 06:04; Admin Dose 75 MLS/HR; Start 01/25/17 at 09:00 Pantoprazole (Protonix Iv) 40 mg BID IV Last administered on 01/29/17 09:36; Admin Dose 40 MG; Start 01/25/17 at 09:00 Collagenase (Santyl) 1 applic DAILY TOP Last administered on 01/29/17 09:37; Admin Dose 1 APPLIC; Start 01/26/17 at 12:30 Collagenase 1 applic 1 applic PRN PRN TOP WOUND CARE; Start 01/26/17 at 12:00 Meropenem/Sodium Chloride (Merrem 500mg/50 ml(Pmx)) 50 ml @ 100 mls/hr Q8 IVPB Last administered on 01/29/17 13:30; Admin Dose 100 MLS/HR; Start 01/26/17 at 14:00 Isosorbide Dinitrate (Isordil) 10 mg TID PO Last administered on 01/29/17 09: 37; Admin Dose 10 MG; Start 01/26/17 at 21:00 Hydralazine HCl (Apresoline) 10 mg Q4H PRN IV SBP>160,DBP>95 Last administered on 01/28/17 04:18; Admin Dose 10 MG; Start 01/27/17 at 12:00 Carvedilol (Coreg) 6.25 mg BID GTB Last administered on 01/29/17 09:37; Admin Dose 6.25 MG; Start 01/27/17 at 12:30 Benazepril HCl (Lotensin) 20 mg BID PO Last administered on 01/29/17 09:37; Admin Dose 20 MG; Start 01/27/17 at 21:00 Sucralfate (Carafate Susp) 1 gm QID GTB ; Start 01/29/17 at 17:00 Metoclopramide HCl 5 mg 5 mg TID PO ; Start 01/29/17 at 14:00 Potassium Chloride/Dextrose (KCl/D5W) 110 ml @ 55 mls/hr ONCE ONCE IVPB ; Start 01/29/17 at 16:00; Stop 01/29/17 at 17:59 OSCAR GAONA NP Jan 29, 2017 15:16
--- NOTE | 2017-01-29 15:24 | CONS ---
Date/Time of Note Date/Time of Note DATE: 01/29/17 TIME: 15:23 Assessment/Plan Assessment/Plan Additional Assessment/Plan 1. acute Kidney injury due to prerenal azotemia 2. Hypernatremia due to large free water deficit 3. Hypokalemia, persistent depite agressive replacement 3. Sepsis due to UTI and PNA, k[place] PNA and ESBL E Coli UTI 4. Chronic resp failure s/p tracheostomy vent depedant 5. Chronic encephalopathy 6. S/P G tube 7. GI bleeding s/p Colonosocopy by GI Plan: Continue current IVF and TF Agressove L replacement today Bp stabl monitor Hb and prn Transfusion Check Magnesium with AM labs Thanks for consultatino, we will continue to follow up. Consultation Date/Type/Reason Admit Date/Time Jan 25, 2017 at 15:34 Date of Consultation: Jan 29, 2017 Type of Consultation: NEPHROLOGY Reason for Consultation Hypernatremia, Hypokalemia, GI bleeding, pre renal azotemia Referring Provider: DESTINEE ROBERTS MD Subjective hx not possible: pt non-verbal Constitutional: requiring IVF, requiring O2 Psychological: nl mood/affect, no complaints Past Surgical History Past Surgical Hx: other Social History Smoking Status: Never smoker Exam/Review of Systems Vital Signs Vitals Vital Signs Date Time Temp Pulse Resp B/P Pulse Ox O2 Delivery O2 Flow Rate FiO2 01/29/17 12:51 73 01/29/17 12:07 99.1 18 90/50 96 01/29/17 11:10 30 01/28/17 13:53 Mechanical Ventilator Intake and Output 01/28/17 01/28/17 01/29/17 15:00 23:00 07:00 Intake Total 50 ml 300 ml 1435 ml Output Total 300 ml 350 ml Balance 50 ml 0 ml 1085 ml Exam Constitutional: non-verbal Head: normocephalic ENMT: other (+ tracheostomy site is clear ) Neck: non-tender, supple Respiratory: congested cough, crackles/rales, diminished breath sounds Cardiovascular: nl pulses, regular rate and rhythm Gastrointestinal: other (G tube in place ), soft Musculoskeletal: muscle weakness, range of motion (limited ) Extremities: normal pulses, other (hand swelling + ) Results Result Diagram: 01/29/17 0801/29/17 0806 Results 24 hrs Laboratory Tests Test 01/29/17 06:45 01/29/17 08:06 Lab Scanned Report BLOOD TRANSFUSION White Blood Count 5.0 Red Blood Count 3.19 L Hemoglobin 8.9 L Hematocrit 28.3 L Mean Corpuscular Volume 88.7 Mean Corpuscular Hemoglobin 27.9 L Mean Corpuscular Hemoglobin Concent 31.4 L Red Cell Distribution Width 18.8 H Platelet Count 238 Mean Platelet Volume 10.2 Neutrophils % 60.6 Lymphocytes % 19.6 Monocytes % 8.8 Eosinophils % 10.0 H Basophils % 0.6 Nucleated Red Blood Cells % 0.0 Neutrophils # 3.0 Lymphocytes # 1.0 Monocytes # 0.4 Eosinophils # 0.5 Basophils # 0.0 Nucleated Red Blood Cells # 0.0 Sodium Level 145 H Potassium Level 3.4 L Chloride Level 114 H Carbon Dioxide Level 26 Anion Gap 8 Blood Urea Nitrogen 17 Creatinine 0.83 Glucose Level 87 Calcium Level 9.1 Medications Medications Current Medications Dextrose/Sodium Chloride (D5-1/2ns) 1,000 ml @ 75 mls/hr [id number] IV Last administered on 01/29/17 06:04; Admin Dose 75 MLS/HR; Start 01/25/17 at 09:00 Pantoprazole (Protonix Iv) 40 mg BID IV Last administered on 01/29/17 09:36; Admin Dose 40 MG; Start 01/25/17 at 09:00 Collagenase (Santyl) 1 applic DAILY TOP Last administered on 01/29/17 09:37; Admin Dose 1 APPLIC; Start 01/26/17 at 12:30 Collagenase 1 applic 1 applic PRN PRN TOP WOUND CARE; Start 01/26/17 at 12:00 Meropenem/Sodium Chloride (Merrem 500mg/50 ml(Pmx)) 50 ml @ 100 mls/hr Q8 IVPB Last administered on 01/29/17 13:30; Admin Dose 100 MLS/HR; Start 01/26/17 at 14:00 Isosorbide Dinitrate (Isordil) 10 mg TID PO Last administered on 01/29/17 09: 37; Admin Dose 10 MG; Start 01/26/17 at 21:00 Hydralazine HCl (Apresoline) 10 mg Q4H PRN IV SBP>160,DBP>95 Last administered on 01/28/17 04:18; Admin Dose 10 MG; Start 01/27/17 at 12:00 Carvedilol (Coreg) 6.25 mg BID GTB Last administered on 01/29/17 09:37; Admin Dose 6.25 MG; Start 01/27/17 at 12:30 Benazepril HCl (Lotensin) 20 mg BID PO Last administered on 01/29/17 09:37; Admin Dose 20 MG; Start 01/27/17 at 21:00 Sucralfate (Carafate Susp) 1 gm QID GTB ; Start 01/29/17 at 17:00 Metoclopramide HCl 5 mg 5 mg TID PO ; Start 01/29/17 at 14:00 Potassium Chloride/Dextrose (KCl/D5W) 110 ml @ 55 mls/hr ONCE ONCE IVPB ; Start 01/29/17 at 16:00; Stop 01/29/17 at 17:59 Acetaminophen (Tylenol Tab) 650 mg Q6H PRN GTB PAIN AND OR ELEVATED TEMP; Start 01/29/17 at 15:30 ROULA YEPEZ MD Jan 29, 2017 15:24
[2017-01-29] MEDS ORDERED: ACETAMINOPHEN 325 MG TAB GTB PRN (15:30)
--- NOTE | 2017-01-29 15:41 | CONS ---
Date/Time of Note Date/Time of Note DATE: 01/29/17 TIME: 15:36 Assessment/Plan Assessment/Plan Chief Complaint/Hosp Course IMPRESSION: 1. Chest pain, assess for acute coronary syndrome with negative troponins x3 and resolved chest pain at this time./NL EF by echo this admit 2. Abnormal electrocardiogram with nonspecific ST-T abnormalities diffusely, incomplete right bundle branch block. 3. Hypertension, uncontrolled but meds held for endoscopy 4. Chronic respiratory failure, status post trach. 5. Anemia with occult blood positivity in stool, assess for gastrointestinal bleed s/p endoscopy with esopahgeal ulceration 6. Hypernatremia. 7. Suppressed TSH, assess thyroid state-NL Free T4 REcc: -Tele -Continue acei/coreg/isordil and f/u BP after taking -follow volume status closely Problems: Consultation Date/Type/Reason Admit Date/Time Jan 25, 2017 at 15:34 Initial Consult Date 01/26/17 Type of Consultation: cardiology Reason for Consultation chest pain Referring Provider: DESTINEE ROBERTS MD Exam/Review of Systems Vital Signs Vitals Vital Signs Date Time Temp Pulse Resp B/P Pulse Ox O2 Delivery O2 Flow Rate FiO2 01/29/17 12:51 73 01/29/17 12:07 99.1 18 90/50 96 01/29/17 11:10 30 01/28/17 13:53 Mechanical Ventilator Intake and Output 01/28/17 01/28/17 01/29/17 15:00 23:00 07:00 Intake Total 50 ml 300 ml 1435 ml Output Total 300 ml 350 ml Balance 50 ml 0 ml 1085 ml Exam Review of Systems: CONSTITUTIONAL: No fevers, chills. PULMONARY: No sob CARDIOVASCULAR: No chest pain/palpitations GASTROINTESTINAL: No nausea/vomiting. GENITOURINARY: No hematuria/dysuria. MUSCULOSKELETAL: No myagias/arthalgias. PSYCHIATRIC: The patient denies depression. NEUROLOGIC: No weakness Constitutional: alert Psych: no complaints Neck: other (trached) Respiratory: other (upper airway rhonchi) Cardiovascular: regular rate and rhythm Gastrointestinal: soft Musculoskeletal: muscle tone Neurological: other (No focal deficits) Results Result Diagram: 01/29/17 0806 01/29/17 0806 Results 24 hrs Laboratory Tests Test 01/29/17 06:45 01/29/17 08:06 Lab Scanned Report BLOOD TRANSFUSION White Blood Count 5.0 Red Blood Count 3.19 L Hemoglobin 8.9 L Hematocrit 28.3 L Mean Corpuscular Volume 88.7 Mean Corpuscular Hemoglobin 27.9 L Mean Corpuscular Hemoglobin Concent 31.4 L Red Cell Distribution Width 18.8 H Platelet Count 238 Mean Platelet Volume 10.2 Neutrophils % 60.6 Lymphocytes % 19.6 Monocytes % 8.8 Eosinophils % 10.0 H Basophils % 0.6 Nucleated Red Blood Cells % 0.0 Neutrophils # 3.0 Lymphocytes # 1.0 Monocytes # 0.4 Eosinophils # 0.5 Basophils # 0.0 Nucleated Red Blood Cells # 0.0 Sodium Level 145 H Potassium Level 3.4 L Chloride Level 114 H Carbon Dioxide Level 26 Anion Gap 8 Blood Urea Nitrogen 17 Creatinine 0.83 Glucose Level 87 Calcium Level 9.1 Medications Medications Current Medications Dextrose/Sodium Chloride (D5-1/2ns) 1,000 ml @ 75 mls/hr [id number] IV Last administered on 01/29/17 06:04; Admin Dose 75 MLS/HR; Start 01/25/17 at 09:00 Pantoprazole (Protonix Iv) 40 mg BID IV Last administered on 01/29/17 09:36; Admin Dose 40 MG; Start 01/25/17 at 09:00 Collagenase (Santyl) 1 applic DAILY TOP Last administered on 01/29/17 09:37; Admin Dose 1 APPLIC; Start 01/26/17 at 12:30 Collagenase 1 applic 1 applic PRN PRN TOP WOUND CARE; Start 01/26/17 at 12:00 Meropenem/Sodium Chloride (Merrem 500mg/50 ml(Pmx)) 50 ml @ 100 mls/hr Q8 IVPB Last administered on 01/29/17 13:30; Admin Dose 100 MLS/HR; Start 01/26/17 at 14:00 Isosorbide Dinitrate (Isordil) 10 mg TID PO Last administered on 01/29/17 09: 37; Admin Dose 10 MG; Start 01/26/17 at 21:00 Hydralazine HCl (Apresoline) 10 mg Q4H PRN IV SBP>160,DBP>95 Last administered on 01/28/17 04:18; Admin Dose 10 MG; Start 01/27/17 at 12:00 Carvedilol (Coreg) 6.25 mg BID GTB Last administered on 01/29/17 09:37; Admin Dose 6.25 MG; Start 01/27/17 at 12:30 Benazepril HCl (Lotensin) 20 mg BID PO Last administered on 01/29/17 09:37; Admin Dose 20 MG; Start 01/27/17 at 21:00 Sucralfate (Carafate Susp) 1 gm QID GTB ; Start 01/29/17 at 17:00 Metoclopramide HCl 5 mg 5 mg TID PO ; Start 01/29/17 at 14:00 Potassium Chloride/Dextrose (KCl/D5W) 110 ml @ 55 mls/hr ONCE ONCE IVPB ; Start 01/29/17 at 16:00; Stop 01/29/17 at 17:59 Acetaminophen (Tylenol Tab) 650 mg Q6H PRN GTB PAIN AND OR ELEVATED TEMP; Start 01/29/17 at 15:30 BRIANNA MOSLEY Jan 29, 2017 15:41
[2017-01-29] MEDS ORDERED: POTASSIUM CHLORIDE 20 MEQ in DEXTROSE 5% 100 ML IVPB ONE (16:00)
[2017-01-29] MEDS: SUCRALFATE (100 MG/ML) 10ML CUP GTB SCH ×2 (18:15→21:57)
[2017-01-29] MEDS: METOCLOPRAMIDE 5 MG TAB PO SCH ×2 (18:15→21:59)
[2017-01-30] VITALS (22 sets, daily range): BP systolic 101–159; BP diastolic 53–81; PULSE 66–75; RESP 15–20
[2017-01-30] MEDS: DEXTROSE 5%-0.45% NACL 1,000 ML IV SCH ×3 (02:03→17:44)
[2017-01-30] MEDS: MEROPENEM 500MG/50 ML (PMX) 50 ML IVPB SCH ×3 (05:03→21:29)
[2017-01-30 06:34] LABS: BASOPHILS % 0.6 % (0.0-2.0); EOSINOPHILS # 0.5 10^3/ul (0.0-0.5); HEMATOCRIT 26.8 % (42.0-52.0); HEMOGLOBIN 8.7 g/dl (14.0-18.0); LYMPHOCYTES # 1.2 10^3/ul (0.8-2.9); LYMPHOCYTES % 24.9 % (15.0-51.0); MEAN CORPUSCULAR HEMOGLOBIN 29.5 pg (29.0-33.0); MEAN CORPUSCULAR HGB CONC 32.5 g/dl (32.0-37.0); MEAN CORPUSCULAR VOLUME 90.8 fl (82.0-101.0); MEAN PLATELET VOLUME 10.1 fl (7.4-10.4); MONOCYTE # 0.5 10^3/ul (0.3-0.9); NEUTROPHIL # 2.7 10^3/ul (1.6-7.5); NEUTROPHILS % 54.3 % (39.0-77.0); PLATELET COUNT 229 10^3/UL (140-415); RED BLOOD COUNT 2.95 10^6/ul (4.70-6.10); RED CELL DISTRIBUTION WIDTH 19.3 % (11.5-14.5)
[2017-01-30 06:55] LABS: CALCIUM 8.6 mg/dl (8.4-10.2); CREATININE 0.89 mg/dl (0.61-1.24)
[2017-01-30] MEDS: IPRATROPIUM (HFA) 12.9 GM INHALER INH SCH ×3 (09:27→21:17)
[2017-01-30] MEDS: ALBUTEROL HFA 8 GM INHALER INH SCH ×3 (09:28→21:17)
[2017-01-30] MEDS: SUCRALFATE (100 MG/ML) 10ML CUP GTB SCH ×4 (09:49→21:29)
[2017-01-30] MEDS: METOCLOPRAMIDE 5 MG TAB PO SCH ×3 (09:49→21:31)
[2017-01-30] MEDS: BENAZEPRIL 20 MG TAB PO SCH ×2 (09:50→21:29)
[2017-01-30] MEDS: COLLAGENASE 30 GM TUBE TOP SCH (09:50)
[2017-01-30] MEDS: PANTOPRAZOLE 40 MG INJ IV SCH ×2 (09:50→21:29)
[2017-01-30] MEDS: ISOSORBIDE DINITRATE 10 MG TAB PO SCH ×3 (09:50→21:31)
--- NOTE | 2017-01-30 10:34 | CONS ---
Date/Time of Note Date/Time of Note DATE: 01/30/17 TIME: 10:32 Assessment/Plan Assessment/Plan Additional Assessment/Plan Assessment and recommendations; 1. Patient admitted with UTI with significant clinical improvement. 2. Chronic respiratory failure, which is ventilator dependent. 3. Generalized deconditioning. 4. Anemia. 5. Status post PEG tube replacement. Continue current supportive care. Consider discharge. Consultation Date/Type/Reason Admit Date/Time Jan 25, 2017 at 15:34 Type of Consultation: Pulmonary Referring Provider: DESTINEE ROBERTS MD 24 HR Interval Summary Free Text/Dictation Patient's condition is stable. Remains awake and alert. Has remained hemodynamically stable. General exam; elderly male, on ventilator via tracheostomy currently in no distress. Exam/Review of Systems Vital Signs Vitals Vital Signs Date Time Temp Pulse Resp B/P Pulse Ox O2 Delivery O2 Flow Rate FiO2 01/30/17 09:20 76 15 98 30 01/30/17 08:18 98.0 114/55 01/28/17 13:53 Mechanical Ventilator Intake and Output 01/29/17 01/29/17 01/30/17 15:00 23:00 07:00 Intake Total 50 ml 1660 ml Output Total 450 ml 350 ml Balance 50 ml -450 ml 1310 ml Exam HEENT exam; supple neck, no JVD. No lymphadenopathy. Midline trachea. No thyromegaly. Tracheostomy in place. Chest exam; clear to auscultation. S1-S2 audible, no murmurs. Regular rhythm. Abdomen exam; soft, nontender. No organomegaly. PEG tube in place. Bowel sounds audible. Extremity exam; no peripheral edema. 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 Results Result Diagram: 01/30/17 0545 01/30/17 0545 Results 24 hrs Laboratory Tests Test 01/30/17 05:45 White Blood Count 5.0 Red Blood Count 2.95 L Hemoglobin 8.7 L Hematocrit 26.8 L Mean Corpuscular Volume 90.8 Mean Corpuscular Hemoglobin 29.5 Mean Corpuscular Hemoglobin Concent 32.5 Red Cell Distribution Width 19.3 H Platelet Count 229 Mean Platelet Volume 10.1 Neutrophils % 54.3 Lymphocytes % 24.9 Monocytes % 10.0 Eosinophils % 10.0 H Basophils % 0.6 Nucleated Red Blood Cells % 0.0 Neutrophils # 2.7 Lymphocytes # 1.2 Monocytes # 0.5 Eosinophils # 0.5 Basophils # 0.0 Nucleated Red Blood Cells # 0.0 Sodium Level 142 Potassium Level 4.0 Chloride Level 111 H Carbon Dioxide Level 24 Anion Gap 11 Blood Urea Nitrogen 17 Creatinine 0.89 Glucose Level 87 Calcium Level 8.6 Medications Medications Current Medications Dextrose/Sodium Chloride (D5-1/2ns) 1,000 ml @ 75 mls/hr [id number] IV Last administered on 01/30/17 02:03; Admin Dose 75 MLS/HR; Start 01/25/17 at 09:00 Pantoprazole (Protonix Iv) 40 mg BID IV Last administered on 01/30/17 09:50; Admin Dose 40 MG; Start 01/25/17 at 09:00 Collagenase (Santyl) 1 applic DAILY TOP Last administered on 01/30/17 09:50; Admin Dose 1 APPLIC; Start 01/26/17 at 12:30 Collagenase 1 applic 1 applic PRN PRN TOP WOUND CARE; Start 01/26/17 at 12:00 Meropenem/Sodium Chloride (Merrem 500mg/50 ml(Pmx)) 50 ml @ 100 mls/hr Q8 IVPB Last administered on 01/30/17 05:03; Admin Dose 100 MLS/HR; Start 01/26/17 at 14:00 Isosorbide Dinitrate (Isordil) 10 mg TID PO Last administered on 01/30/17 09: 50; Admin Dose 10 MG; Start 01/26/17 at 21:00 Hydralazine HCl (Apresoline) 10 mg Q4H PRN IV SBP>160,DBP>95 Last administered on 01/28/17 04:18; Admin Dose 10 MG; Start 01/27/17 at 12:00 Carvedilol (Coreg) 6.25 mg BID GTB Last administered on 01/30/17 09:50; Admin Dose 6.25 MG; Start 01/27/17 at 12:30 Benazepril HCl (Lotensin) 20 mg BID PO Last administered on 01/30/17 09:50; Admin Dose 20 MG; Start 01/27/17 at 21:00 Sucralfate (Carafate Susp) 1 gm QID GTB Last administered on 11/19/17at 09:49; Admin Dose 1 GM; Start 01/29/17 at 17:00 Metoclopramide HCl (Reglan) 5 mg TID PO Last administered on 01/30/17t 09:49; Admin Dose 5 MG; Start 01/29/17 at 14:00 Acetaminophen (Tylenol Tab) 650 mg Q6H PRN GTB PAIN AND OR ELEVATED TEMP; Start 01/29/17 at 15:30 BILLIE ARCE Jan 30, 2017 10:34
--- NOTE | 2017-01-30 13:44 | CONS ---
Date/Time of Note Date/Time of Note DATE: 01/30/17 TIME: 13:42 Assessment/Plan Assessment/Plan Chief Complaint/Hosp Course IMPRESSION: 1. Chest pain, assess for acute coronary syndrome with negative troponins x3 and resolved chest pain at this time./NL EF by echo this admit 2. Abnormal electrocardiogram with nonspecific ST-T abnormalities diffusely, incomplete right bundle branch block. 3. Hypertension-currently well controlled 4. Chronic respiratory failure, status post trach. 5. Anemia with occult blood positivity in stool, assess for gastrointestinal bleed s/p endoscopy with esopahgeal ulceration 6. Hypernatremia. 7. Suppressed TSH, assess thyroid state-NL Free T4 REcc: -Tele -Continue acei/coreg/isordil -follow volume status closely Problems: Consultation Date/Type/Reason Admit Date/Time Jan 25, 2017 at 15:34 Initial Consult Date 01/26/17 Type of Consultation: cardiology Reason for Consultation Chest pain Referring Provider: DESTINEE ROBERTS MD Exam/Review of Systems Vital Signs Vitals Vital Signs Date Time Temp Pulse Resp B/P Pulse Ox O2 Delivery O2 Flow Rate FiO2 01/30/17 12:43 98.4 65 17 110/53 94 01/30/17 11:10 30 01/28/17 13:53 Mechanical Ventilator Intake and Output 01/29/17 01/29/17 01/30/17 15:00 23:00 07:00 Intake Total 50 ml 1660 ml Output Total 450 ml 350 ml Balance 50 ml -450 ml 1310 ml Exam Review of Systems: CONSTITUTIONAL: No fevers, chills. PULMONARY: trached CARDIOVASCULAR: No chest pain/palpitations GASTROINTESTINAL: No nausea/vomiting. GENITOURINARY: No hematuria/dysuria. MUSCULOSKELETAL: No myagias/arthalgias. PSYCHIATRIC: The patient denies depression. NEUROLOGIC: No weakness Constitutional: alert Psych: no complaints Head: normocephalic Respiratory: other (upper airway rhonchi) Cardiovascular: regular rate and rhythm Gastrointestinal: non-tender, soft Musculoskeletal: muscle weakness (generalized) Extremities: edema (trace/B) Neurological: focal weakness Results Result Diagram: 01/30/17 0545 01/30/17 0545 Results 24 hrs Laboratory Tests Test 01/30/17 05:45 White Blood Count 5.0 Red Blood Count 2.95 L Hemoglobin 8.7 L Hematocrit 26.8 L Mean Corpuscular Volume 90.8 Mean Corpuscular Hemoglobin 29.5 Mean Corpuscular Hemoglobin Concent 32.5 Red Cell Distribution Width 19.3 H Platelet Count 229 Mean Platelet Volume 10.1 Neutrophils % 54.3 Lymphocytes % 24.9 Monocytes % 10.0 Eosinophils % 10.0 H Basophils % 0.6 Nucleated Red Blood Cells % 0.0 Neutrophils # 2.7 Lymphocytes # 1.2 Monocytes # 0.5 Eosinophils # 0.5 Basophils # 0.0 Nucleated Red Blood Cells # 0.0 Sodium Level 142 Potassium Level 4.0 Chloride Level 111 H Carbon Dioxide Level 24 Anion Gap 11 Blood Urea Nitrogen 17 Creatinine 0.89 Glucose Level 87 Calcium Level 8.6 Medications Medications Current Medications Dextrose/Sodium Chloride (D5-1/2ns) 1,000 ml @ 75 mls/hr [id number] IV Last administered on 01/30/17 02:03; Admin Dose 75 MLS/HR; Start 01/25/17 at 09:00 Pantoprazole (Protonix Iv) 40 mg BID IV Last administered on 01/30/17 09:50; Admin Dose 40 MG; Start 01/25/17 at 09:00 Collagenase (Santyl) 1 applic DAILY TOP Last administered on 01/30/17 09:50; Admin Dose 1 APPLIC; Start 01/26/17 at 12:30 Collagenase 1 applic 1 applic PRN PRN TOP WOUND CARE; Start 01/26/17 at 12:00 Meropenem/Sodium Chloride (Merrem 500mg/50 ml(Pmx)) 50 ml @ 100 mls/hr Q8 IVPB Last administered on 01/30/17 05:03; Admin Dose 100 MLS/HR; Start 01/26/17 at 14:00 Isosorbide Dinitrate (Isordil) 10 mg TID PO Last administered on 01/30/17 09: 50; Admin Dose 10 MG; Start 01/26/17 at 21:00 Hydralazine HCl (Apresoline) 10 mg Q4H PRN IV SBP>160,DBP>95 Last administered on 01/28/17 04:18; Admin Dose 10 MG; Start 01/27/17 at 12:00 Carvedilol (Coreg) 6.25 mg BID GTB Last administered on 01/30/17 09:50; Admin Dose 6.25 MG; Start 01/27/17 at 12:30 Benazepril HCl (Lotensin) 20 mg BID PO Last administered on 01/30/17 09:50; Admin Dose 20 MG; Start 01/27/17 at 21:00 Sucralfate (Carafate Susp) 1 gm QID GTB Last administered on 01/30/17 09:49; Admin Dose 1 GM; Start 01/29/17 at 17:00 Metoclopramide HCl (Reglan) 5 mg TID PO Last administered on 01/30/17 09:49; Admin Dose 5 MG; Start 01/29/17 at 14:00 Acetaminophen (Tylenol Tab) 650 mg Q6H PRN GTB PAIN AND OR ELEVATED TEMP; Start 01/29/17 at 15:30 BRIANNA MOSLEY Jan 30, 2017 13:44
--- NOTE | 2017-01-30 14:50 | PN ---
Date/Time of Note Date/Time of Note DATE: 01/30/17 TIME: 14:47 Assessment/Plan Lines/Catheters IV Catheter Type (from [facility]): Peripheral IV Urinary Cath still in place: Yes Assessment/Plan Assessment/Plan - Hypokalemia- resolved - Chest pain, rule out acute coronary syndrome. Cardiac enzymes are negative 3. Dr Claudio ion following in cardiology consultation. - Sepsis 2 to UTI and PNA. Continue abx per ID. Dr. Jones is following in infectious disease consultation. - K Plneumo ESBL UTI - Possible healthcare-acquired pneumonia. - Gastrointestinal bleed. Continue Protonix. Continue to monitor hemoglobin and hematocrit. Dr. Hassan is following in gastroenterology consultation. Status post EGD and colonoscopy. - Anemia of acute blood loss, status post blood transfusion. - Ventilator dependent respiratory failure. Dr. Brewer is following patient in pulmonology consultation. Continue breathing treatment and oxygen supplementation and ventilatory support. [place] evtx- no bed available today.Further recommendations based on clinical course. Plan of care discussed with Dr. Roa. Subjective 24 Hr Interval Summary Free Text/Dictation nad, no bed at [place] today, H/H low today- cont to monitor- dw staff Exam/Review of Systems Vital Signs Vitals Vital Signs Date Time Temp Pulse Resp B/P Pulse Ox O2 Delivery O2 Flow Rate FiO2 01/30/17 13:15 71 15 100 30 01/30/17 12:43 98.4 110/53 01/28/17 13:53 Mechanical Ventilator Intake and Output 01/29/17 01/29/17 01/30/17 15:00 23:00 07:00 Intake Total 50 ml 1660 ml Output Total 450 ml 350 ml Balance 50 ml -450 ml 1310 ml Exam Constitutional: non-verbal Respiratory: diminished breath sounds Gastrointestinal: non-tender, other, soft Musculoskeletal: nl extremities to inspection Extremities: normal pulses Results Result Diagram: 01/30/17 0545 01/30/17 0545 Results 24 hrs Laboratory Tests Test 01/30/17 05:45 White Blood Count 5.0 Red Blood Count 2.95 L Hemoglobin 8.7 L Hematocrit 26.8 L Mean Corpuscular Volume 90.8 Mean Corpuscular Hemoglobin 29.5 Mean Corpuscular Hemoglobin Concent 32.5 Red Cell Distribution Width 19.3 H Platelet Count 229 Mean Platelet Volume 10.1 Neutrophils % 54.3 Lymphocytes % 24.9 Monocytes % 10.0 Eosinophils % 10.0 H Basophils % 0.6 Nucleated Red Blood Cells % 0.0 Neutrophils # 2.7 Lymphocytes # 1.2 Monocytes # 0.5 Eosinophils # 0.5 Basophils # 0.0 Nucleated Red Blood Cells # 0.0 Sodium Level 142 Potassium Level 4.0 Chloride Level 111 H Carbon Dioxide Level 24 Anion Gap 11 Blood Urea Nitrogen 17 Creatinine 0.89 Glucose Level 87 Calcium Level 8.6 Medications Medications Current Medications Dextrose/Sodium Chloride (D5-1/2ns) 1,000 ml @ 75 mls/hr [id number] IV Last administered on 01/30/17 02:03; Admin Dose 75 MLS/HR; Start 01/25/17 at 09:00 Pantoprazole (Protonix Iv) 40 mg BID IV Last administered on 01/30/17 09:50; Admin Dose 40 MG; Start 01/25/17 at 09:00 Collagenase (Santyl) 1 applic DAILY TOP Last administered on 01/30/17 09:50; Admin Dose 1 APPLIC; Start 01/26/17 at 12:30 Collagenase 1 applic 1 applic PRN PRN TOP WOUND CARE; Start 01/26/17 at 12:00 Meropenem/Sodium Chloride (Merrem 500mg/50 ml(Pmx)) 50 ml @ 100 mls/hr Q8 IVPB Last administered on 01/30/17 14:17; Admin Dose 100 MLS/HR; Start 01/26/17 at 14:00 Isosorbide Dinitrate (Isordil) 10 mg TID PO Last administered on 01/30/17 14: 17; Admin Dose 10 MG; Start 01/26/17 at 21:00 Hydralazine HCl (Apresoline) 10 mg Q4H PRN IV SBP>160,DBP>95 Last administered on 01/28/17 04:18; Admin Dose 10 MG; Start 01/27/17 at 12:00 Carvedilol (Coreg) 6.25 mg BID GTB Last administered on 01/30/17 09:50; Admin Dose 6.25 MG; Start 01/27/17 at 12:30 Benazepril HCl (Lotensin) 20 mg BID PO Last administered on 01/30/17 09:50; Admin Dose 20 MG; Start 01/27/17 at 21:00 Sucralfate (Carafate Susp) 1 gm QID GTB Last administered on 01/30/17 14:17; Admin Dose 1 GM; Start 01/29/17 at 17:00 Metoclopramide HCl (Reglan) 5 mg TID PO Last administered on 01/30/17 14:17; Admin Dose 5 MG; Start 01/29/17 at 14:00 Acetaminophen (Tylenol Tab) 650 mg Q6H PRN GTB PAIN AND OR ELEVATED TEMP; Start 01/29/17 at 15:30 JOÃO JUAREZ Jan 30, 2017 14:50
--- NOTE | 2017-01-30 17:13 | CONS ---
Date/Time of Note Date/Time of Note DATE: 01/30/17 TIME: 17:10 Assessment/Plan Assessment/Plan Chief Complaint/Hosp Course Assessment/Plan Chief Complaint/Hosp Course ID PROGRESS NOTE CURRENT ABX: DAY # 5=>Merrem 24H INTERVAL SUMMARY * Resting comfortably. Afebrile. No Acute Distress. * CHART REVIEWED: See vitals, labs as per below. * MICRO REVIEWED: Urine culture grew Klebsiella ESBL. Blood cultures remain negative. * INDWELLINGS: Trach, PEG, Car. * DIAGNOSTICS: Chest x-ray on admission revealed worsening bilateral lower lung consolidation and possible pneumonia. PHYSICAL EXAMINATION: GENERAL: Afebrile. No Acute Distress. HEENT: Unremarkable NECK: Trach, chronic resp failure CHEST: Equal chest rise bilaterally, without dyspnea on observation HEART: RRR ABDOMEN: Soft, NT, ND : FC, clear yellow urine EXT: Warm, BKA SKIN: No rash, no diaphoresis ID ASSESSMENT: 81 yo M admit [facility]: 1. Systemic inflammatory response syndrome with fevers and leukocytosis on admission. 2. Healthcare-associated pneumonia. 3. Klebsiella pneumoniae, Extended-Spectrum Beta-Lactamase. 4. Anemia. 5. Chronic respiratory failure. 6. Dysphagia. ( )MRSA ABX ALLERGIES: None to ABX INVASIVES: PIV,Trach, Peg, FC CURRENT ABX: DAY # 5=>Merrem ID RECOMMENDATIONS/PLAN: 1. Continue current Antibiotics. Monitor Labs. 2. ID team consultants will continue to follow. Problems: Consultation Date/Type/Reason Admit Date/Time Jan 25, 2017 at 15:34 Initial Consult Date 01/29/17 Type of Consultation: id Referring Provider: DESTINEE ROBERTS MD Exam/Review of Systems Vital Signs Vitals Vital Signs Date Time Temp Pulse Resp B/P Pulse Ox O2 Delivery O2 Flow Rate FiO2 01/30/17 16:05 68 01/30/17 15:05 18 96 30 01/30/17 12:43 98.4 110/53 01/28/17 13:53 Mechanical Ventilator Intake and Output 01/29/17 01/29/17 01/30/17 15:00 23:00 07:00 Intake Total 50 ml 1660 ml Output Total 450 ml 350 ml Balance 50 ml -450 ml 1310 ml Results Result Diagram: 01/30/17 0545 01/30/17 0545 Results 24 hrs Laboratory Tests Test 01/30/17 05:45 White Blood Count 5.0 Red Blood Count 2.95 L Hemoglobin 8.7 L Hematocrit 26.8 L Mean Corpuscular Volume 90.8 Mean Corpuscular Hemoglobin 29.5 Mean Corpuscular Hemoglobin Concent 32.5 Red Cell Distribution Width 19.3 H Platelet Count 229 Mean Platelet Volume 10.1 Neutrophils % 54.3 Lymphocytes % 24.9 Monocytes % 10.0 Eosinophils % 10.0 H Basophils % 0.6 Nucleated Red Blood Cells % 0.0 Neutrophils # 2.7 Lymphocytes # 1.2 Monocytes # 0.5 Eosinophils # 0.5 Basophils # 0.0 Nucleated Red Blood Cells # 0.0 Sodium Level 142 Potassium Level 4.0 Chloride Level 111 H Carbon Dioxide Level 24 Anion Gap 11 Blood Urea Nitrogen 17 Creatinine 0.89 Glucose Level 87 Calcium Level 8.6 Medications Medications Current Medications Dextrose/Sodium Chloride (D5-1/2ns) 1,000 ml @ 75 mls/hr [id number] IV Last administered on 01/30/17 02:03; Admin Dose 75 MLS/HR; Start 01/25/17 at 09:00 Pantoprazole (Protonix Iv) 40 mg BID IV Last administered on 01/30/17 09:50; Admin Dose 40 MG; Start 01/25/17 at 09:00 Collagenase (Santyl) 1 applic DAILY TOP Last administered on 01/30/17 09:50; Admin Dose 1 APPLIC; Start 01/26/17 at 12:30 Collagenase 1 applic 1 applic PRN PRN TOP WOUND CARE; Start 01/26/17 at 12:00 Meropenem/Sodium Chloride (Merrem 500mg/50 ml(Pmx)) 50 ml @ 100 mls/hr Q8 IVPB Last administered on 01/30/17 14:17; Admin Dose 100 MLS/HR; Start 01/26/17 at 14:00 Isosorbide Dinitrate (Isordil) 10 mg TID PO Last administered on 01/30/17 14: 17; Admin Dose 10 MG; Start 01/26/17 at 21:00 Hydralazine HCl (Apresoline) 10 mg Q4H PRN IV SBP>160,DBP>95 Last administered on 01/28/17 04:18; Admin Dose 10 MG; Start 01/27/17 at 12:00 Carvedilol (Coreg) 6.25 mg BID GTB Last administered on 01/30/17 09:50; Admin Dose 6.25 MG; Start 01/27/17 at 12:30 Benazepril HCl (Lotensin) 20 mg BID PO Last administered on 01/30/17 09:50; Admin Dose 20 MG; Start 01/27/17 at 21:00 Sucralfate (Carafate Susp) 1 gm QID GTB Last administered on 01/30/17 14:17; Admin Dose 1 GM; Start 01/29/17 at 17:00 Metoclopramide HCl (Reglan) 5 mg TID PO Last administered on 01/30/17 14:17; Admin Dose 5 MG; Start 01/29/17 at 14:00 Acetaminophen (Tylenol Tab) 650 mg Q6H PRN GTB PAIN AND OR ELEVATED TEMP; Start 01/29/17 at 15:30 ITZEL ISSA NP Jan 30, 2017 17:13
--- NOTE | 2017-01-30 17:43 | CONS ---
Date/Time of Note Date/Time of Note DATE: 01/30/17 TIME: 17:41 Assessment/Plan Assessment/Plan Additional Assessment/Plan 1. acute Kidney injury due to prerenal azotemia 2. Hypernatremia due to large free water deficit 3. Hypokalemia, persistent depite agressive replacement 3. Sepsis due to UTI and PNA, kle[place]se[place] PNA and ESBL E Coli UTI 4. Chronic resp failure s/p tracheostomy vent depedant 5. Chronic encephalopathy 6. S/P G tube 7. GI bleeding s/p Colonosocopy by GI Plan: Continue current IVF and TF Cr and electrolytes stable Monitor electrolytes and replace as needed will follow up Consultation Date/Type/Reason Admit Date/Time Jan 25, 2017 at 15:34 Initial Consult Date 01/29/17 Type of Consultation: NEPHROLOGY Referring Provider: DESTINEE ROBERTS MD 24 HR Interval Summary Free Text/Dictation Cr and electrolyte stable today , BP stable Exam/Review of Systems Vital Signs Vitals Vital Signs Date Time Temp Pulse Resp B/P Pulse Ox O2 Delivery O2 Flow Rate FiO2 01/30/17 17:15 70 20 100 30 01/30/17 17:10 97.9 125/70 01/28/17 13:53 Mechanical Ventilator Intake and Output 01/29/17 01/29/17 01/30/17 15:00 23:00 07:00 Intake Total 50 ml 1660 ml Output Total 450 ml 350 ml Balance 50 ml -450 ml 1310 ml Exam Constitutional: non-verbal Head: normocephalic ENMT: other (+ tracheostomy site is clear ) Neck: non-tender, supple Respiratory: congested cough, crackles/rales, diminished breath sounds Cardiovascular: nl pulses, regular rate and rhythm Gastrointestinal: other (G tube in place ), soft Musculoskeletal: muscle weakness, range of motion (limited ) Extremities: normal pulses, other (hand swelling + ) Results Result Diagram: 01/30/17 0545 01/30/17 0545 Results 24 hrs Laboratory Tests Test 01/30/17 05:45 White Blood Count 5.0 Red Blood Count 2.95 L Hemoglobin 8.7 L Hematocrit 26.8 L Mean Corpuscular Volume 90.8 Mean Corpuscular Hemoglobin 29.5 Mean Corpuscular Hemoglobin Concent 32.5 Red Cell Distribution Width 19.3 H Platelet Count 229 Mean Platelet Volume 10.1 Neutrophils % 54.3 Lymphocytes % 24.9 Monocytes % 10.0 Eosinophils % 10.0 H Basophils % 0.6 Nucleated Red Blood Cells % 0.0 Neutrophils # 2.7 Lymphocytes # 1.2 Monocytes # 0.5 Eosinophils # 0.5 Basophils # 0.0 Nucleated Red Blood Cells # 0.0 Sodium Level 142 Potassium Level 4.0 Chloride Level 111 H Carbon Dioxide Level 24 Anion Gap 11 Blood Urea Nitrogen 17 Creatinine 0.89 Glucose Level 87 Calcium Level 8.6 Medications Medications Current Medications Dextrose/Sodium Chloride (D5-1/2ns) 1,000 ml @ 75 mls/hr [id number] IV Last administered on 01/30/17 02:03; Admin Dose 75 MLS/HR; Start 01/25/17 at 09:00 Pantoprazole (Protonix Iv) 40 mg BID IV Last administered on 01/30/17 09:50; Admin Dose 40 MG; Start 01/25/17 at 09:00 Collagenase (Santyl) 1 applic DAILY TOP Last administered on 01/30/17 09:50; Admin Dose 1 APPLIC; Start 01/26/17 at 12:30 Collagenase 1 applic 1 applic PRN PRN TOP WOUND CARE; Start 01/26/17 at 12:00 Meropenem/Sodium Chloride (Merrem 500mg/50 ml(Pmx)) 50 ml @ 100 mls/hr Q8 IVPB Last administered on 01/30/17 14:17; Admin Dose 100 MLS/HR; Start 01/26/17 at 14:00 Isosorbide Dinitrate (Isordil) 10 mg TID PO Last administered on 01/30/17 14: 17; Admin Dose 10 MG; Start 01/26/17 at 21:00 Hydralazine HCl (Apresoline) 10 mg Q4H PRN IV SBP>160,DBP>95 Last administered on 01/28/17 04:18; Admin Dose 10 MG; Start 01/27/17 at 12:00 Carvedilol (Coreg) 6.25 mg BID GTB Last administered on 01/30/17 09:50; Admin Dose 6.25 MG; Start 01/27/17 at 12:30 Benazepril HCl (Lotensin) 20 mg BID PO Last administered on 01/30/17 09:50; Admin Dose 20 MG; Start 01/27/17 at 21:00 Sucralfate (Carafate Susp) 1 gm QID GTB Last administered on 01/30/17 14:17; Admin Dose 1 GM; Start 01/29/17 at 17:00 Metoclopramide HCl (Reglan) 5 mg TID PO Last administered on 01/30/17 14:17; Admin Dose 5 MG; Start 01/29/17 at 14:00 Acetaminophen (Tylenol Tab) 650 mg Q6H PRN GTB PAIN AND OR ELEVATED TEMP; Start 01/29/17 at 15:30 ROULA YEPEZ MD Jan 30, 2017 17:43
--- NOTE | 2017-01-30 18:28 | CONS ---
Date/Time of Note Date/Time of Note DATE: 01/30/17 TIME: 18:26 Assessment/Plan Assessment/Plan Additional Assessment/Plan IMPRESSION: 1. Chest pain. Workup in process. 2. Sepsis. 3. Decubitus ulcer. 4. Anemia, rule out gastrointestinal bleeding. 5. Ventilator-dependent respiratory failure. 6. Positive stool guaiac 7. esophageal ulcer Plan PPI,Carafate,REGLAN Increase feeding as per dietitian instruction Consultation Date/Type/Reason Admit Date/Time Jan 25, 2017 at 15:34 Type of Consultation: NEPHROLOGY Referring Provider: DESTINEE ROBERTS MD 24 HR Interval Summary Constitutional: improved, no complaints Exam/Review of Systems Vital Signs Vitals Vital Signs Date Time Temp Pulse Resp B/P Pulse Ox O2 Delivery O2 Flow Rate FiO2 01/30/17 17:15 70 20 100 30 01/30/17 17:10 97.9 125/70 01/28/17 13:53 Mechanical Ventilator Intake and Output 01/29/17 01/29/17 01/30/17 15:00 23:00 07:00 Intake Total 50 ml 1660 ml Output Total 450 ml 350 ml Balance 50 ml -450 ml 1310 ml Exam Constitutional: alert Psych: no complaints Neck: supple Respiratory: clear to auscultation Cardiovascular: nl pulses, regular rate and rhythm Gastrointestinal: nl liver, spleen, non-tender, soft Extremities: normal pulses Results Result Diagram: 01/30/17 0545 01/30/17 0545 Results 24 hrs Laboratory Tests Test 01/30/17 05:45 White Blood Count 5.0 Red Blood Count 2.95 L Hemoglobin 8.7 L Hematocrit 26.8 L Mean Corpuscular Volume 90.8 Mean Corpuscular Hemoglobin 29.5 Mean Corpuscular Hemoglobin Concent 32.5 Red Cell Distribution Width 19.3 H Platelet Count 229 Mean Platelet Volume 10.1 Neutrophils % 54.3 Lymphocytes % 24.9 Monocytes % 10.0 Eosinophils % 10.0 H Basophils % 0.6 Nucleated Red Blood Cells % 0.0 Neutrophils # 2.7 Lymphocytes # 1.2 Monocytes # 0.5 Eosinophils # 0.5 Basophils # 0.0 Nucleated Red Blood Cells # 0.0 Sodium Level 142 Potassium Level 4.0 Chloride Level 111 H Carbon Dioxide Level 24 Anion Gap 11 Blood Urea Nitrogen 17 Creatinine 0.89 Glucose Level 87 Calcium Level 8.6 Medications Medications Current Medications Dextrose/Sodium Chloride (D5-1/2ns) 1,000 ml @ 75 mls/hr [id number] IV Last administered on 01/30/17 17:44; Admin Dose 75 MLS/HR; Start 01/25/17 at 09:00 Pantoprazole (Protonix Iv) 40 mg BID IV Last administered on 01/30/17 09:50; Admin Dose 40 MG; Start 01/25/17 at 09:00 Collagenase (Santyl) 1 applic DAILY TOP Last administered on 01/30/17 09:50; Admin Dose 1 APPLIC; Start 01/26/17 at 12:30 Collagenase 1 applic 1 applic PRN PRN TOP WOUND CARE; Start 01/26/17 at 12:00 Meropenem/Sodium Chloride (Merrem 500mg/50 ml(Pmx)) 50 ml @ 100 mls/hr Q8 IVPB Last administered on 01/30/17 14:17; Admin Dose 100 MLS/HR; Start 01/26/17 at 14:00 Isosorbide Dinitrate (Isordil) 10 mg TID PO Last administered on 01/30/17 14: 17; Admin Dose 10 MG; Start 01/26/17 at 21:00 Hydralazine HCl (Apresoline) 10 mg Q4H PRN IV SBP>160,DBP>95 Last administered on 01/28/17 04:18; Admin Dose 10 MG; Start 01/27/17 at 12:00 Carvedilol (Coreg) 6.25 mg BID GTB Last administered on 01/30/17 09:50; Admin Dose 6.25 MG; Start 01/27/17 at 12:30 Benazepril HCl (Lotensin) 20 mg BID PO Last administered on 01/30/17 09:50; Admin Dose 20 MG; Start 01/27/17 at 21:00 Sucralfate (Carafate Susp) 1 gm QID GTB Last administered on 01/30/17 14:17; Admin Dose 1 GM; Start 01/29/17 at 17:00 Metoclopramide HCl (Reglan) 5 mg TID PO Last administered on 01/30/17 14:17; Admin Dose 5 MG; Start 01/29/17 at 14:00 Acetaminophen (Tylenol Tab) 650 mg Q6H PRN GTB PAIN AND OR ELEVATED TEMP; Start 01/29/17 at 15:30 PAT CHA MD Jan 30, 2017 18:28
[2017-01-31] VITALS (20 sets, daily range): BP systolic 131–155; BP diastolic 68–80; PULSE 72–80; RESP 15–23
[2017-01-31] MEDS: MEROPENEM 500MG/50 ML (PMX) 50 ML IVPB SCH ×2 (06:30→13:27)
[2017-01-31] MEDS: SUCRALFATE (100 MG/ML) 10ML CUP GTB SCH ×4 (08:51→21:31)
[2017-01-31] MEDS: PANTOPRAZOLE 40 MG INJ IV SCH (08:51)
[2017-01-31] MEDS: METOCLOPRAMIDE 5 MG TAB PO SCH ×3 (08:52→21:31)
[2017-01-31] MEDS: BENAZEPRIL 20 MG TAB PO SCH ×2 (08:52→21:31)
[2017-01-31] MEDS: ISOSORBIDE DINITRATE 10 MG TAB PO SCH ×3 (08:52→21:30)
[2017-01-31] MEDS: COLLAGENASE 30 GM TUBE TOP SCH (08:53)
[2017-01-31] MEDS: DEXTROSE 5%-0.45% NACL 1,000 ML IV SCH ×3 (09:31→23:00)
[2017-01-31] MEDS: ALBUTEROL HFA 8 GM INHALER INH SCH ×4 (09:45→21:25)
[2017-01-31] MEDS: IPRATROPIUM (HFA) 12.9 GM INHALER INH SCH ×4 (09:45→21:26)
--- NOTE | 2017-01-31 11:34 | CONS ---
Date/Time of Note Date/Time of Note DATE: 01/31/17 TIME: 11:31 Assessment/Plan Assessment/Plan Chief Complaint/Hosp Course IMPRESSION: 1. Chest pain, assess for acute coronary syndrome with negative troponins x3 and resolved chest pain at this time./NL EF by echo this admit 2. Abnormal electrocardiogram with nonspecific ST-T abnormalities diffusely, incomplete right bundle branch block. 3. Hypertension-currently well controlled 4. Chronic respiratory failure, status post trach. 5. Anemia with occult blood positivity in stool, assess for gastrointestinal bleed s/p endoscopy with esopahgeal ulceration 6. Hypernatremia. 7. Suppressed TSH, assess thyroid state-NL Free T4 REcc: -Tele -Continue acei/coreg/isordil -follow volume status closely -follow Hgb closely Problems: Consultation Date/Type/Reason Admit Date/Time Jan 25, 2017 at 15:34 Initial Consult Date 01/26/17 Type of Consultation: cardiology Reason for Consultation chest pain Referring Provider: DESTINEE ROBERTS MD Exam/Review of Systems Vital Signs Vitals Vital Signs Date Time Temp Pulse Resp B/P Pulse Ox O2 Delivery O2 Flow Rate FiO2 01/31/17 11:23 87 21 98 30 01/31/17 07:44 98.8 155/73 01/28/17 13:53 Mechanical Ventilator Intake and Output 01/30/17 01/30/17 01/31/17 15:00 23:00 07:00 Intake Total 50 ml 560 ml Output Total 750 ml Balance 50 ml -190 ml Exam Review of Systems: CONSTITUTIONAL: No fevers, chills. PULMONARY: trached CARDIOVASCULAR: No chest pain/palpitations GASTROINTESTINAL: No nausea/vomiting. GENITOURINARY: No hematuria/dysuria. MUSCULOSKELETAL: No myagias/arthalgias. PSYCHIATRIC: The patient denies depression. NEUROLOGIC: No weakness Constitutional: alert Psych: no complaints Neck: other (trached) Respiratory: other (upper airway rhoncherous sounds) Cardiovascular: regular rate and rhythm Gastrointestinal: non-tender, soft Musculoskeletal: muscle tone (normal) Extremities: edema (trace/B) Neurological: other (No focal deficits) Results Result Diagram: 01/30/17 0545 01/30/17 0545 Medications Medications Current Medications Dextrose/Sodium Chloride (D5-1/2ns) 1,000 ml @ 75 mls/hr [id number] IV Last administered on 01/31/17 09:31; Admin Dose 75 MLS/HR; Start 01/25/17 at 09:00 Pantoprazole (Protonix Iv) 40 mg BID IV Last administered on 01/31/17 08:51; Admin Dose 40 MG; Start 01/25/17 at 09:00 Collagenase (Santyl) 1 applic DAILY TOP Last administered on 01/31/17 08:53; Admin Dose 1 APPLIC; Start 01/26/17 at 12:30 Collagenase 1 applic 1 applic PRN PRN TOP WOUND CARE; Start 01/26/17 at 12:00 Meropenem/Sodium Chloride (Merrem 500mg/50 ml(Pmx)) 50 ml @ 100 mls/hr Q8 IVPB Last administered on 01/31/17 06:30; Admin Dose 100 MLS/HR; Start 01/26/17 at 14:00 Isosorbide Dinitrate (Isordil) 10 mg TID PO Last administered on 01/31/17 08: 52; Admin Dose 10 MG; Start 01/26/17 at 21:00 Hydralazine HCl (Apresoline) 10 mg Q4H PRN IV SBP>160,DBP>95 Last administered on 01/28/17 04:18; Admin Dose 10 MG; Start 01/27/17 at 12:00 Carvedilol (Coreg) 6.25 mg BID GTB Last administered on 01/31/17 08:52; Admin Dose 6.25 MG; Start 01/27/17 at 12:30 Benazepril HCl (Lotensin) 20 mg BID PO Last administered on 01/31/17 08:52; Admin Dose 20 MG; Start 01/27/17 at 21:00 Sucralfate (Carafate Susp) 1 gm QID GTB Last administered on 01/31/17 08:51; Admin Dose 1 GM; Start 01/29/17 at 17:00 Metoclopramide HCl (Reglan) 5 mg TID PO Last administered on 01/31/17 08:52; Admin Dose 5 MG; Start 01/29/17 at 14:00 Acetaminophen (Tylenol Tab) 650 mg Q6H PRN GTB PAIN AND OR ELEVATED TEMP; Start 11/18/17 at 15:30 BRIANNA MOSLEY Jan 31, 2017 11:34
--- NOTE | 2017-01-31 14:50 | CONS ---
Date/Time of Note Date/Time of Note DATE: 01/31/17 TIME: 14:50 Consult Date/Type/Reason Admit Date/Time Jan 25, 2017 at 15:34 Type of Consultation: Pulmonary Ordering Provider: DESTINEE ROBERTS MD Subjective No significant changes. Patient remains stable. Objective Vital Signs Date Time Temp Pulse Resp B/P Pulse Ox O2 Delivery O2 Flow Rate FiO2 01/31/17 13:13 82 23 99 30 01/31/17 11:49 98.9 131/68 01/28/17 13:53 Mechanical Ventilator Intake and Output 01/30/17 01/30/17 01/31/17 15:00 23:00 07:00 Intake Total 50 ml 560 ml Output Total 750 ml Balance 50 ml -190 ml Exam GENERAL: Patient comfortable with rest. On mechanical ventilation. VITAL SIGNS: per chart NECK: Supple. No JVD or lymphadenopathy. CARDIAC EXAM: S1, S2. No added sounds or murmurs. CHEST: clear bilaterally, No added sounds, rales or wheezes ABDOMEN: Soft, nontender. No guarding or rebound. EXTREMITIES: No cyanosis, clubbing or edema. NEUROLOGIC: Generalized weakness. No focal deficits. Results/Medications Result Diagram: 01/30/1745 01/30/17 0545 Medications Current Medications Dextrose/Sodium Chloride (D5-1/2ns) 1,000 ml @ 75 mls/hr [id number] IV Last administered on 01/31/17 09:31; Admin Dose 75 MLS/HR; Start 01/25/17 at 09:00 Pantoprazole (Protonix Iv) 40 mg BID IV Last administered on 01/31/17 08:51; Admin Dose 40 MG; Start 01/25/17 at 09:00 Collagenase (Santyl) 1 applic DAILY TOP Last administered on 01/31/17 08:53; Admin Dose 1 APPLIC; Start 01/26/17 at 12:30 Collagenase 1 applic 1 applic PRN PRN TOP WOUND CARE; Start 01/26/17 at 12:00 Meropenem/Sodium Chloride (Merrem 500mg/50 ml(Pmx)) 50 ml @ 100 mls/hr Q8 IVPB Last administered on 01/31/17 13:27; Admin Dose 100 MLS/HR; Start 01/26/17 at 14:00 Isosorbide Dinitrate (Isordil) 10 mg TID PO Last administered on 01/31/17 12: 20; Admin Dose 10 MG; Start 01/26/17 at 21:00 Hydralazine HCl (Apresoline) 10 mg Q4H PRN IV SBP>160,DBP>95 Last administered on 01/28/17 04:18; Admin Dose 10 MG; Start 01/27/17 at 12:00 Carvedilol (Coreg) 6.25 mg BID GTB Last administered on 01/31/17 08:52; Admin Dose 6.25 MG; Start 01/27/17 at 12:30 Benazepril HCl (Lotensin) 20 mg BID PO Last administered on 01/31/17 08:52; Admin Dose 20 MG; Start 01/27/17 at 21:00 Sucralfate (Carafate Susp) 1 gm QID GTB Last administered on 01/31/17 12:19; Admin Dose 1 GM; Start 01/29/17 at 17:00 Metoclopramide HCl (Reglan) 5 mg TID PO Last administered on 01/31/17 12:20; Admin Dose 5 MG; Start 01/29/17 at 14:00 Acetaminophen (Tylenol Tab) 650 mg Q6H PRN GTB PAIN AND OR ELEVATED TEMP; Start 01/29/17 at 15:30 Assessment/Plan Chief Complaint/Hosp Course IMPRESSION: 1. Vent-dependent respiratory failure. 2. Positive troponin, rule out coronary ischemia. 3. Urinary tract infection. 4. History of encephalopathy. PLAN: 1. Continue vent support. 2. Antibiotics per ID. 3. DVT and GI prophylaxis. 4. Appreciate GI recs Consider DC planning. Problems: DINORAH PELAEZ MD[facility] Jan 31, 2017 14:50
--- NOTE | 2017-01-31 15:01 | CONS ---
Date/Time of Note Date/Time of Note DATE: 01/31/17 TIME: 15:01 Consult Date/Type/Reason Admit Date/Time Jan 25, 2017 at 15:34 Type of Consultation: id Ordering Provider: DESTINEE ROBERTS MD Objective Vital Signs Date Time Temp Pulse Resp B/P Pulse Ox O2 Delivery O2 Flow Rate FiO2 01/31/17 13:13 82 23 99 30 01/31/17 11:49 98.9 131/68 01/28/17 13:53 Mechanical Ventilator Intake and Output 01/30/17 01/30/17 01/31/17 15:00 23:00 07:00 Intake Total 50 ml 560 ml Output Total 750 ml Balance 50 ml -190 ml Results/Medications Result Diagram: 01/30/17 0545 01/30/17 0545 Medications Current Medications Dextrose/Sodium Chloride (D5-1/2ns) 1,000 ml @ 75 mls/hr [id number] IV Last administered on 01/31/17 09:31; Admin Dose 75 MLS/HR; Start 01/25/17 at 09:00 Pantoprazole (Protonix Iv) 40 mg BID IV Last administered on 01/31/17 08:51; Admin Dose 40 MG; Start 01/25/17 at 09:00 Collagenase (Santyl) 1 applic DAILY TOP Last administered on 01/31/17 08:53; Admin Dose 1 APPLIC; Start 01/26/17 at 12:30 Collagenase 1 applic 1 applic PRN PRN TOP WOUND CARE; Start 01/26/17 at 12:00 Meropenem/Sodium Chloride (Merrem 500mg/50 ml(Pmx)) 50 ml @ 100 mls/hr Q8 IVPB Last administered on 01/31/17 13:27; Admin Dose 100 MLS/HR; Start 01/26/17 at 14:00 Isosorbide Dinitrate (Isordil) 10 mg TID PO Last administered on 01/31/17 12: 20; Admin Dose 10 MG; Start 01/26/17 at 21:00 Hydralazine HCl (Apresoline) 10 mg Q4H PRN IV SBP>160,DBP>95 Last administered on 01/28/17 04:18; Admin Dose 10 MG; Start 01/27/17 at 12:00 Carvedilol (Coreg) 6.25 mg BID GTB Last administered on 01/31/17 08:52; Admin Dose 6.25 MG; Start 01/27/17 at 12:30 Benazepril HCl (Lotensin) 20 mg BID PO Last administered on 01/31/17 08:52; Admin Dose 20 MG; Start 01/27/17 at 21:00 Sucralfate (Carafate Susp) 1 gm QID GTB Last administered on 01/31/17 12:19; Admin Dose 1 GM; Start 01/29/17 at 17:00 Metoclopramide HCl (Reglan) 5 mg TID PO Last administered on 01/31/17 12:20; Admin Dose 5 MG; Start 01/29/17 at 14:00 Acetaminophen (Tylenol Tab) 650 mg Q6H PRN GTB PAIN AND OR ELEVATED TEMP; Start 01/29/17 at 15:30 Assessment/Plan Chief Complaint/Hosp Course SUBJECTIVE: No acute changes. The patient is awake, looks comfortable INDWELLINGS: Trach, PEG, Car. MICROBIOLOGY: Urine culture grew Klebsiella ESBL. Blood cultures remain negative. ANTIMICROBIALS: Merrem== abx #8. DIAGNOSTICS: Chest x-ray on admission revealed worsening bilateral lower lung consolidation and possible pneumonia. PHYSICAL EXAMINATION: GENERAL: This is a chronically ill-appearing, elderly man who is in no distress. HEENT: Head atraumatic, normocephalic. Sclerae anicteric. Buccal mucosa dry. NECK: Supple. CHEST: Rise symmetrical. Breath sounds diminished to bases. HEART: S1, S2. ABDOMEN: Soft. Bowel tones present. ASSESSMENT: 1. S/p systemic inflammatory response syndrome with fevers and leukocytosis on admission. 2. Healthcare-associated pneumonia. 3. Klebsiella pneumoniae, Extended-Spectrum Beta-Lactamase. 4. Anemia. 5. Chronic respiratory failure. 6. Dysphagia. PLAN: The patient remains stable. Dc abx and observe DW staff Problems: NASH DOTY NP Jan 31, 2017 15:01
--- NOTE | 2017-01-31 15:36 | CONS ---
Date/Time of Note Date/Time of Note DATE: 01/31/17 TIME: 15:35 Assessment/Plan Assessment/Plan Additional Assessment/Plan Additional Assessment/Plan IMPRESSION: 1. Chest pain. Workup in process. 2. Sepsis. 3. Decubitus ulcer. 4. Anemia, rule out gastrointestinal bleeding. No active bleeding at this point 5. Ventilator-dependent respiratory failure. 6. Positive stool guaiac 7. esophageal ulcer Plan PPI,Carafate,REGLAN Increase feeding as per dietitian instruction Feeding increased to 60 cc/h as per dietitian recommendation IV iron Consultation Date/Type/Reason Admit Date/Time Jan 25, 2017 at 15:34 Type of Consultation: id Referring Provider: DESTINEE ROBERTS MD 24 HR Interval Summary Constitutional: improved, no complaints Exam/Review of Systems Vital Signs Vitals Vital Signs Date Time Temp Pulse Resp B/P Pulse Ox O2 Delivery O2 Flow Rate FiO2 01/31/17 15:00 87 20 98 30 01/31/17 11:49 98.9 131/68 01/28/17 13:53 Mechanical Ventilator Intake and Output 01/30/17 01/30/17 01/31/17 14:59 22:59 06:59 Intake Total 50 ml 560 ml Output Total 750 ml Balance 50 ml -190 ml Exam Constitutional: alert, oriented, well developed Psych: nl mood/affect, no complaints Head: atraumatic, normocephalic Eyes: EOMI, PERRL, nl conjunctiva, nl lids, nl sclera ENMT: nl external ears & nose, nl lips & teeth, nl nasal mucosa & septum Neck: non-tender, supple Respiratory: clear to auscultation, normal air movement Cardiovascular: nl pulses, regular rate and rhythm Gastrointestinal: nl liver, spleen, non-tender, soft Musculoskeletal: nl extremities to inspection, nl gait and stance Extremities: normal pulses Neurological: SURVEILLANCE SYSTEM MONITOR II-XII intact, nl mental status, nl speech, nl strength Skin: nl turgor, No rash or lesions Lymph: nl lymph nodes Results Result Diagram: 01/30/17 0545 01/30/17 0545 Medications Medications Current Medications Dextrose/Sodium Chloride (D5-1/2ns) 1,000 ml @ 75 mls/hr [id number] IV Last administered on 01/31/17t 09:31; Admin Dose 75 MLS/HR; Start 01/25/17 at 09:00 Pantoprazole (Protonix Iv) 40 mg BID IV Last administered on 01/31/17 08:51; Admin Dose 40 MG; Start 01/25/17 at 09:00 Collagenase (Santyl) 1 applic DAILY TOP Last administered on 01/31/17 08:53; Admin Dose 1 APPLIC; Start 01/26/17 at 12:30 Collagenase (Santyl) 1 applic PRN PRN TOP WOUND CARE; Start 01/26/17 at 12:00 Isosorbide Dinitrate (Isordil) 10 mg TID PO Last administered on 01/31/17 12: 20; Admin Dose 10 MG; Start 01/26/17 at 21:00 Hydralazine HCl (Apresoline) 10 mg Q4H PRN IV SBP>160,DBP>95 Last administered on 01/28/17 04:18; Admin Dose 10 MG; Start 01/27/17 at 12:00 Carvedilol (Coreg) 6.25 mg BID GTB Last administered on 01/31/17 08:52; Admin Dose 6.25 MG; Start 01/27/17 at 12:30 Benazepril HCl (Lotensin) 20 mg BID PO Last administered on 01/31/17 08:52; Admin Dose 20 MG; Start 01/27/17 at 21:00 Sucralfate (Carafate Susp) 1 gm QID GTB Last administered on 01/31/17 12:19; Admin Dose 1 GM; Start 01/29/17 at 17:00 Metoclopramide HCl (Reglan) 5 mg TID PO Last administered on 01/31/17 12:20; Admin Dose 5 MG; Start 01/29/17 at 14:00 Acetaminophen (Tylenol Tab) 650 mg Q6H PRN GTB PAIN AND OR ELEVATED TEMP; Start 01/29/17 at 15:30 PAT CHA MD Jan 31, 2017 15:36
--- NOTE | 2017-01-31 16:07 | DS ---
Date/Time of Note Date/Time of Note DATE: 01/31/17 TIME: 16:06 Discharge Summary Admission/Discharge Info Admit Date/Time Jan 25, 2017 at 15:34 Discharge Date/Time Discharge Diagnosis - Hypokalemia- resolved - Chest pain, rule out acute coronary syndrome. Cardiac enzymes are negative 3. Dr Claudio ion following in cardiology consultation. - Sepsis 2 to UTI and PNA. Continue abx per ID. Dr. Jones is following in infectious disease consultation. - K Plneumo ESBL UTI - Possible healthcare-acquired pneumonia. - Gastrointestinal bleed. Continue Protonix. Continue to monitor hemoglobin and hematocrit. Dr. Hassan is following in gastroenterology consultation. Status post EGD and colonoscopy. - Anemia of acute blood loss, status post blood transfusion. - Ventilator dependent respiratory failure. Dr. Brewer is following patient in pulmonology consultation. Continue breathing treatment and oxygen supplementation and ventilatory support. Crook eval- no bed available today.Further recommendations based on clinical course. Plan of care discussed with Dr. Roa. Patient Condition: Fair Hospital Course GENERAL: No acute changes. The patient is awake, looks comfortable HEENT: Head atraumatic, normocephalic. Sclerae anicteric. Buccal mucosa dry. NECK: Supple. CHEST: Rise symmetrical. Breath sounds diminished to bases. HEART: S1, S2. ABDOMEN: Soft. Bowel tones present. Home Meds Reported Medications Trazodone Hcl* (Trazodone Hcl*) 50 Mg Tablet, 25 MG GTB QHS, #30 TAB 12/15/16 Quetiapine Fumarate* (Seroquel*) 25 Mg Tablet, 25 MG GTB HS, #30 TAB 12/15/16 Protein Supplement (Promod) 946 Ml Liquid, 30 ML GTB DAILY 12/15/16 Epoetin Kali (Procrit) 10,000 Unit/1 Ml Vial, 83587 UNIT IJ TUESDAY, VIAL 12/15/16 Lansoprazole* (Prevacid*) 30 Mg Capsule., 30 MG GTB DAILY, CAP 12/15/16 Insulin Aspart* (Novolog Insulin Pen*) 100 Unit/Ml Soln, 0 SC .SLIDING SCALE AC , EA IF BS 60-149=0 UNIT, 150-199=2 UNITS,200-249=4 UNITS,250-299=6 UNITS,300-349=8 UNITS,350-399=10 UNITS IF BS>399,CALL 12/12/16 Tuberculin,Purif.prot.deriv. (Tubersol) 5 Tub Unit/0.1 Ml Vial, 0.1 ML ID QHS, VIAL FOR TB SCREENING FOR 1 DAY 2ND STEP PPD. START DATE 12/18/16 12/12/16 Sucralfate* (Carafate*) 1 Gm/10 Ml Susp, 1 GM GTB QID, EA 12/12/16 Rifaximin* (Xifaxan*) 550 Mg Tablet, 550 MG GTB BID, TAB 12/12/16 Lansoprazole* (Lansoprazole*) 30 Mg Capsule.dr, 30 MG GTB DAILY, CAP 12/12/16 Hydrocodone/Acetaminophen ([place]more 5-325 Tablet) 1 Each Tablet, 1 EACH GTB Q6H Y for PAIN LEVEL 4-10, TAB 12/12/16 Multivitamin with Minerals (Multivitamins with Minerals) 1 Each Tablet, 1 EACH GTB DAILY, TAB 12/12/16 Metoprolol Tartrate* (Lopressor*) 25 Mg Tab, 12.5 MG GTB Q8H, #60 TAB HOLD FOR SBP<110 OR HR<60 12/12/16 Lactulose* (Lactulose*) 10 Gm/15 Ml Solution, 45 ML GTB DAILY, ML 12/12/16 Lactobacillus Acidophilus* (Lactinex*) 1 Tab Chew, 1 TAB GTB TID, TAB 12/12/16 Folic Acid* (Folic Acid*) 1 Mg Tablet, 1 MG GTB DAILY, TAB 12/12/16 Famotidine* (Famotidine*) 40 Mg Tablet, 40 MG GTB HS, #30 TAB 12/12/16 Ipratropium-Albuterol (Ipratropium-Albuterol) 0.5-3 Mg/3 Ml Ampul.neb, 3 ML INHALATION Q6 for SHORTNESS OF BREATH, #30 VIAL AND TAKE Q2H NEEDED 12/12/16 Diphenhydramine Hcl* (Benadryl*) 50 Mg Cap, 50 MG GTB Q6 Y for ITCHING, CAP 12/12/16 Diltiazem Hcl* (Cardizem*) 30 Mg Tablet, 30 MG GTB Q6H, #60 TAB HOLD IF SBP<110 OR HR<60 12/12/16 Lorazepam* (Lorazepam*) 1 Mg Tablet, 1 MG GTB Q6 Y for ANXIETY, #60 TAB 12/12/16 Dextran 70/Hypromellose/Pf (ARTIFICIAL TEARS DROPS) 1 Each Droperette, 1 EACH BOTH EYES BID 12/12/16 Acetaminophen* (Acetaminophen*) 500 MG Extra Strength Tablet, 500 MG GTB Q4H Y for PAIN LEVEL 1-10, TAB 12/12/16 Discontinued Reported Medications Potassium Chloride* (Potassium Chloride*) 20 Meq/15 Ml Liquid, 20 MEQ GTB DAILY , ML 12/15/16 Nblsbdrxcmrq-Wihb-Vxsujonn,Iso (ZOSYN 2.25 GM GALAXY BAG) 2.25 Gm/50 Ml Froz.piggy, 2.25 GM IV Q6H for PNA USE UNTIL 01/05/17 12/12/16 Amikacin Sulfate* (Amikacin* Pediatric IV Syringe) 5 Mg/Ml Soln, 600 MG IV Q72H for PNA, EA USE UNTIL 01/05/17 12/12/16 Primary Care Provider MD LARRY Strickland RANBIR Jan 31, 2017 16:07
[2017-01-31] MEDS: LANSOPRAZOLE 30 MG CAP GTB SCH (18:16)
--- NOTE | 2017-01-31 21:29 | CONS ---
Date/Time of Note Date/Time of Note DATE: 01/31/17 TIME: 21:27 Assessment/Plan Assessment/Plan Additional Assessment/Plan 1. acute Kidney injury due to prerenal azotemia 2. Hypernatremia due to large free water deficit 3. Hypokalemia, persistent depite agressive replacement 3. Sepsis due to UTI and PNA, klebseilla PNA and ESBL E Coli UTI 4. Chronic resp failure s/p tracheostomy vent depedant 5. Chronic encephalopathy 6. S/P G tube 7. GI bleeding s/p Colonosocopy by GI Plan: Continue current IVF and TF Cr and electrolytes stable Monitor electrolytes and replace as needed will follow up Consultation Date/Type/Reason Admit Date/Time Jan 25, 2017 at 15:34 Initial Consult Date 01/29/17 Type of Consultation: NEPHROLOGY Referring Provider: DESTINEE ROBERTS MD Exam/Review of Systems Vital Signs Vitals Vital Signs Date Time Temp Pulse Resp B/P Pulse Ox O2 Delivery O2 Flow Rate FiO2 01/31/17 19:38 81 19 100 30 01/31/17 15:48 99.5 135/69 01/28/17 13:53 Mechanical Ventilator Intake and Output 01/30/17 01/30/17 01/31/17 15:00 23:00 07:00 Intake Total 50 ml 560 ml Output Total 750 ml Balance 50 ml -190 ml Exam Constitutional: non-verbal Head: normocephalic ENMT: other (+ tracheostomy site is clear ) Neck: non-tender, supple Respiratory: congested cough, crackles/rales, diminished breath sounds Cardiovascular: nl pulses, regular rate and rhythm Gastrointestinal: other (G tube in place ), soft Musculoskeletal: muscle weakness, range of motion (limited ) Extremities: normal pulses, other (hand swelling + ) Results Result Diagram: 01/30/17 0545 01/30/17 0545 Medications Medications Current Medications Dextrose/Sodium Chloride (D5-1/2ns) 1,000 ml @ 75 mls/hr [id number] IV Last administered on 01/31/17 09:31; Admin Dose 75 MLS/HR; Start 01/25/17 at 09:00 Collagenase (Santyl) 1 applic DAILY TOP Last administered on 01/31/17 08:53; Admin Dose 1 APPLIC; Start 01/26/17 at 12:30 Collagenase (Santyl) 1 applic PRN PRN TOP WOUND CARE; Start 01/26/17 at 12:00 Isosorbide Dinitrate (Isordil) 10 mg TID PO Last administered on 01/31/17 12: 20; Admin Dose 10 MG; Start 01/26/17 at 21:00 Hydralazine HCl (Apresoline) 10 mg Q4H PRN IV SBP>160,DBP>95 Last administered on 01/28/17 04:18; Admin Dose 10 MG; Start 01/27/17 at 12:00 Carvedilol (Coreg) 6.25 mg BID GTB Last administered on 01/31/17 08:52; Admin Dose 6.25 MG; Start 01/27/17 at 12:30 Benazepril HCl (Lotensin) 20 mg BID PO Last administered on 01/31/17 08:52; Admin Dose 20 MG; Start 01/27/17 at 21:00 Sucralfate (Carafate Susp) 1 gm QID GTB Last administered on 01/31/17 18:16; Admin Dose 1 GM; Start 01/29/17 at 17:00 Metoclopramide HCl (Reglan) 5 mg TID PO Last administered on 01/31/17 12:20; Admin Dose 5 MG; Start 01/29/17 at 14:00 Acetaminophen (Tylenol Tab) 650 mg Q6H PRN GTB PAIN AND OR ELEVATED TEMP; Start 01/29/17 at 15:30 Lansoprazole (Prevacid) 30 mg BID@,18 GTB Last administered on 01/31/17 18: 16; Admin Dose 30 MG; Start 01/31/17 at 18:00 ROULA YEPEZ MD Jan 31, 2017 21:29
[2017-02-01] VITALS (9 sets, daily range): BP systolic 139–155; BP diastolic 69–77; PULSE 73–91; RESP 14–20
[2017-02-01] MEDS: LANSOPRAZOLE 30 MG CAP GTB SCH (06:24)
[2017-02-01] MEDS: IPRATROPIUM (HFA) 12.9 GM INHALER INH SCH (08:11)
[2017-02-01] MEDS: ALBUTEROL HFA 8 GM INHALER INH SCH (08:11)
[2017-02-01] MEDS: SUCRALFATE (100 MG/ML) 10ML CUP GTB SCH (09:18)
[2017-02-01] MEDS: ISOSORBIDE DINITRATE 10 MG TAB PO SCH (09:19)
[2017-02-01] MEDS: METOCLOPRAMIDE 5 MG TAB PO SCH (09:19)
[2017-02-01] MEDS: BENAZEPRIL 20 MG TAB PO SCH (09:19)
[2017-02-01] MEDS: COLLAGENASE 30 GM TUBE TOP SCH (09:19)
--- NOTE | 2017-02-01 09:36 | CONS ---
Date/Time of Note Date/Time of Note DATE: 02/01/17 TIME: 09:35 Assessment/Plan Assessment/Plan Additional Assessment/Plan 1. acute Kidney injury due to prerenal azotemia 2. Hypernatremia due to large free water deficit 3. Hypokalemia, persistent depite agressive replacement 3. Sepsis due to UTI and PNA, [place] PNA and ESBL E Coli UTI 4. Chronic resp failure s/p tracheostomy vent depedant 5. Chronic encephalopathy 6. S/P G tube 7. GI bleeding s/p Colonosocopy by GI Plan: Cr and electrolytes stable Monitor electrolytes and replace as needed will follow up Consultation Date/Type/Reason Admit Date/Time Jan 25, 2017 at 15:34 Initial Consult Date 01/29/17 Type of Consultation: NEPHROLOGY Referring Provider: DESTINEE ROBERTS MD 24 HR Interval Summary Free Text/Dictation no acute events, BP stable Exam/Review of Systems Vital Signs Vitals Vital Signs Date Time Temp Pulse Resp B/P Pulse Ox O2 Delivery O2 Flow Rate FiO2 02/01/17 08:00 100.4 93 17 155/77 100 02/01/17 05:18 30 01/28/17 13:53 Mechanical Ventilator Intake and Output 01/31/17 01/31/17 02/01/17 14:59 22:59 06:59 Intake Total 50 ml 1220 ml 560 ml Output Total 500 ml 850 ml Balance 50 ml 720 ml -290 ml Exam Constitutional: non-verbal Head: normocephalic ENMT: other (+ tracheostomy site is clear ) Neck: non-tender, supple Respiratory: congested cough, crackles/rales, diminished breath sounds Cardiovascular: nl pulses, regular rate and rhythm Gastrointestinal: other (G tube in place ), soft Musculoskeletal: muscle weakness, range of motion (limited ) Extremities: normal pulses, other (hand swelling + ) Results Result Diagram: 01/30/1745 01/30/1745 Medications Medications Current Medications Dextrose/Sodium Chloride (D5-1/2ns) 1,000 ml @ 75 mls/hr [id number] IV Last administered on 01/31/17 23:00; Admin Dose 75 MLS/HR; Start 01/25/17 at 09:00 Collagenase (Santyl) 1 applic DAILY TOP Last administered on 02/01/17 09:19; Admin Dose 1 APPLIC; Start 01/26/17 at 12:30 Collagenase (Santyl) 1 applic PRN PRN TOP WOUND CARE; Start 01/26/17 at 12:00 Isosorbide Dinitrate (Isordil) 10 mg TID PO Last administered on 02/01/17 09: 19; Admin Dose 10 MG; Start 01/26/17 at 21:00 Hydralazine HCl (Apresoline) 10 mg Q4H PRN IV SBP>160,DBP>95 Last administered on 01/28/17 04:18; Admin Dose 10 MG; Start 01/27/17 at 12:00 Carvedilol (Coreg) 6.25 mg BID GTB Last administered on 02/01/17 09:19; Admin Dose 6.25 MG; Start 01/27/17 at 12:30 Benazepril HCl (Lotensin) 20 mg BID PO Last administered on 02/01/17 09:19; Admin Dose 20 MG; Start 01/27/17 at 21:00 Sucralfate (Carafate Susp) 1 gm QID GTB Last administered on 02/01/17 09:18; Admin Dose 1 GM; Start 01/29/17 at 17:00 Metoclopramide HCl (Reglan) 5 mg TID PO Last administered on 02/01/17 09:19; Admin Dose 5 MG; Start 01/29/17 at 14:00 Acetaminophen (Tylenol Tab) 650 mg Q6H PRN GTB PAIN AND OR ELEVATED TEMP Last administered on 02/01/17 09:20; Admin Dose 650 MG; Start 01/29/17 at 15:30 Lansoprazole (Prevacid) 30 mg BID@ GTB Last administered on 02/01/17 06: 24; Admin Dose 30 MG; Start 01/31/17 at 18:00 ROULA YEPEZ MD Feb 01, 2017 09:36
== END 2017-02-01 09:37 | DRG 870 ==
LOC: E/R 15:16 → TEL 01-25 15:34
PROVIDERS: ADMIT Internal Medicine; ATTEND Internal Medicine
PROC: 5A1955Z Respiratory Ventilation, Greater than 96 Consecutive Hours (ICD-10-PCS; principal; 2017-01-24)
PROC: 30233N1 Transfusion of Nonautologous Red Blood Cells into Peripheral Vein, Percutaneous Approach (ICD-10-PCS; 2017-01-25)
DX: A41.9 Sepsis, unspecified organism (principal); J18.9 Pneumonia, unspecified organism; G93.40 Encephalopathy, unspecified; Z99.11 Dependence on respirator [ventilator] status; K22.11 Ulcer of esophagus with bleeding; N17.9 Acute kidney failure, unspecified; L89.154 Pressure ulcer of sacral region, stage 4; L89.214 Pressure ulcer of right hip, stage 4; J96.11 Chronic respiratory failure with hypoxia; E87.0 Hyperosmolality and hypernatremia; G82.20 Paraplegia, unspecified; N39.0 Urinary tract infection, site not specified; D62 Acute posthemorrhagic anemia; I24.9 Acute ischemic heart disease, unspecified; Z93.0 Tracheostomy status; D64.9 Anemia, unspecified; Z93.1 Gastrostomy status; R13.10 Dysphagia, unspecified; Y95 Nosocomial condition; B96.1 Klebsiella pneumoniae [K. pneumoniae] as the cause of diseases classified elsewhere; K28.9 Gastrojejunal ulcer, unspecified as acute or chronic, without hemorrhage or perforation; E87.6 Hypokalemia; L89.620 Pressure ulcer of left heel, unstageable; K29.70 Gastritis, unspecified, without bleeding; K64.4 Residual hemorrhoidal skin tags; Z16.12 Extended spectrum beta lactamase (ESBL) resistance; Z74.01 Bed confinement status; Z87.891 Personal history of nicotine dependence
CPT/HCPCS: 36415; 36430; 36600; 71010; 80048; 80053; 80061; 81001; 82270; 82550; 82553; 82607; 82728; 82746; 82803; 83036; 83605; 83690; 84439; 84443; 84484; 85025; 85045; 85610; 85730; 86850; 86870; 86900; 86901; 86920; 87040; 87045; 87086; 90686; 92610; 93005; 93306; 94002; 94003; 94640; 94664; 96365; 96375; C9113; J0360; J0692; J1940; J2185; J2405; J3370; J3480; J7030; J7040; J7042; P9016

== ENCOUNTER 2017-02-27 14:42 | Inpatient (IN) | payer MEDICARE, MEDICAID ==
[~2017-02-27] VITALS: Ht 162.6 cm; Wt 64.9 kg
[~2017-02-27 14:42] MED LIST changes: -PIPE2.254 IV; -POTA20LI5 GTB; -[UNRECOGNIZED DRUG - OTHER] IV
--- NOTE | 2017-02-27 15:15 | ERD ---
ER Documentation Chief Complaint Chief Complaint Bloody discharge from the tracheostomy HPI The patient is a 81-year-old male, presenting to the ER because of bloody discharge from the tracheostomy today. 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 medical record Medical history: Ventilator dependent chronic respiratory failure, HTN, history of cardiac arrest Surgical history: Tracheostomy, G-tube ROS Unable to obtain due to his condition Medications Home Meds Reported Medications Glycopyrrolate* (Robinul*) 1 Mg Tab, 1 MG GTB TID, TAB 02/27/17 Protein Supplement (Promod) 946 Ml Liquid, 30 ML GTB BID 02/27/17 Metoclopramide Hcl* (Metoclopramide Hcl*) 5 Mg Tablet, 5 MG GTB TID Y for NAUSEA AND OR VOMITING, TAB 02/27/17 Furosemide* (Lasix*) 20 Mg Tablet, 20 MG GTB DAILY, TAB 02/27/17 Ipratropium-Albuterol (Ipratropium-Albuterol) 0.5-3 Mg/3 Ml Ampul.neb, 3 ML INHALATION Q2H Y for WHEEZING AND SOB, #30 VIAL 02/27/17 Carvedilol* (Carvedilol*) 6.25 Mg Tablet, 6.25 MG GTB BID, #60 TAB 02/27/17 Carboxymethylcellulose Sodium* (Refresh Tears*) 15 Ml Drops, 1 DROP BOTH EYES BID Y for DRY EYES, #1 EA 02/27/17 Mupirocin Calcium* (Bactroban* Nasal) 2% -1 Gram Oint...g., 1 APPLIC NASAL BID, TUB APPLY TO NARES FOR MRSA 02/27/17 Ascorbic Acid* (Vitamin C*) 500 Mg Capsule.sa, 500 MG GTB BID, CAP 02/27/17 Epoetin Kali (Procrit) 10,000 Unit/1 Ml Vial, [id number] UNIT IJ TUESDAY, VIAL 12/15/16 Lansoprazole* (Prevacid*) 30 Mg Capsule.dr, 30 MG GTB DAILY, CAP 12/15/16 Sucralfate* (Carafate*) 1 Gm/10 Ml Susp, 1 GM GTB QID, EA 12/12/16 Multivitamin with Minerals (Multivitamins with Minerals) 1 Each Tablet, 1 EACH GTB DAILY, TAB 12/12/16 Lactobacillus Acidophilus* (Lactinex*) 1 Tab Chew, 1 TAB GTB TID, TAB 12/12/16 Folic Acid* (Folic Acid*) 1 Mg Tablet, 1 MG GTB DAILY, TAB 12/12/16 Ipratropium-Albuterol (Ipratropium-Albuterol) 0.5-3 Mg/3 Ml Ampul.neb, 3 ML INHALATION Q6 for SHORTNESS OF BREATH, #30 VIAL AND TAKE Q2H NEEDED 12/12/16 Discontinued Reported Medications Trazodone Hcl* (Trazodone Hcl*) 50 Mg Tablet, 25 MG GTB QHS, #30 TAB 12/15/16 Quetiapine Fumarate* (Seroquel*) 25 Mg Tablet, 25 MG GTB HS, #30 TAB 12/15/16 Protein Supplement (Promod) 946 Ml Liquid, 30 ML GTB DAILY 12/15/16 Insulin Aspart* (Novolog Insulin Pen*) 100 Unit/Ml Soln, 0 SC .SLIDING SCALE AC , EA IF BS 60-149=0 UNIT, 150-199=2 UNITS,200-249=4 UNITS,250-299=6 UNITS,300-349=8 UNITS,350-399=10 UNITS IF BS>399,CALL MD. 12/12/16 Tuberculin,Purif.prot.deriv. (Tubersol) 5 Tub Unit/0.1 Ml Vial, 0.1 ML ID QHS, VIAL FOR TB SCREENING FOR 1 DAY 2ND STEP PPD. START DATE 12/18/16 12/12/16 Rifaximin* (Xifaxan*) 550 Mg Tablet, 550 MG GTB BID, TAB 12/12/16 Lansoprazole* (Lansoprazole*) 30 Mg Capsule.dr, 30 MG GTB DAILY, CAP 12/12/16 Hydrocodone/Acetaminophen ([place] 5-325 Tablet) 1 Each Tablet, 1 EACH GTB Q6H Y for PAIN LEVEL 4-12/21, TAB 12/12/16 Metoprolol Tartrate* (Lopressor*) 25 Mg Tab, 12.5 MG GTB Q8H, #60 TAB HOLD FOR SBP<110 OR HR<60 12/12/16 Lactulose* (Lactulose*) 10 Gm/15 Ml Solution, 45 ML GTB DAILY, ML 12/12/16 Famotidine* (Famotidine*) 40 Mg Tablet, 40 MG GTB HS, #30 TAB 12/12/16 Diphenhydramine Hcl* (Benadryl*) 50 Mg Cap, 50 MG GTB Q6 Y for ITCHING, CAP 12/12/16 Diltiazem Hcl* (Cardizem*) 30 Mg Tablet, 30 MG GTB Q6H, #60 TAB HOLD IF SBP<110 OR HR<60 12/12/16 Lorazepam* (Lorazepam*) 1 Mg Tablet, 1 MG GTB Q6 Y for ANXIETY, #60 TAB 12/12/16 Dextran 70/Hypromellose/Pf (ARTIFICIAL TEARS DROPS) 1 Each Droperette, 1 EACH BOTH EYES BID 12/12/16 Acetaminophen* (Acetaminophen*) 500 MG Extra Strength Tablet, 500 MG GTB Q4H Y for PAIN LEVEL 1-05/21, TAB 12/12/16 Allergies Allergies: Coded Allergies: No Known Allergy (Unverified , 02/27/17) PMhx/Soc History of Surgery: Yes (gastrostomy, tracheostomy) Anesthesia Reaction: No Hx Neurological Disorder: No Hx Respiratory Disorders: Yes (Vent) Hx Cardiac Disorders: Yes (cardiac arrect (08/2016), HTN) Hx Psychiatric Problems: No Hx Alcohol Use: No Hx Substance Use: No Hx Tobacco Use: No Physical Exam Vitals Vital Signs Date Time Temp Pulse Resp B/P Pulse Ox O2 Delivery O2 Flow Rate FiO2 02/27/17 19:00 78 20 100 40 02/27/17 18:11 82 18 105/57 100 Mechanical Ventilator 02/27/17 17:02 81 20 100 40 02/27/17 16:16 97.6 84 18 106/50 100 Mechanical Ventilator 02/27/17 15:41 96 18 102/84 98 Mechanical Ventilator 02/27/17 15:25 88 20 100 40 02/27/17 15:25 Venti Mask 10 02/27/17 15:21 97.8 94 18 102/66 100 Physical Exam Const: No acute distress. Dehydrated Head: Atraumatic. Eyes: Normal Conjunctiva. ENT: Normal External Ears, Nose and Mouth. Neck: Full range of motion. No meningismus. Tracheostomy Resp: Clear to auscultation bilaterally. Cardio: Regular rate and rhythm. Abd: Soft, non distended, normal bowel sounds, non tender.GT Skin: No petechiae or rashes. Back: No midline or flank tenderness. Ext: No cyanosis, or edema. Neur: Unable to perform due to his condition Psych: Unable to perform due to his condition Result Diagram: 02/27/17 1618 02/27/17 1618 Results 24 hrs Laboratory Tests Test 02/27/17 16:00 02/27/17 16:18 Blood Gas Specimen Source Blood arterial Arterial Blood Date Drawn 02/27/2017 4:30:38 PM Arterial Blood pH (Temp corrected) 7.426 Arterial Blood pCO2 (Temp correct) 40.8mmhg Arterial Blood pO2 (Temp corrected) 84.6mmHG Arterial Blood HCO3 26.2mmol/L Arterial Blood Base Excess 1.7mmol/L Arterial Blood Oxygen Saturation 96.3mmHG Monty Test N/A Arterial Blood Gas Puncture Site Right Brachial Arterial Blood Carboxyhemoglobin 0.8% Arterial Blood Methemoglobin 0.3% Blood Gas A-a O2 Differential 153.7mmHg Oxyhemoglobin Percent 95.2% Total Hemoglobin 8.5g/dl Blood Gas Temperature 37.0C Blood Gas Respiration Rate 20.0 Blood Gas Actual Respiration Rate 20 Blood Gas Modality VENT - AC FiO2 40.0% Blood Gas Tidal Volume 450.0mL Blood Gas Low PEEP Setting 0cmH2O Blood Gas Notified Whom Sydnie Blood Gas Notified Time 02/27/2017 4:43:22 PM White Blood Count 6.310^3/ul Red Blood Count 2.4910^6/ul Hemoglobin 7.6g/dl Hematocrit 24.3% Mean Corpuscular Volume 97.6fl Mean Corpuscular Hemoglobin 30.5pg Mean Corpuscular Hemoglobin Concent 31.3g/dl Red Cell Distribution Width 18.5% Platelet Count 88635^3/UL Mean Platelet Volume 11.9fl Neutrophils % 74.5% Lymphocytes % 13.8% Monocytes % 7.7% Eosinophils % 3.2% Basophils % 0.2% Nucleated Red Blood Cells % 0.0/100WBC Neutrophils # 4.710^3/ul Lymphocytes # 0.910^3/ul Monocytes # 0.510^3/ul Eosinophils # 0.210^3/ul Basophils # 0.010^3/ul Nucleated Red Blood Cells # 0.010^3/ul Prothrombin Time 15.3Sec Prothrombin Time Ratio 1.2 INR International Normalized Ratio 1.19 Activated Partial Thromboplast Time 37.0Sec Sodium Level 147mmol/L Potassium Level 4.0mmol/L Chloride Level 112mmol/L Carbon Dioxide Level 27mmol/L Anion Gap 12 Blood Urea Nitrogen 66mg/dl Creatinine 1.73mg/dl Glucose Level 87mg/dl Lactic Acid Level 1.9mmol/L Calcium Level 8.7mg/dl Total Bilirubin 0.3mg/dl Direct Bilirubin 0.00mg/dl Indirect Bilirubin 0.3mg/dl Aspartate Amino Transf (AST/SGOT) 22IU/L Alanine Aminotransferase (ALT/SGPT) 41IU/L Alkaline Phosphatase 141IU/L Troponin I 0.034ng/ml Total Protein 6.6g/dl Albumin 2.3g/dl Globulin 4.30g/dl Albumin/Globulin Ratio 0.53 Current Medications Medications (Trade) Dose Ordered Sig/Derrick Route PRN Reason Start Time Stop Time Status Last Admin Dose Admin Sodium Chloride 2,330 ml @ 2,330 mls/hr BOLUS X1 ONCE IV 02/27/17 16:00 02/27/17 16:59 DC 02/27/17 16:25 Vancomycin HCl 250 ml @ 125 mls/hr ONCE IVPB 02/27/17 17:30 02/27/17 19:29 DC 02/27/17 18:43 Cefepime HCl (Maxipime 1gm/50 ml (Pmx)) 50 ml @ 100 mls/hr ONCE ONCE IVPB 02/27/17 17:30 02/27/17 17:59 DC 02/27/17 17:36 Procedures/MDM [place] [id number] Radiology Main Line: [phone] DIAGNOSTIC IMAGING REPORT Patient: ANIYA COKER : 1935 Age: 81 Sex: M MR #: [id number] DOS: 02/27/17 1520 Ordering MD: CRISTIANE XIE MD Location: E/R Room/Bed: PROCEDURE: XR Chest. CLINICAL INDICATION: Sepsis . TECHNIQUE: Single frontal chest x-ray. COMPARISON: CHEST 02/16/2017 FINDINGS: Right greater than left bibasilar consolidations and infiltrates appear unchanged. Possible small bilateral pleural effusions are present. . Tracheostomy tube is in place.. Cardiomediastinal silhouette is stable.. The osseous structures are intact. IMPRESSION: Right greater than left bilateral lower lung consolidations and infiltrates with small bilateral pleural effusions unchanged.. RPTAT: QQ .Devon Wilkins MD, MD Date Time Electronically viewed and signed by .Devon Wilkins MD, MD on 02/27/2017 16:52 .L/ CC: CRISTIANE XIE MD MEDICAL MAKING DECISION: The patient is a 81-year-old male, presenting with acute bilateral pneumonia, acute GI bleed, acute kidney injury, acute hypernatremia. He was treated with 30 mL/kg IV, vancomycin IV, cefepime IV for acute pneumonia, Car catheter for acute kidney injury, 2 unit of packed red blood cell for acute GIB The differential diagnoses considered include but are not limited to gastritis, peptic ulcer disease, esophageal varices, Lyssa-Moctezuma tear, carcinoma, polyp, hemorrhoid, fissure, diverticulosis, angiodysplasia, UTI, pyelonephritis Critical Care: Time: 35 minutes excluding all billable procedures. Treatments/Evaluations: Close monitoring and treatment of unstable vital signs, cardiorespiratory, and neurologic status, while maintaining tight balance of fluid, respiratory, and cardiac interventions.. Departure Diagnosis: Primary Impression: PNA (pneumonia) Additional Impressions: Gastrointestinal bleeding Acute kidney injury Hypernatremia Condition: Serious Comments I discussed the findings with the patient. I discussed the patient with his physician Dr. Moffett at 5:45 PM who was made aware of the lab, the treatment, the patient condition. The patient is admitted to Tel Disclaimer: Inadvertent spelling and grammatical errors are likely due to EHR/ dictation software use and do not reflect on the overall quality of patient care. Also, please note that the electronic time recorded on this note does not necessarily reflect the actual time of the patient encounter. CRISTIANE XIE MD Feb 27, 2017 15:15
[2017-02-27] MEDS ORDERED: SOD CHLORIDE 0.9% 2,330 ML IV ONE (16:00)
[2017-02-27 16:28] LABS: BASOPHILS % 0.2 % (0.0-2.0); EOSINOPHILS # 0.2 10^3/ul (0.0-0.5); EOSINOPHILS % 3.2 % (0.0-7.0); HEMATOCRIT 24.3 % (42.0-52.0); HEMOGLOBIN 7.6 g/dl (14.0-18.0); LYMPHOCYTES # 0.9 10^3/ul (0.8-2.9); LYMPHOCYTES % 13.8 % (15.0-51.0); MEAN CORPUSCULAR HEMOGLOBIN 30.5 pg (29.0-33.0); MEAN CORPUSCULAR HGB CONC 31.3 g/dl (32.0-37.0); MEAN CORPUSCULAR VOLUME 97.6 fl (82.0-101.0); MEAN PLATELET VOLUME 11.9 fl (7.4-10.4); MONOCYTE # 0.5 10^3/ul (0.3-0.9); MONOCYTES % 7.7 % (0.0-11.0); NEUTROPHIL # 4.7 10^3/ul (1.6-7.5); NEUTROPHILS % 74.5 % (39.0-77.0); PLATELET COUNT 207 10^3/UL (140-415); RED BLOOD COUNT 2.49 10^6/ul (4.70-6.10); RED CELL DISTRIBUTION WIDTH 18.5 % (11.5-14.5); WHITE BLOOD COUNT 6.3 10^3/ul (4.8-10.8)
[2017-02-27] MEDS ORDERED: ASCO500C7 GTB (16:31)
[2017-02-27] MEDS ORDERED: MUPI1OIN5 NASAL (16:32)
[2017-02-27] MEDS ORDERED: CARB15DR BOTH EYES (16:34)
[2017-02-27] MEDS ORDERED: CARV6.2579 GTB (16:35)
[2017-02-27] MEDS ORDERED: IPRA3AMP INHALATION (16:36)
[2017-02-27] MEDS ORDERED: FURO-110 GTB (16:37)
[2017-02-27] MEDS ORDERED: METO5TAB11 GTB (16:39)
[2017-02-27] MEDS ORDERED: PROT946L GTB (16:40)
[2017-02-27] MEDS ORDERED: ROB1 GTB (16:41)
[2017-02-27 16:43] LABS: AADO2 Arterial 153.7 mmHg (7.0-24.0); Arterial Base Excess 1.7 mmol/L (-3.0-3); Arterial COHb 0.8 % (0.0-3.0); Arterial Fraction of Oxyhgb 95.2 % (93.0-99.0); Arterial HCO3 26.2 mmol/L (22.0-26.0); Arterial MetHb 0.3 % (0.0-1.5); Arterial Total Hemglobin 8.5 g/dl (12.0-18.0); Blood Gas Low PEEP Setting 0 cmH2O; MODE VENT - AC
[2017-02-27 16:46] LABS: INR 1.19; PROTIME 15.3 Sec (11.9-14.9); PT RATIO 1.2
[2017-02-27 16:52] LABS: ALBUMIN 2.3 g/dl (3.3-4.9); ALBUMIN/GLOBULIN RATIO 0.53; CALCIUM 8.7 mg/dl (8.4-10.2); CREATININE 1.73 mg/dl (0.61-1.24); TOTAL PROTEIN 6.6 g/dl (6.1-8.1)
--- NOTE | 2017-02-27 16:52 | RADRPT ---
PROCEDURE: XR Chest. CLINICAL INDICATION: Sepsis . TECHNIQUE: Single frontal chest x-ray. COMPARISON: CHEST 02/16/2017 FINDINGS: Right greater than left bibasilar consolidations and infiltrates appear unchanged. Possible small bi lateral pleural effusions are present. . Tracheostomy tube is in place.. Cardiomediastinal silhouet te is stable.. The osseous structures are intact. IMPRESSION: Right greater than left bilateral lower lung consolidations and infiltrates with small bilateral ple ural effusions unchanged.. RPTAT: QQ .Devon Wilkins MD, MD Date Time Electronically viewed and signed by .Devon Wilkins MD, MD on 02/27/2017 16:52 .L/
[2017-02-27 16:58] LABS: BILIRUBIN,TOTAL 0.3 mg/dl (0.2-1.3)
[2017-02-27 16:59] LABS: BILIRUBIN,INDIRECT 0.3 mg/dl (0-1.1)
[2017-02-27 17:03] LABS: TROPONIN-I 0.034 ng/ml (0.00-0.12)
[2017-02-27] MEDS ORDERED: VANCOMYCIN 1 GM (PMX) 250 ML IVPB SCH (17:30)
[2017-02-27] MEDS ORDERED: CEFEPIME 1GM/50 ML (PMX) 50 ML IVPB ONE (17:30)
[2017-02-27] MEDS ORDERED: CARBOXYMETHYLCELLULOSE 0.5% 0.1 ML OPH BOTH EYES PRN (23:30)
[2017-02-27] MEDS ORDERED: VANCOMYCIN IV PER PHARMACY XX SCH (23:30)
[2017-02-27] MEDS ORDERED: METOCLOPRAMIDE 5 MG TAB GTB PRN (23:30)
[2017-02-28] VITALS (7 sets, daily range): BP systolic 123; BP diastolic 65; PULSE 75–79; RESP 18–20; TEMP 98.8; Ht 162.6 cm; Wt 64.9 kg
[2017-02-28] MEDS: SOD CHLORIDE 0.45% 1,000 ML IV SCH ×2 (00:11→16:10)
[2017-02-28] MEDS: ALBUTEROL/IPRATROPIUM (NEB) 3 ML AMP NEB SCH ×5 (01:08→20:57)
--- NOTE | 2017-02-28 04:00 | HP ---
DATE OF ADMISSION: 02/27/2017 CHIEF COMPLAINT: Shortness of breath and fever. HISTORY OF PRESENT ILLNESS: The patient is an 81-year-old gentleman well known to me from previous admissions. The patient has multiple medical problems including CVA with significant weakness in all extremities, especially the lower extremities, history of cardiac arrest a few months ago, also a history of acute kidney injury, requiring short term hemodialysis, history of recurrent upper GI bleed, recent EGD had revealed esophageal ulcer, chronic sacral decubitus, anemia, respiratory failure, left eye blindness. The patient was recently admitted at [facility] for anemia and was diagnosed with esophageal ulcer. The patient was subsequently transferred to [facility] for attempted weaning; however, the patient could not be weaned off and therefore was sent to [facility] Acute Respiratory Unit. I received a call from [facility] this morning that the patient had fever and also was short of breath. I went to see the patient and at that time , the patient was febrile with a temperature of approximately 101. The patient also had a heart rate of 115, was mildly short of breath despite being on vent. The patient also looked pale and weak. The patient's was present in [facility] and the decision was made to send him to the ER for further evaluation and management. She agreed for transfer. The patient was sent to [facility] ER and underwent evaluation. In the emergency room Dr. Ritter saw the patient, workup in the ER revealed the patient to have a hemoglobin of 7.6, down from 9.9 two weeks ago. BUN had gone up to 66 from 49, creatinine up to 1.7 from 1.1. Lactic acid was 1.9, albumin 2.3. Chest x-ray revealed bibasilar consolidation. UA also revealed possible UTI. The patient recently also had blood tinged tracheostomy secretions and yesterday he did have an episode of hypoxemia due to possible mucus plug which responded to suctioning. I spoke with Dr. Ritter, the ER physician and the patient will also be given 2 units of PRBC. The patient remains awake, however, tends to keep eyes closed but follows simple commands. The patient has generalized weakness, worse in the lower extremities. No hematemesis or melena. No reported seizures. No reported acute skin rash. At the jail [facility], he is being fed through G-tube. REVIEW OF SYSTEMS: Was limited as the patient was on full vent support. PAST MEDICAL HISTORY: As stated above, the patient has chronic sacral decubitus. PAST SURGICAL HISTORY: Status post tracheostomy and G-tube placement, history of dialysis catheter placement. FAMILY HISTORY: Noncontributory. SOCIAL HISTORY: No smoking or alcohol abuse. The patient is currently a resident of a jail facility. ALLERGIES: NONE. MEDICATIONS: List reviewed and reconciled. The patient prior to admission was on DuoNeb, Epogen, Carvedilol, Lasix, protein supplement, Artificial Tears, Bactroban, Prevacid, Metoclopramide, Carafate, Vitamin C, folic acid, multivitamin. PHYSICAL EXAMINATION: GENERAL: The patient is awake and responsive. VITAL SIGNS: Upon arrival in the ER revealed temperature of 97.8, down from 101 at the jail facility, pulse 94, respirations 18, blood pressure 102/66, O2 saturation 100% on FIO2 of 40%. The patient is currently on a mechanical vent. HEENT: Left eye has corneal opacity; the right eye has no discharge or redness. Nose and ears normal externally. NECK: Tracheostomy in place, mild secretions. No mass. CHEST: Diminished air entry at bases. No use of accessory muscles. CARDIOVASCULAR: Irregular rate and rhythm. S1, S2 normal. No murmur, gallop, or rub. ABDOMEN: G-tube in place. Soft, nondistended, nontender. EXTREMITIES: No leg edema. NEUROLOGIC: The patient is awake and follows simple commands, has generalized weakness, worse in the lower extremities but historically paraplegic. SKIN: Without acute rash. The patient has a chronic large sacral decubitus & small left heel decub. Please see nursing assesment for details. LABORATORY DATA: Done this morning, WBC 6.3, hemoglobin 7.6, platelet 207. Sodium 147, potassium 4, BUN 16, creatinine 1.7, glucose 87, calcium 8.7, bilirubin 0.3, AST 22, ALT 40, alkaline phosphatase 141, albumin 2.8. Troponin negative. Chest x-ray revealed possible bilateral infiltrate. IMPRESSION: 1. Healthcare facility-acquired pneumonia. The patient will be started on IV vancomycin and Cefepime. 2. Rule out urinary tract infection. Continue IV cefepime. 3. History of cardiac arrest with residual anoxic encephalopathy. No acute issue. 4. History of cerebrovascular accident several years ago which left him totally paraplegic and also weak in the upper extremities. 5. Hypertension. We will continue carvedilol. 6. Acute kidney injury. We will give a trial of IV fluids. We will also obtain urine culture. Continue empiric cefepime. Renal consult from dr. Agnes hoover will be obtained 7. Left eye blindness with corneal opacity. No acute issues. 8. Sacral & left heel decub Continue treatment as per wound care nurse. We will also continue breathing treatment. 9. Anemia of chronic kidney disease with possible anemia of chronic disease. The patient's dose of Procrit will be increased. I spoke with the patient's and updated on plan of care. Further recommendations will depend on the patient's hospital course 10. Anemia possibly due to gastrointestinal blood loss. Will obtain stool for occult blood. In addition he has anemia of chronic disease versus chronic kidney disease. Continue Prevacid and sucralfate due to recent history of esophageal ulceration. 11. Vent dependent resp failure : he has not been able to be weaned off vent for last several weeks. Will obtain pulm eval from We will also obtain GI consult from Dr. Hassan. Further recommendation will depend on the patient's hospital course.I spoke with patient.s & updated her regarding plan of care Dictated By: DESTINEE KUHN/IRMA Conf#: [id number] DID#: [id number] MTDD
[2017-02-28 06:13] LABS: HEMATOCRIT 28.5 % (42.0-52.0); HEMOGLOBIN 9.5 g/dl (14.0-18.0); MEAN CORPUSCULAR HEMOGLOBIN 31.6 pg (29.0-33.0); MEAN CORPUSCULAR HGB CONC 33.3 g/dl (32.0-37.0); MEAN CORPUSCULAR VOLUME 94.7 fl (82.0-101.0); PLATELET COUNT 213 10^3/UL (140-415); POSITIVE DIFF @See below; RED BLOOD COUNT 3.01 10^6/ul (4.70-6.10); RED CELL DISTRIBUTION WIDTH 19.1 % (11.5-14.5); WHITE BLOOD COUNT 9.4 10^3/ul (4.8-10.8)
[2017-02-28 07:00] LABS: CALCIUM 8.6 mg/dl (8.4-10.2); CREATININE 1.67 mg/dl (0.61-1.24)
[2017-02-28] MEDS ORDERED: NON-FORMULARY/PATIENT OWN MED (Protein Supplement (Promod) 30 ML) GTB SCH (09:00)
[2017-02-28 09:25] LABS: ADD UMIC YES; UR ASCORBIC ACID 40 mg/dL (NEGATIVE); UR BACTERIA MODERATE /HPF (NONE SEEN); UR BILIRUBIN (Dip) NEGATIVE (NEGATIVE); UR BLOOD (Dip) 1+ mg/dL (NEGATIVE); UR BUDDING YEAST MANY /HPF (NONE SEEN); UR CLARITY TURBID (CLEAR); UR COLOR YELLOW (YELLOW); UR GLUCOSE (Dip) NEGATIVE (NEGATIVE); UR KETONES (Dip) TRACE mg/dL (NEGATIVE); UR LEUKOCYTE ESTERASE (Dip) 2+ Leu/ul (NEGATIVE); UR NITRITE (Dip) NEGATIVE (NEGATIVE); UR NONSQUAMOUS EPITHELIAL CELL 13 /HPF (NONE SEEN); UR RBC 59 /HPF (0-5); UR SPECIFIC GRAVITY (Dip) 1.014 (1.003-1.030); UR SQUAMOUS EPITHELIAL CELL FEW /HPF (FEW); UR TOTAL PROTEIN (Dip) 2+ mg/dl (NEGATIVE); UR UROBILINOGEN (Dip) NEGATIVE (NEGATIVE)
[2017-02-28 09:39] LABS: ANISOCYTOSIS 1+ (0-0); MICROCYTOSIS 1+ (0-0); MONOCYTES % (M) 6 % (0-11); PLATELET ESTIMATE NORMAL; POLYCHROMASIA 1+ (0-0); REACTIVE LYMPHOCYTES% (M) 2 % (0-0)
[2017-02-28] MEDS: CEFEPIME 1GM/50 ML (PMX) 50 ML IVPB SCH ×2 (10:08→21:34)
[2017-02-28] MEDS: ASCORBIC ACID 500 MG TAB GTB SCH ×2 (10:15→21:32)
[2017-02-28] MEDS: LANSOPRAZOLE 30 MG CAP GTB SCH (10:16)
[2017-02-28] MEDS: L ACIDOPHIL/B LACTIS/B LONGUM CAPSULE NGT SCH ×3 (10:16→21:33)
[2017-02-28] MEDS: FOLIC ACID 1 MG TAB GTB SCH (10:16)
[2017-02-28] MEDS: MULTIVITAMINS 30 ML CUP GTB SCH (10:17)
[2017-02-28] MEDS: SUCRALFATE (100 MG/ML) 10ML CUP GTB SCH ×4 (10:17→21:32)
[2017-02-28] MEDS: GLYCOPYRROLATE 1 MG TAB GTB SCH ×3 (10:17→21:48)
--- NOTE | 2017-02-28 12:00 | PN ---
Date/Time of Note Date/Time of Note DATE: 02/28/17 TIME: 11:49 Assessment/Plan VTE Prophylaxis VTE Prophylaxis Intervention: SCD's Lines/Catheters Urinary Cath still in place: Yes Reason Cath still needed: urinary retention Assessment/Plan Chief Complaint/Hosp Course Patient has bloody secretions from ET tube, continues on ventilatory support. Patient is status post blood transfusion yesterday it was improved hemoglobin. Patient has some purulent leaking around G-tube. Patient's condition and plan of care discussed with patient at the bedside, all questions answered. Problems: Assessment/Plan - Healthcare facility-acquired pneumonia. Continue broad-spectrum antibiotics. Dr. Jones is asked to see patient in infection disease consultation. - Ventilator dependent respiratory failure, continue breathing treatment, Dr. Collazo is following patient in pulmonology consultation - Anemia multifactorial: anemia of blood loss, anemia of chronic disease - G-tube malfunction, Dr. Hassan is asked to see patient in gastroenterology consultation - Acute kidney injury, Dr. Person is asked to see patient in nephrology consultation - History of cardiac arrest with residual anoxic encephalopathy. No acute issue. 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 Continue carvedilol. - Sacral decubitus. Continue treatment as per wound care nurse. Further recommendations based on clinical course. Plan of care discussed with Dr. Roa. Exam/Review of Systems Vital Signs Vitals Vital Signs Date Time Temp Pulse Resp B/P Pulse Ox O2 Delivery O2 Flow Rate FiO2 02/28/17 11:10 70 20 100 40 02/28/17 10:00 158/77 Mechanical Ventilator 02/28/17 08:05 98.2 02/27/17 15:25 10 Intake and Output 02/27/17 02/27/17 02/28/17 15:00 23:00 07:00 Intake Total 350 ml Balance 350 ml Exam Constitutional: alert, frail Head: normocephalic Neck: supple Respiratory: diminished breath sounds Cardiovascular: nl pulses Gastrointestinal: non-tender, other (G-tube), soft Musculoskeletal: muscle weakness Neurological: other (Paraplegia) Skin: other (Decubitus ulcer) Results Result Diagram: 02/28/17 0526 02/28/17 0526 Results 24 hrs Laboratory Tests Test 02/27/17 16:00 02/27/17 16:18 02/27/17 21:23 02/28/17 05:26 Blood Gas Specimen Source Blood arterial Arterial Blood Date Drawn 02/27/2017 4:30:38 PM Arterial Blood pH (Temp corrected) 7.426 Arterial Blood pCO2 (Temp correct) 40.8 Arterial Blood pO2 (Temp corrected) 84.6 Arterial Blood HCO3 26.2 H Arterial Blood Base Excess 1.7 Arterial Blood Oxygen Saturation 96.3 Monty Test N/A Arterial Blood Gas Puncture Site Right Brachial Arterial Blood Carboxyhemoglobin 0.8 Arterial Blood Methemoglobin 0.3 Blood Gas A-a O2 Differential 153.7 H Oxyhemoglobin Percent 95.2 Total Hemoglobin 8.5 L Blood Gas Temperature 37.0 Blood Gas Respiration Rate 20.0 Blood Gas Actual Respiration Rate 20 Blood Gas Modality VENT - AC FiO2 40.0 Blood Gas Tidal Volume 450.0 Blood Gas Low PEEP Setting 0 Blood Gas Notified Whom M.D. Blood Gas Notified Time 02/27/2017 4:43:22 PM White Blood Count 6.3 # 9.4 # Red Blood Count 2.49 #L 3.01 #L Hemoglobin 7.6 #L 9.5 #L Hematocrit 24.3 #L 28.5 L Mean Corpuscular Volume 97.6 94.7 Mean Corpuscular Hemoglobin 30.5 31.6 Mean Corpuscular Hemoglobin Concent 31.3 L 33.3 Red Cell Distribution Width 18.5 H 19.1 H Platelet Count 207 # 213 Mean Platelet Volume 11.9 H 12.0 H Neutrophils % 74.5 Lymphocytes % 13.8 L Monocytes % 7.7 Eosinophils % 3.2 Basophils % 0.2 Nucleated Red Blood Cells % 0.0 0.0 Neutrophils # 4.7 Lymphocytes # 0.9 Monocytes # 0.5 Eosinophils # 0.2 Basophils # 0.0 Nucleated Red Blood Cells # 0.0 Prothrombin Time 15.3 H Prothrombin Time Ratio 1.2 INR International Normalized Ratio 1.19 Activated Partial Thromboplast Time 37.0 H Sodium Level 147 H 149 H Potassium Level 4.0 4.0 Chloride Level 112 H 115 H Carbon Dioxide Level 27 26 Anion Gap 12 12 Blood Urea Nitrogen 66 H 63 H Creatinine 1.73 H 1.67 H Glucose Level 87 81 Lactic Acid Level 1.9 0.9 Calcium Level 8.7 8.6 Total Bilirubin 0.3 Direct Bilirubin 0.00 Indirect Bilirubin 0.3 Aspartate Amino Transf (AST/SGOT) 22 Alanine Aminotransferase (ALT/SGPT) 41 Alkaline Phosphatase 141 H Troponin I 0.034 Total Protein 6.6 Albumin 2.3 L Globulin 4.30 H Albumin/Globulin Ratio 0.53 Segmented Neutrophils % (Manual) 59 Band Neutrophils % (Manual) 23 H Lymphocytes % (Manual) 10 L Reactive Lymphocytes % (Manual) 2 H Monocytes % (Manual) 6 Neutrophils # (Manual) 5.7 Band Neutrophils # 2.1 H Absolute Lymphocytes (Manual) 0.9 Reactive Lymphocytes # 0.1 H Absolute Monocytes (Manual) 0.5 Platelet Estimate NORMAL Polychromasia 1+ Anisocytosis 1+ Microcytosis 1+ Test 02/28/17 07:48 Urine Color YELLOW Urine Clarity TURBID A Urine pH 6.0 Urine Specific [place] 1.014 Urine Ketones TRACE A Urine Nitrite NEGATIVE Urine Bilirubin NEGATIVE Urine Urobilinogen NEGATIVE Urine Leukocyte Esterase 2+ H Urine Microscopic RBC 59 H Urine Microscopic WBC > 182 H Urine Squamous Epithelial Cells FEW Urine Bacteria MODERATE Urine Yeast (Budding) MANY A Urine Hemoglobin 1+ H Urine Glucose NEGATIVE Urine Total Protein 2+ H Medications Medications Current Medications Cefepime HCl 50 ml @ 100 mls/hr Q12 IVPB Last administered on 02/28/17 10:08 ; Admin Dose 100 MLS/HR; Start 02/28/17 at 09:00 Sodium Chloride (1/2 NS) 1,000 ml @ 60 mls/hr [id number] IV Last administered on 02/28/17 00:11; Admin Dose 60 MLS/HR; Start 02/27/17 at 23:30 Ascorbic Acid (Vitamin C) 500 mg BID GTB Last administered on 02/28/17 10:15 ; Admin Dose 500 MG; Start 02/28/17 at 09:00 Eye Lubricant (Refresh Plus) 1 drop BID PRN BOTH EYES DRY EYES; Start at 23:30 Carvedilol (Coreg) 6.25 mg BID GTB Last administered on 02/28/17 10:16; Admin Dose 6.25 MG; Start 02/28/17 at 09:00 Epoetin Kali (Epogen (Non Esrd/Non Oncology)) 10,000 units MONWEDFRI@17 SC ; Start 02/28/17 at 17:00 Folic Acid (Folic Acid) 1 mg DAILY GTB Last administered on 02/28/17 10:16; Admin Dose 1 MG; Start 02/28/17 at 09:00 Glycopyrrolate (Robinul) 1 mg TID GTB Last administered on 02/28/17 10:17; Admin Dose 1 MG; Start 02/28/17 at 09:00 Lansoprazole (Prevacid) 30 mg DAILY GTB Last administered on 02/28/17 10:16; Admin Dose 30 MG; Start 02/28/17 at 09:00 Metoclopramide HCl (Reglan) 5 mg TID PRN GTB NAUSEA AND/OR VOMITING; Start at 23:30 Sucralfate (Carafate Susp) 1 gm QID GTB Last administered on 02/28/17 10:17; Admin Dose 1 GM; Start 02/28/17 at 09:00 Lactobacillus Acidophilus (Florajen3 Capsule) 1 each TID NGT Last administered on 02/28/17 10:16; Admin Dose 1 EACH; Start 02/28/17 at 09:00 Multivitamins 30 ml 30 ml DAILY GTB Last administered on 02/28/17 10:17; Admin Dose 30 ML; Start 02/28/17 at 09:00 Vancomycin HCl (Vancocin) 250 ml @ 125 mls/hr Q24H IVPB ; Start 02/28/17 at 19 :00 ERROL LORD Feb 28, 2017 11:59
--- NOTE | 2017-02-28 12:09 | CONS ---
Date/Time of Note Date/Time of Note DATE: 02/28/17 TIME: 12:09 Consultation Date/Type/Reason Admit Date/Time Date of Consultation: Feb 28, 2017 Type of Consultation: Pulmonary/critical care Hx of Present Illness Consultation dictated #[id number]. Past Surgical History Past Surgical Hx: other Social History Smoking Status: Never smoker Exam/Review of Systems Vital Signs Vitals Vital Signs Date Time Temp Pulse Resp B/P Pulse Ox O2 Delivery O2 Flow Rate FiO2 02/28/17 11:10 70 20 100 40 02/28/17 10:00 158/77 Mechanical Ventilator 02/28/17 08:05 98.2 02/27/17 15:25 10 Intake and Output 02/27/17 02/27/17 02/28/17 15:00 23:00 07:00 Intake Total 350 ml Balance 350 ml Results Result Diagram: 02/28/17 0526 02/28/17 0526 Results 24 hrs Laboratory Tests Test 02/27/17 16:00 02/27/17 16:18 02/27/17 21:23 02/28/17 05:26 Blood Gas Specimen Source Blood arterial Arterial Blood Date Drawn 02/27/2017 4:30:38 PM Arterial Blood pH (Temp corrected) 7.426 Arterial Blood pCO2 (Temp correct) 40.8 Arterial Blood pO2 (Temp corrected) 84.6 Arterial Blood HCO3 26.2 H Arterial Blood Base Excess 1.7 Arterial Blood Oxygen Saturation 96.3 Monty Test N/A Arterial Blood Gas Puncture Site Right Brachial Arterial Blood Carboxyhemoglobin 0.8 Arterial Blood Methemoglobin 0.3 Blood Gas A-a O2 Differential 153.7 H Oxyhemoglobin Percent 95.2 Total Hemoglobin 8.5 L Blood Gas Temperature 37.0 Blood Gas Respiration Rate 20.0 Blood Gas Actual Respiration Rate 20 Blood Gas Modality VENT - AC FiO2 40.0 Blood Gas Tidal Volume 450.0 Blood Gas Low PEEP Setting 0 Blood Gas Notified Whom MMayco Blood Gas Notified Time 02/27/2017 4:43:22 PM White Blood Count 6.3 # 9.4 # Red Blood Count 2.49 #L 3.01 #L Hemoglobin 7.6 #L 9.5 #L Hematocrit 24.3 #L 28.5 L Mean Corpuscular Volume 97.6 94.7 Mean Corpuscular Hemoglobin 30.5 31.6 Mean Corpuscular Hemoglobin Concent 31.3 L 33.3 Red Cell Distribution Width 18.5 H 19.1 H Platelet Count 207 # 213 Mean Platelet Volume 11.9 H 12.0 H Neutrophils % 74.5 Lymphocytes % 13.8 L Monocytes % 7.7 Eosinophils % 3.2 Basophils % 0.2 Nucleated Red Blood Cells % 0.0 0.0 Neutrophils # 4.7 Lymphocytes # 0.9 Monocytes # 0.5 Eosinophils # 0.2 Basophils # 0.0 Nucleated Red Blood Cells # 0.0 Prothrombin Time 15.3 H Prothrombin Time Ratio 1.2 INR International Normalized Ratio 1.19 Activated Partial Thromboplast Time 37.0 H Sodium Level 147 H 149 H Potassium Level 4.0 4.0 Chloride Level 112 H 115 H Carbon Dioxide Level 27 26 Anion Gap 12 12 Blood Urea Nitrogen 66 H 63 H Creatinine 1.73 H 1.67 H Glucose Level 87 81 Lactic Acid Level 1.9 0.9 Calcium Level 8.7 8.6 Total Bilirubin 0.3 Direct Bilirubin 0.00 Indirect Bilirubin 0.3 Aspartate Amino Transf (AST/SGOT) 22 Alanine Aminotransferase (ALT/SGPT) 41 Alkaline Phosphatase 141 H Troponin I 0.034 Total Protein 6.6 Albumin 2.3 L Globulin 4.30 H Albumin/Globulin Ratio 0.53 Segmented Neutrophils % (Manual) 59 Band Neutrophils % (Manual) 23 H Lymphocytes % (Manual) 10 L Reactive Lymphocytes % (Manual) 2 H Monocytes % (Manual) 6 Neutrophils # (Manual) 5.7 Band Neutrophils # 2.1 H Absolute Lymphocytes (Manual) 0.9 Reactive Lymphocytes # 0.1 H Absolute Monocytes (Manual) 0.5 Platelet Estimate NORMAL Polychromasia 1+ Anisocytosis 1+ Microcytosis 1+ Test 02/28/17 07:48 Urine Color YELLOW Urine Clarity TURBID A Urine pH 6.0 Urine Specific [place] 1.014 Urine Ketones TRACE A Urine Nitrite NEGATIVE Urine Bilirubin NEGATIVE Urine Urobilinogen NEGATIVE Urine Leukocyte Esterase 2+ H Urine Microscopic RBC 59 H Urine Microscopic WBC > 182 H Urine Squamous Epithelial Cells FEW Urine Bacteria MODERATE Urine Yeast (Budding) MANY A Urine Hemoglobin 1+ H Urine Glucose NEGATIVE Urine Total Protein 2+ H Medications Medications Current Medications Cefepime HCl 50 ml @ 100 mls/hr Q12 IVPB Last administered on 02/28/17t 10:08 ; Admin Dose 100 MLS/HR; Start 02/28/17 at 09:00 Sodium Chloride (1/2 NS) 1,000 ml @ 60 mls/hr [id number] IV Last administered on 02/28/17 00:11; Admin Dose 60 MLS/HR; Start 02/27/17 at 23:30 Ascorbic Acid (Vitamin C) 500 mg BID GTB Last administered on 02/28/17 10:15 ; Admin Dose 500 MG; Start 02/28/17 at 09:00 Eye Lubricant (Refresh Plus) 1 drop BID PRN BOTH EYES DRY EYES; Start at 23:30 Carvedilol (Coreg) 6.25 mg BID GTB Last administered on 02/28/17 10:16; Admin Dose 6.25 MG; Start 02/28/17 at 09:00 Epoetin Kali (Epogen (Non Esrd/Non Oncology)) 10,000 units MONWEDFRI@17 SC ; Start 02/28/17 at 17:00 Folic Acid (Folic Acid) 1 mg DAILY GTB Last administered on 02/28/17 10:16; Admin Dose 1 MG; Start 02/28/17 at 09:00 Glycopyrrolate (Robinul) 1 mg TID GTB Last administered on 02/28/17 10:17; Admin Dose 1 MG; Start 02/28/17 at 09:00 Lansoprazole (Prevacid) 30 mg DAILY GTB Last administered on 02/28/17 10:16; Admin Dose 30 MG; Start 02/28/17 at 09:00 Metoclopramide HCl (Reglan) 5 mg TID PRN GTB NAUSEA AND/OR VOMITING; Start at 23:30 Sucralfate (Carafate Susp) 1 gm QID GTB Last administered on 02/28/17 10:17; Admin Dose 1 GM; Start 02/28/17 at 09:00 Lactobacillus Acidophilus (Florajen3 Capsule) 1 each TID NGT Last administered on 02/28/17 10:16; Admin Dose 1 EACH; Start 02/28/17 at 09:00 Multivitamins 30 ml 30 ml DAILY GTB Last administered on 02/28/17 10:17; Admin Dose 30 ML; Start 02/28/17 at 09:00 Vancomycin HCl (Vancocin) 250 ml @ 125 mls/hr Q24H IVPB ; Start 02/28/17 at 19 :00 BILLIE ARCE Feb 28, 2017 12:09
--- NOTE | 2017-02-28 12:25 | CONS ---
DATE OF ADMISSION: 02/27/2017 DATE OF CONSULTATION: 02/28/2017 TIME: 12:00 p.m. REFERRING PHYSICIAN: Hospitalist. REASON FOR REFERRAL: Evaluation of sepsis. HISTORY OF PRESENT ILLNESS: Mr. Peguero is an 81-year-old male who has had multiple admissions to [facility] recently for sepsis. The patient has history of chronic respiratory failure which is ventilator dependent. The patient [facility] with fever and shortness of breath as well as significant cough. Upon further evaluation, a chest x-ray was done which is showing bilateral pneumonia. The patient has been started on appropriate antibiotic regimen. By the time I saw the patient, the patient is in the ER on ventilator via tracheostomy, was completely awake and alert and according to him is feeling better. He denies any chest pain, abdominal pain, nausea, vomiting, fever, chills. PAST MEDICAL HISTORY: 1. History of chronic respiratory failure with tracheostomy. 2. G-tube placement. 3. History of renal failure on hemodialysis. 4. History of multiple admissions to the hospital for sepsis. 5. Left eye blindness. 6. History of GI bleed. 7. History of peptic ulcer. 8. History of chronic sacral decubitus ulcers. 9. Anemia. 10. History of cardiac arrest a few months ago. CURRENT MEDICATIONS: 1. Intravenous vancomycin being dosed by the pharmacy. 2. Cefepime 1 gram IV every 12 hours. 3. Half normal saline at 60 mL per hour. 4. DuoNeb every 6 hours. 5. Coreg 6.25 mg b.i.d. 6. Epogen 10,000 units 3 times a week. 7. Folic acid 1 mg a day. 8. Reglan 5 mg t.i.d. p.r.n. 9. Carafate 1 gram q.i.d. ALLERGIES: NONE. SOCIAL HISTORY: No history of any alcohol, smoking, or drug abuse. FAMILY HISTORY: The patient does have a supportive family. The patient resides in a jail facility. PHYSICAL EXAMINATION: GENERAL: Elderly male, awake, currently in no distress. VITAL SIGNS: Temperature 98.2 degrees Fahrenheit, pulse is 70 per minute, blood pressure is 138/62, O2 saturation 100%, respiratory rate is 18 to 20 per minute. The patient is currently on AC of 20, tidal volume 450, PEEP of 0, and 30% FIO2. HEENT: Supple neck, no JVD, no lymphadenopathy, midline trachea, no thyromegaly. Patient has a left corneal opacity. Tracheostomy in place. Insertion site is clean. The patient does have multiple carious teeth. CHEST: Diminished but clear breath sounds. HEART: S1, S2 audible. No murmurs, regular rhythm. ABDOMEN: Soft, nontender. Multiple healed scars are present. G-tube in place. Bowel sounds audible. EXTREMITIES: No edema. NEUROLOGIC: Patient is awake, able to move upper extremities and follows simple commands and exhibiting stable paraplegia. IMAGING: Chest x-ray was reviewed from yesterday, which is showing bilateral pneumonia. LABORATORY DATA: From yesterday, ABG: pH 7.42, CO2 of 40, pO2 of 84, O2 saturation 96%. White count 9.4, hemoglobin 9.5, platelet count of 213, sodium 149, potassium 4, chloride 115, bicarbonate 26, BUN 63, creatinine 1.67 down from 1.73 yesterday. ASSESSMENT AND PLAN: 1. Patient admitted for bilateral pneumonia, currently on appropriate antibiotic regimen. 2. History of renal failure. It is not clear if the patient is still on dialysis or not. 3. Paraplegia. 4. History of decubitus ulcers. 5. Anemia. 6. History of hypertension. 7. History of cardiac arrest. RECOMMENDATIONS: Continue current supportive care. Dictated By: BILLIE STEVENS/IRMA Conf#: [id number] DID#: [id number] MTDD
--- NOTE | 2017-02-28 12:45 | CONS ---
DATE OF ADMISSION: 02/27/2017 DATE OF CONSULTATION: 02/28/2017 TYPE OF CONSULTATION: Infectious Disease. REASON FOR CONSULTATION: Antibiotic management. HISTORY OF PRESENT ILLNESS: 1. The patient is an 81-year-old male who comes into the hospital with shortness of breath. He is a patient of Dr. Roa. 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 2. History of cardiac arrest a few months ago. 3. History of acute renal failure requiring short-term hemodialysis. 4. Recurrent GI bleed with recent EGD which revealed esophageal ulcer. 5. Chronic sacral decubitus. 6. Left eye blindness. 7. Respiratory failure. 8. Anemia. The patient was admitted to [facility] recently with anemia and esophageal ulc er. He was transferred to [facility] for attempted weaning of his tracheostomy. He cannot be weaned and was therefore sent to [facility] acute respiratory unit. The patient then deve loped fever and shortness of breath with a temperature of 101, heart rate of 115. He was mildly huey rt of breath despite being on a ventilator. He looked pale and weak. The patient's was edison jaramillo, and a decision was made to send him to the Emergency Room. Workup in the ER revealed hemoglobin of 7.6 down from 9.9 two weeks ago. The BUN had gone up to 66 from 49, creatinine up to 1.7 from 1. 1. Lactic acid was 1.9. Chest x-ray showed bibasilar consolidation. Urinalysis revealed possible UTI. He recently had blood-tinged tracheostomy secretions. He was also given 2 units of packed red blood cells in the Emergency Room. He is being fed through a G-tube. PAST MEDICAL HISTORY: As stated. PAST SURGICAL HISTORY: Status post tracheostomy, status post G-tube placement, history of dialysis catheter placement. FAMILY HISTORY: Noncontributory. ALLERGIES: NONE TO PENICILLIN, SULFA OR FOODS. MEDICATIONS: Per chart. REVIEW OF SYSTEMS: As per HPI. PHYSICAL EXAMINATION: GENERAL: The patient is awake. He has a trach and a PEG. SKIN: Without generalized rash. HEENT: Within normal limits. NECK: Supple. LYMPH NODES: None palpable. CHEST: Decreased breath sounds at the bases. He has a chronic large sacral decubitus. HEENT: He has left eye corneal opacity. Right eye is normal. NECK: Tracheostomy in place. CHEST: Decreased breath sounds at the bases. HEART: Irregularly irregular rhythm without murmur or gallop. ABDOMEN: Soft, nontender. G-tube in place. EXTREMITIES: Without cyanosis, clubbing, or edema. RECTAL AND GENITAL EXAMS: Deferred. NEUROLOGIC: Generalized weakness, worsening lower extremities. LABORATORY DATA: His white count on admission was 6.3, hemoglobin 7.6, platelets 207. BUN and crea tinine as noted were 16 and 1.7. IMPRESSION AND PLAN: 1. The patient was felt to have healthcare-acquired pneumonia, was started on vancomycin and cefepi me, also ruled out urinary tract infection. His blood cultures are positive for gram-positive cocci in pairs and clusters. Chest x-ray: Right greater than left bilateral lower lung consolidation an d infiltrates with small bilateral pleural effusions. White count today is 9.4. Will continue vanc omycin and cefepime. We will await the results of cultures. Blood cultures and urine cultures have been ordered. 2. The patient has ventilator-dependent respiratory failure. He is going to be seen by Dr. Hassan for gastrointestinal problems and for gastrostomy-tube malfunction. He is going to be seen by Dr. Nikunj Person for acute renal injuries. I will dictate my findings to Dr. Roa. Dictated By: RICHARD ROSEN MD, JD/IRMA Conf#: [id number] DID#: [id number]
--- NOTE | 2017-02-28 18:48 | CONS ---
Date/Time of Note Date/Time of Note DATE: 02/28/17 TIME: 18:47 Assessment/Plan Assessment/Plan Additional Assessment/Plan 1. Acute kidney injury due to severe prerenal azotemia causing ISchemic ATN 2. Severe Anemia s/p PRBC 3. Acute on chronic rresp failure, S/p tracheostomy 4. H/o CVA 5. H/o Cardiac arrest 6. h/o HTN 7. h/o HL Plan: S/p PRBC transfusion, Hb now stable, GI consulted on the case Hayden current care, IV abx cefepime and vancomycin IVF 1/2NS at 60 cc/hr renally dose all abx will continue to follow up, Expecting Cr to improve Thanks for consultation Consultation Date/Type/Reason Admit Date/Time 02/28/2017 Date of Consultation: Feb 28, 2017 Type of Consultation: NEPHROLOGY Reason for Consultation Hypernatremia, acute kidney injury Referring Provider: DESTINEE ROBERTS MD Hx of Present Illness 81-year-old gentleman well known to me from previous admissions. The patient has multiple medical problems including CVA with significant weakness in all extremities, especially the lower extremities, history of cardiac arrest a few months ago, also a history of acute kidney injury, requiring short term hemodialysis, history of recurrent upper GI bleed, recent EGD had revealed esophageal ulcer, chronic sacral decubitus, anemia, respiratory failure, left eye blindness. The patient was recently admitted at [facility] for anemia and was diagnosed with esophageal ulcer. The patient was subsequently transferred to [facility] for attempted weaning; however, the patient could not be weaned off and therefore was sent to [facility] Acute Respiratory Unit. He gets admitted for sepsis, hb dropped to 7.6 and renal has been consulted for SAMANTHA with Cr 1.46 Subjective hx not possible: pt non-verbal Past Medical History Medical History: GERD, high cholesterol, hypertension, other (S/p Cardiac arrest ) Past Surgical History Past Surgical Hx: other (tracheostomy, g tube placement ) Family History Significant Family History: no pertinent family hx Social History Alcohol Use: none Smoking Status: Never smoker Drug Use: none Exam/Review of Systems Vital Signs Vitals Vital Signs Date Time Temp Pulse Resp B/P Pulse Ox O2 Delivery O2 Flow Rate FiO2 02/28/17 17:34 79 02/28/17 17:00 20 100 40 02/28/17 16:29 98.8 140/70 Mechanical Ventilator 02/27/17 15:25 10 Intake and Output 02/27/17 02/27/17 02/28/17 15:00 23:00 07:00 Intake Total 350 ml Balance 350 ml Exam Constitutional: non-verbal Head: normocephalic ENMT: other (+ tracheostomy on ventilator ) Neck: non-tender, supple Respiratory: crackles/rales, diminished breath sounds, wheezing Cardiovascular: edema, other (S1 S2 tachycardia ) Gastrointestinal: non-tender, other ( G tube site clear ), soft Musculoskeletal: nl extremities to inspection Extremities: edema Neurological: other (Not cooperagive for neuro exam ) Lymph: nl lymph nodes Results Result Diagram: 02/28/17 0502/28/17 0526 Results 24 hrs Laboratory Tests Test 02/27/17 21:23 02/28/17 05:26 02/28/17 07:48 Lactic Acid Level 0.9 White Blood Count 9.4 # Red Blood Count 3.01 #L Hemoglobin 9.5 #L Hematocrit 28.5 L Mean Corpuscular Volume 94.7 Mean Corpuscular Hemoglobin 31.6 Mean Corpuscular Hemoglobin Concent 33.3 Red Cell Distribution Width 19.1 H Platelet Count 213 Mean Platelet Volume 12.0 H Neutrophils % Segmented Neutrophils % (Manual) 59 Band Neutrophils % (Manual) 23 H Lymphocytes % Lymphocytes % (Manual) 10 L Reactive Lymphocytes % (Manual) 2 H Monocytes % Monocytes % (Manual) 6 Eosinophils % Basophils % Nucleated Red Blood Cells % 0.0 Neutrophils # Neutrophils # (Manual) 5.7 Band Neutrophils # 2.1 H Absolute Lymphocytes (Manual) 0.9 Lymphocytes # Reactive Lymphocytes # 0.1 H Monocytes # Absolute Monocytes (Manual) 0.5 Eosinophils # Basophils # Nucleated Red Blood Cells # Platelet Estimate NORMAL Polychromasia 1+ Anisocytosis 1+ Microcytosis 1+ Sodium Level 149 H Potassium Level 4.0 Chloride Level 115 H Carbon Dioxide Level 26 Anion Gap 12 Blood Urea Nitrogen 63 H Creatinine 1.67 H Glucose Level 81 Calcium Level 8.6 Urine Color YELLOW Urine Clarity TURBID A Urine pH 6.0 Urine Specific [place] 1.014 Urine Ketones TRACE A Urine Nitrite NEGATIVE Urine Bilirubin NEGATIVE Urine Urobilinogen NEGATIVE Urine Leukocyte Esterase 2+ H Urine Microscopic RBC 59 H Urine Microscopic WBC > 182 H Urine Squamous Epithelial Cells FEW Urine Bacteria MODERATE Urine Yeast (Budding) MANY A Urine Hemoglobin 1+ H Urine Glucose NEGATIVE Urine Total Protein 2+ H Medications Medications Current Medications Cefepime HCl 50 ml @ 100 mls/hr Q12 IVPB Last administered on 02/28/17 10:08 ; Admin Dose 100 MLS/HR; Start 02/28/17 at 09:00 Sodium Chloride (1/2 NS) 1,000 ml @ 60 mls/hr [id number] IV Last administered on 02/28/17 00:11; Admin Dose 60 MLS/HR; Start 02/27/17 at 23:30 Ascorbic Acid (Vitamin C) 500 mg BID GTB Last administered on 02/28/17 10:15 ; Admin Dose 500 MG; Start 02/28/17 at 09:00 Eye Lubricant (Refresh Plus) 1 drop BID PRN BOTH EYES DRY EYES; Start at 23:30 Carvedilol (Coreg) 6.25 mg BID GTB Last administered on 02/28/17 10:16; Admin Dose 6.25 MG; Start 02/28/17 at 09:00 Epoetin Kali (Epogen (Non Esrd/Non Oncology)) 10,000 units MONWEDFRI@17 SC ; Start 02/28/17 at 17:00 Folic Acid (Folic Acid) 1 mg DAILY GTB Last administered on 02/28/17 10:16; Admin Dose 1 MG; Start 02/28/17 at 09:00 Glycopyrrolate (Robinul) 1 mg TID GTB Last administered on 02/28/17 14:23; Admin Dose 1 MG; Start 02/28/17 at 09:00 Lansoprazole (Prevacid) 30 mg DAILY GTB Last administered on 02/28/17 10:16; Admin Dose 30 MG; Start 02/28/17 at 09:00 Metoclopramide HCl (Reglan) 5 mg TID PRN GTB NAUSEA AND/OR VOMITING; Start at 23:30 Sucralfate (Carafate Susp) 1 gm QID GTB Last administered on 02/28/17 14:23; Admin Dose 1 GM; Start 02/28/17 at 09:00 Lactobacillus Acidophilus (Florajen3 Capsule) 1 each TID NGT Last administered on 02/28/17 14:23; Admin Dose 1 EACH; Start 02/28/17 at 09:00 Multivitamins 30 ml 30 ml DAILY GTB Last administered on 02/28/17t 10:17; Admin Dose 30 ML; Start 02/28/17 at 09:00 Vancomycin HCl (Vancocin) 250 ml @ 125 mls/hr Q24H IVPB ; Start 02/28/17 at 19 :00 Clotrimazole (Lotrimin Cr) 1 applic BID TOP ; Start 02/28/17 at 21:00 ROULA YEPEZ MD Feb 28, 2017 18:48
--- NOTE | 2017-02-28 19:03 | CONS ---
DATE OF ADMISSION: 02/27/2017 DATE OF CONSULTATION: GASTROINTESTINAL CONSULTATION REFERRING PHYSICIAN: Destinee Roa MD REASON FOR CONSULTATION: Malfunctioning G-tube and anemia. HISTORY OF PRESENT ILLNESS: The patient is an 81-year-old gentleman with multiple medical problems. The patient was brought to the emergency room for fever of 101 degrees. In the ER he was evaluate d. The patient had a chest x-ray and a urine analysis which showed UTI and pneumonia, and there was a significant drop in hemoglobin from 9.9 to 7.6. The patient's BUN also had gone up from 49 to 66 and creatinine from 1.1 to 1.7. GI consult was called in for malfunctioning of the G-tube and also for anemia. Case was discussed with the , who was by the side of the patient. There was no GI bleeding, no hematemesis, no melena, no hematochezia. REVIEW OF SYSTEMS: All of the information gathered from the . No abdominal pain. No chest gabriel n. No shortness of breath. PAST MEDICAL HISTORY: Decubitus ulcer, vent-dependent respiratory failure, G-tube, bedridden. FAMILY HISTORY: Nothing contributory. SOCIAL HISTORY: Does not smoke, drink alcohol or do recreational drugs. ALLERGIES: None. MEDICATIONS: All reviewed. PHYSICAL EXAMINATION GENERAL: He is alert, awake, communicating. CARDIOVASCULAR: No murmur, gallop or click. LUNGS: Air entry diminished at both bases. The patient is on a vent. ABDOMEN: Benign. G-tube bumper was loose, had migrated all the way up to 6 cm. Readjusted, janie t it back down to 2 cm. No evidence of cellulitis. Abdomen is otherwise benign. EXTREMITIES: Contracted. No edema. CENTRAL NERVOUS SYSTEM: Oriented, able to understand. LABORATORY DATA: Showed a hematocrit of 24.3. After transfusion, it has become 28.3, BUN 66, creat inine 1.73, alkaline phosphatase mildly elevated to 141. Lactic acid was 1.9. IMPRESSION: 1. Ventilator-dependent respiratory failure. 2. Community-acquired pneumonia. 3. Urinary tract infection. 4. Anemia, no evidence of active gastrointestinal bleeding. 5. Cerebrovascular accident. 6. Left eye blindness. 7. Esophageal ulceration. 8. History of renal failure requiring temporary dialysis. PLAN: Continue PPI, monitor H and H. Will send for a retic count. I reviewed my EGD and colonosco py reports. Colonoscopy was negative, which was done just a few weeks ago, and EGD showed esophagea l ulceration. Resume feeding through the G-tube, and if there is any leakage, then we will change i t to a larger size. Continue antibiotic as per ID. Thank you once again for your referral. Dictated By: PAT CHA MD PJ/NTS Conf#: [id number] DID#: [id number] CC: DESTINEE ROA MD; PAT CHA MD;*EndCC*
[2017-02-28] MEDS: VANCOMYCIN 1 GM in NS 250 ML IVPB SCH (20:26)
[2017-02-28] MEDS: CLOTRIMAZOLE 1% 30 GM CR TOP SCH (21:45)
[2017-02-28] MEDS: EPOETIN 10000 UNITS/ML (NON ESRD/NON ONCOLOGY) SC SCH (22:43)
[2017-03-01] VITALS (28 sets, daily range): BP systolic 117–142; BP diastolic 56–74; PULSE 71–85; RESP 20
[2017-03-01] MEDS: ALBUTEROL/IPRATROPIUM (NEB) 3 ML AMP NEB SCH ×4 (01:42→19:28)
[2017-03-01] MEDS ORDERED: PENDING SANTYL ORDER FOR WOUND CARE XX PRN ×2 (03:00)
[2017-03-01] MEDS: MULTIVITAMINS 30 ML CUP GTB SCH (08:43)
[2017-03-01] MEDS: LANSOPRAZOLE 30 MG CAP GTB SCH (08:43)
[2017-03-01] MEDS: L ACIDOPHIL/B LACTIS/B LONGUM CAPSULE NGT SCH ×3 (08:43→22:06)
[2017-03-01] MEDS: SUCRALFATE (100 MG/ML) 10ML CUP GTB SCH ×4 (08:43→22:05)
[2017-03-01] MEDS: CLOTRIMAZOLE 1% 30 GM CR TOP SCH ×2 (08:44→22:07)
[2017-03-01] MEDS: GLYCOPYRROLATE 1 MG TAB GTB SCH ×3 (08:44→22:06)
[2017-03-01] MEDS: ASCORBIC ACID 500 MG TAB GTB SCH ×2 (08:44→22:06)
[2017-03-01] MEDS: SOD CHLORIDE 0.45% 1,000 ML IV SCH (08:44)
[2017-03-01] MEDS: CEFEPIME 1GM/50 ML (PMX) 50 ML IVPB SCH ×2 (08:44→22:06)
[2017-03-01] MEDS: FOLIC ACID 1 MG TAB GTB SCH (08:44)
[2017-03-01 09:21] LABS: ABNORMAL IP MESSAGE 1; HEMATOCRIT 25.6 % (42.0-52.0); HEMOGLOBIN 9.1 g/dl (14.0-18.0); MEAN CORPUSCULAR HEMOGLOBIN 34.3 pg (29.0-33.0); MEAN CORPUSCULAR HGB CONC 35.5 g/dl (32.0-37.0); MEAN CORPUSCULAR VOLUME 96.6 fl (82.0-101.0); MEAN PLATELET VOLUME 11.8 fl (7.4-10.4); PLATELET COUNT 218 10^3/UL (140-415); POSITIVE DIFF @See below; RED BLOOD COUNT 2.65 10^6/ul (4.70-6.10); WHITE BLOOD COUNT 6.2 10^3/ul (4.8-10.8)
[2017-03-01 09:53] LABS: CREATININE 1.42 mg/dl (0.61-1.24); POTASSIUM 3.8 mmol/L (3.5-5.1)
[2017-03-01 10:03] LABS: ANISOCYTOSIS 1+ (0-0); EOSINOPHILS % (M) 2 % (0-7); MONOCYTES % (M) 8 % (0-11); PLATELET ESTIMATE NORMAL; POLYCHROMASIA 1+ (0-0); REACTIVE LYMPHOCYTES% (M) 3 % (0-0)
--- NOTE | 2017-03-01 10:16 | PN ---
DATE: 03/01/2017 the same as he be to review The patient was admitted yesterday from the emergency room for this tra nsfer from the nursing facility he was seen by Dr. Escobedo in pulmonary evaluation. I will know be f lidaing the patient and I discussed this with Dr. Escobedo. I also spoke to Dr. Roa, who is his primary physician. The patient was admitted yesterday and as per the initial evaluation. The initial impression is: 1. Sepsis, but healthcare-acquired pneumonia, rule out urinary tract infection. The patient is on: IV vancomycin and Cefepime. He also has a history of respiratory failure and is ventilator depende nt. Weaning attempts in the past have been unsuccessful. The patient also has a history of cardia c arrest requested anoxic encephalopathy. 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 In addition, he also has history of acute kidney injury, hypertension and chronic anemia. He has had GI evaluation during his previous admission which showed esophageal ulcers, will also is causing GI bleeding, anemia may also be chronic, due to his underlying medical illness. According to nursing staff the patient's breathing has a stable. He has not had any episodes of theo aturation. His blood pressure has been stable. He has not had any fever spikes. Tracheostomy suct ioning has shown some minimal 30 secretion extremities secondary to obstruction, normal for mucosa i njury of the second, causing mucosal injury. He has not had any vomiting. He has been tolerating gastrostomy tube feedings. G-tube feedings minoo te well in addition He is also on IV fluids to correct his azotemia and renal failure. This morning, the patient is awake, responsive, opens his eyes when called during the examination: PHYSICAL EXAMINATION: VITAL SIGNS: Show temperature 98.2, blood pressure 135/66, pulse rate of 82, respirations 20, pulse oximetry 98% saturation. NECK: Tracheal secretions are slightly blood tinged. No gross bleeding is seen. HEART: Regular with sinus regular rhythm. PHYSICAL EXAMINATION: Breath sounds are heard bilaterally, diminished in both the lower lung enamorado with a few intermittent rales and rhonchi. ABDOMEN: Soft, nondistended, tolerating gastrostomy tube feedings. Bowel sounds are normally heard . EXTREMITIES: Show no edema the bases. No cyanosis, no clubbing, no calf tenderness is present. LABORATORY: Tests showed WBC 9400, hemoglobin 9.5, up from 7.6 yesterday following blood transfusio n, hematocrit is 28.5, platelets are within normal limits. He has 23% bandemia. The chemistry pane l shows sodium 149, potassium 4, bicarbonate of 26, BUN 63, creatinine 1.67, almost the same as befo re. Lactic acid level done 2 days ago shows a 0.9, which is within normal limits. Arterial blood gases show pH 7.42, pCO2 of 40, pO2 84 with 40% oxygen on a rate of 20, blood gases w ere satisfactory. Culture results show lab positive self-talk site in blood in addition lab positive bacilli also seen . These organisms to be identified and sensitivity report is awaited. The chest x-ray taken yesterday shows bilateral lower lung infiltrates the right greater than left, small bilateral pleural effusions, some of these changes may be chronic. ASSESSMENT AND PLAN: 1. Bilateral pneumonia, acquired. 2. Chronic ventilator dependent respiratory failure. 3. Sepsis. 4. Rule out urinary tract infection. 5. Chronic anemia. 6. Acute kidney injury. 7. Chronic encephalopathy. 8. History of paraplegia. 9. Sacral decubitus. PLAN: 1. Continue long-term ventilator support, blood gases satisfactory. 2. Continue pulmonary toilet. Used a soft tipped catheter, to prevent trauma and tracheostomy blee ding. 3. Continue IV antibiotics once the culture results are known if necessary changes could be made an d antibiotic coverage. The patient is also being seen by the infectious disease retirement consultant Dr. Fernando castillo. 4. Continue GI gastrostomy tube feedings. 5. Continue IV hydration. The patient is also being seen by in nephrology evaluation. Overall, the patient has had any problems and has not made much progress and problems weaning. It m ay be better to leave the patient on long-term ventilator support. It has been explained the patien t's several times in the past. Dictated By: ROEL BOYLE MD, SR/IRMA Conf#: [id number] DID#: [id number]
[2017-03-01] MEDS: VANCOMYCIN 1 GM in NS 250 ML IVPB SCH (18:00)
--- NOTE | 2017-03-01 18:01 | PN ---
Date/Time of Note Date/Time of Note DATE: 03/01/17 TIME: 17:56 Assessment/Plan VTE Prophylaxis VTE Prophylaxis Intervention: SCD's Lines/Catheters IV [facility]ter [facility]from [facility] Mid Line Urinary Cath still in place: Yes Reason Cath still needed: urinary retention Assessment/Plan Chief Complaint/Hosp Course Patient was admitted with tracheostomy bleeding, continue tracheostomy suctioning with soft catheter per pulmonology recommendations, patient is status post blood transfusion with stable hemoglobin, is hemodynamically stable afebrile. Assessment/Plan - Healthcare facility-acquired pneumonia. Continue broad-spectrum antibiotics. Dr. Jones is following in infection disease consultation. - Ventilator dependent respiratory failure, continue breathing treatment, Dr. Barajas is following patient in pulmonology consultation - Anemia multifactorial: anemia of blood loss, anemia of chronic disease - Hypernatremia, continue free water via G-tube - G-tube malfunction, Dr. Hassan is following in gastroenterology consultation - Acute kidney injury, Dr. Person is following in nephrology consultation - History of cardiac arrest with residual anoxic encephalopathy. No acute issue. 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 Continue carvedilol. - Sacral decubitus. Continue treatment as per wound care nurse. Further recommendations based on clinical course. Plan of care discussed with Dr. Roa. Problems: Exam/Review of Systems Vital Signs Vitals Vital Signs Date Time Temp Pulse Resp B/P Pulse Ox O2 Delivery O2 Flow Rate FiO2 03/01/17 17:34 79 20 98 40 03/01/17 16:00 97.7 125/70 03/01/17 06:00 Mechanical Ventilator 02/27/17 15:25 10 Intake and Output 02/28/17 02/28/17 03/01/17 15:00 23:00 07:00 Intake Total 320 ml 1390 ml Output Total 150 ml 650 ml Balance 170 ml 740 ml Exam Constitutional: alert, frail Respiratory: diminished breath sounds Cardiovascular: nl pulses Gastrointestinal: non-tender, other (G-tube), soft Musculoskeletal: muscle weakness Neurological: other (Paraplegia) Skin: other (Decubitus ulcer) Results Result Diagram: 03/01/17 0828 03/01/17 0827 Results 24 hrs Laboratory Tests Test 03/01/17 07:53 03/01/17 08:27 03/01/17 08:28 Lab Scanned Report BLOOD TRANSFUSION Sodium Level 150 H Potassium Level 3.8 Chloride Level 118 H Carbon Dioxide Level 23 Anion Gap 13 Blood Urea Nitrogen 61 H Creatinine 1.42 H Glucose Level 116 Calcium Level 9.0 White Blood Count 6.2 # Red Blood Count 2.65 L Hemoglobin 9.1 L Hematocrit 25.6 L Mean Corpuscular Volume 96.6 Mean Corpuscular Hemoglobin 34.3 H Mean Corpuscular Hemoglobin Concent 35.5 Red Cell Distribution Width 20.0 H Platelet Count 218 Mean Platelet Volume 11.8 H Neutrophils % Segmented Neutrophils % (Manual) 55 Band Neutrophils % (Manual) 31 H Lymphocytes % Lymphocytes % (Manual) 1 L Reactive Lymphocytes % (Manual) 3 H Monocytes % Monocytes % (Manual) 8 Eosinophils % Eosinophils % (Manual) 2 Basophils % Nucleated Red Blood Cells % 0.0 Neutrophils # Neutrophils # (Manual) 3.5 Band Neutrophils # 1.9 H Absolute Lymphocytes (Manual) 0.0 L Lymphocytes # Reactive Lymphocytes # 0.1 H Monocytes # Absolute Monocytes (Manual) 0.4 Eosinophils # Basophils # Nucleated Red Blood Cells # Platelet Estimate NORMAL Polychromasia 1+ Anisocytosis 1+ Medications Medications Current Medications Cefepime HCl 50 ml @ 100 mls/hr Q12 IVPB Last administered on 03/01/17 08:44 ; Admin Dose 100 MLS/HR; Start 02/28/17 at 09:00 Sodium Chloride (1/2 NS) 1,000 ml @ 60 mls/hr [id number] IV Last administered on 03/01/17 08:44; Admin Dose 60 MLS/HR; Start 02/27/17 at 23:30 Ascorbic Acid (Vitamin C) 500 mg BID GTB Last administered on 03/01/17 08:44 ; Admin Dose 500 MG; Start 02/28/17 at 09:00 Eye Lubricant (Refresh Plus) 1 drop BID PRN BOTH EYES DRY EYES; Start at 23:30 Carvedilol (Coreg) 6.25 mg BID GTB Last administered on 03/01/17 08:43; Admin Dose 6.25 MG; Start 02/28/17 at 09:00 Epoetin Kali (Epogen (Non Esrd/Non Oncology)) 10,000 units MONWEDFRI@17 SC Last administered on 02/28/17 22:43; Admin Dose 10,000 UNITS; Start 02/28/17 at 17:00 Folic Acid (Folic Acid) 1 mg DAILY GTB Last administered on 03/01/17 08:44; Admin Dose 1 MG; Start 02/28/17 at 09:00 Glycopyrrolate (Robinul) 1 mg TID GTB Last administered on 03/01/17 13:22; Admin Dose 1 MG; Start 02/28/17 at 09:00 Lansoprazole (Prevacid) 30 mg DAILY GTB Last administered on 03/01/17 08:43; Admin Dose 30 MG; Start 02/28/17 at 09:00 Metoclopramide HCl (Reglan) 5 mg TID PRN GTB NAUSEA AND/OR VOMITING; Start at 23:30 Sucralfate (Carafate Susp) 1 gm QID GTB Last administered on 03/01/17 13:22; Admin Dose 1 GM; Start 02/28/17 at 09:00 Lactobacillus Acidophilus (Florajen3 Capsule) 1 each TID NGT Last administered on 03/01/17 13:22; Admin Dose 1 EACH; Start 02/28/17 at 09:00 Multivitamins 30 ml 30 ml DAILY GTB Last administered on 03/01/17 08:43; Admin Dose 30 ML; Start 02/28/17 at 09:00 Vancomycin HCl (Vancocin) 250 ml @ 125 mls/hr Q24H IVPB Last administered on 02/28/17 20:26; Admin Dose 125 MLS/HR; Start 02/28/17 at 19:00 Clotrimazole (Lotrimin Cr) 1 applic BID TOP Last administered on 03/01/17 08: 44; Admin Dose 1 APPLIC; Start 02/28/17 at 21:00 Miscellaneous Information (Pending Santyl Order For Wound Care) This patient yung... PRN PRN XX WOUND CARE; Start 03/01/17 at 03:00 Collagenase (Santyl) 1 applic DAILY TOP ; Start 03/02/17 at 09:00; Status ERROL GOVEA Mar 01, 2017 18:01
--- NOTE | 2017-03-01 19:44 | CONS ---
Date/Time of Note Date/Time of Note DATE: 03/01/17 TIME: 19:44 Assessment/Plan Assessment/Plan Additional Assessment/Plan IMPRESSION: 1. Ventilator-dependent respiratory failure. 2. Community-acquired pneumonia. 3. Urinary tract infection. 4. Anemia, no evidence of active gastrointestinal bleeding. 5. Cerebrovascular accident. 6. Left eye blindness. 7. Esophageal ulceration. 8. History of renal failure requiring temporary dialysis. 9. Malfunctioning G-tube, G-tube is now functional and tolerating feeding Plan Monitor H&H Continue present care Consultation Date/Type/Reason Admit Date/Time Feb 27, 2017 at 17:51 Initial Consult Date 02/28/17 Type of Consultation: NEPHROLOGY Referring Provider: DESTINEE ROBERTS MD 24 HR Interval Summary Constitutional: improved Exam/Review of Systems Vital Signs Vitals Vital Signs Date Time Temp Pulse Resp B/P Pulse Ox O2 Delivery O2 Flow Rate FiO2 03/01/17 19:20 80 20 97 40 03/01/17 16:00 97.7 125/70 03/01/17 06:00 Mechanical Ventilator 02/27/17 15:25 10 Intake and Output 02/28/17 02/28/17 03/01/17 15:00 23:00 07:00 Intake Total 320 ml 1390 ml Output Total 150 ml 650 ml Balance 170 ml 740 ml Exam Constitutional: alert, oriented, well developed Psych: nl mood/affect, no complaints Head: atraumatic, normocephalic Eyes: EOMI, PERRL, nl conjunctiva, nl lids, nl sclera ENMT: nl external ears & nose, nl lips & teeth, nl nasal mucosa & septum Neck: non-tender, supple Respiratory: clear to auscultation, normal air movement Cardiovascular: nl pulses, regular rate and rhythm Gastrointestinal: nl liver, spleen, non-tender, soft Musculoskeletal: nl extremities to inspection, nl gait and stance Extremities: normal pulses Neurological: TRAFFIC COURT REFEREE II-XII intact, nl mental status, nl speech, nl strength Skin: nl turgor, No rash or lesions Lymph: nl lymph nodes Results Result Diagram: 03/01/17 0828 03/01/17 0827 Results 24 hrs Laboratory Tests Test 03/01/17 07:53 03/01/17 08:27 03/01/17 08:28 Lab Scanned Report BLOOD TRANSFUSION Sodium Level 150 H Potassium Level 3.8 Chloride Level 118 H Carbon Dioxide Level 23 Anion Gap 13 Blood Urea Nitrogen 61 H Creatinine 1.42 H Glucose Level 116 Calcium Level 9.0 White Blood Count 6.2 # Red Blood Count 2.65 L Hemoglobin 9.1 L Hematocrit 25.6 L Mean Corpuscular Volume 96.6 Mean Corpuscular Hemoglobin 34.3 H Mean Corpuscular Hemoglobin Concent 35.5 Red Cell Distribution Width 20.0 H Platelet Count 218 Mean Platelet Volume 11.8 H Neutrophils % Segmented Neutrophils % (Manual) 55 Band Neutrophils % (Manual) 31 H Lymphocytes % Lymphocytes % (Manual) 1 L Reactive Lymphocytes % (Manual) 3 H Monocytes % Monocytes % (Manual) 8 Eosinophils % Eosinophils % (Manual) 2 Basophils % Nucleated Red Blood Cells % 0.0 Neutrophils # Neutrophils # (Manual) 3.5 Band Neutrophils # 1.9 H Absolute Lymphocytes (Manual) 0.0 L Lymphocytes # Reactive Lymphocytes # 0.1 H Monocytes # Absolute Monocytes (Manual) 0.4 Eosinophils # Basophils # Nucleated Red Blood Cells # Platelet Estimate NORMAL Polychromasia 1+ Anisocytosis 1+ Medications Medications Current Medications Cefepime HCl 50 ml @ 100 mls/hr Q12 IVPB Last administered on 03/01/17 08:44 ; Admin Dose 100 MLS/HR; Start 02/28/17 at 09:00 Sodium Chloride (1/2 NS) 1,000 ml @ 60 mls/hr [id number] IV Last administered on 03/01/17 08:44; Admin Dose 60 MLS/HR; Start 02/27/17 at 23:30 Ascorbic Acid (Vitamin C) 500 mg BID GTB Last administered on 03/01/17 08:44 ; Admin Dose 500 MG; Start 02/28/17 at 09:00 Eye Lubricant (Refresh Plus) 1 drop BID PRN BOTH EYES DRY EYES; Start at 23:30 Carvedilol (Coreg) 6.25 mg BID GTB Last administered on 03/01/17 08:43; Admin Dose 6.25 MG; Start 02/28/17 at 09:00 Epoetin Kali (Epogen (Non Esrd/Non Oncology)) 10,000 units MONWEDFRI@17 SC Last administered on 02/28/17 22:43; Admin Dose 10,000 UNITS; Start 02/28/17 at 17:00 Folic Acid (Folic Acid) 1 mg DAILY GTB Last administered on 03/01/17 08:44; Admin Dose 1 MG; Start 02/28/17 at 09:00 Glycopyrrolate (Robinul) 1 mg TID GTB Last administered on 03/01/17 13:22; Admin Dose 1 MG; Start 02/28/17 at 09:00 Lansoprazole (Prevacid) 30 mg DAILY GTB Last administered on 03/01/17 08:43; Admin Dose 30 MG; Start 02/28/17 at 09:00 Metoclopramide HCl (Reglan) 5 mg TID PRN GTB NAUSEA AND/OR VOMITING; Start at 23:30 Sucralfate (Carafate Susp) 1 gm QID GTB Last administered on 03/01/17 17:50; Admin Dose 1 GM; Start 02/28/17 at 09:00 Lactobacillus Acidophilus (Florajen3 Capsule) 1 each TID NGT Last administered on 03/01/17 13:22; Admin Dose 1 EACH; Start 02/28/17 at 09:00 Multivitamins 30 ml 30 ml DAILY GTB Last administered on 03/01/17 08:43; Admin Dose 30 ML; Start 02/28/17 at 09:00 Vancomycin HCl (Vancocin) 250 ml @ 125 mls/hr Q24H IVPB Last administered on 03/01/17 18:00; Admin Dose 125 MLS/HR; Start 02/28/17 at 19:00 Clotrimazole (Lotrimin Cr) 1 applic BID TOP Last administered on 03/01/17 08: 44; Admin Dose 1 APPLIC; Start 02/28/17 at 21:00 Miscellaneous Information (Pending Santyl Order For Wound Care) This patient yung... PRN PRN XX WOUND CARE; Start 03/01/17 at 03:00 Collagenase (Santyl) 1 applic DAILY TOP ; Start 03/02/17 at 09:00 PAT CHA MD Mar 01, 2017 19:44
--- NOTE | 2017-03-01 20:36 | CONS ---
Date/Time of Note Date/Time of Note DATE: 03/01/17 TIME: 20:35 Assessment/Plan Assessment/Plan Chief Complaint/Hosp Course 81-year-old gentleman well known to me from previous admissions. The patient has multiple medical problems including CVA with significant weakness in all extremities, especially the lower extremities, history of cardiac arrest a few months ago, also a history of acute kidney injury, requiring short term hemodialysis, history of recurrent upper GI bleed, recent EGD had revealed esophageal ulcer, chronic sacral decubitus, anemia, respiratory failure, left eye blindness. The patient was recently admitted at [facility] for anemia and was diagnosed with esophageal ulcer. The patient was subsequently transferred to [facility] for attempted weaning; however, the patient could not be weaned off and therefore was sent to [facility] Acute [facility]. He gets admitted for sepsis, hb dropped to 7.6 and renal has been consulted for SAMANTHA with Cr 1.46 Problems: Additional Assessment/Plan 1. Acute kidney injury due to severe prerenal azotemia causing ISchemic ATN 2. Severe Anemia s/p PRBC 3. Acute on chronic rresp failure, S/p tracheostomy 4. H/o CVA 5. H/o Cardiac arrest 6. h/o HTN 7. h/o HL Plan: S/p PRBC transfusion, Hb now stable, following Cotnijaja current care, IV abx cefepime and vancomycin IVF 1/2NS at 60 cc/hr - if Na continues to remain high by tomorrow AM then we will switch IVF to D5W renally dose all abx will continue to follow up, Expecting Cr to improve Consultation Date/Type/Reason Admit Date/Time Feb 27, 2017 at 17:51 Initial Consult Date 02/28/17 Type of Consultation: NEPHROLOGY Referring Provider: DESTINEE ROBERTS MD 24 HR Interval Summary Free Text/Dictation Na 150, Cr 1.42, pt non verbal Exam/Review of Systems Vital Signs Vitals Vital Signs Date Time Temp Pulse Resp B/P Pulse Ox O2 Delivery O2 Flow Rate FiO2 03/01/17 20:32 98.5 80 20 130/63 100 03/01/17 19:20 40 03/01/17 06:00 Mechanical Ventilator 02/27/17 15:25 10 Intake and Output 12/02/28/17 03/01/17 15:00 23:00 07:00 Intake Total 320 ml 1390 ml Output Total 150 ml 650 ml Balance 170 ml 740 ml Results Result Diagram: 03/01/17 0828 03/01/17 0827 Results 24 hrs Laboratory Tests Test 03/01/17 07:53 03/01/17 08:27 03/01/17 08:28 Lab Scanned Report BLOOD TRANSFUSION Sodium Level 150 H Potassium Level 3.8 Chloride Level 118 H Carbon Dioxide Level 23 Anion Gap 13 Blood Urea Nitrogen 61 H Creatinine 1.42 H Glucose Level 116 Calcium Level 9.0 White Blood Count 6.2 # Red Blood Count 2.65 L Hemoglobin 9.1 L Hematocrit 25.6 L Mean Corpuscular Volume 96.6 Mean Corpuscular Hemoglobin 34.3 H Mean Corpuscular Hemoglobin Concent 35.5 Red Cell Distribution Width 20.0 H Platelet Count 218 Mean Platelet Volume 11.8 H Neutrophils % Segmented Neutrophils % (Manual) 55 Band Neutrophils % (Manual) 31 H Lymphocytes % Lymphocytes % (Manual) 1 L Reactive Lymphocytes % (Manual) 3 H Monocytes % Monocytes % (Manual) 8 Eosinophils % Eosinophils % (Manual) 2 Basophils % Nucleated Red Blood Cells % 0.0 Neutrophils # Neutrophils # (Manual) 3.5 Band Neutrophils # 1.9 H Absolute Lymphocytes (Manual) 0.0 L Lymphocytes # Reactive Lymphocytes # 0.1 H Monocytes # Absolute Monocytes (Manual) 0.4 Eosinophils # Basophils # Nucleated Red Blood Cells # Platelet Estimate NORMAL Polychromasia 1+ Anisocytosis 1+ Medications Medications Current Medications Cefepime HCl 50 ml @ 100 mls/hr Q12 IVPB Last administered on 03/01/17 08:44 ; Admin Dose 100 MLS/HR; Start 02/28/17 at 09:00 Sodium Chloride (1/2 NS) 1,000 ml @ 60 mls/hr [id number] IV Last administered on 03/01/17 08:44; Admin Dose 60 MLS/HR; Start 02/27/17 at 23:30 Ascorbic Acid (Vitamin C) 500 mg BID GTB Last administered on 03/01/17 08:44 ; Admin Dose 500 MG; Start 02/28/17 at 09:00 Eye Lubricant (Refresh Plus) 1 drop BID PRN BOTH EYES DRY EYES; Start at 23:30 Carvedilol (Coreg) 6.25 mg BID GTB Last administered on 03/01/17 08:43; Admin Dose 6.25 MG; Start 02/28/17 at 09:00 Epoetin Kali (Epogen (Non Esrd/Non Oncology)) 10,000 units MONWEDFRI@17 SC Last administered on 02/28/17 22:43; Admin Dose 10,000 UNITS; Start 02/28/17 at 17:00 Folic Acid (Folic Acid) 1 mg DAILY GTB Last administered on 03/01/17 08:44; Admin Dose 1 MG; Start 02/28/17 at 09:00 Glycopyrrolate (Robinul) 1 mg TID GTB Last administered on 03/01/17 13:22; Admin Dose 1 MG; Start 02/28/17 at 09:00 Lansoprazole (Prevacid) 30 mg DAILY GTB Last administered on 03/01/17 08:43; Admin Dose 30 MG; Start 02/28/17 at 09:00 Metoclopramide HCl (Reglan) 5 mg TID PRN GTB NAUSEA AND/OR VOMITING; Start at 23:30 Sucralfate (Carafate Susp) 1 gm QID GTB Last administered on 03/01/17 17:50; Admin Dose 1 GM; Start 02/28/17 at 09:00 Lactobacillus Acidophilus (Florajen3 Capsule) 1 each TID NGT Last administered on 03/01/17 13:22; Admin Dose 1 EACH; Start 02/28/17 at 09:00 Multivitamins 30 ml 30 ml DAILY GTB Last administered on 03/01/17 08:43; Admin Dose 30 ML; Start 02/28/17 at 09:00 Vancomycin HCl (Vancocin) 250 ml @ 125 mls/hr Q24H IVPB Last administered on 03/01/17 18:00; Admin Dose 125 MLS/HR; Start 02/28/17 at 19:00 Clotrimazole (Lotrimin Cr) 1 applic BID TOP Last administered on 03/01/17 08: 44; Admin Dose 1 APPLIC; Start 02/28/17 at 21:00 [facility] This patient yung... PRN PRN XX WOUND CARE; Start 03/01/17 at 03:00 Collagenase (Santyl) 1 applic DAILY TOP ; Start 03/02/17 at 09:00 ROULA YEPEZ MD Mar 01, 2017 20:36
--- NOTE | 2017-03-01 21:13 | PN ---
DATE: 03/01/2017 INFECTIOUS DISEASE PROGRESS NOTE SUBJECTIVE: No acute changes. The patient is awake, weak, looks comfortable, afebrile. LABORATORY DATA: WBC today 6.2, platelets 218, bands 31. BUN 61, creatinine 1.42. MICROBIOLOGY: Blood culture growing staph species. Urine culture growing gram-negative rods. INDWELLINGS: Trach, PEG, Car. DIAGNOSTICS: Chest x-ray revealed right greater than left bilateral lower lung consolidation and in filtrates with small bilateral pleural effusions, unchanged. ANTIMICROBIALS: The patient is on: 1. IV vancomycin. 2. Cefepime. PHYSICAL EXAMINATION: GENERAL: This is a chronically ill-appearing, elderly man who is in no distress. HEENT: Head atraumatic, normocephalic. Sclerae anicteric. Buccal mucosa dry. NECK: Supple. CHEST: Rise symmetrical. Breath sounds diminished to bases. HEART: S1, S2. ABDOMEN: Soft, bowel tones present. EXTREMITIES: Without cyanosis. ASSESSMENT: 1. Sepsis, recurrent, present on admission. 2. Healthcare-associated pneumonia with sputum culture on previous admission, grew Pseudomonas and multidrug resistant Acinetobacter baumannii. 3. Recurrent urinary tract infection. 4. Coagulase-negative Staphylococcus bacteremia, possibly contaminant. 5. Dysphagia. 6. Chronic sacral decubitus. 7. Anemia. 8. History of cardiac arrest. PLAN: We are going to add colistin inhalation to the regimen. Repeat blood cultures. Continue cur rent antibiotics. Await for urine culture. Follow recommendations of specialists. Dictated By: NASH DOTY SENIOR HEALTH CONSULTANT for RICHARD ROSEN MD NI/NTS Conf#: [id number] DID#: [id number] CC: DESTINEE ROBERTS MD;*EndCC*
[2017-03-02] VITALS (23 sets, daily range): BP systolic 97–149; BP diastolic 53–73; PULSE 81–93; RESP 19–22
[2017-03-02] MEDS: ALBUTEROL/IPRATROPIUM (NEB) 3 ML AMP NEB SCH ×4 (01:10→19:25)
[2017-03-02] MEDS: COLISTIMETHATE (25 MG/ML INHAL SYG) NEB SCH ×3 (01:15→19:25)
[2017-03-02] MEDS: SOD CHLORIDE 0.45% 1,000 ML IV SCH (01:30)
--- NOTE | 2017-03-02 08:59 | RADRPT ---
PROCEDURE: XR Chest 1 View. CLINICAL INDICATION: Shortness of breath. TECHNIQUE: Single view of the chest was obtained. COMPARISON: CHEST 02/27/2017 FINDINGS: The cardiomediastinal silhouette is within normal limits. Tracheostomy tube is stable. Patchy infilt rates throughout the right lung, combined with moderate pleural effusion are stable. Left lower lobe infiltrates and small left pleural effusion are stable. Osseous structures are intact. IMPRESSION: Stable infiltrates throughout the right lung, combined with moderate pleural effusion. Stable left lower lobe infiltrates and small left pleural effusion. RPTAT: AA .Ramana Castro MD, Date Time Electronically viewed and signed by .Ramana Castro MD, on 03/02/2017 08:59 .P/
--- NOTE | 2017-03-02 09:07 | CONS ---
Date/Time of Note Date/Time of Note DATE: 03/02/17 TIME: 09:07 Assessment/Plan Assessment/Plan Additional Assessment/Plan 1. Acute kidney injury due to severe prerenal azotemia causing ISchemic ATN 2. Severe Anemia s/p PRBC 3. Acute on chronic rresp failure, S/p tracheostomy 4. H/o CVA 5. H/o Cardiac arrest 6. h/o HTN 7. h/o HL Plan: S/p PRBC transfusion, Hb now stable, GI consulted on the case Hayden current care, IV abx cefepime and vancomycin IVF 1/2NS at 60 cc/hr renally dose all abx will continue to follow up, Expecting Cr to improve, Cr 1.44 today Consultation Date/Type/Reason Admit Date/Time Feb 27, 2017 at 17:51 Initial Consult Date 02/28/17 Type of Consultation: NEPHROLOGY Referring Provider: DESTINEE ROBERTS MD Exam/Review of Systems Vital Signs Vitals Vital Signs Date Time Temp Pulse Resp B/P Pulse Ox O2 Delivery O2 Flow Rate FiO2 03/02/17 08:09 99.8 87 22 97/53 98 03/02/17 05:15 40 03/01/17 06:00 Mechanical Ventilator 02/27/17 15:25 10 Intake and Output 03/01/17 03/01/17 03/02/17 15:00 23:00 07:00 Intake Total 740 ml 720 ml Output Total 350 ml Balance 390 ml 720 ml Results Result Diagram: 03/01/17 0828 03/01/17 0827 Medications Medications Current Medications Cefepime HCl (Maxipime 1gm/50 ml (Pmx)) 50 ml @ 100 mls/hr Q12 IVPB Last administered on 03/01/17 22:06; Admin Dose 100 MLS/HR; Start 02/28/17 at 09: 00 Ascorbic Acid (Vitamin C) 500 mg BID GTB Last administered on 03/01/17 22:06 ; Admin Dose 500 MG; Start 02/28/17 at 09:00 Eye Lubricant (Refresh Plus) 1 drop BID PRN BOTH EYES DRY EYES; Start at 23:30 Carvedilol (Coreg) 6.25 mg BID GTB Last administered on 03/01/17 22:05; Admin Dose 6.25 MG; Start 02/28/17 at 09:00 Epoetin Kali (Epogen (Non Esrd/Non Oncology)) 10,000 units MONWEDFRI@17 SC Last administered on 02/28/17 22:43; Admin Dose 10,000 UNITS; Start 02/28/17 at 17:00 Folic Acid (Folic Acid) 1 mg DAILY GTB Last administered on 03/01/17 08:44; Admin Dose 1 MG; Start 02/28/17 at 09:00 Glycopyrrolate (Robinul) 1 mg TID GTB Last administered on 03/01/17 22:06; Admin Dose 1 MG; Start 02/28/17 at 09:00 Lansoprazole (Prevacid) 30 mg DAILY GTB Last administered on 03/01/17 08:43; Admin Dose 30 MG; Start 02/28/17 at 09:00 Metoclopramide HCl (Reglan) 5 mg TID PRN GTB NAUSEA AND/OR VOMITING; Start at 23:30 Sucralfate (Carafate Susp) 1 gm QID GTB Last administered on 03/01/17 22:05; Admin Dose 1 GM; Start 02/28/17 at 09:00 Lactobacillus Acidophilus (Florajen3 Capsule) 1 each TID NGT Last administered on 03/01/17 22:06; Admin Dose 1 EACH; Start 02/28/17 at 09:00 Multivitamins 30 ml 30 ml DAILY GTB Last administered on 03/01/17 08:43; Admin Dose 30 ML; Start 02/28/17 at 09:00 Vancomycin HCl (Vancocin) 250 ml @ 125 mls/hr Q24H IVPB Last administered on 03/01/17 18:00; Admin Dose 125 MLS/HR; Start 02/28/17 at 19:00 Clotrimazole (Lotrimin Cr) 1 applic BID TOP Last administered on 03/01/17 22: 07; Admin Dose 1 APPLIC; Start 02/28/17 at 21:00 Miscellaneous Information (Pending Santyl Order For Wound Care) This patient yung... PRN PRN XX WOUND CARE; Start 03/01/17 at 03:00 Collagenase (Santyl) 1 applic DAILY TOP ; Start 03/02/17 at 09:00 ROULA YEPEZ MD Mar 02, 2017 09:07
[2017-03-02 09:16] LABS: BASOPHILS % 0.4 % (0.0-2.0); EOSINOPHILS # 0.2 10^3/ul (0.0-0.5); EOSINOPHILS % 3.1 % (0.0-7.0); HEMATOCRIT 27.6 % (42.0-52.0); HEMOGLOBIN 8.9 g/dl (14.0-18.0); LYMPHOCYTES # 0.8 10^3/ul (0.8-2.9); LYMPHOCYTES % 14.6 % (15.0-51.0); MEAN CORPUSCULAR HEMOGLOBIN 30.8 pg (29.0-33.0); MEAN CORPUSCULAR HGB CONC 32.2 g/dl (32.0-37.0); MEAN CORPUSCULAR VOLUME 95.5 fl (82.0-101.0); MONOCYTE # 0.6 10^3/ul (0.3-0.9); MONOCYTES % 10.1 % (0.0-11.0); NEUTROPHIL # 3.9 10^3/ul (1.6-7.5); NEUTROPHILS % 71.3 % (39.0-77.0); PLATELET COUNT 244 10^3/UL (140-415); POSITIVE DIFF @See below; RED BLOOD COUNT 2.89 10^6/ul (4.70-6.10); RED CELL DISTRIBUTION WIDTH 18.2 % (11.5-14.5); WHITE BLOOD COUNT 5.5 10^3/ul (4.8-10.8)
[2017-03-02] MEDS: SUCRALFATE (100 MG/ML) 10ML CUP GTB SCH ×4 (09:24→20:18)
[2017-03-02] MEDS: FOLIC ACID 1 MG TAB GTB SCH (09:25)
[2017-03-02] MEDS: GLYCOPYRROLATE 1 MG TAB GTB SCH ×3 (09:25→20:19)
[2017-03-02] MEDS: CEFEPIME 1GM/50 ML (PMX) 50 ML IVPB SCH (09:26)
[2017-03-02] MEDS: MULTIVITAMINS 30 ML CUP GTB SCH (09:26)
[2017-03-02] MEDS: L ACIDOPHIL/B LACTIS/B LONGUM CAPSULE NGT SCH ×3 (09:26→20:20)
[2017-03-02] MEDS: COLLAGENASE 30 GM TUBE TOP SCH (09:26)
[2017-03-02] MEDS: LANSOPRAZOLE 30 MG CAP GTB SCH (09:26)
[2017-03-02] MEDS: DEXTROSE 5% 1,000 ML IV SCH ×2 (09:26→19:40)
[2017-03-02] MEDS: ASCORBIC ACID 500 MG TAB GTB SCH ×2 (09:26→20:19)
[2017-03-02] MEDS: CLOTRIMAZOLE 1% 30 GM CR TOP SCH ×2 (09:26→20:20)
[2017-03-02 09:57] LABS: CALCIUM 8.7 mg/dl (8.4-10.2); CREATININE 1.44 mg/dl (0.61-1.24); POTASSIUM 3.6 mmol/L (3.5-5.1)
--- NOTE | 2017-03-02 12:16 | PN ---
Date/Time of Note Date/Time of Note DATE: 03/02/17 TIME: 12:14 Assessment/Plan VTE Prophylaxis VTE Prophylaxis Intervention: SCD's Lines/Catheters [facility] Urinary Cath still in place: Yes Reason Cath still needed: urinary retention Assessment/Plan Chief Complaint/Hosp Course Patient continues to have low-grade fever with moderate to large secretions from tracheostomy, hemoglobin is 8.9 continue to monitor Assessment/Plan - Healthcare facility-acquired pneumonia. Continue broad-spectrum antibiotics. Dr. Jones is following in infection disease consultation. - Ventilator dependent respiratory failure, continue breathing treatment, Dr. Barajas is following patient in pulmonology consultation - Anemia multifactorial: anemia of blood loss, anemia of chronic disease - Hypernatremia, continue free water via G-tube - G-tube malfunction, Dr. Hassan is following in gastroenterology consultation - Acute kidney injury, Dr. Person is following in nephrology consultation - History of cardiac arrest with residual anoxic encephalopathy. No acute issue. 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 Continue carvedilol. - Sacral decubitus. Continue treatment as per wound care nurse. Further recommendations based on clinical course. Plan of care discussed with Dr. Roa. Problems: Exam/Review of Systems Vital Signs Vitals Vital Signs Date Time Temp Pulse Resp B/P Pulse Ox O2 Delivery O2 Flow Rate FiO2 03/02/17 11:27 99.0 87 20 123/73 99 03/02/17 05:15 40 03/01/17 06:00 Mechanical Ventilator 02/27/17 15:25 10 Intake and Output 03/01/17 03/01/17 03/02/17 15:00 23:00 07:00 Intake Total 740 ml 720 ml Output Total 350 ml Balance 390 ml 720 ml Exam Constitutional: alert, frail Respiratory: diminished breath sounds Cardiovascular: nl pulses Gastrointestinal: non-tender, other (G-tube), soft Musculoskeletal: muscle weakness Neurological: other (Paraplegia) Skin: other (Decubitus ulcer) Results Result Diagram: 03/02/1718 03/02/1718 Results 24 hrs Laboratory Tests Test 03/02/17 07:18 White Blood Count 5.5 Red Blood Count 2.89 L Hemoglobin 8.9 L Hematocrit 27.6 L Mean Corpuscular Volume 95.5 Mean Corpuscular Hemoglobin 30.8 Mean Corpuscular Hemoglobin Concent 32.2 Red Cell Distribution Width 18.2 H Platelet Count 244 Mean Platelet Volume 12.0 H Neutrophils % 71.3 Lymphocytes % 14.6 L Monocytes % 10.1 Eosinophils % 3.1 Basophils % 0.4 Nucleated Red Blood Cells % 0.0 Neutrophils # 3.9 Lymphocytes # 0.8 Monocytes # 0.6 Eosinophils # 0.2 Basophils # 0.0 Nucleated Red Blood Cells # 0.0 Sodium Level 148 H Potassium Level 3.6 Chloride Level 117 H Carbon Dioxide Level 23 Anion Gap 12 Blood Urea Nitrogen 54 H Creatinine 1.44 H Glucose Level 90 Calcium Level 8.7 Medications Medications Current Medications Cefepime HCl (Maxipime 1gm/50 ml (Pmx)) 50 ml @ 100 mls/hr Q12 IVPB Last administered on 03/02/17 09:26; Admin Dose 100 MLS/HR; Start 02/28/17 at 09: 00 Ascorbic Acid (Vitamin C) 500 mg BID GTB Last administered on 03/02/17 09:26 ; Admin Dose 500 MG; Start 02/28/17 at 09:00 Eye Lubricant (Refresh Plus) 1 drop BID PRN BOTH EYES DRY EYES; Start at 23:30 Carvedilol (Coreg) 6.25 mg BID GTB Last administered on 03/01/17 22:05; Admin Dose 6.25 MG; Start 02/28/17 at 09:00 Epoetin Kali (Epogen (Non Esrd/Non Oncology)) 10,000 units MONWEDFRI@17 SC Last administered on 02/28/17 22:43; Admin Dose 10,000 UNITS; Start 02/28/17 at 17:00 Folic Acid (Folic Acid) 1 mg DAILY GTB Last administered on 03/02/17 09:25; Admin Dose 1 MG; Start 02/28/17 at 09:00 Glycopyrrolate (Robinul) 1 mg TID GTB Last administered on 03/02/17 09:25; Admin Dose 1 MG; Start 02/28/17 at 09:00 Lansoprazole (Prevacid) 30 mg DAILY GTB Last administered on 03/02/17 09:26; Admin Dose 30 MG; Start 02/28/17 at 09:00 Metoclopramide HCl (Reglan) 5 mg TID PRN GTB NAUSEA AND/OR VOMITING; Start at 23:30 Sucralfate (Carafate Susp) 1 gm QID GTB Last administered on 03/02/17 09:24; Admin Dose 1 GM; Start 02/28/17 at 09:00 Lactobacillus Acidophilus (Florajen3 Capsule) 1 each TID NGT Last administered on 03/02/17 09:26; Admin Dose 1 EACH; Start 02/28/17 at 09:00 Multivitamins 30 ml 30 ml DAILY GTB Last administered on 03/02/17 09:; Admin Dose 30 ML; Start 02/28/17 at 09:00 Vancomycin HCl (Vancocin) 250 ml @ 125 mls/hr Q24H IVPB Last administered on 03/01/17 18:00; Admin Dose 125 MLS/HR; Start 02/28/17 at 19:00 Clotrimazole (Lotrimin Cr) 1 applic BID TOP Last administered on 03/02/17 09: 26; Admin Dose 1 APPLIC; Start 02/28/17 at 21:00 [facility]iscellaneous [facility] This patient yung... PRN PRN XX WOUND CARE; Start 03/01/17 at 03:00 Collagenase 1 applic 1 applic DAILY TOP Last administered on 03/02/17 09:26; Admin Dose 1 APPLIC; Start 03/02/17 at 09:00 Dextrose (D5W) 1,000 ml @ 100 mls/hr Q10H IV Last administered on 03/02/17 09:26; Admin Dose 100 MLS/HR; Start 03/02/17 at 09:30 ERROL LORD Mar 02, 2017 12:16
--- NOTE | 2017-03-02 12:47 | PN ---
DATE: 03/02/2017 SUBJECTIVE: The patient's general condition is same. He is on long-term ventilator support. His b reathing appears comfortable. He is awake, responsive. PHYSICAL EXAMINATION: VITAL SIGNS: Stable. This morning, temperature is 99.8, blood pressure 97/53, pulse rate 87, respi rations 22, pulse oximetry 98% saturation. NECK: Tracheal secretions are minimal. No bleeding seen. HEART: Regular rhythm. CHEST: Breath sounds are heard bilaterally, diminished in both the lower lung enamorado with a few int ermittent rales and rhonchi. ABDOMEN: Soft, no distention seen, tolerating tube feedings. Bowel sounds are present. EXTREMITIES: Show no edema. Muscle wasting is seen. The chest x-ray taken today shows stable left lower lob infiltrate, a small left pleural effusion, r ight lung also shows stable infiltrates with moderate pleural effusion. LABORATORY DATA: The lab tests show sodium 148, potassium 3.6, BUN 54, creatinine 1.44, glucose is 90. The CBC shows WBC 5500, hemoglobin 8.9, hematocrit 27.6, platelets within normal limits. No ba ndemia is seen. Urine culture is reported to show a growth of gram-negative bacilli. The blood culture shows coagul ase negative staphylococcus. IMPRESSION: 1. Bilateral pneumonia, health care acquired. 2. Chronic ventilator dependent respiratory failure. 3. Sepsis. 4. Chronic anemia. 5. Acute kidney injury. 6. Chronic encephalopathy. 7. Paraplegia. 8. Sacral decubitus. RECOMMENDATIONS: 1. Continue long-term ventilator support. 2. Continue antibiotics. 3. Continue pulmonary toilet, bronchodilator inhalation therapy. 4. Continue tube feedings. 5. Continue hydration. Dictated By: ROEL BOYLE MD SR/IRMA Conf#: [id number] DID#: [id number]
[2017-03-02] MEDS: EPOETIN 10000 UNITS/ML (NON ESRD/NON ONCOLOGY) SC SCH (17:00)
[2017-03-02] MEDS: MEROPENEM 1 GM/50ML(PMX) 50 ML IVPB SCH (17:13)
--- NOTE | 2017-03-02 17:27 | CONS ---
Date/Time of Note Date/Time of Note DATE: 03/02/17 TIME: 17:26 Assessment/Plan Assessment/Plan Additional Assessment/Plan Additional Assessment/Plan IMPRESSION: 1. Ventilator-dependent respiratory failure. 2. Community-acquired pneumonia. 3. Urinary tract infection. 4. Anemia, no evidence of active gastrointestinal bleeding. 5. Cerebrovascular accident. 6. Left eye blindness. 7. Esophageal ulceration. 8. History of renal failure requiring temporary dialysis. 9. Malfunctioning G-tube, G-tube is now functional and tolerating feeding Plan Monitor H&H Continue present care Continue antibiotic, bronchodilator Discussed with the Consultation Date/Type/Reason Admit Date/Time Feb 27, 2017 at 17:51 Initial Consult Date 02/28/17 Type of Consultation: NEPHROLOGY Referring Provider: DESTINEE ROBERTS MD 24 HR Interval Summary Constitutional: improved Exam/Review of Systems Vital Signs Vitals Vital Signs Date Time Temp Pulse Resp B/P Pulse Ox O2 Delivery O2 Flow Rate FiO2 03/02/17 16:04 81 03/02/17 15:49 99.0 20 133/63 99 03/02/17 15:00 40 03/01/17 06:00 Mechanical Ventilator 02/27/17 15:25 10 Intake and Output 03/01/17 03/01/17 03/02/17 15:00 23:00 07:00 Intake Total 740 ml 720 ml Output Total 350 ml Balance 390 ml 720 ml Exam Constitutional: alert, oriented, well developed Psych: nl mood/affect, no complaints Head: atraumatic, normocephalic Eyes: EOMI, PERRL, nl conjunctiva, nl lids, nl sclera ENMT: nl external ears & nose, nl lips & teeth, nl nasal mucosa & septum Neck: non-tender, supple Respiratory: clear to auscultation, normal air movement Cardiovascular: nl pulses, regular rate and rhythm Gastrointestinal: nl liver, spleen, non-tender, soft Musculoskeletal: nl extremities to inspection, nl gait and stance Extremities: normal pulses Neurological: ATMOSPHERIC CHEMIST II-XII intact, nl mental status, nl speech, nl strength Skin: nl turgor, No rash or lesions Lymph: nl lymph nodes Results Result Diagram: 03/02/17 0718 03/02/17 0718 Results 24 hrs Laboratory Tests Test 03/02/17 07:18 White Blood Count 5.5 Red Blood Count 2.89 L Hemoglobin 8.9 L Hematocrit 27.6 L Mean Corpuscular Volume 95.5 Mean Corpuscular Hemoglobin 30.8 Mean Corpuscular Hemoglobin Concent 32.2 Red Cell Distribution Width 18.2 H Platelet Count 244 Mean Platelet Volume 12.0 H Neutrophils % 71.3 Lymphocytes % 14.6 L Monocytes % 10.1 Eosinophils % 3.1 Basophils % 0.4 Nucleated Red Blood Cells % 0.0 Neutrophils # 3.9 Lymphocytes # 0.8 Monocytes # 0.6 Eosinophils # 0.2 Basophils # 0.0 Nucleated Red Blood Cells # 0.0 Sodium Level 148 H Potassium Level 3.6 Chloride Level 117 H Carbon Dioxide Level 23 Anion Gap 12 Blood Urea Nitrogen 54 H Creatinine 1.44 H Glucose Level 90 Calcium Level 8.7 Medications Medications Current Medications Ascorbic Acid (Vitamin C) 500 mg BID GTB Last administered on 03/02/17 09:26 ; Admin Dose 500 MG; Start 02/28/17 at 09:00 Eye Lubricant (Refresh Plus) 1 drop BID PRN BOTH EYES DRY EYES; Start at 23:30 Carvedilol (Coreg) 6.25 mg BID GTB Last administered on 03/01/17 22:05; Admin Dose 6.25 MG; Start 02/28/17 at 09:00 Epoetin Kali (Epogen (Non Esrd/Non Oncology)) 10,000 units MONWEDFRI@17 SC Last administered on 02/28/17 22:43; Admin Dose 10,000 UNITS; Start 02/28/17 at 17:00 Folic Acid (Folic Acid) 1 mg DAILY GTB Last administered on 03/02/17 09:25; Admin Dose 1 MG; Start 02/28/17 at 09:00 Glycopyrrolate (Robinul) 1 mg TID GTB Last administered on 03/02/17 13:03; Admin Dose 1 MG; Start 02/28/17 at 09:00 Lansoprazole (Prevacid) 30 mg DAILY GTB Last administered on 03/02/17 09:26; Admin Dose 30 MG; Start 02/28/17 at 09:00 Metoclopramide HCl (Reglan) 5 mg TID PRN GTB NAUSEA AND/OR VOMITING; Start at 23:30 Sucralfate (Carafate Susp) 1 gm QID GTB Last administered on 03/02/17 17:13; Admin Dose 1 GM; Start 02/28/17 at 09:00 Lactobacillus Acidophilus (Florajen3 Capsule) 1 each TID NGT Last administered on 03/02/17 13:03; Admin Dose 1 EACH; Start 02/28/17 at 09:00 Multivitamins 30 ml 30 ml DAILY GTB Last administered on 03/02/17 09:26; Admin Dose 30 ML; Start 02/28/17 at 09:00 Vancomycin HCl (Vancocin) 250 ml @ 125 mls/hr Q24H IVPB Last administered on 03/01/17 18:00; Admin Dose 125 MLS/HR; Start 02/28/17 at 19:00 Clotrimazole (Lotrimin Cr) 1 applic BID TOP Last administered on 03/02/17 09: 26; Admin Dose 1 APPLIC; Start 02/28/17 at 21:00 Miscellaneous Information (Pending [facility] Order For Wound Care) This patient yung... PRN PRN XX WOUND CARE; Start 03/01/17 at 03:00 Collagenase 1 applic 1 applic DAILY TOP Last administered on 03/02/17 09:26; Admin Dose 1 APPLIC; Start 03/02/17 at 09:00 Dextrose 1,000 ml @ 100 mls/hr Q10H IV Last administered on 03/02/17 09:26; Admin Dose 100 MLS/HR; Start 03/02/17 at 09:30 Meropenem/Sodium Chloride (Merrem 1 Gm/50 ml (Pmx)) 50 ml @ 100 mls/hr Q12 IVPB Last administered on 03/02/17 17:13; Admin Dose 100 MLS/HR; Start 03/02 at 17:00 Miscellaneous Information (*Rx Drug Level Order Reminder*) VANCO TROUGH @ 1, 800 ON ... ONCE ONCE XX ; Start 03/02/17 at 18:00; Stop 03/02/17 at 18:01 PAT CHA MD Mar 02, 2017 17:27
[2017-03-02] MEDS ORDERED: VANCOMYCIN 1 GM (PMX) 250 ML ONE (19:35)
[2017-03-02] MEDS: VANCOMYCIN 1 GM in NS 250 ML IVPB SCH (19:40)
--- NOTE | 2017-03-02 22:07 | PN ---
DATE: 03/02/2017 INFECTIOUS DISEASE PROGRESS NOTE SUBJECTIVE: No acute events. The patient is awake, looks comfortable. Afebrile. VITAL SIGNS: T-max 99.8. LABORATORY DATA: WBC 5.5, no shift, no bands. BUN 54, creatinine 1.44. MICROBIOLOGY: Blood culture growing coagulase-negative staph species and gram-negative rods. Urine culture growing Klebsiella pneumoniae, ESBL. INDWELLINGS: Trach, PEG, Car. ANTIMICROBIALS: Patient is on: 1. Vancomycin. 2. Cefepime. 3. Colistin inhalation. ALLERGIES: NONE. PHYSICAL EXAMINATION: GENERAL: Chronically ill-appearing, elderly man who is awake, in no distress. HEENT: Head atraumatic, normocephalic. Sclerae anicteric. Buccal mucosa dry. NECK: Supple. CHEST: Rise symmetrical. Breath sounds with bilateral rhonchi. HEART: S1, S2. ABDOMEN: Soft, bowel tones present. ASSESSMENT: 1. Severe sepsis. 2. Klebsiella extended-spectrum beta-lactamase urinary tract infection. 3. Polymicrobial bacteremia with repeat blood cultures on 03/01/2017 still positive for gram-negati ve rods. 4. Chronic respiratory failure and dysphagia. 5. Anemia. 6. Sacral decubitus. PLAN: We are going to change cefepime to meropenem. Continue vancomycin. Await for final blood cu ltures. Follow pulmonary recommendations. Dictated By: NASH DOTY BILLING MACHINE OPERATOR for RICHARD ROSEN MD NI/NTS Conf#: [id number] DID#: [id number] CC: DESTINEE ROBERTS MD;*EndCC*
[2017-03-03] VITALS (23 sets, daily range): BP systolic 104–170; BP diastolic 55–81; PULSE 72–79; RESP 16–23
[2017-03-03] MEDS: ALBUTEROL/IPRATROPIUM (NEB) 3 ML AMP NEB SCH ×4 (01:03→20:07)
[2017-03-03] MEDS: DEXTROSE 5% 1,000 ML IV SCH ×2 (05:52→14:50)
[2017-03-03] MEDS: GLYCOPYRROLATE 1 MG TAB GTB SCH ×3 (09:00→21:05)
[2017-03-03] MEDS: MULTIVITAMINS 30 ML CUP GTB SCH (09:33)
[2017-03-03] MEDS: MEROPENEM 1 GM/50ML(PMX) 50 ML IVPB SCH ×2 (09:33→21:05)
[2017-03-03] MEDS: SUCRALFATE (100 MG/ML) 10ML CUP GTB SCH ×4 (09:34→21:05)
[2017-03-03] MEDS: L ACIDOPHIL/B LACTIS/B LONGUM CAPSULE NGT SCH ×3 (09:34→21:05)
[2017-03-03] MEDS: FOLIC ACID 1 MG TAB GTB SCH (09:34)
[2017-03-03] MEDS: ASCORBIC ACID 500 MG TAB GTB SCH ×2 (09:34→21:05)
[2017-03-03] MEDS: CLOTRIMAZOLE 1% 30 GM CR TOP SCH ×2 (09:34→21:07)
[2017-03-03] MEDS: LANSOPRAZOLE 30 MG CAP GTB SCH (09:34)
[2017-03-03] MEDS: COLLAGENASE 30 GM TUBE TOP SCH (09:35)
[2017-03-03] MEDS: COLISTIMETHATE (25 MG/ML INHAL SYG) NEB SCH ×2 (10:14→20:00)
--- NOTE | 2017-03-03 11:17 | PN ---
DATE: 03/03/2017 SUBJECTIVE: The patient's general condition is the same. He is awake, responsive, on ventilator nava pport. His breathing appears comfortable. PHYSICAL EXAMINATION: VITAL SIGNS: Show temperature 99.2, blood pressure 124/65, pulse rate of 78, respirations 16, pulse oximetry 97% saturation. NECK: Tracheal secretions are clear. No bleeding is seen. HEART: Regular rhythm. CHEST: Breath sounds are diminished in both the lower lung enamorado with a few intermittent rales and rhonchi. ABDOMEN: Soft. Tolerating gastrostomy tube feedings. Bowel sounds are present. EXTREMITIES: Show no edema, muscle wasting is seen in the lower extremities. CULTURE RESULTS: Show blood cultures showing gram-negative rods. The sputum culture also shows gra m-negative rods to be identified. The urine culture shows ESBL Klebsiella pneumoniae. MEDICATIONS: The patient is on: 1. Vancomycin. 2. Meropenem. 3. Cefepime has been discontinued. IMPRESSION: 1. Bilateral pneumonia, healthcare acquired. 2. Sepsis. 3. Chronic ventilator dependent respiratory failure. 4. Urinary tract infection. 5. Chronic anemia. 6. Acute kidney injury. 7. Chronic encephalopathy. 8. Paraplegia. 9. . RECOMMENDATIONS: 1. Continue long-term ventilator support. 2. Continue antibiotics. 3. Continue pulmonary toilet, bronchodilator inhalation therapy. 4. Continue tube feedings. 5. Continue hydration. Dictated By: ROEL BOYLE MD SR/NTS Conf#: [id number] DID#: [id number] CC: DESTINEE ROBERTS MD;*EndCC*
--- NOTE | 2017-03-03 14:24 | CONS ---
Date/Time of Note Date/Time of Note DATE: 03/03/17 TIME: 14:22 Assessment/Plan Assessment/Plan Chief Complaint/Hosp Course SUBJECTIVE: No acute events. The patient is awake, looks comfortable. Afebrile. MICROBIOLOGY: Blood cultures culture growing Corynebacterium, coag negative staph species. Repeat blood cultures on March 01 growing gram-negative rods. Sputum culture growing gram-negative rods. Urine culture grew Klebsiella ESBL INDWELLINGS: Trach, PEG, Car. ANTIMICROBIALS: Patient is on: 1. Vancomycin. 2. Merrem 3. Colistin inhalation. ALLERGIES: NONE. PHYSICAL EXAMINATION: GENERAL: Chronically ill-appearing, elderly man who is awake, in no distress. HEENT: Head atraumatic, normocephalic. Sclerae anicteric. Buccal mucosa dry. NECK: Supple. CHEST: Rise symmetrical. Breath sounds with bilateral rhonchi. HEART: S1, S2. ABDOMEN: Soft, bowel tones present. ASSESSMENT: 1. Severe sepsis. 2. Klebsiella extended-spectrum beta-lactamase urinary tract infection. 3. Polymicrobial bacteremia with repeat blood cultures on 03/01/2017 still positive for gram-negative rods. 4. Chronic respiratory failure and dysphagia. 5. Anemia. 6. Sacral decubitus. PLAN: Remains stable, continue antibiotics, await for final blood cultures. Follow pulmonary recommendations. Discussed with at bedside Problems: Consultation Date/Type/Reason Admit Date/Time Feb 27, 2017 at 17:51 Initial Consult Date 02/28/17 Type of Consultation: id Referring Provider: DESTINEE ROBERTS MD Exam/Review of Systems Vital Signs Vitals Vital Signs Date Time Temp Pulse Resp B/P Pulse Ox O2 Delivery O2 Flow Rate FiO2 03/03/17 13:05 76 20 98 30 03/03/17 11:24 98.7 132/81 03/01/17 06:00 Mechanical Ventilator 02/27/17 15:25 10 Intake and Output 03/02/17 03/02/17 03/03/17 15:00 23:00 07:00 Intake Total 930 ml 1080 ml 1080 ml Output Total 500 ml 700 ml 750 ml Balance 430 ml 380 ml 330 ml Results Result Diagram: 03/02/17 0718 03/02/17 0718 Results 24 hrs Laboratory Tests Test 03/02/17 17:54 Vancomycin Level Trough 17.1 Medications Medications Current Medications Ascorbic Acid (Vitamin C) 500 mg BID GTB Last administered on 03/03/17 09:34 ; Admin Dose 500 MG; Start 02/28/17 at 09:00 Eye Lubricant (Refresh Plus) 1 drop BID PRN BOTH EYES DRY EYES; Start at 23:30 Carvedilol (Coreg) 6.25 mg BID GTB Last administered on 03/03/17 09:35; Admin Dose 6.25 MG; Start 02/28/17 at 09:00 Epoetin Kali (Epogen (Non Esrd/Non Oncology)) 10,000 units MONWEDFRI@17 SC Last administered on 03/02/17 17:00; Admin Dose 10,000 UNITS; Start 02/28/17 at 17:00 Folic Acid (Folic Acid) 1 mg DAILY GTB Last administered on 03/03/17 09:34; Admin Dose 1 MG; Start 02/28/17 at 09:00 Glycopyrrolate (Robinul) 1 mg TID GTB Last administered on 03/03/17 13:46; Admin Dose 1 MG; Start 02/28/17 at 09:00 Lansoprazole (Prevacid) 30 mg DAILY GTB Last administered on 03/03/17 09:34; Admin Dose 30 MG; Start 02/28/17 at 09:00 Metoclopramide HCl (Reglan) 5 mg TID PRN GTB NAUSEA AND/OR VOMITING; Start at 23:30 Sucralfate (Carafate Susp) 1 gm QID GTB Last administered on 03/03/17 13:46; Admin Dose 1 GM; Start 02/28/17 at 09:00 Lactobacillus Acidophilus (Florajen3 Capsule) 1 each TID NGT Last administered on 03/03/17 13:46; Admin Dose 1 EACH; Start 02/28/17 at 09:00 Multivitamins (Multivitamin) 30 ml DAILY GTB Last administered on 03/03/17 09 :33; Admin Dose 30 ML; Start 02/28/17 at 09:00 Clotrimazole (Lotrimin Cr) 1 applic BID TOP Last administered on 03/03/17 09: 34; Admin Dose 1 APPLIC; Start 02/28/17 at 21:00 Miscellaneous Information (Pending Santyl Order For Wound Care) This patient yung... PRN PRN XX WOUND CARE; Start 03/01/17 at 03:00 Collagenase 1 applic 1 applic DAILY TOP Last administered on 03/03/17 09:35; Admin Dose 1 APPLIC; Start 03/02/17 at 09:00 Dextrose 1,000 ml @ 100 mls/hr Q10H IV Last administered on 03/03/17 05:52; Admin Dose 100 MLS/HR; Start 03/02/17 at 09:30 Meropenem/Sodium Chloride 50 ml @ 100 mls/hr Q12 IVPB Last administered on 09:33; Admin Dose 100 MLS/HR; Start 03/02/17 at 17:00 Vancomycin HCl/ Dextrose/Water (Vancocin/D5W) 150 ml @ 75 mls/hr Q24H IVPB ; Start 03/03/17 at 20:00 NASH DOTY NP Mar 03, 2017 14:24
--- NOTE | 2017-03-03 15:31 | PN ---
Date/Time of Note Date/Time of Note DATE: 03/03/17 TIME: 15:17 Assessment/Plan VTE Prophylaxis VTE Prophylaxis Intervention: other Lines/Catheters IV Catheter Type (from Nrs): Mid Line Central line still needed: Yes Urinary Cath still in place: Yes Reason Cath still needed: urinary retention Assessment/Plan Assessment/Plan 1. Bilateral pneumonia, healthcare acquired. - per pulmonary - aspiration precautions 2. Sepsis. - per ID 3. Chronic ventilator dependent respiratory failure. 4. Urinary tract infection. 5. Chronic anemia. 6. Acute kidney injury. - per nephrology 7. Chronic encephalopathy. 8. Paraplegia. Subjective 24 Hr Interval Summary Free Text/Dictation - afebril - alert/awake- listening to old Lorenza songs - at bed side-all qS answered- requested for swallow eval - no new events reported overnight Constitutional: requiring IVF, requiring O2 Respiratory: no complaints Cardiovascular: no complaints Gastrointestinal: no complaints Exam/Review of Systems Vital Signs Vitals Vital Signs Date Time Temp Pulse Resp B/P Pulse Ox O2 Delivery O2 Flow Rate FiO2 03/03/17 13:05 76 20 98 30 03/03/17 11:24 98.7 132/81 03/01/17 06:00 Mechanical Ventilator 02/27/17 15:25 10 Intake and Output 03/02/17 03/02/17 03/03/17 15:00 23:00 07:00 Intake Total 930 ml 1080 ml 1080 ml Output Total 500 ml 700 ml 750 ml Balance 430 ml 380 ml 330 ml Exam Constitutional: alert Respiratory: diminished breath sounds, normal air movement Cardiovascular: nl pulses Gastrointestinal: non-tender, other, soft Musculoskeletal: muscle weakness Results Result Diagram: 03/02/1718 03/02/17 0718 Results 24 hrs Laboratory Tests Test 03/02/17 17:54 Vancomycin Level Trough 17.1 Medications Medications Current Medications Ascorbic Acid (Vitamin C) 500 mg BID GTB Last administered on 03/03/17 09:34 ; Admin Dose 500 MG; Start 02/28/17 at 09:00 Eye Lubricant (Refresh Plus) 1 drop BID PRN BOTH EYES DRY EYES; Start at 23:30 Carvedilol (Coreg) 6.25 mg BID GTB Last administered on 03/03/17 09:35; Admin Dose 6.25 MG; Start 02/28/17 at 09:00 Epoetin Kali (Epogen (Non Esrd/Non Oncology)) 10,000 units MONWEDFRI@17 SC Last administered on 03/02/17 17:00; Admin Dose 10,000 UNITS; Start 02/28/17 at 17:00 Folic Acid (Folic Acid) 1 mg DAILY GTB Last administered on 03/03/17 09:34; Admin Dose 1 MG; Start 02/28/17 at 09:00 Glycopyrrolate (Robinul) 1 mg TID GTB Last administered on 03/03/17 13:46; Admin Dose 1 MG; Start 02/28/17 at 09:00 Lansoprazole (Prevacid) 30 mg DAILY GTB Last administered on 03/03/17 09:34; Admin Dose 30 MG; Start 02/28/17 at 09:00 Metoclopramide HCl (Reglan) 5 mg TID PRN GTB NAUSEA AND/OR VOMITING; Start at 23:30 Sucralfate (Carafate Susp) 1 gm QID GTB Last administered on 03/03/17 13:46; Admin Dose 1 GM; Start 02/28/17 at 09:00 Lactobacillus Acidophilus (Florajen3 Capsule) 1 each TID NGT Last administered on 03/03/17 13:46; Admin Dose 1 EACH; Start 02/28/17 at 09:00 Multivitamins (Multivitamin) 30 ml DAILY GTB Last administered on 03/03/17 09 :33; Admin Dose 30 ML; Start 02/28/17 at 09:00 Clotrimazole (Lotrimin Cr) 1 applic BID TOP Last administered on 03/03/17 09: 34; Admin Dose 1 APPLIC; Start 02/28/17 at 21:00 Miscellaneous Information (Pending Santyl Order For Wound Care) This patient yung... PRN PRN XX WOUND CARE; Start 03/01/17 at 03:00 Collagenase 1 applic 1 applic DAILY TOP Last administered on 03/03/17 09:35; Admin Dose 1 APPLIC; Start 03/02/17 at 09:00 Dextrose 1,000 ml @ 100 mls/hr Q10H IV Last administered on 03/03/17 05:52; Admin Dose 100 MLS/HR; Start 03/02/17 at 09:30 Meropenem/Sodium Chloride 50 ml @ 100 mls/hr Q12 IVPB Last administered on t 09:33; Admin Dose 100 MLS/HR; Start 03/02/17 at 17:00 Vancomycin HCl/ Dextrose/Water (Vancocin/D5W) 150 ml @ 75 mls/hr Q24H IVPB ; Start 03/03/17 at 20:00 JOÃO JUAREZ Mar 03, 2017 15:28
--- NOTE | 2017-03-03 17:45 | CONS ---
Date/Time of Note Date/Time of Note DATE: 03/03/17 TIME: 17:45 Assessment/Plan Assessment/Plan Additional Assessment/Plan 1. Acute kidney injury due to severe prerenal azotemia causing ISchemic ATN 2. Severe Anemia s/p PRBC 3. Acute on chronic rresp failure, S/p tracheostomy 4. H/o CVA 5. H/o Cardiac arrest 6. h/o HTN 7. h/o HL Plan: S/p PRBC transfusion, Hb now stable, Cotninue current care, IV abx cefepime and vancomycin IVF 1/2NS at 60 cc/hr renally dose all abx will continue to follow up, Expecting Cr to improve, Cr 1.44 today Consultation Date/Type/Reason Admit Date/Time Feb 27, 2017 at 17:51 Initial Consult Date 02/28/17 Type of Consultation: NEPHROLOG Y Referring Provider: DESTINEE ROBERTS MD 24 HR Interval Summary Free Text/Dictation Cr 1.44, Na improving, BP stable Exam/Review of Systems Vital Signs Vitals Vital Signs Date Time Temp Pulse Resp B/P Pulse Ox O2 Delivery O2 Flow Rate FiO2 03/03/17 16:30 72 03/03/17 15:28 97.9 16 104/59 99 03/03/17 15:05 30 03/01/17 06:00 Mechanical Ventilator 02/27/17 15:25 10 Intake and Output 03/02/17 03/02/17 03/03/17 15:00 23:00 07:00 Intake Total 930 ml 1080 ml 1080 ml Output Total 500 ml 700 ml 750 ml Balance 430 ml 380 ml 330 ml Results Result Diagram: 03/02/17 0718 03/02/17 0718 Results 24 hrs Laboratory Tests Test 03/02/17 17:54 Vancomycin Level Trough 17.1 Medications Medications Current Medications Ascorbic Acid (Vitamin C) 500 mg BID GTB Last administered on 03/03/17 09:34 ; Admin Dose 500 MG; Start 02/28/17 at 09:00 Eye Lubricant (Refresh Plus) 1 drop BID PRN BOTH EYES DRY EYES; Start at 23:30 Carvedilol (Coreg) 6.25 mg BID GTB Last administered on 03/03/17 09:35; Admin Dose 6.25 MG; Start 02/28/17 at 09:00 Epoetin Kali (Epogen (Non Esrd/Non Oncology)) 10,000 units MONWEDFRI@17 SC Last administered on 03/02/17 17:00; Admin Dose 10,000 UNITS; Start 02/28/17 at 17:00 Folic Acid (Folic Acid) 1 mg DAILY GTB Last administered on 03/03/17 09:34; Admin Dose 1 MG; Start 02/28/17 at 09:00 Glycopyrrolate (Robinul) 1 mg TID GTB Last administered on 03/03/17 13:46; Admin Dose 1 MG; Start 02/28/17 at 09:00 Lansoprazole (Prevacid) 30 mg DAILY GTB Last administered on 03/03/17 09:34; Admin Dose 30 MG; Start 02/28/17 at 09:00 Metoclopramide HCl (Reglan) 5 mg TID PRN GTB NAUSEA AND/OR VOMITING; Start at 23:30 Sucralfate (Carafate Susp) 1 gm QID GTB Last administered on 03/03/17 17:07; Admin Dose 1 GM; Start 02/28/17 at 09:00 Lactobacillus Acidophilus (Florajen3 Capsule) 1 each TID NGT Last administered on 03/03/17 13:46; Admin Dose 1 EACH; Start 02/28/17 at 09:00 Multivitamins (Multivitamin) 30 ml DAILY GTB Last administered on 03/03/17 09 :33; Admin Dose 30 ML; Start 02/28/17 at 09:00 Clotrimazole (Lotrimin Cr) 1 applic BID TOP Last administered on 03/03/17 09: 34; Admin Dose 1 APPLIC; Start 02/28/17 at 21:00 Miscellaneous Information (Pending Santyl Order For Wound Care) This patient yung... PRN PRN XX WOUND CARE; Start 03/01/17 at 03:00 Collagenase 1 applic 1 applic DAILY TOP Last administered on 03/03/17 09:35; Admin Dose 1 APPLIC; Start 03/02/17 at 09:00 Dextrose 1,000 ml @ 100 mls/hr Q10H IV Last administered on 03/03/17 14:50; Admin Dose 100 MLS/HR; Start 03/02/17 at 09:30 Meropenem/Sodium Chloride 50 ml @ 100 mls/hr Q12 IVPB Last administered on t 09:33; Admin Dose 100 MLS/HR; Start 03/02/17 at 17:00 Vancomycin HCl/ Dextrose/Water (Vancocin/D5W) 150 ml @ 75 mls/hr Q24H IVPB ; Start 03/03/17 at 20:00 ROULA YEPEZ MD Mar 03, 2017 17:45
--- NOTE | 2017-03-03 17:56 | CONS ---
Date/Time of Note Date/Time of Note DATE: 03/03/17 TIME: 17:55 Assessment/Plan Assessment/Plan Additional Assessment/Plan Additional Assessment/Plan IMPRESSION: 1. Ventilator-dependent respiratory failure. 2. Community-acquired pneumonia. 3. Urinary tract infection. 4. Anemia, no evidence of active gastrointestinal bleeding. 5. Cerebrovascular accident. 6. Left eye blindness. 7. Esophageal ulceration. 8. History of renal failure requiring temporary dialysis. 9. Malfunctioning G-tube, G-tube is now functional and tolerating feeding 10. Renal insufficiency Plan Monitor H&H Continue present care Continue antibiotic, bronchodilator Discussed with the and wants physical therapy Consultation Date/Type/Reason Admit Date/Time Feb 27, 2017 at 17:51 Initial Consult Date 02/28/17 Type of Consultation: NEPHROLOG Y Referring Provider: DESTINEE ROBERTS MD 24 HR Interval Summary Constitutional: improved, no complaints Exam/Review of Systems Vital Signs Vitals Vital Signs Date Time Temp Pulse Resp B/P Pulse Ox O2 Delivery O2 Flow Rate FiO2 03/03/17 16:30 72 03/03/17 15:28 97.9 16 104/59 99 03/03/17 15:05 30 03/01/17 06:00 Mechanical Ventilator 02/27/17 15:25 10 Intake and Output 03/02/17 03/02/17 03/03/17 15:00 23:00 07:00 Intake Total 930 ml 1080 ml 1080 ml Output Total 500 ml 700 ml 750 ml Balance 430 ml 380 ml 330 ml Exam Constitutional: alert, oriented, well developed Psych: nl mood/affect, no complaints Head: atraumatic, normocephalic Eyes: EOMI, PERRL, nl conjunctiva, nl lids, nl sclera ENMT: nl external ears & nose, nl lips & teeth, nl nasal mucosa & septum Neck: non-tender, supple Respiratory: clear to auscultation, normal air movement Cardiovascular: nl pulses, regular rate and rhythm Gastrointestinal: nl liver, spleen, non-tender, soft Musculoskeletal: nl extremities to inspection, nl gait and stance Extremities: normal pulses Neurological: FELLER OPERATOR II-XII intact, nl mental status, nl speech, nl strength Skin: nl turgor, No rash or lesions Lymph: nl lymph nodes Results Result Diagram: 03/02/1718 12/20/17 0718 Medications Medications Current Medications Ascorbic Acid (Vitamin C) 500 mg BID GTB Last administered on 03/03/17 09:34 ; Admin Dose 500 MG; Start 02/28/17 at 09:00 Eye Lubricant (Refresh Plus) 1 drop BID PRN BOTH EYES DRY EYES; Start at 23:30 Carvedilol (Coreg) 6.25 mg BID GTB Last administered on 03/03/17 09:35; Admin Dose 6.25 MG; Start 02/28/17 at 09:00 Epoetin Kali (Epogen (Non Esrd/Non Oncology)) 10,000 units MONWEDFRI@17 SC Last administered on 03/02/17 17:00; Admin Dose 10,000 UNITS; Start 02/28/17 at 17:00 Folic Acid (Folic Acid) 1 mg DAILY GTB Last administered on 03/03/17 09:34; Admin Dose 1 MG; Start 02/28/17 at 09:00 Glycopyrrolate (Robinul) 1 mg TID GTB Last administered on 03/03/17 13:46; Admin Dose 1 MG; Start 02/28/17 at 09:00 Lansoprazole (Prevacid) 30 mg DAILY GTB Last administered on 03/03/17 09:34; Admin Dose 30 MG; Start 02/28/17 at 09:00 Metoclopramide HCl (Reglan) 5 mg TID PRN GTB NAUSEA AND/OR VOMITING; Start at 23:30 Sucralfate (Carafate Susp) 1 gm QID GTB Last administered on 03/03/17 17:07; Admin Dose 1 GM; Start 02/28/17 at 09:00 Lactobacillus Acidophilus (Florajen3 Capsule) 1 each TID NGT Last administered on 03/03/17 13:46; Admin Dose 1 EACH; Start 02/28/17 at 09:00 Multivitamins (Multivitamin) 30 ml DAILY GTB Last administered on 03/03/17 09 :33; Admin Dose 30 ML; Start 02/28/17 at 09:00 Clotrimazole (Lotrimin Cr) 1 applic BID TOP Last administered on 03/03/17 09: 34; Admin Dose 1 APPLIC; Start 02/28/17 at 21:00 Miscellaneous Information (Pending Santyl Order For Wound Care) This patient yung... PRN PRN XX WOUND CARE; Start 03/01/17 at 03:00 Collagenase 1 applic 1 applic DAILY TOP Last administered on 03/03/17 09:35; Admin Dose 1 APPLIC; Start 03/02/17 at 09:00 Dextrose 1,000 ml @ 100 mls/hr Q10H IV Last administered on 03/03/17 14:50; Admin Dose 100 MLS/HR; Start 03/02/17 at 09:30 Meropenem/Sodium Chloride 50 ml @ 100 mls/hr Q12 IVPB Last administered on 09:33; Admin Dose 100 MLS/HR; Start 03/02/17 at 17:00 Vancomycin HCl/ Dextrose/Water (Vancocin/D5W) 150 ml @ 75 mls/hr Q24H IVPB ; Start 03/03/17 at 20:00 PAT CHA MD Mar 03, 2017 17:56
[2017-03-03] MEDS: VANCOMYCIN 750 MG in DEXTROSE 5% 150 ML IVPB SCH (21:09)
[2017-03-04] VITALS (24 sets, daily range): BP systolic 92–141; BP diastolic 57–64; PULSE 74–84; RESP 20–85
[2017-03-04] MEDS: ALBUTEROL/IPRATROPIUM (NEB) 3 ML AMP NEB SCH ×4 (01:42→19:08)
[2017-03-04] MEDS: DEXTROSE 5% 1,000 ML IV SCH ×3 (03:24→21:30)
[2017-03-04] MEDS: COLISTIMETHATE (25 MG/ML INHAL SYG) NEB SCH ×2 (08:57→19:08)
[2017-03-04] MEDS: MULTIVITAMINS 30 ML CUP GTB SCH (09:26)
[2017-03-04] MEDS: ASCORBIC ACID 500 MG TAB GTB SCH ×2 (09:27→20:08)
[2017-03-04] MEDS: LANSOPRAZOLE 30 MG CAP GTB SCH (09:27)
[2017-03-04] MEDS: MEROPENEM 1 GM/50ML(PMX) 50 ML IVPB SCH ×2 (09:27→20:08)
[2017-03-04] MEDS: FOLIC ACID 1 MG TAB GTB SCH (09:27)
[2017-03-04] MEDS: SUCRALFATE (100 MG/ML) 10ML CUP GTB SCH ×4 (09:27→20:07)
[2017-03-04] MEDS: L ACIDOPHIL/B LACTIS/B LONGUM CAPSULE NGT SCH ×3 (09:28→20:08)
[2017-03-04] MEDS: GLYCOPYRROLATE 1 MG TAB GTB SCH ×3 (09:28→20:09)
[2017-03-04] MEDS: CLOTRIMAZOLE 1% 30 GM CR TOP SCH ×2 (09:48→20:08)
[2017-03-04] MEDS: COLLAGENASE 30 GM TUBE TOP SCH (09:49)
[2017-03-04 12:18] LABS: BASOPHILS % 0.7 % (0.0-2.0); EOSINOPHILS # 0.4 10^3/ul (0.0-0.5); EOSINOPHILS % 7.8 % (0.0-7.0); HEMATOCRIT 27.9 % (42.0-52.0); HEMOGLOBIN 8.9 g/dl (14.0-18.0); LYMPHOCYTES # 0.9 10^3/ul (0.8-2.9); LYMPHOCYTES % 19.5 % (15.0-51.0); MEAN CORPUSCULAR HEMOGLOBIN 29.7 pg (29.0-33.0); MEAN CORPUSCULAR HGB CONC 31.9 g/dl (32.0-37.0); MEAN PLATELET VOLUME 11.2 fl (7.4-10.4); MONOCYTE # 0.5 10^3/ul (0.3-0.9); MONOCYTES % 10.7 % (0.0-11.0); NEUTROPHIL # 2.7 10^3/ul (1.6-7.5); NEUTROPHILS % 59.7 % (39.0-77.0); NUCLEATED RED BLOOD CELLS% 0.4 /100WBC (0.0-0.0); PLATELET COUNT 237 10^3/UL (140-415); POSITIVE DIFF @See below; RED CELL DISTRIBUTION WIDTH 17.5 % (11.5-14.5); WHITE BLOOD COUNT 4.5 10^3/ul (4.8-10.8)
[2017-03-04 12:43] LABS: CALCIUM 8.3 mg/dl (8.4-10.2); CREATININE 1.03 mg/dl (0.61-1.24); POTASSIUM 3.7 mmol/L (3.5-5.1)
--- NOTE | 2017-03-04 14:15 | PN ---
DATE: 03/04/2017 SUBJECTIVE: The patient's general condition is same. He is breathing comfortably with the ventilat or support. He is awake, responsive, opens his eyes. PHYSICAL EXAMINATION: VITAL SIGNS: Stable. Temperature is 96, blood pressure 141/64, pulse rate is 84, respirations 20, pulse oximetry 98% saturation on 30% inhaled oxygen concentration. NECK: Tracheal secretions are clear, intermittent slight secretions seen. No gross bleeding is evident. HEART: Regular rhythm. CHEST: Breath sounds are diminished in both the lower lung enamorado with a few intermittent rales and rhonchi. ABDOMEN: Soft, not distended. Normal bowel sounds. EXTREMITIES: Show no edema. LABORATORY DATA: The sputum culture is reported to show growth of and acinetobacter. Urine c ulture shows ESBL Klebsiella pneumoniae. Blood culture also shows ESBL Klebsiella pneumoniae. MEDICATIONS: The patient is on: 1. Vancomycin. 2. Meropenem. 3. Colistin inhalation. IMPRESSION: 1. Bilateral healthcare-acquired pneumonia. 2. Sepsis. 3. Chronic ventilator dependent respiratory failure. 4. Urinary tract infection. 5. Chronic anemia. 7. Acute kidney injury. 8. Chronic encephalopathy. 9. Paraplegia. RECOMMENDATIONS: 1. Continue long-term ventilator support. 2. Continue antibiotics per ID linux consultant. 3. Continue pulmonary toilet and bronchodilator inhalation therapy. 4. Continue tube feedings. 5. Continue hydration. Dictated By: ROEL BOYLE MD SR/IRMA Conf#: [id number] DID#: [id number]
--- NOTE | 2017-03-04 16:34 | CONS ---
Date/Time of Note Date/Time of Note DATE: 03/04/17 TIME: 16:31 Consultation Date/Type/Reason Admit Date/Time Feb 27, 2017 at 17:51 Initial Consult Date SUBJECTIVE: 81 y/o male being treated for severe sepsis, bacteremia, and UTI. No acute events over night. The patient is awake, looks comfortable. Afebrile. VS:117/62 P:83 R:20 T97.3 SO2:98% LABS: Reviewed. WBC-4.5 BUN-39 Cr-1.03 MICROBIOLOGY: Blood cultures culture growing Corynebacterium, coag negative staph species. Repeat blood cultures on March 01 growing gram-negative rods. Sputum culture growing gram-negative rods. Urine culture grew Klebsiella ESBL Repeat blood culture x2 =NEG INDWELLINGS: Trach, PEG, Car. ANTIMICROBIALS: Patient is on: 1. Vancomycin. 2. Merrem 3. Colistin inhalation. ALLERGIES: NONE. PHYSICAL EXAMINATION: GENERAL: Chronically ill-appearing, elderly man who is awake, in no distress. HEENT: Head atraumatic, normocephalic. Sclerae anicteric. Buccal mucosa dry. NECK: Supple. CHEST: Rise symmetrical. Breath sounds with bilateral rhonchi. HEART: S1, S2. ABDOMEN: Soft, bowel tones present. ASSESSMENT: 1. Severe sepsis. 2. Klebsiella extended-spectrum beta-lactamase urinary tract infection. 3. Polymicrobial bacteremia with repeat blood cultures on 03/01/2017 still positive for gram-negative rods. 4. Chronic respiratory failure and dysphagia. 5. Anemia. 6. Sacral decubitus. PLAN: Pt is stable. Continue current antibiotics. Follow pulmonary recommendations. Type of Consultation: ID Referring Provider: DESTINEE ROBERTS MD Exam/Review of Systems Vital Signs Vitals Vital Signs Date Time Temp Pulse Resp B/P Pulse Ox O2 Delivery O2 Flow Rate FiO2 03/04/17 16:19 97.3 83 20 117/62 98 03/04/17 15:00 30 03/01/17 06:00 Mechanical Ventilator Intake and Output 03/03/17 03/03/17 03/04/17 15:00 23:00 07:00 Intake Total 200 ml 2880 ml Output Total 800 ml Balance 200 ml 2080 ml Results Result Diagram: 03/04/17 1152 03/04/17 1152 Results 24 hrs Laboratory Tests Test 03/04/17 11:52 White Blood Count 4.5 L Red Blood Count 3.00 L Hemoglobin 8.9 L Hematocrit 27.9 L Mean Corpuscular Volume 93.0 Mean Corpuscular Hemoglobin 29.7 Mean Corpuscular Hemoglobin Concent 31.9 L Red Cell Distribution Width 17.5 H Platelet Count 237 Mean Platelet Volume 11.2 H Neutrophils % 59.7 Lymphocytes % 19.5 Monocytes % 10.7 Eosinophils % 7.8 H Basophils % 0.7 Nucleated Red Blood Cells % 0.4 H Neutrophils # 2.7 Lymphocytes # 0.9 Monocytes # 0.5 Eosinophils # 0.4 Basophils # 0.0 Nucleated Red Blood Cells # 0.0 Sodium Level 138 Potassium Level 3.7 Chloride Level 110 Carbon Dioxide Level 22 Anion Gap 10 Blood Urea Nitrogen 39 H Creatinine 1.03 Glucose Level 133 Calcium Level 8.3 L Medications Medications Current Medications Ascorbic Acid (Vitamin C) 500 mg BID GTB Last administered on 03/04/17 09:27 ; Admin Dose 500 MG; Start 02/28/17 at 09:00 Eye Lubricant (Refresh Plus) 1 drop BID PRN BOTH EYES DRY EYES; Start at 23:30 Carvedilol (Coreg) 6.25 mg BID GTB Last administered on 03/04/17 09:28; Admin Dose 6.25 MG; Start 02/28/17 at 09:00 Epoetin Kali (Epogen (Non Esrd/Non Oncology)) 10,000 units MONWEDFRI@17 SC Last administered on 03/02/17 17:00; Admin Dose 10,000 UNITS; Start 02/28/17 at 17:00 Folic Acid (Folic Acid) 1 mg DAILY GTB Last administered on 03/04/17 09:27; Admin Dose 1 MG; Start 02/28/17 at 09:00 Glycopyrrolate (Robinul) 1 mg TID GTB Last administered on 03/04/17 13:23; Admin Dose 1 MG; Start 02/28/17 at 09:00 Lansoprazole (Prevacid) 30 mg DAILY GTB Last administered on 03/04/17 09:27; Admin Dose 30 MG; Start 02/28/17 at 09:00 Metoclopramide HCl (Reglan) 5 mg TID PRN GTB NAUSEA AND/OR VOMITING; Start at 23:30 Sucralfate (Carafate Susp) 1 gm QID GTB Last administered on 03/04/17 13:22; Admin Dose 1 GM; Start 02/28/17 at 09:00 Lactobacillus Acidophilus (Florajen3 Capsule) 1 each TID NGT Last administered on 03/04/17 13:23; Admin Dose 1 EACH; Start 02/28/17 at 09:00 Multivitamins (Multivitamin) 30 ml DAILY GTB Last administered on 03/04/17 09 :26; Admin Dose 30 ML; Start 02/28/17 at 09:00 Clotrimazole (Lotrimin Cr) 1 applic BID TOP Last administered on 03/04/17 09: 48; Admin Dose 1 APPLIC; Start 02/28/17 at 21:00 Miscellaneous Information (Pending [facility] Order For Wound Care) This patient yung... PRN PRN XX WOUND CARE; Start 03/01/17 at 03:00 Collagenase 1 applic 1 applic DAILY TOP Last administered on 03/04/17 09:49; Admin Dose 1 APPLIC; Start 03/02/17 at 09:00 Dextrose 1,000 ml @ 100 mls/hr Q10H IV Last administered on 03/04/17 11:30; Admin Dose 100 MLS/HR; Start 03/02/17 at 09:30 Meropenem/Sodium Chloride 50 ml @ 100 mls/hr Q12 IVPB Last administered on 09:27; Admin Dose 100 MLS/HR; Start 03/02/17 at 17:00 Vancomycin HCl/ Dextrose/Water (Vancocin/D5W) 150 ml @ 75 mls/hr Q24H IVPB Last administered on 03/03/17 21:09; Admin Dose 75 MLS/HR; Start 03/03/17 at 20:00 SHAWN LAMB Mar 04, 2017 16:34
--- NOTE | 2017-03-04 16:52 | CONS ---
Date/Time of Note Date/Time of Note DATE: 03/04/17 TIME: 16:49 Assessment/Plan Assessment/Plan Additional Assessment/Plan 1. Acute kidney injury due to severe prerenal azotemia causing ISchemic ATN 2. Severe Anemia s/p PRBC 3. Acute on chronic rresp failure, S/p tracheostomy 4. H/o CVA 5. H/o Cardiac arrest 6. h/o HTN 7. h/o HL Plan: S/p PRBC transfusion, Hb now stable, Cotninue current care, IV abx Meropenem and vancomycin Cr imrpoved to normal, Electrolytes stable, plan is to d/c IVF d5W in AM renally dose all abx will follow up Consultation Date/Type/Reason Admit Date/Time Feb 27, 2017 at 17:51 Initial Consult Date 02/28/17 Type of Consultation: NEPHROLOGY Referring Provider: DESTINEE ROBERTS MD Exam/Review of Systems Vital Signs Vitals Vital Signs Date Time Temp Pulse Resp B/P Pulse Ox O2 Delivery O2 Flow Rate FiO2 03/04/17 16:19 97.3 83 20 117/62 98 03/04/17 15:00 30 03/01/17 06:00 Mechanical Ventilator Intake and Output 03/03/17 03/03/17 03/04/17 15:00 23:00 07:00 Intake Total 200 ml 2880 ml Output Total 800 ml Balance 200 ml 2080 ml Exam Constitutional: non-verbal Head: normocephalic ENMT: other (+ tracheostomy on ventilator ) Neck: non-tender, supple Respiratory: crackles/rales, diminished breath sounds, wheezing Cardiovascular: edema, other (S1 S2 tachycardia ) Gastrointestinal: non-tender, other ( G tube site clear ), soft Musculoskeletal: nl extremities to inspection Extremities: edema Neurological: other (Not cooperagive for neuro exam ) Lymph: nl lymph nodes Results Result Diagram: 03/04/17 1152 03/04/17 1152 Results 24 hrs Laboratory Tests Test 03/04/17 11:52 White Blood Count 4.5 L Red Blood Count 3.00 L Hemoglobin 8.9 L Hematocrit 27.9 L Mean Corpuscular Volume 93.0 Mean Corpuscular Hemoglobin 29.7 Mean Corpuscular Hemoglobin Concent 31.9 L Red Cell Distribution Width 17.5 H Platelet Count 237 Mean Platelet Volume 11.2 H Neutrophils % 59.7 Lymphocytes % 19.5 Monocytes % 10.7 Eosinophils % 7.8 H Basophils % 0.7 Nucleated Red Blood Cells % 0.4 H Neutrophils # 2.7 Lymphocytes # 0.9 Monocytes # 0.5 Eosinophils # 0.4 Basophils # 0.0 Nucleated Red Blood Cells # 0.0 Sodium Level 138 Potassium Level 3.7 Chloride Level 110 Carbon Dioxide Level 22 Anion Gap 10 Blood Urea Nitrogen 39 H Creatinine 1.03 Glucose Level 133 Calcium Level 8.3 L Medications Medications Current Medications Ascorbic Acid (Vitamin C) 500 mg BID GTB Last administered on 03/04/17 09:27 ; Admin Dose 500 MG; Start 02/28/17 at 09:00 Eye Lubricant (Refresh Plus) 1 drop BID PRN BOTH EYES DRY EYES; Start at 23:30 Carvedilol (Coreg) 6.25 mg BID GTB Last administered on 03/04/17 09:28; Admin Dose 6.25 MG; Start 02/28/17 at 09:00 Epoetin Kali (Epogen (Non Esrd/Non Oncology)) 10,000 units MONWEDFRI@17 SC Last administered on 03/02/17 17:00; Admin Dose 10,000 UNITS; Start 02/28/17 at 17:00 Folic Acid (Folic Acid) 1 mg DAILY GTB Last administered on 03/04/17 09:27; Admin Dose 1 MG; Start 02/28/17 at 09:00 Glycopyrrolate (Robinul) 1 mg TID GTB Last administered on 03/04/17 13:23; Admin Dose 1 MG; Start 02/28/17 at 09:00 Lansoprazole (Prevacid) 30 mg DAILY GTB Last administered on 03/04/17 09:27; Admin Dose 30 MG; Start 02/28/17 at 09:00 Metoclopramide HCl (Reglan) 5 mg TID PRN GTB NAUSEA AND/OR VOMITING; Start at 23:30 Sucralfate (Carafate Susp) 1 gm QID GTB Last administered on 03/04/17 13:22; Admin Dose 1 GM; Start 02/28/17 at 09:00 Lactobacillus Acidophilus (Florajen3 Capsule) 1 each TID NGT Last administered on 03/04/17 13:23; Admin Dose 1 EACH; Start 02/28/17 at 09:00 Multivitamins (Multivitamin) 30 ml DAILY GTB Last administered on 03/04/17 09 :26; Admin Dose 30 ML; Start 02/28/17 at 09:00 Clotrimazole (Lotrimin Cr) 1 applic BID TOP Last administered on 03/04/17 09: 48; Admin Dose 1 APPLIC; Start 02/28/17 at 21:00 Miscellaneous Information (Pending [facility] Order For Wound Care) This patient yung... PRN PRN XX WOUND CARE; Start 03/01/17 at 03:00 Collagenase 1 applic 1 applic DAILY TOP Last administered on 03/04/17 09:49; Admin Dose 1 APPLIC; Start 03/02/17 at 09:00 Dextrose 1,000 ml @ 100 mls/hr Q10H IV Last administered on 03/04/17 11:30; Admin Dose 100 MLS/HR; Start 03/02/17 at 09:30 Meropenem/Sodium Chloride 50 ml @ 100 mls/hr Q12 IVPB Last administered on 09:27; Admin Dose 100 MLS/HR; Start 03/02/17 at 17:00 Vancomycin HCl/ Dextrose/Water (Vancocin/D5W) 150 ml @ 75 mls/hr Q24H IVPB Last administered on 03/03/17 21:09; Admin Dose 75 MLS/HR; Start 03/03/17 at 20:00 ROULA YEPEZ MD Mar 04, 2017 16:52
[2017-03-04] MEDS: EPOETIN 10000 UNITS/ML (NON ESRD/NON ONCOLOGY) SC SCH (18:36)
--- NOTE | 2017-03-04 18:57 | CONS ---
Date/Time of Note Date/Time of Note DATE: 03/04/17 TIME: 18:56 Assessment/Plan Assessment/Plan Additional Assessment/Plan IMPRESSION: 1. Ventilator-dependent respiratory failure. 2. Community-acquired pneumonia. 3. Urinary tract infection. 4. Anemia, no evidence of active gastrointestinal bleeding. 5. Cerebrovascular accident. 6. Left eye blindness. 7. Esophageal ulceration. 8. History of renal failure requiring temporary dialysis. 9. Malfunctioning G-tube, G-tube is now functional and tolerating feeding 10. Renal insufficiency Plan Monitor H&H Continue present care Continue antibiotic, bronchodilator Discussed with the and wants physical therapy insist on doing a swallowing study Consultation Date/Type/Reason Admit Date/Time Feb 27, 2017 at 17:51 Initial Consult Date 02/28/17 Type of Consultation: NEPHROLOGY Referring Provider: DESTINEE ROBERTS MD 24 HR Interval Summary Constitutional: no complaints Exam/Review of Systems Vital Signs Vitals Vital Signs Date Time Temp Pulse Resp B/P Pulse Ox O2 Delivery O2 Flow Rate FiO2 03/04/17 17:00 84 20 98 30 03/04/17 16:19 97.3 117/62 03/01/17 06:00 Mechanical Ventilator Intake and Output 03/03/17 03/03/17 03/04/17 15:00 23:00 07:00 Intake Total 200 ml 2880 ml Output Total 800 ml Balance 200 ml 2080 ml Exam Constitutional: alert, oriented, well developed Psych: nl mood/affect, no complaints Head: atraumatic, normocephalic Eyes: EOMI, PERRL, nl conjunctiva, nl lids, nl sclera ENMT: nl external ears & nose, nl lips & teeth, nl nasal mucosa & septum Neck: non-tender, supple Respiratory: clear to auscultation, normal air movement Cardiovascular: nl pulses, regular rate and rhythm Gastrointestinal: nl liver, spleen, non-tender, soft Musculoskeletal: nl extremities to inspection, nl gait and stance Extremities: normal pulses Neurological: IMMIGRATION INVESTIGATOR II-XII intact, nl mental status, nl speech, nl strength Skin: nl turgor, No rash or lesions Lymph: nl lymph nodes Results Result Diagram: 03/04/17 1152 03/04/17 1152 Results 24 hrs Laboratory Tests Test 03/04/17 11:52 White Blood Count 4.5 L Red Blood Count 3.00 L Hemoglobin 8.9 L Hematocrit 27.9 L Mean Corpuscular Volume 93.0 Mean Corpuscular Hemoglobin 29.7 Mean Corpuscular Hemoglobin Concent 31.9 L Red Cell Distribution Width 17.5 H Platelet Count 237 Mean Platelet Volume 11.2 H Neutrophils % 59.7 Lymphocytes % 19.5 Monocytes % 10.7 Eosinophils % 7.8 H Basophils % 0.7 Nucleated Red Blood Cells % 0.4 H Neutrophils # 2.7 Lymphocytes # 0.9 Monocytes # 0.5 Eosinophils # 0.4 Basophils # 0.0 Nucleated Red Blood Cells # 0.0 Sodium Level 138 Potassium Level 3.7 Chloride Level 110 Carbon Dioxide Level 22 Anion Gap 10 Blood Urea Nitrogen 39 H Creatinine 1.03 Glucose Level 133 Calcium Level 8.3 L Medications Medications Current Medications Ascorbic Acid (Vitamin C) 500 mg BID GTB Last administered on 03/04/17 09:27 ; Admin Dose 500 MG; Start 02/28/17 at 09:00 Eye Lubricant (Refresh Plus) 1 drop BID PRN BOTH EYES DRY EYES; Start at 23:30 Carvedilol (Coreg) 6.25 mg BID GTB Last administered on 03/04/17 09:28; Admin Dose 6.25 MG; Start 02/28/17 at 09:00 Epoetin Kali (Epogen (Non Esrd/Non Oncology)) 10,000 units MONWEDFRI@17 SC Last administered on 03/04/17 18:36; Admin Dose 10,000 UNITS; Start 02/28/17 at 17:00 Folic Acid (Folic Acid) 1 mg DAILY GTB Last administered on 03/04/17 09:27; Admin Dose 1 MG; Start 02/28/17 at 09:00 Glycopyrrolate (Robinul) 1 mg TID GTB Last administered on 03/04/17 13:23; Admin Dose 1 MG; Start 02/28/17 at 09:00 Lansoprazole (Prevacid) 30 mg DAILY GTB Last administered on 03/04/17 09:27; Admin Dose 30 MG; Start 02/28/17 at 09:00 Metoclopramide HCl (Reglan) 5 mg TID PRN GTB NAUSEA AND/OR VOMITING; Start at 23:30 Sucralfate (Carafate Susp) 1 gm QID GTB Last administered on 03/04/17 18:35; Admin Dose 1 GM; Start 02/28/17 at 09:00 Lactobacillus Acidophilus (Florajen3 Capsule) 1 each TID NGT Last administered on 03/04/17 13:23; Admin Dose 1 EACH; Start 02/28/17 at 09:00 Multivitamins (Multivitamin) 30 ml DAILY GTB Last administered on 03/04/17 09 :26; Admin Dose 30 ML; Start 02/28/17 at 09:00 Clotrimazole (Lotrimin Cr) 1 applic BID TOP Last administered on 03/04/17 09: 48; Admin Dose 1 APPLIC; Start 02/28/17 at 21:00 Miscellaneous Information (Pending [facility] Order For Wound Care) This patient yung... PRN PRN XX WOUND CARE; Start 03/01/17 at 03:00 Collagenase 1 applic 1 applic DAILY TOP Last administered on 03/04/17 09:49; Admin Dose 1 APPLIC; Start 03/02/17 at 09:00 Dextrose 1,000 ml @ 100 mls/hr Q10H IV Last administered on 03/04/17 11:30; Admin Dose 100 MLS/HR; Start 03/02/17 at 09:30 Meropenem/Sodium Chloride 50 ml @ 100 mls/hr Q12 IVPB Last administered on 09:27; Admin Dose 100 MLS/HR; Start 03/02/17 at 17:00 Vancomycin HCl/ Dextrose/Water (Vancocin/D5W) 150 ml @ 75 mls/hr Q24H IVPB Last administered on 03/03/17 21:09; Admin Dose 75 MLS/HR; Start 03/03/17 at 20:00 PAT CHA MD Mar 04, 2017 18:57
[2017-03-04] MEDS: VANCOMYCIN 750 MG in DEXTROSE 5% 150 ML IVPB SCH (20:07)
[2017-03-05] VITALS (23 sets, daily range): BP systolic 91–128; BP diastolic 54–66; PULSE 78–83; RESP 17–22
[2017-03-05] MEDS: ALBUTEROL/IPRATROPIUM (NEB) 3 ML AMP NEB SCH ×4 (01:00→19:48)
[2017-03-05] MEDS: DEXTROSE 5% 1,000 ML IV SCH (07:30)
[2017-03-05] MEDS: SUCRALFATE (100 MG/ML) 10ML CUP GTB SCH ×4 (08:45→20:30)
[2017-03-05] MEDS: MEROPENEM 1 GM/50ML(PMX) 50 ML IVPB SCH ×2 (08:45→20:31)
[2017-03-05] MEDS: MULTIVITAMINS 30 ML CUP GTB SCH (08:45)
[2017-03-05] MEDS: ASCORBIC ACID 500 MG TAB GTB SCH ×2 (08:46→20:31)
[2017-03-05] MEDS: FOLIC ACID 1 MG TAB GTB SCH (08:46)
[2017-03-05] MEDS: LANSOPRAZOLE 30 MG CAP GTB SCH (08:46)
[2017-03-05] MEDS: L ACIDOPHIL/B LACTIS/B LONGUM CAPSULE NGT SCH ×3 (08:46→20:30)
[2017-03-05] MEDS: GLYCOPYRROLATE 1 MG TAB GTB SCH ×3 (08:46→20:30)
[2017-03-05] MEDS: COLISTIMETHATE (25 MG/ML INHAL SYG) NEB SCH ×2 (09:00→19:48)
[2017-03-05] MEDS: CLOTRIMAZOLE 1% 30 GM CR TOP SCH ×2 (09:04→23:04)
[2017-03-05] MEDS: COLLAGENASE 30 GM TUBE TOP SCH (09:05)
--- NOTE | 2017-03-05 12:20 | CONS ---
Date/Time of Note Date/Time of Note DATE: 03/05/17 TIME: 12:18 Assessment/Plan Assessment/Plan Chief Complaint/Hosp Course Consultation dictated #[id number]. Problems: Additional Assessment/Plan Ventilator setting; AC of 20, tidal volume 450, PEEP of 0, 30% FiO2. Assessment and recommendations; 1. Patient admitted with bilateral pneumonia currently on appropriate antibiotic regimen. 2. Chronic respiratory failure which is ventilator dependent. 3. History of paraplegia. 4. History of recent cardiac arrest with preservation of mental status. 5. Acute renal insufficiency with normalization of renal function. 6. History of chronic anemia. Continue current treatment. Obtain follow-up chest x-ray. Consultation Date/Type/Reason Admit Date/Time Feb 27, 2017 at 17:51 Initial Consult Date 02/28/17 Type of Consultation: Pulmonary Referring Provider: DESTINEE ROBERTS MD 24 HR Interval Summary Free Text/Dictation Patient's condition is stable. Remains awake. Has remained hemodynamically stable. General exam; elderly male, on ventilator via tracheostomy, currently no distress. Exam/Review of Systems Vital Signs Vitals Vital Signs Date Time Temp Pulse Resp B/P Pulse Ox O2 Delivery O2 Flow Rate FiO2 03/05/17 11:28 99.1 80 18 105/56 100 03/05/17 07:59 30 Intake and Output 03/04/17 03/04/17 03/05/17 15:00 23:00 07:00 Intake Total 2600 ml 1880 ml Output Total 1775 ml 500 ml Balance 825 ml 1380 ml Exam HEENT exam; supple neck, no JVD. No lymphadenopathy. Midline trachea. No thyromegaly. Patient has a multiple carious teeth. Tracheostomy in place. Chest exam; diminished but clear breath sounds. S1-S2 audible, no murmurs. Regular rhythm. Abdomen exam; soft, no organomegaly. G-tube in place. Bowel sounds audible. Extremity exam; no edema. SOAP INSPECTOR exam; patient awake and able to move upper extremities with stable paraplegia. Results Result Diagram: 03/04/17 1152 03/04/17 1152 Medications Medications Current Medications Ascorbic Acid (Vitamin C) 500 mg BID GTB Last administered on 03/05/17t 08:46 ; Admin Dose 500 MG; Start 02/28/17 at 09:00 Eye Lubricant (Refresh Plus) 1 drop BID PRN BOTH EYES DRY EYES; Start at 23:30 Carvedilol (Coreg) 6.25 mg BID GTB Last administered on 03/05/17 08:47; Admin Dose 6.25 MG; Start 02/28/17 at 09:00 Epoetin Kali (Epogen (Non Esrd/Non Oncology)) 10,000 units MONWEDFRI@17 SC Last administered on 03/04/17 18:36; Admin Dose 10,000 UNITS; Start 02/28/17 at 17:00 Folic Acid (Folic Acid) 1 mg DAILY GTB Last administered on 03/05/17 08:46; Admin Dose 1 MG; Start 02/28/17 at 09:00 Glycopyrrolate (Robinul) 1 mg TID GTB Last administered on 03/05/17 08:46; Admin Dose 1 MG; Start 02/28/17 at 09:00 Lansoprazole (Prevacid) 30 mg DAILY GTB Last administered on 03/05/17 08:46; Admin Dose 30 MG; Start 02/28/17 at 09:00 Metoclopramide HCl (Reglan) 5 mg TID PRN GTB NAUSEA AND/OR VOMITING; Start at 23:30 Sucralfate (Carafate Susp) 1 gm QID GTB Last administered on 03/05/17 08:45; Admin Dose 1 GM; Start 02/28/17 at 09:00 Lactobacillus Acidophilus (Florajen3 Capsule) 1 each TID NGT Last administered on 03/05/17 08:46; Admin Dose 1 EACH; Start 02/28/17 at 09:00 Multivitamins (Multivitamin) 30 ml DAILY GTB Last administered on 03/05/17 08 :45; Admin Dose 30 ML; Start 02/28/17 at 09:00 Clotrimazole (Lotrimin Cr) 1 applic BID TOP Last administered on 03/05/17 09: 04; Admin Dose 1 APPLIC; Start 02/28/17 at 21:00 Miscellaneous Information (Pending [facility] Order For Wound Care) This patient yung... PRN PRN XX WOUND CARE; Start 03/01/17 at 03:00 Collagenase 1 applic 1 applic DAILY TOP Last administered on 12/23/17at 09:05; Admin Dose 1 APPLIC; Start 03/02/17 at 09:00 Dextrose 1,000 ml @ 100 mls/hr Q10H IV Last administered on 03/04/17 11:30; Admin Dose 100 MLS/HR; Start 03/02/17 at 09:30 Meropenem/Sodium Chloride 50 ml @ 100 mls/hr Q12 IVPB Last administered on 08:45; Admin Dose 100 MLS/HR; Start 03/02/17 at 17:00 Vancomycin HCl/ Dextrose/Water (Vancocin/D5W) 150 ml @ 75 mls/hr Q24H IVPB Last administered on 03/04/17 20:07; Admin Dose 75 MLS/HR; Start 03/03/17 at 20:00 BILLIE ARCE Mar 05, 2017 12:20
--- NOTE | 2017-03-05 12:35 | PN ---
Date/Time of Note Date/Time of Note DATE: 03/05/17 TIME: 12:35 Assessment/Plan VTE Prophylaxis VTE Prophylaxis Intervention: other Lines/Catheters IV C[facility]from [facility] Mid [facility] Urinary Cath still in place: Yes Reason Cath still needed: skin wounds contaminated by urine Assessment/Plan Chief Complaint/Hosp Course 1. Bilateral pneumonia, healthcare acquired. - per pulmonary - aspiration precautions 2. Sepsis. - per ID 3. Chronic ventilator dependent respiratory failure. 4. Urinary tract infection. 5. Chronic anemia. 6. Acute kidney injury. - per nephrology 7. Chronic encephalopathy. 8. Paraplegia. Problems: Subjective 24 Hr Interval Summary Free Text/Dictation Patient has no complaints Exam/Review of Systems Vital Signs Vitals Vital Signs Date Time Temp Pulse Resp B/P Pulse Ox O2 Delivery O2 Flow Rate FiO2 03/05/17 12:27 80 22 100 30 03/05/17 11:28 99.1 105/56 Intake and Output 03/04/17 03/04/17 03/05/17 15:00 23:00 07:00 Intake Total 2600 ml 1880 ml Output Total 1775 ml 500 ml Balance 825 ml 1380 ml Exam Constitutional: well developed Head: atraumatic, normocephalic Neck: supple Respiratory: clear to auscultation Cardiovascular: regular rate and rhythm Gastrointestinal: non-tender, soft Extremities: normal pulses Results Result Diagram: 03/04/17 1152 03/04/17 1152 Medications Medications Current Medications Ascorbic Acid (Vitamin C) 500 mg BID GTB Last administered on 03/05/17 08:46 ; Admin Dose 500 MG; Start 02/28/17 at 09:00 Eye Lubricant (Refresh Plus) 1 drop BID PRN BOTH EYES DRY EYES; Start at 23:30 Carvedilol (Coreg) 6.25 mg BID GTB Last administered on 03/05/17 08:47; Admin Dose 6.25 MG; Start 02/28/17 at 09:00 Epoetin Kali (Epogen (Non Esrd/Non Oncology)) 10,000 units MONWEDFRI@17 SC Last administered on 03/04/17 18:36; Admin Dose 10,000 UNITS; Start 02/28/17 at 17:00 Folic Acid (Folic Acid) 1 mg DAILY GTB Last administered on 03/05/17 08:46; Admin Dose 1 MG; Start 02/28/17 at 09:00 Glycopyrrolate (Robinul) 1 mg TID GTB Last administered on 03/05/17 08:46; Admin Dose 1 MG; Start 02/28/17 at 09:00 Lansoprazole (Prevacid) 30 mg DAILY GTB Last administered on 03/05/17 08:46; Admin Dose 30 MG; Start 02/28/17 at 09:00 Metoclopramide HCl (Reglan) 5 mg TID PRN GTB NAUSEA AND/OR VOMITING; Start at 23:30 Sucralfate (Carafate Susp) 1 gm QID GTB Last administered on 03/05/17 08:45; Admin Dose 1 GM; Start 02/28/17 at 09:00 Lactobacillus Acidophilus (Florajen3 Capsule) 1 each TID NGT Last administered on 03/05/17 08:46; Admin Dose 1 EACH; Start 02/28/17 at 09:00 Multivitamins (Multivitamin) 30 ml DAILY GTB Last administered on 03/05/17 08 :45; Admin Dose 30 ML; Start 02/28/17 at 09:00 Clotrimazole (Lotrimin Cr) 1 applic BID TOP Last administered on 03/05/17 09: 04; Admin Dose 1 APPLIC; Start 02/28/17 at 21:00 [facility]isc[facility] This patient yung... PRN PRN XX WOUND CARE; Start 03/01/17 at 03:00 Collagenase 1 applic 1 applic DAILY TOP Last administered on 03/05/17 09:05; Admin Dose 1 APPLIC; Start 03/02/17 at 09:00 Dextrose 1,000 ml @ 100 mls/hr Q10H IV Last administered on 03/04/17 11:30; Admin Dose 100 MLS/HR; Start 03/02/17 at 09:30 Meropenem/Sodium Chloride 50 ml @ 100 mls/hr Q12 IVPB Last administered on 08:45; Admin Dose 100 MLS/HR; Start 03/02/17 at 17:00 Vancomycin HCl/ Dextrose/Water (Vancocin/D5W) 150 ml @ 75 mls/hr Q24H IVPB Last administered on 03/04/17t 20:07; Admin Dose 75 MLS/HR; Start 03/03/17 at 20:00 ZION BLACK Mar 05, 2017 12:35
--- NOTE | 2017-03-05 12:45 | CONS ---
Date/Time of Note Date/Time of Note DATE: 03/05/17 TIME: 12:40 Assessment/Plan Assessment/Plan Additional Assessment/Plan 1. Acute kidney injury due to severe prerenal azotemia causing ISchemic ATN 2. Severe Anemia s/p PRBC 3. Acute on chronic rresp failure, S/p tracheostomy 4. H/o CVA 5. H/o Cardiac arrest 6. h/o HTN 7. h/o HL Plan: S/p PRBC transfusion, Hb now stable, Continue current care, IV abx Meropenem and vancomycin Cr imrpoved to normal, Electrolytes stable,d/c IVF d5W renally dose all abx will follow up Consultation Date/Type/Reason Admit Date/Time Feb 27, 2017 at 17:51 Initial Consult Date 02/28/17 Type of Consultation: Pulmonary Referring Provider: DESTINEE ROBERTS MD Exam/Review of Systems Vital Signs Vitals Vital Signs Date Time Temp Pulse Resp B/P Pulse Ox O2 Delivery O2 Flow Rate FiO2 03/05/17 12:27 80 22 100 30 03/05/17 11:28 99.1 105/56 Intake and Output 03/04/17 03/04/17 03/05/17 15:00 23:00 07:00 Intake Total 2600 ml 1880 ml Output Total 1775 ml 500 ml Balance 825 ml 1380 ml Results Result Diagram: 03/04/17 1152 03/04/17 1152 Medications Medications Current Medications Ascorbic Acid (Vitamin C) 500 mg BID GTB Last administered on 03/05/17 08:46 ; Admin Dose 500 MG; Start 02/28/17 at 09:00 Eye Lubricant (Refresh Plus) 1 drop BID PRN BOTH EYES DRY EYES; Start at 23:30 Carvedilol (Coreg) 6.25 mg BID GTB Last administered on 03/05/17 08:47; Admin Dose 6.25 MG; Start 02/28/17 at 09:00 Epoetin Kali (Epogen (Non Esrd/Non Oncology)) 10,000 units MONWEDFRI@17 SC Last administered on 03/04/17 18:36; Admin Dose 10,000 UNITS; Start 02/28/17 at 17:00 Folic Acid (Folic Acid) 1 mg DAILY GTB Last administered on 03/05/17 08:46; Admin Dose 1 MG; Start 02/28/17 at 09:00 Glycopyrrolate (Robinul) 1 mg TID GTB Last administered on 03/05/17 08:46; Admin Dose 1 MG; Start 02/28/17 at 09:00 Lansoprazole (Prevacid) 30 mg DAILY GTB Last administered on 03/05/17 08:46; Admin Dose 30 MG; Start 02/28/17 at 09:00 Metoclopramide HCl (Reglan) 5 mg TID PRN GTB NAUSEA AND/OR VOMITING; Start at 23:30 Sucralfate (Carafate Susp) 1 gm QID GTB Last administered on 03/05/17 08:45; Admin Dose 1 GM; Start 02/28/17 at 09:00 Lactobacillus Acidophilus (Florajen3 Capsule) 1 each TID NGT Last administered on 03/05/17 08:46; Admin Dose 1 EACH; Start 02/28/17 at 09:00 Multivitamins (Multivitamin) 30 ml DAILY GTB Last administered on 03/05/17 08 :45; Admin Dose 30 ML; Start 02/28/17 at 09:00 Clotrimazole (Lotrimin Cr) 1 applic BID TOP Last administered on 03/05/17 09: 04; Admin Dose 1 APPLIC; Start 02/28/17 at 21:00 [facility]isc[facility] This patient yung... PRN PRN XX WOUND CARE; Start 03/01/17 at 03:00 Collagenase 1 applic 1 applic DAILY TOP Last administered on 03/05/17 09:05; Admin Dose 1 APPLIC; Start 03/02/17 at 09:00 Dextrose 1,000 ml @ 100 mls/hr Q10H IV Last administered on 03/04/17 11:30; Admin Dose 100 MLS/HR; Start 03/02/17 at 09:30 Meropenem/Sodium Chloride 50 ml @ 100 mls/hr Q12 IVPB Last administered on 08:45; Admin Dose 100 MLS/HR; Start 03/02/17 at 17:00 Vancomycin HCl/ Dextrose/Water (Vancocin/D5W) 150 ml @ 75 mls/hr Q24H IVPB Last administered on 03/04/17t 20:07; Admin Dose 75 MLS/HR; Start 03/03/17 at 20:00 JOÃO JUAREZ Mar 05, 2017 12:44
--- NOTE | 2017-03-05 15:16 | CONS ---
Date/Time of Note Date/Time of Note DATE: 03/05/17 TIME: 15:15 Assessment/Plan Assessment/Plan Chief Complaint/Hosp Course SUBJECTIVE: No acute events. The patient is awake, looks comfortable. Afebrile. MICROBIOLOGY: Blood cultures culture growing Corynebacterium, coag negative staph species. Repeat blood cultures on March 01 growing gram-negative rods. Sputum culture growing gram-negative rods. Urine culture grew Klebsiella ESBL INDWELLINGS: Trach, PEG, Car. ANTIMICROBIALS: Patient is on: 1. Vancomycin. 2. Merrem 3. Colistin inhalation. ALLERGIES: NONE. PHYSICAL EXAMINATION: GENERAL: Chronically ill-appearing, elderly man who is awake, in no distress. HEENT: Head atraumatic, normocephalic. Sclerae anicteric. Buccal mucosa dry. NECK: Supple. CHEST: Rise symmetrical. Breath sounds with bilateral rhonchi. HEART: S1, S2. ABDOMEN: Soft, bowel tones present. ASSESSMENT: 1. Severe sepsis. 2. Klebsiella extended-spectrum beta-lactamase urinary tract infection. 3. Polymicrobial bacteremia with repeat blood cultures on 03/01/2017 still positive for gram-negative rods. 4. Chronic respiratory failure and dysphagia. 5. Anemia. 6. Sacral decubitus. PLAN: Remains stable, blood cultures negative, continue antibiotics Discussed with at bedside Problems: Consultation Date/Type/Reason Admit Date/Time Feb 27, 2017 at 17:51 Initial Consult Date 02/28/17 Type of Consultation: id Referring Provider: DESTINEE ROBERTS MD Exam/Review of Systems Vital Signs Vitals Vital Signs Date Time Temp Pulse Resp B/P Pulse Ox O2 Delivery O2 Flow Rate FiO2 03/05/17 14:10 82 22 98 30 03/05/17 11:28 99.1 105/56 Intake and Output 03/04/17 03/04/17 03/05/17 15:00 23:00 07:00 Intake Total 2600 ml 1880 ml Output Total 1775 ml 500 ml Balance 825 ml 1380 ml Results Result Diagram: 03/04/17 1152 03/04/17 1152 Medications Medications Current Medications Ascorbic Acid (Vitamin C) 500 mg BID GTB Last administered on 03/05/17t 08:46 ; Admin Dose 500 MG; Start 02/28/17 at 09:00 Eye Lubricant (Refresh Plus) 1 drop BID PRN BOTH EYES DRY EYES; Start at 23:30 Carvedilol (Coreg) 6.25 mg BID GTB Last administered on 03/05/17 08:47; Admin Dose 6.25 MG; Start 02/28/17 at 09:00 Epoetin Kali (Epogen (Non Esrd/Non Oncology)) 10,000 units MONWEDFRI@17 SC Last administered on 03/04/17 18:36; Admin Dose 10,000 UNITS; Start 02/28/17 at 17:00 Folic Acid (Folic Acid) 1 mg DAILY GTB Last administered on 03/05/17 08:46; Admin Dose 1 MG; Start 02/28/17 at 09:00 Glycopyrrolate (Robinul) 1 mg TID GTB Last administered on 03/05/17 14:13; Admin Dose 1 MG; Start 02/28/17 at 09:00 Lansoprazole (Prevacid) 30 mg DAILY GTB Last administered on 03/05/17 08:46; Admin Dose 30 MG; Start 02/28/17 at 09:00 Metoclopramide HCl (Reglan) 5 mg TID PRN GTB NAUSEA AND/OR VOMITING; Start at 23:30 Sucralfate (Carafate Susp) 1 gm QID GTB Last administered on 03/05/17 14:13; Admin Dose 1 GM; Start 02/28/17 at 09:00 Lactobacillus Acidophilus (Florajen3 Capsule) 1 each TID NGT Last administered on 03/05/17 14:13; Admin Dose 1 EACH; Start 02/28/17 at 09:00 Multivitamins (Multivitamin) 30 ml DAILY GTB Last administered on 03/05/17 08 :45; Admin Dose 30 ML; Start 02/28/17 at 09:00 Clotrimazole (Lotrimin Cr) 1 applic BID TOP Last administered on 03/05/17 09: 04; Admin Dose 1 APPLIC; Start 02/28/17 at 21:00 Miscellaneous Information (Pending [facility] Order For Wound Care) This patient yung... PRN PRN XX WOUND CARE; Start 03/01/17 at 03:00 Collagenase 1 applic 1 applic DAILY TOP Last administered on 03/05/17 09:05; Admin Dose 1 APPLIC; Start 03/02/17 at 09:00 Meropenem/Sodium Chloride 50 ml @ 100 mls/hr Q12 IVPB Last administered on 08:45; Admin Dose 100 MLS/HR; Start 03/02/17 at 17:00 Vancomycin HCl (Vancocin) 250 ml @ 125 mls/hr Q24H IVPB ; Start 03/05/17 at 20 :00 NASH DOTY NP Mar 05, 2017 15:16
--- NOTE | 2017-03-05 17:36 | CONS ---
Date/Time of Note Date/Time of Note DATE: 03/05/17 TIME: 17:36 Assessment/Plan Assessment/Plan Additional Assessment/Plan Assessment/Plan Additional Assessment/Plan IMPRESSION: 1. Ventilator-dependent respiratory failure. 2. Community-acquired pneumonia. 3. Urinary tract infection. 4. Anemia, no evidence of active gastrointestinal bleeding. 5. Cerebrovascular accident. 6. Left eye blindness. 7. Esophageal ulceration. 8. History of renal failure requiring temporary dialysis. 9. Malfunctioning G-tube, G-tube is now functional and tolerating feeding 10. Renal insufficiency Plan Monitor H&H Continue present care Continue antibiotic, bronchodilator Discussed with the and wants physical therapy insist on doing a swallowing study Consultation Date/Type/Reason Admit Date/Time Feb 27, 2017 at 17:51 Initial Consult Date 02/28/17 Type of Consultation: id Referring Provider: DESTINEE ROBERTS MD 24 HR Interval Summary Constitutional: improved, no complaints Exam/Review of Systems Vital Signs Vitals Vital Signs Date Time Temp Pulse Resp B/P Pulse Ox O2 Delivery O2 Flow Rate FiO2 03/05/17 16:00 82 03/05/17 15:39 98.6 17 108/65 100 03/05/17 14:10 30 Intake and Output 03/04/17 03/04/17 03/05/17 14:59 22:59 06:59 Intake Total 2600 ml 1880 ml Output Total 1775 ml 500 ml Balance 825 ml 1380 ml Exam Constitutional: alert, oriented, well developed Psych: nl mood/affect, no complaints Head: atraumatic, normocephalic Eyes: EOMI, PERRL, nl conjunctiva, nl lids, nl sclera ENMT: nl external ears & nose, nl lips & teeth, nl nasal mucosa & septum Neck: non-tender, supple Respiratory: clear to auscultation, normal air movement Cardiovascular: nl pulses, regular rate and rhythm Gastrointestinal: nl liver, spleen, non-tender, soft Musculoskeletal: nl extremities to inspection, nl gait and stance Extremities: normal pulses Neurological: CONSERVATION SPECIALIST II-XII intact, nl mental status, nl speech, nl strength Skin: nl turgor, No rash or lesions Lymph: nl lymph nodes Results Result Diagram: 03/04/17 1152 03/04/17 1152 Medications Medications Current Medications Ascorbic Acid (Vitamin C) 500 mg BID GTB Last administered on 03/05/17 08:46 ; Admin Dose 500 MG; Start 02/28/17 at 09:00 Eye Lubricant (Refresh Plus) 1 drop BID PRN BOTH EYES DRY EYES; Start at 23:30 Carvedilol (Coreg) 6.25 mg BID GTB Last administered on 03/05/17 08:47; Admin Dose 6.25 MG; Start 02/28/17 at 09:00 Epoetin Kali (Epogen (Non Esrd/Non Oncology)) 10,000 units MONWEDFRI@17 SC Last administered on 03/04/17 18:36; Admin Dose 10,000 UNITS; Start 02/28/17 at 17:00 Folic Acid (Folic Acid) 1 mg DAILY GTB Last administered on 03/05/17 08:46; Admin Dose 1 MG; Start 02/28/17 at 09:00 Glycopyrrolate (Robinul) 1 mg TID GTB Last administered on 03/05/17 14:13; Admin Dose 1 MG; Start 02/28/17 at 09:00 Lansoprazole (Prevacid) 30 mg DAILY GTB Last administered on 03/05/17 08:46; Admin Dose 30 MG; Start 02/28/17 at 09:00 Metoclopramide HCl (Reglan) 5 mg TID PRN GTB NAUSEA AND/OR VOMITING; Start at 23:30 Sucralfate (Carafate Susp) 1 gm QID GTB Last administered on 03/05/17 16:47; Admin Dose 1 GM; Start 02/28/17 at 09:00 Lactobacillus Acidophilus (Florajen3 Capsule) 1 each TID NGT Last administered on 03/05/17 14:13; Admin Dose 1 EACH; Start 02/28/17 at 09:00 Multivitamins (Multivitamin) 30 ml DAILY GTB Last administered on 03/05/17 08 :45; Admin Dose 30 ML; Start 02/28/17 at 09:00 Clotrimazole (Lotrimin Cr) 1 applic BID TOP Last administered on 03/05/17 09: 04; Admin Dose 1 APPLIC; Start 02/28/17 at 21:00 Miscellaneous Information [facility] This patient yung... PRN PRN XX WOUND CARE; Start 03/01/17 at 03:00 Collagenase 1 applic 1 applic DAILY TOP Last administered on 03/05/17 09:05; Admin Dose 1 APPLIC; Start 03/02/17 at 09:00 Meropenem/Sodium Chloride 50 ml @ 100 mls/hr Q12 IVPB Last administered on 08:45; Admin Dose 100 MLS/HR; Start 03/02/17 at 17:00 Vancomycin HCl (Vancocin) 250 ml @ 125 mls/hr Q24H IVPB ; Start 03/05/17 at 20 :00 PAT CHA MD Mar 05, 2017 17:36
--- NOTE | 2017-03-05 17:52 | RADRPT ---
PROCEDURE: XR Chest. CLINICAL INDICATION: Shortness of breath. TECHNIQUE: Single frontal view. COMPARISON: March 02, 2017. FINDINGS: The tracheostomy tube is in satisfactory position. There is patchy air space disease throughout the mid and lower lung zones with right worse than left. The upper lung zones are clear. The heart size is normal. There are moderate bilateral pleural effusions. There is no pneumothorax. IMPRESSION: 1. Bilateral pneumonia in the mid and lower lung zones with right worse than left. 2. Moderate bilateral pleural effusions. 3. Otherwise no change from the March 02, 2017 chest radiograph. RPTAT: QQ .Harjit Cruz MD, MD Date Time Electronically viewed and signed by .Harjit Cruz MD, MD on 03/05/2017 16:47 .R/
[2017-03-05] MEDS: VANCOMYCIN 1 GM 250 ML IVPB SCH (21:15)
[2017-03-06] VITALS (25 sets, daily range): BP systolic 94–131; BP diastolic 56–63; PULSE 50–91; RESP 16–20
[2017-03-06] MEDS: IPRATROPIUM (HFA) 12.9 GM INHALER INH SCH ×4 (03:11→19:36)
[2017-03-06] MEDS: ALBUTEROL HFA 8 GM INHALER INH SCH ×4 (03:12→19:36)
[2017-03-06] MEDS: COLLAGENASE 30 GM TUBE TOP SCH (09:00)
[2017-03-06] MEDS: COLISTIMETHATE (25 MG/ML INHAL SYG) NEB SCH ×2 (09:00→20:48)
[2017-03-06] MEDS: GLYCOPYRROLATE 1 MG TAB GTB SCH ×3 (10:30→20:55)
[2017-03-06] MEDS: L ACIDOPHIL/B LACTIS/B LONGUM CAPSULE NGT SCH ×3 (10:31→20:55)
[2017-03-06] MEDS: ASCORBIC ACID 500 MG TAB GTB SCH ×2 (10:31→20:55)
[2017-03-06] MEDS: SUCRALFATE (100 MG/ML) 10ML CUP GTB SCH ×4 (10:31→20:55)
[2017-03-06] MEDS: LANSOPRAZOLE 30 MG CAP GTB SCH (10:31)
[2017-03-06] MEDS: FOLIC ACID 1 MG TAB GTB SCH (10:31)
[2017-03-06] MEDS: MULTIVITAMINS 30 ML CUP GTB SCH (10:33)
[2017-03-06] MEDS: CLOTRIMAZOLE 1% 30 GM CR TOP SCH ×2 (10:39→21:02)
[2017-03-06] MEDS: MEROPENEM 1 GM/50ML(PMX) 50 ML IVPB SCH ×2 (10:54→20:54)
--- NOTE | 2017-03-06 11:43 | CONS ---
Date/Time of Note Date/Time of Note DATE: 03/06/17 TIME: 11:41 Assessment/Plan Assessment/Plan Chief Complaint/Hosp Course Consultation dictated #[id number]. Problems: Additional Assessment/Plan Assessment and recommendations; 1. Patient admitted with bilateral pneumonia, chest x-ray was reviewed from yesterday evening which is showing persistent bibasilar infiltrates. Patient currently on appropriate antibiotic regimen. There has been improvement in leukocytosis. 2. Chronic respiratory failure, ventilator dependent. 3. History of renal insufficiency with normalization of renal function. 4. Chronic anemia. 5. History of hypertension. Continue current supportive care. Consultation Date/Type/Reason Admit Date/Time Feb 27, 2017 at 17:51 Initial Consult Date 02/28/17 Type of Consultation: Pulmonary Referring Provider: DESTINEE ROBERTS MD 24 HR Interval Summary Free Text/Dictation Patient's condition is stable. Remains awake and alert. Has remained hemodynamically stable. General exam; elderly male, on ventilator via tracheostomy, currently in no distress. Awake and alert. Exam/Review of Systems Vital Signs Vitals Vital Signs Date Time Temp Pulse Resp B/P Pulse Ox O2 Delivery O2 Flow Rate FiO2 03/06/17 11:29 98.8 80 16 112/57 98 03/06/17 09:30 30 Intake and Output 03/05/17 03/05/17 03/06/17 15:00 23:00 07:00 Intake Total 740 ml 250 ml Output Total 1100 ml Balance -360 ml 250 ml Exam HEENT exam; supple neck, no JVD. No lymphadenopathy. Midline trachea. No thyromegaly. Patient has a multiple carious teeth. Tracheostomy placed. Chest exam; diminished breath sound lung bases bilaterally. Upper lobes are clear. S1-S2 audible, no murmurs. Regular rhythm. Next Abdomen exam; soft, nontender. No organomegaly. G-tube in place. Bowel sounds audible. Extremity exam; no edema. BEHAVIORAL HEALTH PROFESSIONAL exam; patient has stable paraplegia. Results Result Diagram: 03/04/17 1152 03/04/17 1152 Medications Medications Current Medications Ascorbic Acid (Vitamin C) 500 mg BID GTB Last administered on 03/06/17t 10:31 ; Admin Dose 500 MG; Start 02/28/17 at 09:00 Eye Lubricant (Refresh Plus) 1 drop BID PRN BOTH EYES DRY EYES; Start at 23:30 Carvedilol (Coreg) 6.25 mg BID GTB Last administered on 03/05/17 20:34; Admin Dose 6.25 MG; Start 02/28/17 at 09:00 Epoetin Kali (Epogen (Non Esrd/Non Oncology)) 10,000 units MONWEDFRI@17 SC Last administered on 03/04/17 18:36; Admin Dose 10,000 UNITS; Start 02/28/17 at 17:00 Folic Acid (Folic Acid) 1 mg DAILY GTB Last administered on 03/06/17 10:31; Admin Dose 1 MG; Start 02/28/17 at 09:00 Glycopyrrolate (Robinul) 1 mg TID GTB Last administered on 03/06/17 10:30; Admin Dose 1 MG; Start 02/28/17 at 09:00 Lansoprazole (Prevacid) 30 mg DAILY GTB Last administered on 03/06/17 10:31; Admin Dose 30 MG; Start 02/28/17 at 09:00 Metoclopramide HCl (Reglan) 5 mg TID PRN GTB NAUSEA AND/OR VOMITING; Start at 23:30 Sucralfate (Carafate Susp) 1 gm QID GTB Last administered on 03/06/17 10:31; Admin Dose 1 GM; Start 02/28/17 at 09:00 Lactobacillus Acidophilus (Florajen3 Capsule) 1 each TID NGT Last administered on 03/06/17 10:31; Admin Dose 1 EACH; Start 02/28/17 at 09:00 Multivitamins (Multivitamin) 30 ml DAILY GTB Last administered on 03/06/17 10 :33; Admin Dose 30 ML; Start 02/28/17 at 09:00 Clotrimazole (Lotrimin Cr) 1 applic BID TOP Last administered on 03/06/17 10: 39; Admin Dose 1 APPLIC; Start 02/28/17 at 21:00 Miscellaneous Information (Pending [facility] Order For Wound Care) This patient yung... PRN PRN XX WOUND CARE; Start 03/01/17 at 03:00 Collagenase 1 applic 1 applic DAILY TOP Last administered on 03/06/17 09:00; Admin Dose 1 APPLIC; Start 03/02/17 at 09:00 Meropenem/Sodium Chloride 50 ml @ 100 mls/hr Q12 IVPB Last administered on 10:54; Admin Dose 100 MLS/HR; Start 03/02/17 at 17:00 Vancomycin HCl (Vancocin) 250 ml @ 125 mls/hr Q24H IVPB Last administered on 03/05/17 21:15; Admin Dose 125 MLS/HR; Start 03/05/17 at 20:00 BILLIE ARCE Mar 06, 2017 11:43
--- NOTE | 2017-03-06 12:02 | PN ---
Date/Time of Note Date/Time of Note DATE: 03/06/17 TIME: 12:01 Assessment/Plan VTE Prophylaxis VTE Prophylaxis Intervention: other Lines/Catheters IV C[facility]ter Type ([facility] Mid Line Urinary Cath still in place: Yes Reason Cath still needed: skin wounds contaminated by urine Assessment/Plan Chief Complaint/Hosp Course 1. Bilateral pneumonia, healthcare acquired. - per pulmonary - aspiration precautions 2. Sepsis. - per ID 3. Chronic ventilator dependent respiratory failure. 4. Urinary tract infection. 5. Chronic anemia. 6. Acute kidney injury. - per nephrology 7. Chronic encephalopathy. 8. Paraplegia. Problems: Subjective 24 Hr Interval Summary Free Text/Dictation Patient remain sedated and intubated Exam/Review of Systems Vital Signs Vitals Vital Signs Date Time Temp Pulse Resp B/P Pulse Ox O2 Delivery O2 Flow Rate FiO2 03/06/17 11:51 75 20 100 30 03/06/17 11:29 98.8 112/57 Intake and Output 03/05/17 03/05/17 03/06/17 15:00 23:00 07:00 Intake Total 740 ml 250 ml Output Total 1100 ml Balance -360 ml 250 ml Exam Constitutional: well developed Head: atraumatic, normocephalic Neck: supple Respiratory: diminished breath sounds Cardiovascular: regular rate and rhythm Gastrointestinal: non-tender, soft Extremities: normal pulses Results Result Diagram: 03/04/17 1152 03/04/17 1152 Medications Medications Current Medications Ascorbic Acid (Vitamin C) 500 mg BID GTB Last administered on 03/06/17 10:31 ; Admin Dose 500 MG; Start 02/28/17 at 09:00 Eye Lubricant (Refresh Plus) 1 drop BID PRN BOTH EYES DRY EYES; Start at 23:30 Carvedilol (Coreg) 6.25 mg BID GTB Last administered on 03/05/17 20:34; Admin Dose 6.25 MG; Start 02/28/17 at 09:00 Epoetin Kali (Epogen (Non Esrd/Non Oncology)) 10,000 units MONWEDFRI@17 SC Last administered on 03/04/17 18:36; Admin Dose 10,000 UNITS; Start 02/28/17 at 17:00 Folic Acid (Folic Acid) 1 mg DAILY GTB Last administered on 03/06/17 10:31; Admin Dose 1 MG; Start 02/28/17 at 09:00 Glycopyrrolate (Robinul) 1 mg TID GTB Last administered on 03/06/17 10:30; Admin Dose 1 MG; Start 02/28/17 at 09:00 Lansoprazole (Prevacid) 30 mg DAILY GTB Last administered on 03/06/17 10:31; Admin Dose 30 MG; Start 02/28/17 at 09:00 Metoclopramide HCl (Reglan) 5 mg TID PRN GTB NAUSEA AND/OR VOMITING; Start at 23:30 Sucralfate (Carafate Susp) 1 gm QID GTB Last administered on 03/06/17 10:31; Admin Dose 1 GM; Start 02/28/17 at 09:00 Lactobacillus Acidophilus (Florajen3 Capsule) 1 each TID NGT Last administered on 03/06/17 10:31; Admin Dose 1 EACH; Start 02/28/17 at 09:00 Multivitamins (Multivitamin) 30 ml DAILY GTB Last administered on 03/06/17 10 :33; Admin Dose 30 ML; Start 02/28/17 at 09:00 Clotrimazole (Lotrimin Cr) 1 applic BID TOP Last administered on 03/06/17 10: 39; Admin Dose 1 APPLIC; Start 02/28/17 at 21:00 Miscellaneous Information (Pending [facility] Order For Wound Care) This patient yung... PRN PRN XX WOUND CARE; Start 03/01/17 at 03:00 Collagenase 1 applic 1 applic DAILY TOP Last administered on 03/06/17 09:00; Admin Dose 1 APPLIC; Start 03/02/17 at 09:00 Meropenem/Sodium Chloride 50 ml @ 100 mls/hr Q12 IVPB Last administered on 10:54; Admin Dose 100 MLS/HR; Start 03/02/17 at 17:00 Vancomycin HCl (Vancocin) 250 ml @ 125 mls/hr Q24H IVPB Last administered on 03/05/17 21:15; Admin Dose 125 MLS/HR; Start 03/05/17 at 20:00 ZION BLACK Mar 06, 2017 12:02
--- NOTE | 2017-03-06 13:32 | CONS ---
Date/Time of Note Date/Time of Note DATE: 03/06/17 TIME: 13:31 Assessment/Plan Assessment/Plan Additional Assessment/Plan 1. Acute kidney injury due to severe prerenal azotemia causing ISchemic ATN 2. Severe Anemia s/p PRBC 3. Acute on chronic resp failure, S/p tracheostomy 4. H/o CVA 5. H/o Cardiac arrest 6. h/o HTN 7. h/o HL Plan: S/p PRBC transfusion, Hb now stable, Continue current care, IV abx Meropenem and vancomycin Cr imrpoved to normal, Electrolytes stable renally dose all abx will follow up Consultation Date/Type/Reason Admit Date/Time Feb 27, 2017 at 17:51 Initial Consult Date 02/28/17 Type of Consultation: Pulmonary Referring Provider: DESTINEE ROBERTS MD 24 HR Interval Summary Constitutional: requiring IVF, requiring O2 Detailed Summary Respiratory: no complaints Cardiovascular: no complaints Gastrointestinal: no complaints Genitourinary: no complaints Exam/Review of Systems Vital Signs Vitals Vital Signs Date Time Temp Pulse Resp B/P Pulse Ox O2 Delivery O2 Flow Rate FiO2 03/06/17 11:51 75 20 100 30 03/06/17 11:29 98.8 112/57 Intake and Output 03/05/17 03/05/17 03/06/17 15:00 23:00 07:00 Intake Total 740 ml 250 ml Output Total 1100 ml Balance -360 ml 250 ml Exam Constitutional: alert, non-verbal Respiratory: diminished breath sounds, normal air movement Cardiovascular: nl pulses Gastrointestinal: non-tender, other, soft Musculoskeletal: muscle weakness Extremities: normal pulses Neurological: confused Results Result Diagram: 03/04/17 1152 03/04/17 1152 Medications Medications Current Medications Ascorbic Acid (Vitamin C) 500 mg BID GTB Last administered on 03/06/17 10:31 ; Admin Dose 500 MG; Start 02/28/17 at 09:00 Eye Lubricant (Refresh Plus) 1 drop BID PRN BOTH EYES DRY EYES; Start at 23:30 Carvedilol (Coreg) 6.25 mg BID GTB Last administered on 03/05/17 20:34; Admin Dose 6.25 MG; Start 02/28/17 at 09:00 Epoetin Kali (Epogen (Non Esrd/Non Oncology)) 10,000 units MONWEDFRI@17 SC Last administered on 03/04/17 18:36; Admin Dose 10,000 UNITS; Start 02/28/17 at 17:00 Folic Acid (Folic Acid) 1 mg DAILY GTB Last administered on 03/06/17 10:31; Admin Dose 1 MG; Start 02/28/17 at 09:00 Glycopyrrolate (Robinul) 1 mg TID GTB Last administered on 03/06/17 10:30; Admin Dose 1 MG; Start 02/28/17 at 09:00 Lansoprazole (Prevacid) 30 mg DAILY GTB Last administered on 03/06/17 10:31; Admin Dose 30 MG; Start 02/28/17 at 09:00 Metoclopramide HCl (Reglan) 5 mg TID PRN GTB NAUSEA AND/OR VOMITING; Start at 23:30 Sucralfate (Carafate Susp) 1 gm QID GTB Last administered on 03/06/17 10:31; Admin Dose 1 GM; Start 02/28/17 at 09:00 Lactobacillus Acidophilus (Florajen3 Capsule) 1 each TID NGT Last administered on 03/06/17 10:31; Admin Dose 1 EACH; Start 02/28/17 at 09:00 Multivitamins (Multivitamin) 30 ml DAILY GTB Last administered on 03/06/17 10 :33; Admin Dose 30 ML; Start 02/28/17 at 09:00 Clotrimazole (Lotrimin Cr) 1 applic BID TOP Last administered on 03/06/17 10: 39; Admin Dose 1 APPLIC; Start 02/28/17 at 21:00 Miscellaneous Information (Pending [facility] Order For Wound Care) This patient yung... PRN PRN XX WOUND CARE; Start 03/01/17 at 03:00 Collagenase 1 applic 1 applic DAILY TOP Last administered on 03/06/17 09:00; Admin Dose 1 APPLIC; Start 03/02/17 at 09:00 Meropenem/Sodium Chloride 50 ml @ 100 mls/hr Q12 IVPB Last administered on 10:54; Admin Dose 100 MLS/HR; Start 03/02/17 at 17:00 Vancomycin HCl (Vancocin) 250 ml @ 125 mls/hr Q24H IVPB Last administered on 03/05/17t 21:15; Admin Dose 125 MLS/HR; Start 03/05/17 at 20:00 Miscellaneous Information (*Rx Drug Level Order Reminder*) VANCOMYCIN TROUGH AT 1900 ONCE ONCE XX ; Start 03/06/17 at 19:00; Stop 03/06/17 at 19:01 JOÃO JUAREZ Mar 06, 2017 13:32
[2017-03-06] MEDS ORDERED: ACETAMINOPHEN 650MG/20.3ML CUP GTB PRN (18:00)
--- NOTE | 2017-03-06 18:08 | CONS ---
Date/Time of Note Date/Time of Note DATE: 03/06/17 TIME: 18:07 Assessment/Plan Assessment/Plan Chief Complaint/Hosp Course SUBJECTIVE: No acute events. The patient is awake, looks comfortable. MICROBIOLOGY: Blood cultures culture growing Corynebacterium, coag negative staph species. Repeat blood cultures on March 01 growing gram-negative rods. Sputum culture growing gram-negative rods. Urine culture grew Klebsiella ESBL INDWELLINGS: Trach, PEG, Car. ANTIMICROBIALS: Patient is on: 1. Vancomycin. 2. Merrem 3. Colistin inhalation. ALLERGIES: NONE. PHYSICAL EXAMINATION: GENERAL: Chronically ill-appearing, elderly man who is awake, in no distress. HEENT: Head atraumatic, normocephalic. Sclerae anicteric. Buccal mucosa dry. NECK: Supple. CHEST: Rise symmetrical. Breath sounds with bilateral rhonchi. HEART: S1, S2. ABDOMEN: Soft, bowel tones present. ASSESSMENT: 1. Resolving sepsis. 2. Klebsiella extended-spectrum beta-lactamase urinary tract infection. 3. Polymicrobial bacteremia with repeat blood cultures negative 03/03/17 4. Chronic respiratory failure and dysphagia. 5. Anemia. 6. Sacral decubitus. PLAN: Remains stable, continue antibiotics Discussed with at bedside Problems: Consultation Date/Type/Reason Admit Date/Time Feb 27, 2017 at 17:51 Initial Consult Date 02/28/17 Type of Consultation: id Referring Provider: DESTINEE ROBERTS MD Exam/Review of Systems Vital Signs Vitals Vital Signs Date Time Temp Pulse Resp B/P Pulse Ox O2 Delivery O2 Flow Rate FiO2 03/06/17 17:44 78 20 99 30 03/06/17 14:59 98.0 131/62 Intake and Output 03/05/17 03/05/17 03/06/17 15:00 23:00 07:00 Intake Total 740 ml 250 ml Output Total 1100 ml Balance -360 ml 250 ml Results Result Diagram: 03/04/17 1152 03/04/17 1152 Medications Medications Current Medications Ascorbic Acid (Vitamin C) 500 mg BID GTB Last administered on 03/06/17t 10:31 ; Admin Dose 500 MG; Start 02/28/17 at 09:00 Eye Lubricant (Refresh Plus) 1 drop BID PRN BOTH EYES DRY EYES; Start at 23:30 Carvedilol (Coreg) 6.25 mg BID GTB Last administered on 03/05/17 20:34; Admin Dose 6.25 MG; Start 02/28/17 at 09:00 Epoetin Kali (Epogen (Non Esrd/Non Oncology)) 10,000 units MONWEDFRI@17 SC Last administered on 03/04/17 18:36; Admin Dose 10,000 UNITS; Start 02/28/17 at 17:00 Folic Acid (Folic Acid) 1 mg DAILY GTB Last administered on 03/06/17 10:31; Admin Dose 1 MG; Start 02/28/17 at 09:00 Glycopyrrolate (Robinul) 1 mg TID GTB Last administered on 03/06/17 13:29; Admin Dose 1 MG; Start 02/28/17 at 09:00 Lansoprazole (Prevacid) 30 mg DAILY GTB Last administered on 03/06/17 10:31; Admin Dose 30 MG; Start 02/28/17 at 09:00 Metoclopramide HCl (Reglan) 5 mg TID PRN GTB NAUSEA AND/OR VOMITING; Start at 23:30 Sucralfate (Carafate Susp) 1 gm QID GTB Last administered on 03/06/17 17:54; Admin Dose 1 GM; Start 02/28/17 at 09:00 Lactobacillus Acidophilus (Florajen3 Capsule) 1 each TID NGT Last administered on 03/06/17 13:29; Admin Dose 1 EACH; Start 02/28/17 at 09:00 Multivitamins (Multivitamin) 30 ml DAILY GTB Last administered on 03/06/17 10 :33; Admin Dose 30 ML; Start 02/28/17 at 09:00 Clotrimazole (Lotrimin Cr) 1 applic BID TOP Last administered on 03/06/17 10: 39; Admin Dose 1 APPLIC; Start 02/28/17 at 21:00 Misc[facility] This patient yung... PRN PRN XX WOUND CARE; Start 03/01/17 at 03:00 Collagenase 1 applic 1 applic DAILY TOP Last administered on 03/06/17 09:00; Admin Dose 1 APPLIC; Start 03/02/17 at 09:00 Meropenem/Sodium Chloride 50 ml @ 100 mls/hr Q12 IVPB Last administered on 10:54; Admin Dose 100 MLS/HR; Start 03/02/17 at 17:00 Vancomycin HCl (Vancocin) 250 ml @ 125 mls/hr Q24H IVPB Last administered on 03/05/17 21:15; Admin Dose 125 MLS/HR; Start 03/05/17 at 20:00 Miscellaneous Information (*Rx Drug Level Order Reminder*) VANCOMYCIN TROUGH AT 1900 ONCE ONCE XX ; Start 03/06/17 at 19:00; Stop 03/06/17 at 19:01 Acetaminophen (Tylenol Liquid) 650 mg Q6 PRN GTB PAIN AND OR ELEVATED TEMP Last administered on 03/06/17 17:54; Admin Dose 650 MG; Start 03/06/17 at 18: 00 NASH DOTY NP Mar 06, 2017 18:08
[2017-03-06] MEDS: VANCOMYCIN 1 GM 250 ML IVPB SCH (20:00)
[2017-03-07] VITALS (22 sets, daily range): BP systolic 92–127; BP diastolic 57–77; PULSE 74–90; RESP 18–20
[2017-03-07] MEDS: ALBUTEROL HFA 8 GM INHALER INH SCH ×5 (01:32→21:42)
[2017-03-07] MEDS: IPRATROPIUM (HFA) 12.9 GM INHALER INH SCH ×5 (01:32→21:40)
[2017-03-07] MEDS: COLISTIMETHATE (25 MG/ML INHAL SYG) NEB SCH ×3 (09:02→21:43)
[2017-03-07] MEDS: MULTIVITAMINS 30 ML CUP GTB SCH (09:52)
[2017-03-07] MEDS: CLOTRIMAZOLE 1% 30 GM CR TOP SCH ×2 (09:53→21:00)
[2017-03-07] MEDS: GLYCOPYRROLATE 1 MG TAB GTB SCH ×3 (09:53→22:42)
[2017-03-07] MEDS: SUCRALFATE (100 MG/ML) 10ML CUP GTB SCH ×4 (09:53→22:41)
[2017-03-07] MEDS: ASCORBIC ACID 500 MG TAB GTB SCH ×2 (09:53→22:43)
[2017-03-07] MEDS: L ACIDOPHIL/B LACTIS/B LONGUM CAPSULE NGT SCH ×3 (09:54→22:41)
[2017-03-07] MEDS: COLLAGENASE 30 GM TUBE TOP SCH (09:54)
[2017-03-07] MEDS: FOLIC ACID 1 MG TAB GTB SCH (09:55)
[2017-03-07] MEDS: LANSOPRAZOLE 30 MG CAP GTB SCH (09:55)
[2017-03-07] MEDS: MEROPENEM 1 GM/50ML(PMX) 50 ML IVPB SCH ×2 (09:59→22:26)
[2017-03-07 10:24] LABS: BASOPHILS % 0.3 % (0.0-2.0); EOSINOPHILS # 0.3 10^3/ul (0.0-0.5); EOSINOPHILS % 3.3 % (0.0-7.0); HEMATOCRIT 32.1 % (42.0-52.0); HEMOGLOBIN 10.2 g/dl (14.0-18.0); LYMPHOCYTES # 1.2 10^3/ul (0.8-2.9); LYMPHOCYTES % 14.8 % (15.0-51.0); MEAN CORPUSCULAR HEMOGLOBIN 30.4 pg (29.0-33.0); MEAN CORPUSCULAR HGB CONC 31.8 g/dl (32.0-37.0); MEAN CORPUSCULAR VOLUME 95.5 fl (82.0-101.0); MEAN PLATELET VOLUME 11.2 fl (7.4-10.4); MONOCYTE # 0.8 10^3/ul (0.3-0.9); NEUTROPHIL # 5.6 10^3/ul (1.6-7.5); NEUTROPHILS % 69.7 % (39.0-77.0); NUCLEATED RED BLOOD CELLS% 0.3 /100WBC (0.0-0.0); PLATELET COUNT 304 10^3/UL (140-415); RED BLOOD COUNT 3.36 10^6/ul (4.70-6.10); RED CELL DISTRIBUTION WIDTH 18.2 % (11.5-14.5)
[2017-03-07 10:49] LABS: CREATININE 0.89 mg/dl (0.61-1.24); POTASSIUM 4.3 mmol/L (3.5-5.1)
--- NOTE | 2017-03-07 11:33 | PN ---
Date/Time of Note Date/Time of Note DATE: 03/07/17 TIME: 11:33 Assessment/Plan VTE Prophylaxis VTE Prophylaxis Intervention: other Lines/Catheters [facility] Urinary Cath still in place: Yes Reason Cath still needed: skin wounds contaminated by urine Assessment/Plan Chief Complaint/Hosp Course 1. Bilateral pneumonia, healthcare acquired. - per pulmonary - aspiration precautions 2. Sepsis. - per ID 3. Chronic ventilator dependent respiratory failure. 4. Urinary tract infection. 5. Chronic anemia. 6. Acute kidney injury. - per nephrology 7. Chronic encephalopathy. 8. Paraplegia. Problems: Subjective 24 Hr Interval Summary Free Text/Dictation Patient has no complaints Exam/Review of Systems Vital Signs Vitals Vital Signs Date Time Temp Pulse Resp B/P Pulse Ox O2 Delivery O2 Flow Rate FiO2 03/07/17 09:05 96 20 100 30 03/07/17 08:09 96.9 127/72 Intake and Output 03/06/17 03/06/17 03/07/17 15:00 23:00 07:00 Intake Total 860 ml 1130 ml Output Total 1100 ml 800 ml Balance -240 ml 330 ml Exam Constitutional: well developed Head: atraumatic, normocephalic Neck: supple Respiratory: clear to auscultation Cardiovascular: regular rate and rhythm Gastrointestinal: non-tender, soft Extremities: normal pulses Results Result Diagram: 03/07/17 0954 03/07/17 0954 Results 24 hrs Laboratory Tests Test 03/06/17 19:27 03/07/17 09:54 Vancomycin Level Trough 32.4 *H White Blood Count 8.0 # Red Blood Count 3.36 L Hemoglobin 10.2 L Hematocrit 32.1 L Mean Corpuscular Volume 95.5 Mean Corpuscular Hemoglobin 30.4 Mean Corpuscular Hemoglobin Concent 31.8 L Red Cell Distribution Width 18.2 H Platelet Count 304 # Mean Platelet Volume 11.2 H Neutrophils % 69.7 Lymphocytes % 14.8 L Monocytes % 10.0 Eosinophils % 3.3 Basophils % 0.3 Nucleated Red Blood Cells % 0.3 H Neutrophils # 5.6 Lymphocytes # 1.2 Monocytes # 0.8 Eosinophils # 0.3 Basophils # 0.0 Nucleated Red Blood Cells # 0.0 Sodium Level 138 Potassium Level 4.3 Chloride Level 110 Carbon Dioxide Level 23 Anion Gap 9 Blood Urea Nitrogen 31 H Creatinine 0.89 Glucose Level 105 Calcium Level 9.0 Medications Medications Current Medications Ascorbic Acid (Vitamin C) 500 mg BID GTB Last administered on 03/07/17 09:53 ; Admin Dose 500 MG; Start 02/28/17 at 09:00 Eye Lubricant (Refresh Plus) 1 drop BID PRN BOTH EYES DRY EYES; Start at 23:30 Carvedilol (Coreg) 6.25 mg BID GTB Last administered on 03/07/17 09:55; Admin Dose 6.25 MG; Start 02/28/17 at 09:00 Epoetin Kali (Epogen (Non Esrd/Non Oncology)) 10,000 units MONWEDFRI@17 SC Last administered on 03/04/17 18:36; Admin Dose 10,000 UNITS; Start 02/28/17 at 17:00 Folic Acid (Folic Acid) 1 mg DAILY GTB Last administered on 03/07/17 09:55; Admin Dose 1 MG; Start 02/28/17 at 09:00 Glycopyrrolate (Robinul) 1 mg TID GTB Last administered on 03/07/17 09:53; Admin Dose 1 MG; Start 02/28/17 at 09:00 Lansoprazole (Prevacid) 30 mg DAILY GTB Last administered on 03/07/17 09:55; Admin Dose 30 MG; Start 02/28/17 at 09:00 Metoclopramide HCl (Reglan) 5 mg TID PRN GTB NAUSEA AND/OR VOMITING; Start at 23:30 Sucralfate (Carafate Susp) 1 gm QID GTB Last administered on 03/07/17 09:53; Admin Dose 1 GM; Start 02/28/17 at 09:00 Lactobacillus Acidophilus (Florajen3 Capsule) 1 each TID NGT Last administered on 03/07/17 09:54; Admin Dose 1 EACH; Start 02/28/17 at 09:00 Multivitamins (Multivitamin) 30 ml DAILY GTB Last administered on 03/07/17 09 :52; Admin Dose 30 ML; Start 02/28/17 at 09:00 Clotrimazole (Lotrimin Cr) 1 applic BID TOP Last administered on 03/07/17 09: 53; Admin Dose 1 APPLIC; Start 02/28/17 at 21:00 Miscellaneous Information (Pending [facility] Order For Wound Care) This patient yung... PRN PRN XX WOUND CARE; Start 03/01/17 at 03:00 Collagenase 1 applic 1 applic DAILY TOP Last administered on 03/07/17 09:54; Admin Dose 1 APPLIC; Start 03/02/17 at 09:00 Meropenem/Sodium Chloride 50 ml @ 100 mls/hr Q12 IVPB Last administered on 09:59; Admin Dose 100 MLS/HR; Start 03/02/17 at 17:00 Vancomycin HCl (Vancocin) 250 ml @ 125 mls/hr Q24H IVPB Last administered on 03/05/17 21:15; Admin Dose 125 MLS/HR; Start 03/05/17 at 20:00; Status Future Hold Acetaminophen (Tylenol Liquid) 650 mg Q6 PRN GTB PAIN AND OR ELEVATED TEMP Last administered on 03/06/17 17:54; Admin Dose 650 MG; Start 03/06/17 at 18: 00 Miscellaneous Information (*Rx Drug Level Order Reminder*) RANDOM VANCO LEVEL IN AM ONCE ONCE XX ; Start 03/08/17 at 05:00; Stop 03/08/17 at 05:01 ZION BLACK Mar 07, 2017 11:33
--- NOTE | 2017-03-07 12:15 | CONS ---
Date/Time of Note Date/Time of Note DATE: 03/07/17 TIME: 12:13 Assessment/Plan Assessment/Plan Chief Complaint/Hosp Course Consultation dictated #[id number]. Problems: Additional Assessment/Plan Ventilator setting; AC of 20, tidal volume 450, PEEP of 0, 30% FiO2. Assessment and recommendations; 1. Patient admitted with bilateral pneumonia currently on appropriate antibiotic regimen. 2. History of paraplegia. 3. Chronic respiratory failure which is ventilator dependent. 4. History of recent renal insufficiency with normalization of renal function. Continue current supportive care. Consultation Date/Type/Reason Admit Date/Time Feb 27, 2017 at 17:51 Initial Consult Date 02/28/17 Type of Consultation: Pulmonary Referring Provider: DESTINEE ROBERTS MD 24 HR Interval Summary Free Text/Dictation Patient's condition is stable. Remains awake and alert. Has remained hemodynamically stable. General exam; elderly male, on ventilator via tracheostomy, awake, currently in no distress. Exam/Review of Systems Vital Signs Vitals Vital Signs Date Time Temp Pulse Resp B/P Pulse Ox O2 Delivery O2 Flow Rate FiO2 03/07/17 11:10 85 20 98 30 03/07/17 08:09 96.9 127/72 Intake and Output 03/06/17 03/06/17 03/07/17 15:00 23:00 07:00 Intake Total 860 ml 1130 ml Output Total 1100 ml 800 ml Balance -240 ml 330 ml Exam HEENT exam; supple neck, no JVD. No lymphadenopathy. Midline trachea. No thyromegaly. Patient has a multiple carious teeth. Tracheostomy in place. Chest exam; diminished but clear breath sounds. S1-S2 audible, no murmurs. Regular rhythm. Abdomen exam; soft, nondistended. No organomegaly. G-tube in place. Bowel sounds audible. Extremity exam; no edema. [employer] exam; patient has stable paraplegia. Remains awake and alert. And responsive appropriately. Results Result Diagram: 03/07/17 0954 03/07/17 0954 Results 24 hrs Laboratory Tests Test 03/06/17 19:27 03/07/17 09:54 Vancomycin Level Trough 32.4 *H White Blood Count 8.0 # Red Blood Count 3.36 L Hemoglobin 10.2 L Hematocrit 32.1 L Mean Corpuscular Volume 95.5 Mean Corpuscular Hemoglobin 30.4 Mean Corpuscular Hemoglobin Concent 31.8 L Red Cell Distribution Width 18.2 H Platelet Count 304 # Mean Platelet Volume 11.2 H Neutrophils % 69.7 Lymphocytes % 14.8 L Monocytes % 10.0 Eosinophils % 3.3 Basophils % 0.3 Nucleated Red Blood Cells % 0.3 H Neutrophils # 5.6 Lymphocytes # 1.2 Monocytes # 0.8 Eosinophils # 0.3 Basophils # 0.0 Nucleated Red Blood Cells # 0.0 Sodium Level 138 Potassium Level 4.3 Chloride Level 110 Carbon Dioxide Level 23 Anion Gap 9 Blood Urea Nitrogen 31 H Creatinine 0.89 Glucose Level 105 Calcium Level 9.0 Medications Medications Current Medications Ascorbic Acid (Vitamin C) 500 mg BID GTB Last administered on 03/07/17 09:53 ; Admin Dose 500 MG; Start 02/28/17 at 09:00 Eye Lubricant (Refresh Plus) 1 drop BID PRN BOTH EYES DRY EYES; Start at 23:30 Carvedilol (Coreg) 6.25 mg BID GTB Last administered on 03/07/17 09:55; Admin Dose 6.25 MG; Start 02/28/17 at 09:00 Epoetin Kali (Epogen (Non Esrd/Non Oncology)) 10,000 units MONWEDFRI@17 SC Last administered on 03/04/17 18:36; Admin Dose 10,000 UNITS; Start 02/28/17 at 17:00 Folic Acid (Folic Acid) 1 mg DAILY GTB Last administered on 03/07/17 09:55; Admin Dose 1 MG; Start 02/28/17 at 09:00 Glycopyrrolate (Robinul) 1 mg TID GTB Last administered on 03/07/17 09:53; Admin Dose 1 MG; Start 02/28/17 at 09:00 Lansoprazole (Prevacid) 30 mg DAILY GTB Last administered on 03/07/17 09:55; Admin Dose 30 MG; Start 02/28/17 at 09:00 Metoclopramide HCl (Reglan) 5 mg TID PRN GTB NAUSEA AND/OR VOMITING; Start at 23:30 Sucralfate (Carafate Susp) 1 gm QID GTB Last administered on 03/07/17 09:53; Admin Dose 1 GM; Start 02/28/17 at 09:00 Lactobacillus Acidophilus (Florajen3 Capsule) 1 each TID NGT Last administered on 03/07/17 09:54; Admin Dose 1 EACH; Start 02/28/17 at 09:00 Multivitamins (Multivitamin) 30 ml DAILY GTB Last administered on 03/07/17 09 :52; Admin Dose 30 ML; Start 02/28/17 at 09:00 Clotrimazole (Lotrimin Cr) 1 applic BID TOP Last administered on 03/07/17 09: 53; Admin Dose 1 APPLIC; Start 02/28/17 at 21:00 Miscellaneous Information (Pending [facility]yl Order For Wound Care) This patient yung... PRN PRN XX WOUND CARE; Start 03/01/17 at 03:00 Collagenase 1 applic 1 applic DAILY TOP Last administered on 03/07/17 09:54; Admin Dose 1 APPLIC; Start 03/02/17 at 09:00 Meropenem/Sodium Chloride 50 ml @ 100 mls/hr Q12 IVPB Last administered on 09:59; Admin Dose 100 MLS/HR; Start 03/02/17 at 17:00 Vancomycin HCl (Vancocin) 250 ml @ 125 mls/hr Q24H IVPB Last administered on 03/05/17 21:15; Admin Dose 125 MLS/HR; Start 03/05/17 at 20:00; Status Future Hold Acetaminophen (Tylenol Liquid) 650 mg Q6 PRN GTB PAIN AND OR ELEVATED TEMP Last administered on 03/06/17 17:54; Admin Dose 650 MG; Start 03/06/17 at 18: 00 Miscellaneous Information (*Rx Drug Level Order Reminder*) RANDOM VANCO LEVEL IN AM ONCE ONCE XX ; Start 03/08/17 at 05:00; Stop 03/08/17 at 05:01 BILLIE ARCE Mar 07, 2017 12:15
--- NOTE | 2017-03-07 17:18 | CONS ---
Date/Time of Note Date/Time of Note DATE: 03/07/17 TIME: 17:16 Assessment/Plan Assessment/Plan Additional Assessment/Plan 1. Acute kidney injury due to severe prerenal azotemia causing ISchemic ATN 2. Severe Anemia s/p PRBC 3. Acute on chronic rresp failure, S/p tracheostomy 4. H/o CVA 5. H/o Cardiac arrest 6. h/o HTN 7. h/o HL Plan: S/p PRBC transfusion, Hb now stable 10.2 Cotninue current care, IV abx Meropenem and vancomycin Cr imrpoved to normal, Electrolytes stable renally dose all abx will follow up Consultation Date/Type/Reason Admit Date/Time Feb 27, 2017 at 17:51 Initial Consult Date 02/28/17 Type of Consultation: NEPHROLOGY Referring Provider: DESTINEE ROBERTS MD 24 HR Interval Summary Free Text/Dictation CR and electrolytes stable, Hb 10.2 Exam/Review of Systems Vital Signs Vitals Vital Signs Date Time Temp Pulse Resp B/P Pulse Ox O2 Delivery O2 Flow Rate FiO2 03/07/17 16:38 85 03/07/17 15:57 97.0 18 122/57 98 03/07/17 15:00 30 Intake and Output 03/06/17 03/06/17 03/07/17 15:00 23:00 07:00 Intake Total 860 ml 1130 ml Output Total 1100 ml 800 ml Balance -240 ml 330 ml Exam Constitutional: non-verbal Head: normocephalic ENMT: other (+ tracheostomy on ventilator ) Neck: non-tender, supple Respiratory: crackles/rales, diminished breath sounds, wheezing Cardiovascular: edema, other (S1 S2 tachycardia ) Gastrointestinal: non-tender, other ( G tube site clear ), soft Musculoskeletal: nl extremities to inspection Extremities: edema Neurological: other (Not cooperagive for neuro exam ) Lymph: nl lymph nodes Results Result Diagram: 03/07/17 0954 03/07/17 0954 Results 24 hrs Laboratory Tests Test 03/06/17 19:27 03/07/17 09:54 Vancomycin Level Trough 32.4 *H White Blood Count 8.0 # Red Blood Count 3.36 L Hemoglobin 10.2 L Hematocrit 32.1 L Mean Corpuscular Volume 95.5 Mean Corpuscular Hemoglobin 30.4 Mean Corpuscular Hemoglobin Concent 31.8 L Red Cell Distribution Width 18.2 H Platelet Count 304 # Mean Platelet Volume 11.2 H Neutrophils % 69.7 Lymphocytes % 14.8 L Monocytes % 10.0 Eosinophils % 3.3 Basophils % 0.3 Nucleated Red Blood Cells % 0.3 H Neutrophils # 5.6 Lymphocytes # 1.2 Monocytes # 0.8 Eosinophils # 0.3 Basophils # 0.0 Nucleated Red Blood Cells # 0.0 Sodium Level 138 Potassium Level 4.3 Chloride Level 110 Carbon Dioxide Level 23 Anion Gap 9 Blood Urea Nitrogen 31 H Creatinine 0.89 Glucose Level 105 Calcium Level 9.0 Medications Medications Current Medications Ascorbic Acid (Vitamin C) 500 mg BID GTB Last administered on 03/07/17 09:53 ; Admin Dose 500 MG; Start 02/28/17 at 09:00 Eye Lubricant (Refresh Plus) 1 drop BID PRN BOTH EYES DRY EYES; Start at 23:30 Carvedilol (Coreg) 6.25 mg BID GTB Last administered on 03/07/17 09:55; Admin Dose 6.25 MG; Start 02/28/17 at 09:00 Epoetin Kali (Epogen (Non Esrd/Non Oncology)) 10,000 units MONWEDFRI@17 SC Last administered on 03/04/17 18:36; Admin Dose 10,000 UNITS; Start 02/28/17 at 17:00 Folic Acid (Folic Acid) 1 mg DAILY GTB Last administered on 03/07/17 09:55; Admin Dose 1 MG; Start 02/28/17 at 09:00 Glycopyrrolate (Robinul) 1 mg TID GTB Last administered on 03/07/17 13:55; Admin Dose 1 MG; Start 02/28/17 at 09:00 Lansoprazole (Prevacid) 30 mg DAILY GTB Last administered on 03/07/17 09:55; Admin Dose 30 MG; Start 02/28/17 at 09:00 Metoclopramide HCl (Reglan) 5 mg TID PRN GTB NAUSEA AND/OR VOMITING; Start at 23:30 Sucralfate (Carafate Susp) 1 gm QID GTB Last administered on 03/07/17 13:55; Admin Dose 1 GM; Start 02/28/17 at 09:00 Lactobacillus Acidophilus (Florajen3 Capsule) 1 each TID NGT Last administered on 03/07/17 13:55; Admin Dose 1 EACH; Start 02/28/17 at 09:00 Multivitamins (Multivitamin) 30 ml DAILY GTB Last administered on 03/07/17 09 :52; Admin Dose 30 ML; Start 02/28/17 at 09:00 Clotrimazole (Lotrimin Cr) 1 applic BID TOP Last administered on 03/07/17 09: 53; Admin Dose 1 APPLIC; Start 02/28/17 at 21:00 Miscellaneous Information (Pending [facility] Order For Wound Care) This patient yung... PRN PRN XX WOUND CARE; Start 03/01/17 at 03:00 Collagenase 1 applic 1 applic DAILY TOP Last administered on 03/07/17 09:54; Admin Dose 1 APPLIC; Start 03/02/17 at 09:00 Meropenem/Sodium Chloride 50 ml @ 100 mls/hr Q12 IVPB Last administered on 09:59; Admin Dose 100 MLS/HR; Start 03/02/17 at 17:00 Vancomycin HCl (Vancocin) 250 ml @ 125 mls/hr Q24H IVPB Last administered on 03/05/17 21:15; Admin Dose 125 MLS/HR; Start 03/05/17 at 20:00; Status Future Hold Acetaminophen (Tylenol Liquid) 650 mg Q6 PRN GTB PAIN AND OR ELEVATED TEMP Last administered on 03/06/17 17:54; Admin Dose 650 MG; Start 03/06/17 at 18: 00 Miscellaneous Information (*Rx Drug Level Order Reminder*) RANDOM VANCO LEVEL IN AM ONCE ONCE XX ; Start 03/08/17 at 05:00; Stop 03/08/17 at 05:01 ROULA YEPEZ MD Mar 07, 2017 17:18
[2017-03-07] MEDS: EPOETIN 10000 UNITS/ML (NON ESRD/NON ONCOLOGY) SC SCH (17:29)
--- NOTE | 2017-03-07 17:52 | CONS ---
Date/Time of Note Date/Time of Note DATE: 03/07/17 TIME: 17:51 Assessment/Plan Assessment/Plan Chief Complaint/Hosp Course SUBJECTIVE: No acute events. The patient is sleeping, at bedside MICROBIOLOGY: Blood cultures culture growing Corynebacterium, coag negative staph species. Repeat blood cultures on March 01 growing gram-negative rods. Sputum culture growing gram-negative rods. Urine culture grew Klebsiella ESBL INDWELLINGS: Trach, PEG, Car. ANTIMICROBIALS: Patient is on: 1. Vancomycin. 2. Merrem 3. Colistin inhalation. ALLERGIES: NONE. PHYSICAL EXAMINATION: GENERAL: Chronically ill-appearing, elderly man who is awake, in no distress. HEENT: Head atraumatic, normocephalic. Sclerae anicteric. Buccal mucosa dry. NECK: Supple. CHEST: Rise symmetrical. Breath sounds with bilateral rhonchi. HEART: S1, S2. ABDOMEN: Soft, bowel tones present. ASSESSMENT: 1. Resolving sepsis. 2. Klebsiella extended-spectrum beta-lactamase urinary tract infection. 3. Polymicrobial bacteremia with repeat blood cultures negative 03/03/17 4. Chronic respiratory failure and dysphagia. 5. Anemia. 6. Sacral decubitus. PLAN: Remains stable, continue antibiotics for 7 more days Discussed with at bedside Problems: Consultation Date/Type/Reason Admit Date/Time Feb 27, 2017 at 17:51 Initial Consult Date 02/28/17 Type of Consultation: id Referring Provider: DESTINEE ROBERTS MD Exam/Review of Systems Vital Signs Vitals Vital Signs Date Time Temp Pulse Resp B/P Pulse Ox O2 Delivery O2 Flow Rate FiO2 03/07/17 17:15 85 20 98 30 03/07/17 15:57 97.0 122/57 Intake and Output 03/06/17 03/06/17 03/07/17 15:00 23:00 07:00 Intake Total 860 ml 1130 ml Output Total 1100 ml 800 ml Balance -240 ml 330 ml Results Result Diagram: 03/07/17 0954 03/07/17 0954 Results 24 hrs Laboratory Tests Test 03/06/17 19:27 03/07/17 09:54 Vancomycin Level Trough 32.4 *H White Blood Count 8.0 # Red Blood Count 3.36 L Hemoglobin 10.2 L Hematocrit 32.1 L Mean Corpuscular Volume 95.5 Mean Corpuscular Hemoglobin 30.4 Mean Corpuscular Hemoglobin Concent 31.8 L Red Cell Distribution Width 18.2 H Platelet Count 304 # Mean Platelet Volume 11.2 H Neutrophils % 69.7 Lymphocytes % 14.8 L Monocytes % 10.0 Eosinophils % 3.3 Basophils % 0.3 Nucleated Red Blood Cells % 0.3 H Neutrophils # 5.6 Lymphocytes # 1.2 Monocytes # 0.8 Eosinophils # 0.3 Basophils # 0.0 Nucleated Red Blood Cells # 0.0 Sodium Level 138 Potassium Level 4.3 Chloride Level 110 Carbon Dioxide Level 23 Anion Gap 9 Blood Urea Nitrogen 31 H Creatinine 0.89 Glucose Level 105 Calcium Level 9.0 Medications Medications Current Medications Ascorbic Acid (Vitamin C) 500 mg BID GTB Last administered on 03/07/17 09:53 ; Admin Dose 500 MG; Start 02/28/17 at 09:00 Eye Lubricant (Refresh Plus) 1 drop BID PRN BOTH EYES DRY EYES; Start at 23:30 Carvedilol (Coreg) 6.25 mg BID GTB Last administered on 03/07/17 09:55; Admin Dose 6.25 MG; Start 02/28/17 at 09:00 Epoetin Kali (Epogen (Non Esrd/Non Oncology)) 10,000 units MONWEDFRI@17 SC Last administered on 03/07/17 17:29; Admin Dose 10,000 UNITS; Start 02/28/17 at 17:00 Folic Acid (Folic Acid) 1 mg DAILY GTB Last administered on 03/07/17 09:55; Admin Dose 1 MG; Start 02/28/17 at 09:00 Glycopyrrolate (Robinul) 1 mg TID GTB Last administered on 03/07/17 13:55; Admin Dose 1 MG; Start 02/28/17 at 09:00 Lansoprazole (Prevacid) 30 mg DAILY GTB Last administered on 03/07/17 09:55; Admin Dose 30 MG; Start 02/28/17 at 09:00 Metoclopramide HCl (Reglan) 5 mg TID PRN GTB NAUSEA AND/OR VOMITING; Start at 23:30 Sucralfate (Carafate Susp) 1 gm QID GTB Last administered on 03/07/17 17:29; Admin Dose 1 GM; Start 02/28/17 at 09:00 Lactobacillus Acidophilus (Florajen3 Capsule) 1 each TID NGT Last administered on 03/07/17 13:55; Admin Dose 1 EACH; Start 02/28/17 at 09:00 Multivitamins (Multivitamin) 30 ml DAILY GTB Last administered on 03/07/17 09 :52; Admin Dose 30 ML; Start 02/28/17 at 09:00 Clotrimazole (Lotrimin Cr) 1 applic BID TOP Last administered on 03/07/17 09: 53; Admin Dose 1 APPLIC; Start 02/28/17 at 21:00 [facility] This patient yung... PRN PRN XX WOUND CARE; Start 03/01/17 at 03:00 Collagenase 1 applic 1 applic DAILY TOP Last administered on 03/07/17 09:54; Admin Dose 1 APPLIC; Start 03/02/17 at 09:00 Meropenem/Sodium Chloride 50 ml @ 100 mls/hr Q12 IVPB Last administered on 09:59; Admin Dose 100 MLS/HR; Start 03/02/17 at 17:00 Vancomycin HCl (Vancocin) 250 ml @ 125 mls/hr Q24H IVPB Last administered on 03/05/17 21:15; Admin Dose 125 MLS/HR; Start 03/05/17 at 20:00; Status Future Hold Acetaminophen (Tylenol Liquid) 650 mg Q6 PRN GTB PAIN AND OR ELEVATED TEMP Last administered on 03/06/17 17:54; Admin Dose 650 MG; Start 03/06/17 at 18: 00 Miscellaneous Information (*Rx Drug Level Order Reminder*) RANDOM VANCO LEVEL IN AM ONCE ONCE XX ; Start 03/08/17 at 05:00; Stop 03/08/17 at 05:01 NASH DOTY NP Mar 07, 2017 17:52
[2017-03-08] VITALS (24 sets, daily range): BP systolic 102–132; BP diastolic 57–77; PULSE 77–90; RESP 15–20
[2017-03-08] MEDS: IPRATROPIUM (HFA) 12.9 GM INHALER INH SCH ×4 (02:00→20:01)
[2017-03-08] MEDS: ALBUTEROL HFA 8 GM INHALER INH SCH ×4 (02:00→20:01)
[2017-03-08] MEDS ORDERED: [UNRECOGNIZED DRUG - OTHER] XX ONE (05:00)
[2017-03-08] MEDS: MEROPENEM 1 GM/50ML(PMX) 50 ML IVPB SCH ×2 (08:58→21:00)
[2017-03-08] MEDS: CLOTRIMAZOLE 1% 30 GM CR TOP SCH ×2 (08:59→20:56)
[2017-03-08] MEDS: MULTIVITAMINS 30 ML CUP GTB SCH (09:00)
[2017-03-08] MEDS: FOLIC ACID 1 MG TAB GTB SCH (09:00)
[2017-03-08] MEDS: LANSOPRAZOLE 30 MG CAP GTB SCH (09:00)
[2017-03-08] MEDS: GLYCOPYRROLATE 1 MG TAB GTB SCH ×3 (09:00→20:55)
[2017-03-08] MEDS: COLLAGENASE 30 GM TUBE TOP SCH (09:00)
[2017-03-08] MEDS: ASCORBIC ACID 500 MG TAB GTB SCH ×2 (09:00→20:56)
[2017-03-08] MEDS: L ACIDOPHIL/B LACTIS/B LONGUM CAPSULE NGT SCH ×3 (09:00→20:55)
[2017-03-08] MEDS: COLISTIMETHATE (25 MG/ML INHAL SYG) NEB SCH ×2 (09:00→20:13)
[2017-03-08] MEDS: SUCRALFATE (100 MG/ML) 10ML CUP GTB SCH ×4 (09:00→20:55)
[2017-03-08] MEDS ORDERED: LIDOCAINE 1% (MDV) 20 ML INJ ONE (10:29)
--- NOTE | 2017-03-08 11:17 | RADRPT ---
PROCEDURE: XR Abdomen. CLINICAL INDICATION: Percutaneous G tube placement. TECHNIQUE: Single AP view of the abdomen was obtained after the uneventful adminstration of water soluble contrast via the indwelling percutaneous G tube. Number of images obtained: 1. Fluoro jose e: 0 seconds. COMPARISON: 03/05/2017 FINDINGS: Percutaneous G tube overlies the distal stomach. Contrast opacifies the stomach and duodenum. There is no evidence of extraluminal contrast extravasation. The bowel gas pattern is normal. There is no evidence of obstruction. There are no abnormal calcifications overlying the urinary tracts. Rounded densities overlying the right upper quadrant may represent gallstones. The osseous structures are un remarkable. Bilateral lower lobe effusion with atelectasis is partially imaged. IMPRESSION: Appropriate position of a percutaneous G tube overlying the distal stomach, without evidence of cont rast leak/extravasation. RPTAT: JJ .Cristopher Aleixs MD, Date Time Electronically viewed and signed by .Cristopher Alexis MD, on 03/08/2017 11:17 .A/
--- NOTE | 2017-03-08 13:17 | PN ---
Date/Time of Note Date/Time of Note DATE: 03/08/17 TIME: 13:17 Assessment/Plan VTE Prophylaxis VTE Prophylaxis Intervention: other Lines/Catheters IV [facility]from [facility] Urinary Cath still in place: Yes Reason Cath still needed: skin wounds contaminated by urine Assessment/Plan Chief Complaint/Hosp Course 1. Bilateral pneumonia, healthcare acquired. - per pulmonary - aspiration precautions 2. Sepsis. - per ID 3. Chronic ventilator dependent respiratory failure. 4. Urinary tract infection. 5. Chronic anemia. 6. Acute kidney injury. - per nephrology 7. Chronic encephalopathy. 8. Paraplegia. Problems: Subjective 24 Hr Interval Summary Free Text/Dictation Patient remain sedated and intubated Exam/Review of Systems Vital Signs Vitals Vital Signs Date Time Temp Pulse Resp B/P Pulse Ox O2 Delivery O2 Flow Rate FiO2 03/08/17 11:57 97.0 83 17 132/77 100 03/08/17 05:25 30 Intake and Output 03/07/17 03/07/17 03/08/17 15:00 23:00 07:00 Intake Total 1140 ml 1130 ml Output Total 700 ml 500 ml Balance 440 ml 630 ml Exam Constitutional: well developed Head: atraumatic, normocephalic Neck: supple Respiratory: diminished breath sounds Cardiovascular: regular rate and rhythm Gastrointestinal: non-tender, soft Extremities: normal pulses Results Result Diagram: 03/07/17 0954 03/07/17 0954 Results 24 hrs Laboratory Tests Test 03/08/17 06:05 03/08/17 06:37 Random Vancomycin Level 23.9 Lab Scanned Report REFERENCE LAB Medications Medications Current Medications Ascorbic Acid (Vitamin C) 500 mg BID GTB Last administered on 03/07/17 22:43 ; Admin Dose 500 MG; Start 02/28/17 at 09:00 Eye Lubricant (Refresh Plus) 1 drop BID PRN BOTH EYES DRY EYES; Start at 23:30 Carvedilol (Coreg) 6.25 mg BID GTB Last administered on 03/07/17 22:43; Admin Dose 6.25 MG; Start 02/28/17 at 09:00 Epoetin Kali (Epogen (Non Esrd/Non Oncology)) 10,000 units MONWEDFRI@17 SC Last administered on 03/07/17 17:29; Admin Dose 10,000 UNITS; Start 02/28/17 at 17:00 Folic Acid (Folic Acid) 1 mg DAILY GTB Last administered on 03/07/17 09:55; Admin Dose 1 MG; Start 02/28/17 at 09:00 Glycopyrrolate (Robinul) 1 mg TID GTB Last administered on 03/08/17 13:07; Admin Dose 1 MG; Start 02/28/17 at 09:00 Lansoprazole (Prevacid) 30 mg DAILY GTB Last administered on 03/07/17 09:55; Admin Dose 30 MG; Start 02/28/17 at 09:00 Metoclopramide HCl (Reglan) 5 mg TID PRN GTB NAUSEA AND/OR VOMITING; Start at 23:30 Sucralfate (Carafate Susp) 1 gm QID GTB Last administered on 03/08/17 13:08; Admin Dose 1 GM; Start 02/28/17 at 09:00 Lactobacillus Acidophilus (Florajen3 Capsule) 1 each TID NGT Last administered on 03/08/17 13:08; Admin Dose 1 EACH; Start 02/28/17 at 09:00 Multivitamins (Multivitamin) 30 ml DAILY GTB Last administered on 03/07/17 09 :52; Admin Dose 30 ML; Start 02/28/17 at 09:00 Clotrimazole (Lotrimin Cr) 1 applic BID TOP Last administered on 03/08/17 08: 59; Admin Dose 1 APPLIC; Start 02/28/17 at 21:00 Miscellaneous Information (Pending [facility] Order For Wound Care) This patient yung... PRN PRN XX WOUND CARE; Start 03/01/17 at 03:00 Collagenase 1 applic 1 applic DAILY TOP Last administered on 03/08/17 09:00; Admin Dose 1 APPLIC; Start 03/02/17 at 09:00 Meropenem/Sodium Chloride (Merrem 1 Gm/50 ml (Pmx)) 50 ml @ 100 mls/hr Q12 IVPB Last administered on 03/08/17 08:58; Admin Dose 100 MLS/HR; Start 03/02 at 17:00 Acetaminophen (Tylenol Liquid) 650 mg Q6 PRN GTB PAIN AND OR ELEVATED TEMP Last administered on 03/06/17 17:54; Admin Dose 650 MG; Start 03/06/17 at 18: 00 ZION BLACK Mar 08, 2017 13:17
[2017-03-08] MEDS: ALBUTEROL/IPRATROPIUM (NEB) 3 ML AMP NEB PRN (13:28)
--- NOTE | 2017-03-08 13:42 | CONS ---
Date/Time of Note Date/Time of Note DATE: 03/08/17 TIME: 13:42 Assessment/Plan Assessment/Plan Additional Assessment/Plan Assessment/Plan Additional Assessment/Plan IMPRESSION: 1. Ventilator-dependent respiratory failure. 2. Community-acquired pneumonia. 3. Urinary tract infection. 4. Anemia, no evidence of active gastrointestinal bleeding. 5. Cerebrovascular accident. 6. Left eye blindness. 7. Esophageal ulceration. 8. History of renal failure requiring temporary dialysis. 9. Malfunctioning G-tube, G-tube is now functional and tolerating feeding 10. Renal insufficiency Plan Monitor H&H Continue present care Continue antibiotic, bronchodilator Discussed with the and wants physical therapy insist on doing a swallowing study Consultation Date/Type/Reason Admit Date/Time Feb 27, 2017 at 17:51 Initial Consult Date 02/28/17 Type of Consultation: id Referring Provider: DESTINEE ROBERTS MD 24 HR Interval Summary Constitutional: improved, no complaints Exam/Review of Systems Vital Signs Vitals Vital Signs Date Time Temp Pulse Resp B/P Pulse Ox O2 Delivery O2 Flow Rate FiO2 03/08/17 12:30 82 03/08/17 11:57 97.0 132/77 100 03/08/17 05:25 30 Intake and Output 03/07/17 03/07/17 03/08/17 15:00 23:00 07:00 Intake Total 1140 ml 1130 ml Output Total 700 ml 500 ml Balance 440 ml 630 ml Exam Constitutional: alert, oriented, well developed Psych: nl mood/affect, no complaints Head: atraumatic, normocephalic Eyes: EOMI, PERRL, nl conjunctiva, nl lids, nl sclera ENMT: nl external ears & nose, nl lips & teeth, nl nasal mucosa & septum Neck: non-tender, supple Respiratory: clear to auscultation, normal air movement Cardiovascular: nl pulses, regular rate and rhythm Gastrointestinal: nl liver, spleen, non-tender, soft Musculoskeletal: nl extremities to inspection, nl gait and stance Extremities: normal pulses 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, nl mental status, nl speech, nl strength Skin: nl turgor, No rash or lesions Lymph: nl lymph nodes Results Result Diagram: 03/07/17 0954 03/07/17 0954 Results 24 hrs Laboratory Tests Test 03/08/17 06:05 03/08/17 06:37 Random Vancomycin Level 23.9 Lab Scanned Report REFERENCE LAB Medications Medications Current Medications Ascorbic Acid (Vitamin C) 500 mg BID GTB Last administered on 03/07/17 22:43 ; Admin Dose 500 MG; Start 02/28/17 at 09:00 Eye Lubricant (Refresh Plus) 1 drop BID PRN BOTH EYES DRY EYES; Start at 23:30 Carvedilol (Coreg) 6.25 mg BID GTB Last administered on 03/07/17 22:43; Admin Dose 6.25 MG; Start 02/28/17 at 09:00 Epoetin Kali (Epogen (Non Esrd/Non Oncology)) 10,000 units MONWEDFRI@17 SC Last administered on 03/07/17 17:29; Admin Dose 10,000 UNITS; Start 02/28/17 at 17:00 Folic Acid (Folic Acid) 1 mg DAILY GTB Last administered on 03/07/17 09:55; Admin Dose 1 MG; Start 02/28/17 at 09:00 Glycopyrrolate (Robinul) 1 mg TID GTB Last administered on 03/08/17 13:07; Admin Dose 1 MG; Start 02/28/17 at 09:00 Lansoprazole (Prevacid) 30 mg DAILY GTB Last administered on 03/07/17 09:55; Admin Dose 30 MG; Start 02/28/17 at 09:00 Metoclopramide HCl (Reglan) 5 mg TID PRN GTB NAUSEA AND/OR VOMITING; Start at 23:30 Sucralfate (Carafate Susp) 1 gm QID GTB Last administered on 03/08/17 13:08; Admin Dose 1 GM; Start 02/28/17 at 09:00 Lactobacillus Acidophilus (Florajen3 Capsule) 1 each TID NGT Last administered on 03/08/17 13:08; Admin Dose 1 EACH; Start 02/28/17 at 09:00 Multivitamins (Multivitamin) 30 ml DAILY GTB Last administered on 03/07/17 09 :52; Admin Dose 30 ML; Start 02/28/17 at 09:00 Clotrimazole (Lotrimin Cr) 1 applic BID TOP Last administered on 03/08/17 08: 59; Admin Dose 1 APPLIC; Start 02/28/17 at 21:00 Miscellaneous Information (Pending [facility]yl Order For Wound Care) This patient yung... PRN PRN XX WOUND CARE; Start 03/01/17 at 03:00 Collagenase 1 applic 1 applic DAILY TOP Last administered on 03/08/17 09:00; Admin Dose 1 APPLIC; Start 03/02/17 at 09:00 Meropenem/Sodium Chloride (Merrem 1 Gm/50 ml (Pmx)) 50 ml @ 100 mls/hr Q12 IVPB Last administered on 03/08/17 08:58; Admin Dose 100 MLS/HR; Start 03/02 at 17:00 Acetaminophen (Tylenol Liquid) 650 mg Q6 PRN GTB PAIN AND OR ELEVATED TEMP Last administered on 03/06/17 17:54; Admin Dose 650 MG; Start 03/06/17 at 18: 00 PAT CHA MD Mar 08, 2017 13:42
--- NOTE | 2017-03-08 19:16 | CONS ---
Date/Time of Note Date/Time of Note DATE: 03/08/17 TIME: 19:15 Assessment/Plan Assessment/Plan Chief Complaint/Hosp Course SUBJECTIVE: No acute events. Afebrile, looks comfortable MICROBIOLOGY: Blood cultures culture growing Corynebacterium, coag negative staph species. Repeat blood cultures on March 01 growing gram-negative rods. Sputum culture growing gram-negative rods. Urine culture grew Klebsiella ESBL INDWELLINGS: Trach, PEG, Car. ANTIMICROBIALS: 1. Vancomycin. 2. Merrem 3. Colistin inhalation. ALLERGIES: NONE. PHYSICAL EXAMINATION: GENERAL: Chronically ill-appearing, elderly man who is awake, in no distress. HEENT: Head atraumatic, normocephalic. Sclerae anicteric. Buccal mucosa dry. NECK: Supple. CHEST: Rise symmetrical. Breath sounds with bilateral rhonchi. HEART: S1, S2. ABDOMEN: Soft, bowel tones present. ASSESSMENT: 1. Resolving sepsis. 2. Klebsiella extended-spectrum beta-lactamase urinary tract infection. 3. Polymicrobial bacteremia with repeat blood cultures negative 03/03/17 4. Chronic respiratory failure and dysphagia. 5. Anemia. 6. Sacral decubitus. PLAN: Remains stable, continue antibiotics for 6 more days Discussed with at bedside Problems: Consultation Date/Type/Reason Admit Date/Time Feb 27, 2017 at 17:51 Initial Consult Date 02/28/17 Type of Consultation: id Referring Provider: DESTINEE ROBERTS MD Exam/Review of Systems Vital Signs Vitals Vital Signs Date Time Temp Pulse Resp B/P Pulse Ox O2 Delivery O2 Flow Rate FiO2 03/08/17 16:30 78 03/08/17 16:20 20 98 30 03/08/17 16:11 98.2 111/57 Intake and Output 03/07/17 03/07/17 03/08/17 15:00 23:00 07:00 Intake Total 1140 ml 1130 ml Output Total 700 ml 500 ml Balance 440 ml 630 ml Results Result Diagram: 03/07/17 0954 03/07/17 0954 Results 24 hrs Laboratory Tests Test 03/08/17 06:05 03/08/17 06:37 Random Vancomycin Level 23.9 Lab Scanned Report REFERENCE LAB Medications Medications Current Medications Ascorbic Acid (Vitamin C) 500 mg BID GTB Last administered on 03/07/17t 22:43 ; Admin Dose 500 MG; Start 02/28/17 at 09:00 Eye Lubricant (Refresh Plus) 1 drop BID PRN BOTH EYES DRY EYES; Start at 23:30 Carvedilol (Coreg) 6.25 mg BID GTB Last administered on 03/07/17 22:43; Admin Dose 6.25 MG; Start 02/28/17 at 09:00 Epoetin Kali (Epogen (Non Esrd/Non Oncology)) 10,000 units MONWEDFRI@17 SC Last administered on 03/07/17 17:29; Admin Dose 10,000 UNITS; Start 02/28/17 at 17:00 Folic Acid (Folic Acid) 1 mg DAILY GTB Last administered on 03/07/17 09:55; Admin Dose 1 MG; Start 02/28/17 at 09:00 Glycopyrrolate (Robinul) 1 mg TID GTB Last administered on 03/08/17 13:07; Admin Dose 1 MG; Start 02/28/17 at 09:00 Lansoprazole (Prevacid) 30 mg DAILY GTB Last administered on 03/07/17 09:55; Admin Dose 30 MG; Start 02/28/17 at 09:00 Metoclopramide HCl (Reglan) 5 mg TID PRN GTB NAUSEA AND/OR VOMITING; Start at 23:30 Sucralfate (Carafate Susp) 1 gm QID GTB Last administered on 03/08/17 17:57; Admin Dose 1 GM; Start 02/28/17 at 09:00 Lactobacillus Acidophilus (Florajen3 Capsule) 1 each TID NGT Last administered on 03/08/17 13:08; Admin Dose 1 EACH; Start 02/28/17 at 09:00 Multivitamins (Multivitamin) 30 ml DAILY GTB Last administered on 03/07/17 09 :52; Admin Dose 30 ML; Start 02/28/17 at 09:00 Clotrimazole (Lotrimin Cr) 1 applic BID TOP Last administered on 03/08/17 08: 59; Admin Dose 1 APPLIC; Start 02/28/17 at 21:00 [facility] This patient yung... PRN PRN XX WOUND CARE; Start 03/01/17 at 03:00 Collagenase 1 applic 1 applic DAILY TOP Last administered on 03/08/17 09:00; Admin Dose 1 APPLIC; Start 03/02/17 at 09:00 Meropenem/Sodium Chloride (Merrem 1 Gm/50 ml (Pmx)) 50 ml @ 100 mls/hr Q12 IVPB Last administered on 03/08/17 08:58; Admin Dose 100 MLS/HR; Start 03/02 at 17:00 Acetaminophen (Tylenol Liquid) 650 mg Q6 PRN GTB PAIN AND OR ELEVATED TEMP Last administered on 03/06/17 17:54; Admin Dose 650 MG; Start 03/06/17 at 18: 00 NASH DOTY NP Mar 08, 2017 19:16
--- NOTE | 2017-03-08 22:11 | CONS ---
Date/Time of Note Date/Time of Note DATE: 03/08/17 TIME: 22:09 Assessment/Plan Assessment/Plan Additional Assessment/Plan 1. Acute kidney injury due to severe prerenal azotemia causing ISchemic ATN 2. Severe Anemia s/p PRBC 3. Acute on chronic rresp failure, S/p tracheostomy 4. H/o CVA 5. H/o Cardiac arrest 6. h/o HTN 7. h/o HL Plan: S/p PRBC transfusion, Hb now stable 10.2 Cotninue current care, IV abx Meropenem and vancomycin Cr imrpoved to normal, Electrolytes stable renally dose all abx will follow up Consultation Date/Type/Reason Admit Date/Time Feb 27, 2017 at 17:51 Initial Consult Date 02/28/17 Type of Consultation: NEPHROLOGY Referring Provider: DESTINEE ROBERTS MD 24 HR Interval Summary Free Text/Dictation Cr & electrolytes improved to normal, BP stable, afebrile Exam/Review of Systems Vital Signs Vitals Vital Signs Date Time Temp Pulse Resp B/P Pulse Ox O2 Delivery O2 Flow Rate FiO2 03/08/17 21:45 80 20 99 30 03/08/17 20:00 97.1 126/65 Intake and Output 03/07/17 03/07/17 03/08/17 15:00 23:00 07:00 Intake Total 1140 ml 1130 ml Output Total 700 ml 500 ml Balance 440 ml 630 ml Exam Constitutional: non-verbal ENMT: other (+ tracheostomy on ventilator ) Neck: non-tender, supple Respiratory: crackles/rales, diminished breath sounds, wheezing Cardiovascular: edema, other (S1 S2 tachycardia ) Gastrointestinal: non-tender, other ( G tube site clear ), soft Musculoskeletal: nl extremities to inspection Extremities: edema Results Result Diagram: 03/07/17 0954 03/07/17 0954 Results 24 hrs Laboratory Tests Test 03/08/17 06:05 03/08/17 06:37 Random Vancomycin Level 23.9 Lab Scanned Report REFERENCE LAB Medications Medications Current Medications Ascorbic Acid (Vitamin C) 500 mg BID GTB Last administered on 03/08/17t 20:56 ; Admin Dose 500 MG; Start 02/28/17 at 09:00 Eye Lubricant (Refresh Plus) 1 drop BID PRN BOTH EYES DRY EYES; Start at 23:30 Carvedilol (Coreg) 6.25 mg BID GTB Last administered on 03/08/17 20:56; Admin Dose 6.25 MG; Start 02/28/17 at 09:00 Epoetin Kali (Epogen (Non Esrd/Non Oncology)) 10,000 units MONWEDFRI@17 SC Last administered on 03/07/17 17:29; Admin Dose 10,000 UNITS; Start 02/28/17 at 17:00 Folic Acid (Folic Acid) 1 mg DAILY GTB Last administered on 03/07/17 09:55; Admin Dose 1 MG; Start 02/28/17 at 09:00 Glycopyrrolate (Robinul) 1 mg TID GTB Last administered on 03/08/17 20:55; Admin Dose 1 MG; Start 02/28/17 at 09:00 Lansoprazole (Prevacid) 30 mg DAILY GTB Last administered on 03/07/17 09:55; Admin Dose 30 MG; Start 02/28/17 at 09:00 Metoclopramide HCl (Reglan) 5 mg TID PRN GTB NAUSEA AND/OR VOMITING; Start at 23:30 Sucralfate (Carafate Susp) 1 gm QID GTB Last administered on 03/08/17 20:55; Admin Dose 1 GM; Start 02/28/17 at 09:00 Lactobacillus Acidophilus (Florajen3 Capsule) 1 each TID NGT Last administered on 03/08/17 20:55; Admin Dose 1 EACH; Start 02/28/17 at 09:00 Multivitamins (Multivitamin) 30 ml DAILY GTB Last administered on 03/07/17 09 :52; Admin Dose 30 ML; Start 02/28/17 at 09:00 Clotrimazole (Lotrimin Cr) 1 applic BID TOP Last administered on 03/08/17 20: 56; Admin Dose 1 APPLIC; Start 02/28/17 at 21:00 Miscellaneous Information (Pending [facility]yl Order For Wound Care) This patient yung... PRN PRN XX WOUND CARE; Start 03/01/17 at 03:00 Collagenase 1 applic 1 applic DAILY TOP Last administered on 03/08/17 09:00; Admin Dose 1 APPLIC; Start 03/02/17 at 09:00 Meropenem/Sodium Chloride (Merrem 1 Gm/50 ml (Pmx)) 50 ml @ 100 mls/hr Q12 IVPB Last administered on 03/08/17 21:00; Admin Dose 100 MLS/HR; Start 03/02 at 17:00 Acetaminophen (Tylenol Liquid) 650 mg Q6 PRN GTB PAIN AND OR ELEVATED TEMP Last administered on 03/06/17 17:54; Admin Dose 650 MG; Start 03/06/17 at 18: 00 ROULA YEPEZ MD Mar 08, 2017 22:11
[2017-03-09] VITALS (23 sets, daily range): BP systolic 113–146; BP diastolic 59–70; PULSE 75–85; RESP 16–20
[2017-03-09] MEDS: IPRATROPIUM (HFA) 12.9 GM INHALER INH SCH ×4 (01:30→19:52)
[2017-03-09] MEDS: ALBUTEROL HFA 8 GM INHALER INH SCH ×4 (01:30→19:52)
--- NOTE | 2017-03-09 06:29 | PN ---
DATE: 03/08/2017 The patient's general condition is same. He is awake, responsive and breathing comfortably with nita tilator support. He has not had any fever spikes. PHYSICAL EXAMINATION: VITAL SIGNS: Stable. Temperature 98.4, blood pressure 102/57, pulse rate is 78, respirations 20, p ulse oximetry 99% saturation. NECK: Tracheal secretions are clear. No bleeding seen. HEART: Regular rhythm. CHEST: Breath sounds are heard bilaterally, diminished in both the lower lung enamorado with a few int ermittent rales and rhonchi. GENERAL: Abdomen soft. No distention seen. The patient last pulled out the G-tube earlier. EXTREMITIES: Show paraplegia. No edema. LABORATORY DATA: The lab tests done yesterday of shows WBC 8000, hemoglobin 10.2, hematocrit 3 2.1, platelets within normal limits. The chemistry panel shows glucose 105, sodium 138, potassium 4 .3, BUN 31, creatinine 0.89. The renal status is gradually improving, almost near normal. Calcium is 9. The chest x-ray taken on the is reported to show bilateral pneumonia in the mid and lower lung zones with the right worse than the left, moderate bilateral pleural effusions are also seen, so rekha nges in the x-ray films may be chronic and even if he has bilateral pleural effusions it would be di fficult to do a thoracentesis due to patient being on a ventilator and with suboptimal cooperation. The risks of complications are high. IMPRESSION: 1. ____ -acquired pneumonia. 2. Sepsis. 3. Chronic ventilator dependent respiratory failure. 4. Urinary tract infection. 5. Chronic anemia. 6. Paraplegia. RECOMMENDATIONS: 1. Continue long-term ventilator support. 2. Continue antibiotics as per ID senior research consultant. At present he is on vancomycin, meropenem and ____. 3. Continue pulmonary toilet, bronchodilator inhalation therapy. 4. Continue tube feedings. G-tube should be reinserted again. 5. Continue hydration. Dictated By: ROEL BOYLE MD SR/NTS Conf#: [id number] DID#: [id number]
[2017-03-09] MEDS: COLISTIMETHATE (25 MG/ML INHAL SYG) NEB SCH ×2 (08:33→19:52)
[2017-03-09 08:49] LABS: BASOPHILS % 0.3 % (0.0-2.0); EOSINOPHILS # 0.2 10^3/ul (0.0-0.5); EOSINOPHILS % 3.2 % (0.0-7.0); HEMATOCRIT 27.7 % (42.0-52.0); HEMOGLOBIN 8.9 g/dl (14.0-18.0); LYMPHOCYTES # 1.1 10^3/ul (0.8-2.9); LYMPHOCYTES % 18.7 % (15.0-51.0); MEAN CORPUSCULAR HEMOGLOBIN 30.6 pg (29.0-33.0); MEAN CORPUSCULAR HGB CONC 32.1 g/dl (32.0-37.0); MEAN CORPUSCULAR VOLUME 95.2 fl (82.0-101.0); MEAN PLATELET VOLUME 11.3 fl (7.4-10.4); MONOCYTE # 0.8 10^3/ul (0.3-0.9); MONOCYTES % 12.9 % (0.0-11.0); NEUTROPHIL # 3.8 10^3/ul (1.6-7.5); NEUTROPHILS % 64.1 % (39.0-77.0); PLATELET COUNT 238 10^3/UL (140-415); RED BLOOD COUNT 2.91 10^6/ul (4.70-6.10)
[2017-03-09] MEDS: SUCRALFATE (100 MG/ML) 10ML CUP GTB SCH ×4 (08:58→21:47)
[2017-03-09] MEDS: GLYCOPYRROLATE 1 MG TAB GTB SCH ×3 (08:58→21:47)
[2017-03-09] MEDS: FOLIC ACID 1 MG TAB GTB SCH (08:59)
[2017-03-09] MEDS: MULTIVITAMINS 30 ML CUP GTB SCH (08:59)
[2017-03-09] MEDS: LANSOPRAZOLE 30 MG CAP GTB SCH (08:59)
[2017-03-09] MEDS: L ACIDOPHIL/B LACTIS/B LONGUM CAPSULE NGT SCH ×3 (08:59→21:47)
[2017-03-09] MEDS: CLOTRIMAZOLE 1% 30 GM CR TOP SCH ×2 (09:02→21:48)
[2017-03-09] MEDS: ASCORBIC ACID 500 MG TAB GTB SCH ×2 (09:02→21:47)
[2017-03-09] MEDS: COLLAGENASE 30 GM TUBE TOP SCH (09:02)
[2017-03-09] MEDS: MEROPENEM 1 GM/50ML(PMX) 50 ML IVPB SCH ×2 (09:20→21:45)
[2017-03-09 09:48] LABS: CALCIUM 9.1 mg/dl (8.4-10.2); CREATININE 0.89 mg/dl (0.61-1.24); POTASSIUM 4.5 mmol/L (3.5-5.1)
--- NOTE | 2017-03-09 10:34 | PN ---
DATE: 03/09/2017 PULMONARY FOLLOWUP NOTE SUBJECTIVE: The patient is awake, responsive. He is breathing comfortably with the ventilator supp ort. He still has copious secretions in the tracheostomy; however, no bleeding seen. PHYSICAL EXAMINATION: VITAL SIGNS: Stable. Temperature 98.2, blood pressure is 126/61, pulse rate is 79, respirations 17 , pulse oximetry 100% saturation. HEART: Regular rhythm. CHEST: Lung enamorado are clearing in both lower lung bases, though still rales and rhonchi are presen t and breath sounds are diminished. ABDOMEN: Soft. No distention seen. Tolerating gastrostomy tube feedings. EXTREMITIES: Show no edema. He is paraplegic. LABORATORY DATA: Awaited. Abdominal x-ray done yesterday shows satisfactory positioning of the gastrostomy tube, without evide nce of contrast extravasation. IMPRESSION: 1. Healthcare-acquired pneumonia, bilateral. 2. Sepsis. 3. Chronic ventilator-dependent respiratory failure. 4. Urinary tract infection. 5. Chronic anemia. 6. Paraplegia. RECOMMENDATIONS: 1. Continue long-term ventilator support. It is highly doubtful that the patient will be able to c ome off the ventilator successfully. This has been explained to the patient's several times. 2. Continue antibiotics as per the ID healthcare network pricing consultant. 3. Continue pulmonary toilet with bronchodilator inhalation therapy. 4. Continue tube feedings. 5. Continue hydration as per nephrology. Dictated By: ROEL BOYLE MD SR/NTS Conf#: [id number] DID#: [id number] CC: DESTINEE ROBERTS MD;*EndCC*
--- NOTE | 2017-03-09 12:15 | PN ---
Date/Time of Note Date/Time of Note DATE: 03/09/17 TIME: 12:14 Assessment/Plan VTE Prophylaxis VTE Prophylaxis Intervention: other Lines/Catheters IV Catheter Type (from Nrs): Mid Line Urinary Cath still in place: Yes Reason Cath still needed: skin wounds contaminated by urine Assessment/Plan Chief Complaint/Hosp Course 1. Bilateral pneumonia, healthcare acquired. - per pulmonary - aspiration precautions 2. Sepsis. - per ID 3. Chronic ventilator dependent respiratory failure. 4. Urinary tract infection. 5. Chronic anemia. 6. Acute kidney injury. - per nephrology 7. Chronic encephalopathy. 8. Paraplegia. Problems: Subjective 24 Hr Interval Summary Free Text/Dictation Patient appears comfortable Exam/Review of Systems Vital Signs Vitals Vital Signs Date Time Temp Pulse Resp B/P Pulse Ox O2 Delivery O2 Flow Rate FiO2 03/09/17 11:51 98.6 84 16 146/70 100 03/09/17 10:20 30 Intake and Output 03/08/17 03/08/17 03/09/17 14:59 22:59 06:59 Intake Total 890 ml 1080 ml Output Total 500 ml 500 ml Balance 390 ml 580 ml Exam Constitutional: well developed Head: atraumatic, normocephalic Neck: supple Respiratory: clear to auscultation Cardiovascular: regular rate and rhythm Gastrointestinal: non-tender, soft Extremities: normal pulses Results Result Diagram: 03/09/17 0751 03/09/17 0751 Results 24 hrs Laboratory Tests Test 03/09/17 07:51 White Blood Count 6.0 # Red Blood Count 2.91 L Hemoglobin 8.9 L Hematocrit 27.7 L Mean Corpuscular Volume 95.2 Mean Corpuscular Hemoglobin 30.6 Mean Corpuscular Hemoglobin Concent 32.1 Red Cell Distribution Width 18.0 H Platelet Count 238 # Mean Platelet Volume 11.3 H Neutrophils % 64.1 Lymphocytes % 18.7 Monocytes % 12.9 H Eosinophils % 3.2 Basophils % 0.3 Nucleated Red Blood Cells % 0.0 Neutrophils # 3.8 Lymphocytes # 1.1 Monocytes # 0.8 Eosinophils # 0.2 Basophils # 0.0 Nucleated Red Blood Cells # 0.0 Sodium Level 138 Potassium Level 4.5 Chloride Level 108 Carbon Dioxide Level 25 Anion Gap 10 Blood Urea Nitrogen 29 H Creatinine 0.89 Glucose Level 101 Calcium Level 9.1 Medications Medications Current Medications Ascorbic Acid (Vitamin C) 500 mg BID GTB Last administered on 03/09/17 09:02 ; Admin Dose 500 MG; Start 02/28/17 at 09:00 Eye Lubricant (Refresh Plus) 1 drop BID PRN BOTH EYES DRY EYES; Start at 23:30 Carvedilol (Coreg) 6.25 mg BID GTB Last administered on 03/09/17 09:05; Admin Dose 6.25 MG; Start 02/28/17 at 09:00 Epoetin Kali (Epogen (Non Esrd/Non Oncology)) 10,000 units MONWEDFRI@17 SC Last administered on 03/07/17 17:29; Admin Dose 10,000 UNITS; Start 02/28/17 at 17:00 Folic Acid (Folic Acid) 1 mg DAILY GTB Last administered on 03/09/17 08:59; Admin Dose 1 MG; Start 02/28/17 at 09:00 Glycopyrrolate (Robinul) 1 mg TID GTB Last administered on 03/09/17 08:58; Admin Dose 1 MG; Start 02/28/17 at 09:00 Lansoprazole (Prevacid) 30 mg DAILY GTB Last administered on 03/09/17 08:59; Admin Dose 30 MG; Start 02/28/17 at 09:00 Metoclopramide HCl (Reglan) 5 mg TID PRN GTB NAUSEA AND/OR VOMITING; Start at 23:30 Sucralfate (Carafate Susp) 1 gm QID GTB Last administered on 03/09/17 08:58; Admin Dose 1 GM; Start 02/28/17 at 09:00 Lactobacillus Acidophilus (Florajen3 Capsule) 1 each TID NGT Last administered on 03/09/17 08:59; Admin Dose 1 EACH; Start 02/28/17 at 09:00 Multivitamins (Multivitamin) 30 ml DAILY GTB Last administered on 03/09/17 08 :59; Admin Dose 30 ML; Start 02/28/17 at 09:00 Clotrimazole (Lotrimin Cr) 1 applic BID TOP Last administered on 03/09/17 09: 02; Admin Dose 1 APPLIC; Start 02/28/17 at 21:00 Miscellaneous Information (Pending Santyl Order For Wound Care) This patient yung... PRN PRN XX WOUND CARE; Start 03/01/17 at 03:00 Collagenase 1 applic 1 applic DAILY TOP Last administered on 03/09/17 09:02; Admin Dose 1 APPLIC; Start 03/02/17 at 09:00 Meropenem/Sodium Chloride (Merrem 1 Gm/50 ml (Pmx)) 50 ml @ 100 mls/hr Q12 IVPB Last administered on 03/09/17 09:20; Admin Dose 100 MLS/HR; Start 03/02 at 17:00 Acetaminophen (Tylenol Liquid) 650 mg Q6 PRN GTB PAIN AND OR ELEVATED TEMP Last administered on 03/06/17 17:54; Admin Dose 650 MG; Start 03/06/17 at 18: 00 ZION BLACK Mar 09, 2017 12:14
[2017-03-09] MEDS: ALBUTEROL/IPRATROPIUM (NEB) 3 ML AMP NEB PRN (14:25)
--- NOTE | 2017-03-09 16:46 | CONS ---
Date/Time of Note Date/Time of Note DATE: 03/09/17 TIME: 16:46 Assessment/Plan Assessment/Plan Additional Assessment/Plan 1. Acute kidney injury due to severe prerenal azotemia causing ISchemic ATN 2. Severe Anemia s/p PRBC 3. Acute on chronic rresp failure, S/p tracheostomy 4. H/o CVA 5. H/o Cardiac arrest 6. h/o HTN 7. h/o HL Plan: S/p PRBC transfusion, Hb 8.9, monitor Hb Cotninue current care, IV abx Meropenem and vancomycin Cr imrpoved to normal, Electrolytes stable renally dose all abx will follow up Consultation Date/Type/Reason Admit Date/Time Feb 27, 2017 at 17:51 Initial Consult Date 02/28/17 Type of Consultation: NEPHROLOGY Referring Provider: DESTINEE ROBERST MD Exam/Review of Systems Vital Signs Vitals Vital Signs Date Time Temp Pulse Resp B/P Pulse Ox O2 Delivery O2 Flow Rate FiO2 03/09/17 16:00 98.2 70 18 132/62 99 03/09/17 14:17 30 Intake and Output 03/08/17 03/08/17 03/09/17 15:00 23:00 07:00 Intake Total 890 ml 1080 ml Output Total 500 ml 500 ml Balance 390 ml 580 ml Exam Constitutional: non-verbal ENMT: other (+ tracheostomy on ventilator ) Neck: non-tender, supple Respiratory: crackles/rales, diminished breath sounds, wheezing Cardiovascular: edema, other (S1 S2 tachycardia ) Gastrointestinal: non-tender, other ( G tube site clear ), soft Musculoskeletal: nl extremities to inspection Extremities: edema Results Result Diagram: 03/09/17 0751 03/09/17 0751 Results 24 hrs Laboratory Tests Test 03/09/17 07:51 White Blood Count 6.0 # Red Blood Count 2.91 L Hemoglobin 8.9 L Hematocrit 27.7 L Mean Corpuscular Volume 95.2 Mean Corpuscular Hemoglobin 30.6 Mean Corpuscular Hemoglobin Concent 32.1 Red Cell Distribution Width 18.0 H Platelet Count 238 # Mean Platelet Volume 11.3 H Neutrophils % 64.1 Lymphocytes % 18.7 Monocytes % 12.9 H Eosinophils % 3.2 Basophils % 0.3 Nucleated Red Blood Cells % 0.0 Neutrophils # 3.8 Lymphocytes # 1.1 Monocytes # 0.8 Eosinophils # 0.2 Basophils # 0.0 Nucleated Red Blood Cells # 0.0 Sodium Level 138 Potassium Level 4.5 Chloride Level 108 Carbon Dioxide Level 25 Anion Gap 10 Blood Urea Nitrogen 29 H Creatinine 0.89 Glucose Level 101 Calcium Level 9.1 Medications Medications Current Medications Ascorbic Acid (Vitamin C) 500 mg BID GTB Last administered on 03/09/17 09:02 ; Admin Dose 500 MG; Start 02/28/17 at 09:00 Eye Lubricant (Refresh Plus) 1 drop BID PRN BOTH EYES DRY EYES; Start at 23:30 Carvedilol (Coreg) 6.25 mg BID GTB Last administered on 03/09/17 09:05; Admin Dose 6.25 MG; Start 02/28/17 at 09:00 Epoetin Kali (Epogen (Non Esrd/Non Oncology)) 10,000 units MONWEDFRI@17 SC Last administered on 03/07/17 17:29; Admin Dose 10,000 UNITS; Start 02/28/17 at 17:00 Folic Acid (Folic Acid) 1 mg DAILY GTB Last administered on 03/09/17 08:59; Admin Dose 1 MG; Start 02/28/17 at 09:00 Glycopyrrolate (Robinul) 1 mg TID GTB Last administered on 03/09/17 12:31; Admin Dose 1 MG; Start 02/28/17 at 09:00 Lansoprazole (Prevacid) 30 mg DAILY GTB Last administered on 03/09/17 08:59; Admin Dose 30 MG; Start 02/28/17 at 09:00 Metoclopramide HCl (Reglan) 5 mg TID PRN GTB NAUSEA AND/OR VOMITING; Start at 23:30 Sucralfate (Carafate Susp) 1 gm QID GTB Last administered on 03/09/17 12:31; Admin Dose 1 GM; Start 02/28/17 at 09:00 Lactobacillus Acidophilus (Florajen3 Capsule) 1 each TID NGT Last administered on 03/09/17 12:31; Admin Dose 1 EACH; Start 02/28/17 at 09:00 Multivitamins (Multivitamin) 30 ml DAILY GTB Last administered on 03/09/17 08 :59; Admin Dose 30 ML; Start 02/28/17 at 09:00 Clotrimazole (Lotrimin Cr) 1 applic BID TOP Last administered on 03/09/17 09: 02; Admin Dose 1 APPLIC; Start 02/28/17 at 21:00 Miscellaneous Information (Pending Santyl Order For Wound Care) This patient yung... PRN PRN XX WOUND CARE; Start 03/01/17 at 03:00 Collagenase 1 applic 1 applic DAILY TOP Last administered on 03/09/17 09:02; Admin Dose 1 APPLIC; Start 03/02/17 at 09:00 Meropenem/Sodium Chloride (Merrem 1 Gm/50 ml (Pmx)) 50 ml @ 100 mls/hr Q12 IVPB Last administered on 03/09/17 09:20; Admin Dose 100 MLS/HR; Start 03/02 at 17:00 Acetaminophen (Tylenol Liquid) 650 mg Q6 PRN GTB PAIN AND OR ELEVATED TEMP Last administered on 03/06/17 17:54; Admin Dose 650 MG; Start 03/06/17 at 18: 00 Miscellaneous Information (*Rx Drug Level Order Reminder*) RANDOM VANCOMYCIN ON 02/12... ONCE ONCE XX ; Start 03/10/17 at 05:00; Stop 03/10/17 at 05:01 ROULA YEPEZ MD Mar 09, 2017 16:46
[2017-03-09] MEDS: EPOETIN 10000 UNITS/ML (NON ESRD/NON ONCOLOGY) SC SCH (17:27)
--- NOTE | 2017-03-09 20:11 | CONS ---
Date/Time of Note Date/Time of Note DATE: 03/09/17 TIME: 20:10 Assessment/Plan Assessment/Plan Chief Complaint/Hosp Course SUBJECTIVE: No acute events, looks comfortable, at bedside, no fevers MICROBIOLOGY: Blood cultures culture growing Corynebacterium, coag negative staph species. Repeat blood cultures on March 01 growing gram-negative rods. Sputum culture growing gram-negative rods. Urine culture grew Klebsiella ESBL INDWELLINGS: Trach, PEG, Car. ANTIMICROBIALS: 1. Vancomycin. 2. Merrem 3. Colistin inhalation. ALLERGIES: NONE. PHYSICAL EXAMINATION: GENERAL: Chronically ill-appearing, elderly man who is awake, in no distress. HEENT: Head atraumatic, normocephalic. Sclerae anicteric. Buccal mucosa dry. NECK: Supple. CHEST: Rise symmetrical. Breath sounds with bilateral rhonchi. HEART: S1, S2. ABDOMEN: Soft, bowel tones present. ASSESSMENT: 1. Resolving sepsis. 2. Klebsiella extended-spectrum beta-lactamase urinary tract infection. 3. Polymicrobial bacteremia with repeat blood cultures negative 03/03/17 4. Chronic respiratory failure and dysphagia. 5. Anemia. 6. Sacral decubitus. PLAN: Remains stable, continue antibiotics for 5 more days Discussed with at bedside Problems: Consultation Date/Type/Reason Admit Date/Time Feb 27, 2017 at 17:51 Initial Consult Date 02/28/17 Type of Consultation: id Referring Provider: DESTINEE ROBERTS MD Exam/Review of Systems Vital Signs Vitals Vital Signs Date Time Temp Pulse Resp B/P Pulse Ox O2 Delivery O2 Flow Rate FiO2 03/09/17 17:21 85 20 98 30 03/09/17 16:00 98.2 132/62 Intake and Output 03/08/17 03/08/17 03/09/17 15:00 23:00 07:00 Intake Total 890 ml 1080 ml Output Total 500 ml 500 ml Balance 390 ml 580 ml Results Result Diagram: 03/09/17 0751 03/09/17 0751 Results 24 hrs Laboratory Tests Test 03/09/17 07:51 White Blood Count 6.0 # Red Blood Count 2.91 L Hemoglobin 8.9 L Hematocrit 27.7 L Mean Corpuscular Volume 95.2 Mean Corpuscular Hemoglobin 30.6 Mean Corpuscular Hemoglobin Concent 32.1 Red Cell Distribution Width 18.0 H Platelet Count 238 # Mean Platelet Volume 11.3 H Neutrophils % 64.1 Lymphocytes % 18.7 Monocytes % 12.9 H Eosinophils % 3.2 Basophils % 0.3 Nucleated Red Blood Cells % 0.0 Neutrophils # 3.8 Lymphocytes # 1.1 Monocytes # 0.8 Eosinophils # 0.2 Basophils # 0.0 Nucleated Red Blood Cells # 0.0 Sodium Level 138 Potassium Level 4.5 Chloride Level 108 Carbon Dioxide Level 25 Anion Gap 10 Blood Urea Nitrogen 29 H Creatinine 0.89 Glucose Level 101 Calcium Level 9.1 Medications Medications Current Medications Ascorbic Acid (Vitamin C) 500 mg BID GTB Last administered on 03/09/17 09:02 ; Admin Dose 500 MG; Start 02/28/17 at 09:00 Eye Lubricant (Refresh Plus) 1 drop BID PRN BOTH EYES DRY EYES; Start at 23:30 Carvedilol (Coreg) 6.25 mg BID GTB Last administered on 03/09/17 09:05; Admin Dose 6.25 MG; Start 02/28/17 at 09:00 Epoetin Kali (Epogen (Non Esrd/Non Oncology)) 10,000 units MONWEDFRI@17 SC Last administered on 03/09/17 17:27; Admin Dose 10,000 UNITS; Start 02/28/17 at 17:00 Folic Acid (Folic Acid) 1 mg DAILY GTB Last administered on 03/09/17 08:59; Admin Dose 1 MG; Start 02/28/17 at 09:00 Glycopyrrolate (Robinul) 1 mg TID GTB Last administered on 03/09/17 12:31; Admin Dose 1 MG; Start 02/28/17 at 09:00 Lansoprazole (Prevacid) 30 mg DAILY GTB Last administered on 03/09/17 08:59; Admin Dose 30 MG; Start 02/28/17 at 09:00 Metoclopramide HCl (Reglan) 5 mg TID PRN GTB NAUSEA AND/OR VOMITING; Start at 23:30 Sucralfate (Carafate Susp) 1 gm QID GTB Last administered on 03/09/17 17:26; Admin Dose 1 GM; Start 02/28/17 at 09:00 Lactobacillus Acidophilus (Florajen3 Capsule) 1 each TID NGT Last administered on 03/09/17 12:31; Admin Dose 1 EACH; Start 02/28/17 at 09:00 Multivitamins (Multivitamin) 30 ml DAILY GTB Last administered on 03/09/17 08 :59; Admin Dose 30 ML; Start 02/28/17 at 09:00 Clotrimazole (Lotrimin Cr) 1 applic BID TOP Last administered on 03/09/17 09: 02; Admin Dose 1 APPLIC; Start 02/28/17 at 21:00 Miscellaneous Information (Pending Santyl Order For Wound Care) This patient yung... PRN PRN XX WOUND CARE; Start 03/01/17 at 03:00 Collagenase 1 applic 1 applic DAILY TOP Last administered on 03/09/17 09:02; Admin Dose 1 APPLIC; Start 03/02/17 at 09:00 Meropenem/Sodium Chloride (Merrem 1 Gm/50 ml (Pmx)) 50 ml @ 100 mls/hr Q12 IVPB Last administered on 03/09/17 09:20; Admin Dose 100 MLS/HR; Start 03/02 at 17:00 Acetaminophen (Tylenol Liquid) 650 mg Q6 PRN GTB PAIN AND OR ELEVATED TEMP Last administered on 03/06/17 17:54; Admin Dose 650 MG; Start 03/06/17 at 18: 00 Miscellaneous Information (*Rx Drug Level Order Reminder*) RANDOM VANCOMYCIN ON 02/12... ONCE ONCE XX ; Start 03/10/17 at 05:00; Stop 03/10/17 at 05:01 NASH DOTY NP Mar 09, 2017 20:11
[2017-03-10] VITALS (21 sets, daily range): BP systolic 112–150; BP diastolic 61–74; PULSE 75–85; RESP 15–22
[2017-03-10] MEDS: ALBUTEROL HFA 8 GM INHALER INH SCH ×4 (01:35→19:18)
[2017-03-10] MEDS: IPRATROPIUM (HFA) 12.9 GM INHALER INH SCH ×4 (01:35→19:19)
[2017-03-10] MEDS: COLISTIMETHATE (25 MG/ML INHAL SYG) NEB SCH ×2 (08:18→19:18)
[2017-03-10] MEDS: ASCORBIC ACID 500 MG TAB GTB SCH (09:20)
[2017-03-10] MEDS: MULTIVITAMINS 30 ML CUP GTB SCH (09:20)
[2017-03-10] MEDS: SUCRALFATE (100 MG/ML) 10ML CUP GTB SCH ×3 (09:20→16:56)
[2017-03-10] MEDS: L ACIDOPHIL/B LACTIS/B LONGUM CAPSULE NGT SCH ×2 (09:21→13:01)
[2017-03-10] MEDS: COLLAGENASE 30 GM TUBE TOP SCH (09:21)
[2017-03-10] MEDS: FOLIC ACID 1 MG TAB GTB SCH (09:21)
[2017-03-10] MEDS: GLYCOPYRROLATE 1 MG TAB GTB SCH ×2 (09:21→13:01)
[2017-03-10] MEDS: LANSOPRAZOLE 30 MG CAP GTB SCH (09:21)
[2017-03-10] MEDS: CLOTRIMAZOLE 1% 30 GM CR TOP SCH (09:21)
[2017-03-10] MEDS: MEROPENEM 1 GM/50ML(PMX) 50 ML IVPB SCH (09:30)
--- NOTE | 2017-03-10 15:14 | RADRPT ---
PROCEDURE: XR Chest. CLINICAL INDICATION: Pneumonia. TECHNIQUE: Single frontal view of the chest was obtained. COMPARISON: 03/05/2017. FINDINGS: Tracheostomy tube stable in position. The cardiomediastinal silhouette appears unchanged. There are aortic calcifications. No significant change in bilateral airspace opacities with small to moderate bilateral pleural effus ions, right greater than left. No definite pneumothorax. No acute osseous abnormality. IMPRESSION: No significant change in bilateral airspace opacities with small to moderate bilateral pleural effus ions, right greater than left. RPTAT: EE Jody Arriaga Physician Date Time Electronically viewed and signed by Jody Arriaga Physician on 03/10/2017 15:14 /
--- NOTE | 2017-03-10 15:59 | PDOCDIS ---
Discharge Instructions CONDITION Patient Condition: Fair HOME CARE INSTRUCTIONS: Special Diet: GT FEEDING ACTIVITY: Activity Restrictions: Slowly Increase Activity Rest between Activity Bathing Restrictions: Sponge Bath JOÃO JUAREZ Mar 10, 2017 15:59
--- NOTE | 2017-03-10 16:47 | CONS ---
Date/Time of Note Date/Time of Note DATE: 03/10/17 TIME: 16:45 Consultation Date/Type/Reason Admit Date/Time Feb 27, 2017 at 17:51 Initial Consult Date SUBJECTIVE: 81 y/o male being treated for severe sepsis, bacteremia, and UTI. No acute events over night. The patient is awake, looks comfortable. Afebrile. VS:124/70 P:79 R:15 T:98.0 SO2:100% LABS: Reviewed. None for today. MICROBIOLOGY: Blood cultures culture growing Corynebacterium, coag negative staph species. Repeat blood cultures on March 01 growing gram-negative rods. Sputum culture growing gram-negative rods. Urine culture grew Klebsiella ESBL Repeat blood culture x2 =NEG INDWELLINGS: Trach, PEG, Car. ANTIMICROBIALS: Patient is on: 1. Vancomycin. 2. Merrem 3. Colistin inhalation. ALLERGIES: NONE. PHYSICAL EXAMINATION: GENERAL: Chronically ill-appearing, elderly man who is awake, in no distress. HEENT: Head atraumatic, normocephalic. Sclerae anicteric. Buccal mucosa dry. NECK: Supple. CHEST: Rise symmetrical. Breath sounds with bilateral rhonchi. HEART: S1, S2. ABDOMEN: Soft, bowel tones present. ASSESSMENT: 1. Severe sepsis. 2. Klebsiella extended-spectrum beta-lactamase urinary tract infection. 3. Polymicrobial bacteremia with repeat blood cultures on 03/01/2017 still positive for gram-negative rods. 4. Chronic respiratory failure and dysphagia. 5. Anemia. 6. Sacral decubitus. PLAN: Patient remains stable. Continue current antibiotics x4 days. Follow pulmonary recommendations. Type of Consultation: id Referring Provider: DESTINEE ROBERTS MD Exam/Review of Systems Vital Signs Vitals Vital Signs Date Time Temp Pulse Resp B/P Pulse Ox O2 Delivery O2 Flow Rate FiO2 03/10/17 16:38 79 03/10/17 15:45 98.0 15 124/70 100 03/10/17 13:25 30 Intake and Output 03/09/17 03/09/17 03/10/17 15:00 23:00 07:00 Intake Total 990 ml 780 ml Output Total 750 ml 600 ml Balance 240 ml 180 ml Results Result Diagram: 03/09/17 0751 03/09/17 0751 Results 24 hrs Laboratory Tests Test 03/10/17 07:12 Random Vancomycin Level 19.7 Medications Medications Current Medications Ascorbic Acid (Vitamin C) 500 mg BID GTB Last administered on 03/10/17 09:20 ; Admin Dose 500 MG; Start 02/28/17 at 09:00 Eye Lubricant (Refresh Plus) 1 drop BID PRN BOTH EYES DRY EYES; Start at 23:30 Carvedilol (Coreg) 6.25 mg BID GTB Last administered on 03/10/17 09:20; Admin Dose 6.25 MG; Start 02/28/17 at 09:00 Epoetin Kali (Epogen (Non Esrd/Non Oncology)) 10,000 units MONWEDFRI@17 SC Last administered on 03/09/17 17:27; Admin Dose 10,000 UNITS; Start 02/28/17 at 17:00 Folic Acid (Folic Acid) 1 mg DAILY GTB Last administered on 03/10/17 09:21; Admin Dose 1 MG; Start 02/28/17 at 09:00 Glycopyrrolate (Robinul) 1 mg TID GTB Last administered on 03/10/17 13:01; Admin Dose 1 MG; Start 02/28/17 at 09:00 Lansoprazole (Prevacid) 30 mg DAILY GTB Last administered on 03/10/17 09:21; Admin Dose 30 MG; Start 02/28/17 at 09:00 Metoclopramide HCl (Reglan) 5 mg TID PRN GTB NAUSEA AND/OR VOMITING; Start at 23:30 Sucralfate (Carafate Susp) 1 gm QID GTB Last administered on 03/10/17 13:01; Admin Dose 1 GM; Start 02/28/17 at 09:00 Lactobacillus Acidophilus (Florajen3 Capsule) 1 each TID NGT Last administered on 03/10/17 13:01; Admin Dose 1 EACH; Start 02/28/17 at 09:00 Multivitamins (Multivitamin) 30 ml DAILY GTB Last administered on 03/10/17 09 :20; Admin Dose 30 ML; Start 02/28/17 at 09:00 Clotrimazole (Lotrimin Cr) 1 applic BID TOP Last administered on 03/10/17 09: 21; Admin Dose 1 APPLIC; Start 02/28/17 at 21:00 Miscellaneous Information (Pending Santyl Order For Wound Care) This patient yung... PRN PRN XX WOUND CARE; Start 03/01/17 at 03:00 Collagenase 1 applic 1 applic DAILY TOP Last administered on 03/10/17 09:21; Admin Dose 1 APPLIC; Start 03/02/17 at 09:00 Meropenem/Sodium Chloride (Merrem 1 Gm/50 ml (Pmx)) 50 ml @ 100 mls/hr Q12 IVPB Last administered on 03/10/17 09:30; Admin Dose 100 MLS/HR; Start 03/02 at 17:00 Acetaminophen (Tylenol Liquid) 650 mg Q6 PRN GTB PAIN AND OR ELEVATED TEMP Last administered on 03/06/17 17:54; Admin Dose 650 MG; Start 03/06/17 at 18: 00 SHAWN LAMB Mar 10, 2017 16:47
--- NOTE | 2017-03-10 23:09 | CONS ---
Date/Time of Note Date/Time of Note DATE: 03/10/17 TIME: 23:08 Assessment/Plan Assessment/Plan Additional Assessment/Plan 1. Acute kidney injury due to severe prerenal azotemia causing ISchemic ATN 2. Severe Anemia s/p PRBC 3. Acute on chronic rresp failure, S/p tracheostomy 4. H/o CVA 5. H/o Cardiac arrest 6. h/o HTN 7. h/o HL Plan: S/p PRBC transfusion, Hb 8.9, monitor Hb , no labs today possibel plan to d/c to [facility] current care, IV abx Meropenem and vancomycin Cr imrpoved to normal, Electrolytes stable renally dose all abx will follow up Consultation Date/Type/Reason Admit Date/Time Feb 27, 2017 at 17:51 Initial Consult Date 02/28/17 Type of Consultation: NEPHROLGOY Referring Provider: DESTINEE ROBERTS MD 24 HR Interval Summary Free Text/Dictation No labs today to review yet Exam/Review of Systems Vital Signs Vitals Vital Signs Date Time Temp Pulse Resp B/P Pulse Ox O2 Delivery O2 Flow Rate FiO2 03/10/17 19:34 82 20 100 30 03/10/17 18:00 98.2 132/66 Mechanical Ventilator Trach Collar Intake and Output 03/09/17 03/09/17 03/10/17 15:00 23:00 07:00 Intake Total 990 ml 780 ml Output Total 750 ml 600 ml Balance 240 ml 180 ml Results Result Diagram: 03/09/17 0751 03/09/17 0751 Results 24 hrs Laboratory Tests Test 03/10/17 07:12 Random Vancomycin Level 19.7 ROULA YEPEZ MD Mar 10, 2017 23:09
== END 2017-03-10 20:05 | disposition other institution (70) | DRG 870 ==
LOC: E/R 14:42 → TEL 17:51
PROVIDERS: ADMIT Internal Medicine; ATTEND Internal Medicine
PROC: 5A1955Z Respiratory Ventilation, Greater than 96 Consecutive Hours (ICD-10-PCS; principal; 2017-02-27)
PROC: 30233N1 Transfusion of Nonautologous Red Blood Cells into Peripheral Vein, Percutaneous Approach (ICD-10-PCS; 2017-02-27)
DX: A41.59 Other Gram-negative sepsis (principal); N17.0 Acute kidney failure with tubular necrosis; J96.20 Acute and chronic respiratory failure, unspecified whether with hypoxia or hypercapnia; J18.9 Pneumonia, unspecified organism; Z99.11 Dependence on respirator [ventilator] status; G93.1 Anoxic brain damage, not elsewhere classified; L89.154 Pressure ulcer of sacral region, stage 4; L89.894 Pressure ulcer of other site, stage 4; E87.0 Hyperosmolality and hypernatremia; G82.21 Paraplegia, complete; K94.23 Gastrostomy malfunction; K22.10 Ulcer of esophagus without bleeding; N39.0 Urinary tract infection, site not specified; Z43.0 Encounter for attention to tracheostomy; Z86.74 Personal history of sudden cardiac arrest; D63.1 Anemia in chronic kidney disease; N18.9 Chronic kidney disease, unspecified; I69.869 Other paralytic syndrome following other cerebrovascular disease affecting unspecified side; H17.9 Unspecified corneal scar and opacity; H54.40 Blindness, one eye, unspecified eye; I12.9 Hypertensive chronic kidney disease with stage 1 through stage 4 chronic kidney disease, or unspecified chronic kidney disease; D50.0 Iron deficiency anemia secondary to blood loss (chronic); Z74.01 Bed confinement status; R13.10 Dysphagia, unspecified; B96.1 Klebsiella pneumoniae [K. pneumoniae] as the cause of diseases classified elsewhere; Z16.12 Extended spectrum beta lactamase (ESBL) resistance; R65.20 Severe sepsis without septic shock; L89.620 Pressure ulcer of left heel, unstageable; L89.610 Pressure ulcer of right heel, unstageable
CPT/HCPCS: 36415; 36430; 36600; 71010; 74000; 80048; 80053; 80202; 81001; 82803; 83605; 84484; 85025; 85610; 85730; 86644; 86850; 86900; 86901; 86920; 87040; 87045; 87070; 87081; 87086; 89220; 92610; 93005; 94002; 94003; 94640; 94664; 96374; 96375; 97110; 97163; 97530; J0692; J0885; J2185; J3370; J7030; J7070; P9016

== ENCOUNTER 2017-06-11 15:51 | Inpatient (IN) | END 2017-06-22 18:56 | DRG 870 ==

== ENCOUNTER 2017-06-27 17:48 | Inpatient (IN) | END 2017-07-05 19:55 | disposition home or self-care (01) | DRG 314 ==

== ENCOUNTER 2017-07-17 10:53 | Emergency (ER) | END 2017-07-17 17:30 | disposition home or self-care (01) ==